=== PATIENT | male | born 1990 ===

== ENCOUNTER → 2021-03-29 09:31 | Outpatient (BNVA) | payer OTHER, SELFPAY | PROVIDERS: PCP Family Medicine; Visit Provider Internal Medicine Pulmonary Disease | DX: G47.30 Sleep apnea, unspecified (principal); E66.9 Obesity, unspecified | CPT/HCPCS: 99202 ==

== ENCOUNTER → 2021-05-03 15:52 | Outpatient (REF) | payer OTHER, SELFPAY | LOC: HO.SL 15:52 | PROVIDERS: PCP Family Medicine; Visit Provider Internal Medicine Pulmonary Disease | DX: G47.30 Sleep apnea, unspecified (principal) | CPT/HCPCS: 95806 ==

== ENCOUNTER → 2021-05-30 15:31 | Outpatient (BNVA) | payer OTHER, SELFPAY | PROVIDERS: PCP Family Medicine; Visit Provider Internal Medicine Pulmonary Disease | DX: G47.30 Sleep apnea, unspecified (principal); E66.9 Obesity, unspecified | CPT/HCPCS: 99212 ==

== ENCOUNTER 2022-02-06 07:31 | Outpatient (REF) | payer OTHER, SELFPAY ==
[2022-02-06 11:21] LABS: MANUAL DIFF FLAG NO
[2022-02-06 11:37] LABS: Basophils Percent Auto 0.7 % (0-2); Eosinophils Absolute Auto 0.1 X10*3/uL (0.0-0.4); Eosinophils Percent Auto 1.5 % (0-4); Hematocrit 43.7 % (42.0-52.0); Hemoglobin 14.3 g/dl (14.0-18.0); Imm Gran Abs Auto 0.13 X10*3/uL (0.00-0.03); Imm Gran Pct Auto 2.1 % (0.0-0.4); Lymphocytes Absolute Auto 1.7 X10*3/uL (1.2-4.9); Lymphocytes Percent Auto 27.3 % (20-40); Mean Corpuscular HGB Conc 32.7 g/dl (31.0-36.0); Mean Corpuscular Hemoglobin 31.2 pg (27.0-33.0); Mean Corpuscular Volume 95.2 fL (80.0-98.0); Mean Platelet Volume 10.2 fL (9.4-12.4); Monocytes Absolute Auto 0.7 X10*3/uL (0.1-1.2); Monocytes Percent Auto 10.8 % (2-11); Neutrophils Absolute Auto 3.5 x10*3/uL (2.0-8.3); Neutrophils Percent Auto 57.6 % (45-73); Platelet Count 285 X10*3/uL (160-400); Red Blood Count 4.59 X10*6/uL (4.60-5.80); Red Cell Distribution Width 12.2 % (11.0-16.0); White Blood Count 6.1 X10*3/uL (4.8-10.8)
[2022-02-06 12:14] LABS: Alanine Aminotransferase 30 U/L (0-40); Albumin Level 4.3 g/dL (3.5-5.0); Alkaline Phosphatase 60 U/L (39-117); Anion Gap 12 (12-20); Aspartate Amino Transferase 22 U/L (5-37); Bilirubin Total 0.8 mg/dL (0.0-1.0); Blood Urea Nitrogen 15 mg/dL (9-16); Calcium 9.7 mg/dL (8.4-10.2); Carbon Dioxide 27 mmol/L (22-29); Chloride 106 mmol/L (96-108); Cholesterol 193 mg/dL; Estimated Glomerular Filt Rate > 60; Glucose Fasting 99 mg/dL (60-99); HDL Cholesterol 34 mg/dL; LDL Cholesterol Calculated 127 mg/dl; Potassium 4.1 mmol/L (3.3-5.1); Sodium 141 mmol/L (135-145); Total Protein 7.4 g/dL (6.5-8.0); Triglycerides 163 mg/dL
[2022-02-06 12:21] LABS: TSH reflex Free T4 3.26 uIU/mL (0.32-4.0)
== END 2022-02-06 07:32 | disposition home or self-care (01) ==
LOC: HO.WFDLDS 07:31
PROVIDERS: Visit Provider Family Medicine
DX: Z00.00 Encounter for general adult medical examination without abnormal findings (principal)
CPT/HCPCS: 36415; 80053; 80061; 84443; 85025

== ENCOUNTER → 2022-03-26 14:46 | Outpatient (BNVA) | payer OTHER, SELFPAY | PROVIDERS: PCP Family Medicine; Visit Provider Internal Medicine Pulmonary Disease | DX: G47.30 Sleep apnea, unspecified (principal); E66.01 Morbid (severe) obesity due to excess calories; Z68.41 Body mass index [BMI] 40.0-44.9, adult; Z99.89 Dependence on other enabling machines and devices | CPT/HCPCS: 99212 ==

== ENCOUNTER 2022-09-18 08:12 | Outpatient (REF) | payer BC, MEDICAID, SELFPAY ==
[2022-09-18 12:08] LABS: Alanine Aminotransferase 30 U/L (0-40); Albumin Level 4.4 g/dL (3.5-5.0); Alkaline Phosphatase 59 U/L (39-117); Anion Gap 14 (12-20); Aspartate Amino Transferase 20 U/L (5-37); Bilirubin Total 0.6 mg/dL (0.0-1.0); Blood Urea Nitrogen 18 mg/dL (9-16); Calcium 9.3 mg/dL (8.4-10.2); Carbon Dioxide 26 mmol/L (22-29); Chloride 104 mmol/L (96-108); Cholesterol 227 mg/dL; Estimated Glomerular Filt Rate > 60; Glucose Random 103 mg/dL (60-115); HDL Cholesterol 31 mg/dL; LDL Cholesterol Calculated 158 mg/dl; Potassium 4.2 mmol/L (3.3-5.1); Sodium 140 mmol/L (135-145); Total Protein 7.3 g/dL (6.5-8.0); Triglycerides 192 mg/dL
== END 2022-09-18 08:13 | disposition home or self-care (01) ==
LOC: HO.WFDLDS 08:12
PROVIDERS: Visit Provider Family Medicine
DX: Z00.00 Encounter for general adult medical examination without abnormal findings (principal); F41.9 Anxiety disorder, unspecified; E78.1 Pure hyperglyceridemia
CPT/HCPCS: 36415; 80053; 80061

== ENCOUNTER 2022-11-22 07:46 | Outpatient (REF) | payer BC, MEDICAID, SELFPAY ==
[2022-11-22 11:55] LABS: Cholesterol 222 mg/dL; HDL Cholesterol 33 mg/dL; LDL Cholesterol Calculated 152 mg/dl; Triglycerides 185 mg/dL
== END 2022-11-22 07:47 | disposition home or self-care (01) ==
LOC: HO.WFDLDS 07:46
PROVIDERS: Visit Provider Family Medicine
DX: Z00.00 Encounter for general adult medical examination without abnormal findings (principal); E78.5 Hyperlipidemia, unspecified
CPT/HCPCS: 36415; 80061

== ENCOUNTER 2023-03-19 07:47 | Outpatient (REF) | payer BC, MEDICAID, SELFPAY ==
[2023-03-19 12:08] LABS: Alanine Aminotransferase 48 U/L (0-40); Albumin Level 4.3 g/dL (3.5-5.0); Alkaline Phosphatase 60 U/L (39-117); Anion Gap 15 (12-20); Aspartate Amino Transferase 25 U/L (5-37); Bilirubin Total 0.9 mg/dL (0.0-1.0); Blood Urea Nitrogen 15 mg/dL (9-16); Calcium 9.7 mg/dL (8.4-10.2); Carbon Dioxide 24 mmol/L (22-29); Chloride 105 mmol/L (96-108); Cholesterol 179 mg/dL; Estimated Glomerular Filt Rate > 60; Glucose Fasting 104 mg/dL (60-99); HDL Cholesterol 35 mg/dL; LDL Cholesterol Calculated 114 mg/dl; Potassium 4.1 mmol/L (3.3-5.1); Sodium 140 mmol/L (135-145); TSH reflex Free T4 2.93 uIU/mL (0.32-4.0); Total Protein 7.5 g/dL (6.5-8.0); Triglycerides 153 mg/dL
== END 2023-03-19 07:48 | disposition home or self-care (01) ==
LOC: HO.WFDLDS 07:47
PROVIDERS: Visit Provider Family Medicine
DX: Z00.00 Encounter for general adult medical examination without abnormal findings (principal)
CPT/HCPCS: 36415; 80053; 80061; 84443

== ENCOUNTER 2023-03-22 16:40 | Outpatient (AMB) | payer BC, MEDICAID, SELFPAY ==
--- NOTE | 2023-03-22 16:36 | A.OFFPC_ITS ---
Intake Visit Reasons: f/u labs Intake Note: Patient is calling to follow up on labs today. Allergies No Known Allergies [No Known Allergies*] Allergy (Verified 03/22/23 16:37) Tobacco use date assessed: 03/22/23 Dental Screening Dental Screen Date: 03/22/23 Did you have a dental visit in the last 12 months?: Yes Did you have a dental problem in the last 6 months where you did not have access to dental care?: No Was dental information given to patient?: No HPI f/u labs HPI Details 32 y/o male presents to f/u labs via telemedicine. Labs were drawn 03/19/23. Reviewed labs with pt. Elevated fasting glucose of 104. Elevated ALT of 48. Triglycerides 153. TC 179. LDL 114. HDL low at 35. He is on artovastatin 10mg daily and he denies any problems with this. He is on omeprazole 20mg daily for his GERD. He notes venlafaxine at a single dose has been helping. [facility] Social History Housing: House Alcohol intake: current Alcohol intake frequency: holidays/special occasions only Patient Tobacco Use Status: Never used Tobacco e-Cigarette/Vaping Use: Never Used Second Hand Smoke Exposure: No Substance Use Type: Marijuana service: No Current occupational status: employed Current occupational exposures/hazards: No Cognitive needs: No Hearing needs: No Vision needs: No Questionnaire Thrive Questionnaire Date Thrive assessed: 11/09/22 PENG-7 AMB Questionnaire PENG-7 Date PENG - 7 assessed: 11/09/22 Source: Developed by Drs. Ladarius Jerry, Марина Hillman, Beck Arellano and colleagues, with an educational carlos from [employer]. Physical exam (Primary Care) Tobacco/Smoking Status: Tobacco use Status Tobacco use date assessed 03/22/23 03/22/23 16:39 Patient Tobacco Use Status Never used Tobacco 03/22/23 16:39 e-Cigarette/Vaping Use Never Used 03/22/23 16:39 Thrive Assessment: Date of Thrive Assessment Date Thrive assessed 11/09/22 03/22/23 16:39 Telehealth Telehealth Location of provider rendering services: practice address Location of patient: address on file Patient Identification confirmed using: Name, : Yes Telehealth method: voice only Patient verbally consented to treatment: Yes Patient verbally consented to billing insurance company: Yes Patient informed of any privacy concerns related to visit: Yes Minutes spent on Phone/Video with Pt.: 8 Assessment and Plan Assessment & Plan (1) Elevated ALT measurement: Code(s): R74.01 - Elevation of levels of liver transaminase levels Plan: Mildly elevated ALT liver enzyme. Patient is significantly overweight and this is likely secondary to some fatty liver disorder However, did start atorvastatin recently. Will repeat liver enzymes. If significantly elevated or if not decreasing with weight loss, would consider switching his statin medication (2) Low HDL (under 40): Code(s): E78.6 - Lipoprotein deficiency Plan: Advised increased exercise (3) Hyperlipidemia: Code(s): E78.5 - Hyperlipidemia, unspecified Plan: Improved Continue atorvastatin (4) GERD (gastroesophageal reflux disease): Code(s): K21.9 - Gastro-esophageal reflux disease without esophagitis Plan: Somewhat improved with omeprazole Continue omeprazole Orders: Orders Comprehensive [place]. Panel Fast Today R74.01 - Elevation of levels of liver transaminase levels, Z00.00 - Encounter for general adult medical examination without abnormal findings Lipid Panel Today E78.5 - Hyperlipidemia, unspecified, Z00.00 - Encounter for general adult medical examination without abnormal findings Coding Level of Care Code Tele Est Pt Level 2 (17558) Diagnoses Elevated ALT measurement R74.01 Low HDL (under 40) E78.6 Hyperlipidemia E78.5 GERD (gastroesophageal reflux disease) K21.9
== END 2023-03-22 16:50 ==
LOC: HO.HMGFM 16:40
PROVIDERS: PCP Family Medicine; Visit Provider Family Medicine
DX: R74.01 Elevation of levels of liver transaminase levels (principal); E78.6 Lipoprotein deficiency; E78.5 Hyperlipidemia, unspecified; K21.9 Gastro-esophageal reflux disease without esophagitis
CPT/HCPCS: 99441

== ENCOUNTER 2023-08-22 08:26 | Outpatient (AMB) | payer BC, SELFPAY ==
--- NOTE | 2023-08-22 08:18 | MHC.PC.OV ---
Vital Signs 08/22/23 08:31 Height 6 ft Weight 308 lb 4 oz BMI 41.8 BP 116/62 Blood Pressure Location Rt brachial Position Sitting Respiration 13 Pulse 83 Pulse Source Pulse Oximeter Pulse Oximetry (%) 95 Oxygen Delivery Method Room Air Intake Visit Reasons: Discuss Medication Follow Up, PHQ-9 Follow Up Intake Note: Patient is here for a follow up regarding the medication he is taking. Patient reports he did not get his labs done prior to todays visit. Patient reports he has no concerns at this time. 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 No recent labs to review. A1c today 4.8%. Pt has questions about whether his venlafaxine could be causing erectile dysfunction. He notes difficulty maintaining an erection. [facility] Medical History (Updated 08/22/23 @ 09:19 by Tani Rios) No pertinent past medical history Surgical History (Updated 08/22/23 @ 08:[address] CMA) No pertinent past surgical history Family History (Updated 08/22/23 @ 08:[address] CMA) Other Alcohol abuse Social History (Updated 08/22/23 @ 08:[address] CMA) Household Members: Spouse and Children Housing: House Alcohol intake: current Alcohol intake frequency: holidays/special occasions only Patient Tobacco Use Status: Never used Tobacco e-Cigarette/Vaping Use: Never Used Second Hand Smoke Exposure: No Substance Use Type: Marijuana service: No Current occupational status: employed Current occupational exposures/hazards: No Sexual orientation: Unable to collect Gender identity: Unable to collect Cognitive needs: No Hearing needs: No Vision needs: No Questionnaire PHQ-9 Over the last 2 weeks, how often have you been bothered by any of the following problems? 1. Little interest or pleasure in doing things: several days 2. Feeling down, depressed, or hopeless: several days 3. Trouble falling or staying asleep, or sleeping too much: nearly every day 4. Feeling tired or having little energy: more than half the days 5. Poor appetite or overeating: several days 6. Feeling bad about yourself - or that you are a failure or have let yourself or your family down: several days 7. Trouble concentrating on things, such as reading the newspaper or watching television: not at all 8. Moving or speaking so slowly that other people could have noticed. Or the opposite - being so fidgety or restless that you have been moving around a lot more than usual: not at all 9. Thoughts that you would be better off or of hurting yourself in some way: not at all Total score: 9 Depression Screening Interpretation: Positive Depression Screening Done: Yes 74605 - PHQ-9 Billing: Yes Source: Developed by Drs. Ladarius Jerry, Марина Hillman, Beck Arellano and colleagues, with an educational carlos from [email or web address]. Thrive Questionnaire Date Thrive assessed: 11/09/22 PENG-7 AMB Questionnaire PENG-7 Date PENG - 7 assessed: 08/22/23 Feeling nervous, anxious, or on edge: 1 = Several days Not being able to stop or control worryin = Several days Worrying too much about different things: 1 = Several days Trouble relaxin = Several days Being so restless that it is hard to sit still: 0 = Not at all Becoming easily annoyed or irritable: 2 = More than half the days Feeling afraid as if something awful might happen: 1 = Several days Total PENG-7 score (0-4 normal; 5-9 mild; 10-14 moderate; 15-21 severe): 7 Source: Developed by Drs. Ladarius Jerry, Марина Hillman, Beck Arellano and colleagues, with an educational carlos from [email or web address]. PENG-7 Assessment Billing PENG-7 Assessment Tool: PENG-7 Assessment 10094 Review of Systems Const Denies chills, Denies fatigue, Denies fever(s), Denies headache(s) and Denies weakness ENT Denies dizziness and Denies headache(s) Card Denies dyspnea Resp Denies cough, Denies dyspnea, Denies wheezing and Denies other (shortness of breath) Musc Denies numbness and Denies tingling Neuro Denies dizziness, Denies headache(s), Denies numbness, Denies tingling and Denies weakness Psych Denies anxiety and Denies depression Endo Denies fatigue Aller/Immun Denies wheezing Physical exam (Primary Care) Vital Signs: Last Vital Signs Pulse 83 08/22/23 08:31 Resp 13 08/22/23 08:31 BP 116/62 08/22/23 08:31 Pulse Ox 95 08/22/23 08:31 Oxygen Delivery Method Room Air 08/22/23 08:31 BMI result Body Mass Index 41.8 Tobacco/Smoking Status: Tobacco use Status Tobacco use date assessed 08/22/23 08/22/23 08:42 Patient Tobacco Use Status Never used Tobacco 08/22/23 08:39 e-Cigarette/Vaping Use Never Used 08/22/23 08:39 PHQ-9: PHQ-9 Score PHQ-9: Total score 9 08/22/23 09:13 Depression Screening Interpretation: Positive Thrive Assessment: Date of Thrive Assessment Date Thrive assessed 11/09/22 08/22/23 08:19 Const General: well developed; No acute distress Nutritional Appearance: well nourished Orientation/consciousness: patient oriented x3 HENMT Head: Yes normocephalic and Yes atraumatic Eyes General: appearance normal, both eyes and all related structures Pupils: Equal, round and reactive pupils present EOM: EOMs intact bilaterally Resp Effort & Inspection: normal respiratory effort Neuro General: patient oriented x3 and gait normal Cranial nerves: Yes Equal, round and reactive pupils present Psych Affect: normal affect Results AMB Hemoglobin A1c AMB Hemoglobin A1c 4.8 % Last Edit by Na Street CMA on 08/22/23 09:12 Results Reviewed Results Reviewed: Laboratory Last Values Hgb A1c (Clinic) 4.8 % (4.0-6.0) 08/22/23 09:10 Assessment and Plan Assessment & Plan (1) Elevated fasting blood sugar: Code(s): R73.01 - Impaired fasting glucose Plan: A1c?4.8%.??Normal?range We?can?monitor?his?fasting?blood?sugars?periodically (2) Elevated ALT measurement: Code(s): R74.01 - Elevation of levels of liver transaminase levels Plan: Has?not?had?his?blood?rechecked?bow?have?this?drawn?today (3) Erectile dysfunction: Code(s): N52.9 - Male erectile dysfunction, unspecified Plan: Complaints?of?difficulty?maintaining?an?erection Check?testosterone He?notes?that?he?thinks?that?venlafaxine?may?be?contributing?to?this.??Wants?to?continue?venlafaxine?however?as?it?is?keeping?his?depression?and?anxiety?more?stable. (4) Depression with anxiety: Code(s): F41.8 - Other specified anxiety disorders Plan: Stable?on?venlafaxine Continue?current?medication?for?now. (5) Hyperlipidemia: Code(s): E78.5 - Hyperlipidemia, unspecified Plan: Taking?atorvastatin Has?not?had?his?lipids?drawn?yet?for?today's?follow-up.??He?will?get?them?drawn?today?and?we?can?follow-up?in?a?few?weeks (6) Hyperlipidemia: Code(s): E78.5 - Hyperlipidemia, unspecified Orders: Orders TSH reflex Free T4 Today Z00.00 - Encounter for general adult medical examination without abnormal findings AMB Hemoglobin A1c Today Z13.9 - Encounter for screening, unspecified Testosterone, Free/Total Today N52.9 - Male erectile dysfunction, unspecified Coding Level of Care Code Est Pt Level 4 (26876) Diagnoses Elevated fasting blood sugar R73.01 Elevated ALT measurement R74.01 Erectile dysfunction N52.9 Depression with anxiety F41.8 Hyperlipidemia E78.5 Additional Codes PENG-7 Assessment Billing - PENG-7 Assessment Tool: PENG-7 Assessment 79049 ([id number])
[2023-08-22 08:31] VITALS: BP 116/62; PULSE 83; RESP 13; O2SAT 95; BMI 41.8
== END 2023-08-22 09:22 | disposition home or self-care (01) ==
PROVIDERS: PCP Family Medicine; Visit Provider Family Medicine
DX: R73.01 Impaired fasting glucose (principal); R74.01 Elevation of levels of liver transaminase levels; N52.9 Male erectile dysfunction, unspecified; F41.8 Other specified anxiety disorders; E78.5 Hyperlipidemia, unspecified
CPT/HCPCS: 83036; 96127; 99214

== ENCOUNTER 2023-08-22 09:23 | Outpatient (REF) | payer BC, MEDICAID, SELFPAY ==
[2023-08-22 12:17] LABS: Alanine Aminotransferase 34 U/L (0-40); Albumin Level 4.5 g/dL (3.5-5.0); Alkaline Phosphatase 59 U/L (39-117); Anion Gap 10 (12-20); Aspartate Amino Transferase 24 U/L (5-37); Bilirubin Total 0.8 mg/dL (0.0-1.0); Blood Urea Nitrogen 18 mg/dL (9-16); Calcium 9.4 mg/dL (8.4-10.2); Carbon Dioxide 28 mmol/L (22-29); Chloride 104 mmol/L (96-108); Cholesterol 186 mg/dL (<200); Estimated Glomerular Filt Rate > 60; Glucose Fasting 92 mg/dL (60-99); HDL Cholesterol 35 mg/dL (>40); LDL Cholesterol Calculated 127 mg/dL (<100); Potassium 4.1 mmol/L (3.3-5.1); Sodium 138 mmol/L (135-145); Total Protein 7.9 g/dL (6.5-8.0); Triglycerides 120 mg/dL (<150)
[2023-08-22 12:34] LABS: TSH reflex Free T4 1.92 uIU/mL (0.32-4.0)
[2023-08-28 14:23] LABS: Testosterone, Free 64.2 pg/mL (35.0-155.0); Testosterone, Total 331 ng/dL (250-1100)
== END 2023-08-22 09:24 | disposition home or self-care (01) ==
LOC: HO.WFDLDS 09:23
PROVIDERS: Visit Provider Family Medicine
DX: Z00.00 Encounter for general adult medical examination without abnormal findings (principal); E78.5 Hyperlipidemia, unspecified; R74.01 Elevation of levels of liver transaminase levels; N52.9 Male erectile dysfunction, unspecified; E78.6 Lipoprotein deficiency
CPT/HCPCS: 36415; 80053; 80061; 84402; 84403; 84443

== ENCOUNTER 2024-02-11 09:43 | Outpatient (AMB) | payer BC, SELFPAY ==
[2024-02-11 09:52] VITALS: BP 118/70; PULSE 73; O2SAT 95; BMI 41.8
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
== END 2024-02-11 10:39 | disposition home or self-care (01) ==
PROVIDERS: PCP Family Medicine; Visit Provider Family Medicine
DX: E78.5 Hyperlipidemia, unspecified (principal); E78.6 Lipoprotein deficiency; R74.01 Elevation of levels of liver transaminase levels; N52.9 Male erectile dysfunction, unspecified; T23.002A Burn of unspecified degree of left hand, unspecified site, initial encounter
CPT/HCPCS: 99214

== ENCOUNTER 2024-04-23 09:31 | Outpatient (AMB) | payer BC, SELFPAY ==
--- NOTE | 2024-04-23 09:34 | A.OFFPC_ITS ---
Vital Signs 04/23/24 09:36 Height 6 ft Weight 306 lb 2 oz BMI 41.5 BP 116/62 Blood Pressure Location Lt brachial Position Sitting Respiration 16 Pulse 81 Pulse Source Pulse Oximeter Temp 98.5 F Temp Source Oral Pulse Oximetry (%) 94 Oxygen Delivery Method Room Air Intake Visit Reasons: CPE with f/u labs and health maint. Intake Note: Physical Allergies No Known Allergies [No Known Allergies*] Allergy (Verified 04/23/24 09:35) Medication List - Last Reconciled 04/23/24 by Natalie Lechuga PA-C albuterol sulfate 90 mcg/actuation (ProAir HFA) 2 puffs inhalation Q4-6H PRN 30 days atorvastatin 20 mg PO BEDTIME 90 days sildenafil 100 mg PO DAILY PRN 30 days silver sulfadiazine 1% (Silvadene) 1 appl topical BID 10 days venlafaxine ER 150 mg PO DAILY 90 days Tobacco use date assessed: 02/11/24 Dental Screening Dental Screen Date: 02/11/24 HPI CPE with f/u labs and health maint. HPI Details Patient is a 33-year-old male with a significant past medical history of hyperlipidemia, KIMBERLI on CPAP, anxiety, depression, erectile dysfunction presenting today for a physical. He normally follows with Dr. Patterson. He has no acute concerns but would like some referrals. CV: Blood pressure today in the office is 116/62. He had his Lipitor increased at the last visit to 20 mg. He was supposed to get his labs checked prior to today's visit. He states that he forgot to do this. Endo: Denies any polyuria or polydipsia. Last a1c was 4.8. Psych: He is doing well with the venlafaxine. Urology: He wants a referral to urology for a vasectomy. He has 1 [address] Baby boy is due 07/03/24. GI: He has a hx of a hemorrhoid that has bothered him since 2008. He has creams, wipes, suppositories. He gets regular flare ups and wants this removed. Has discussed with pcp in past. COUNT INCLUDES [facility] Medical History No pertinent past medical history Surgical History No pertinent past surgical history Family History Other Alcohol abuse Social History Household Members: Spouse and Children Housing: House Alcohol intake: current Alcohol intake frequency: holidays/special occasions only Patient Tobacco Use Status: Never used Tobacco e-Cigarette/Vaping Use: Never Used Second Hand Smoke Exposure: No Substance Use Type: Marijuana service: No Current occupational status: employed Current occupational exposures/hazards: No Sexual orientation: Unable to collect Gender identity: Unable to collect Cognitive needs: No Hearing needs: No Vision needs: No Questionnaire Thrive Questionnaire Date Thrive assessed: 02/11/24 PENG-7 AMB Questionnaire PENG-7 Date PENG - 7 assessed: 02/11/24 Source: Developed by Drs. Ladarius Jerry, Марина Hillman, Beck Arellano and colleagues, with an educational carlos from [employer]. Physical exam (Primary Care) Vital Signs: Last Vital Signs Temp 98.5 F 04/23/24 09:36 Pulse 81 04/23/24 09:36 Resp 16 04/23/24 09:36 BP 116/62 04/23/24 09:36 Pulse Ox 94 04/23/24 09:36 Oxygen Delivery Method Room Air 04/23/24 09:36 BMI result Body Mass Index 41.5 Tobacco/Smoking Status: Tobacco use Status Tobacco use date assessed 02/11/24 04/23/24 09:34 Patient Tobacco Use Status Never used Tobacco 04/23/24 09:34 e-Cigarette/Vaping Use Never Used 04/23/24 09:34 Thrive Assessment: Date of Thrive Assessment Date Thrive assessed 02/11/24 04/23/24 09:34 Const Orientation/consciousness: patient oriented x3 HENMT Ears: hearing grossly normal bilaterally and TM's normal bilaterally General nose exam: No nasal polyps present Face and sinus: Yes sinuses nontender Mouth: Normal oral and palatal mucosa present Eyes Pupils: Equal, round and reactive pupils present EOM: EOMs intact bilaterally Neck Neck: Yes full ROM and Yes no lymphadenopathy Thyroid: Thyroid normal Chest Chest palpation & inspection: normal inspection of the chest Resp Auscultation: clear to auscultation bilaterally Cardio Rate: regular rate Rhythm: regular rhythm Heart sounds: S1 normal heart sound present and S2 normal heart sound present Peripheral pulses: Peripheral pulses 2+ throughout GI Other: Soft, nontender Auscultation: normal bowel sounds Rectal Exam - Male: Yes deferred (declined exam) Other: No inguinal lymphadenopathy, no masses noted General: Yes no CVA tenderness Back/Spine/Pelvis Other: Nontender Back: no CVA tenderness Skin General skin exam: no rashes or lesions noted Neuro General: patient oriented x3, gait normal, CN's II-XI intact bilaterally and deep tendon reflexes 2+ bilaterally Cranial nerves: Yes Equal, round and reactive pupils present Motor exam (neuro): 5/5 motor strength present throughout Sensory Exam: double simultaneous stimulation for sensation normal Coordination: [id number]-uy-[id number] test normal and Romberg test negative Extrem General: Yes normal to inspection and Yes full ROM Psych Affect: normal affect Attitude: cooperative Thought process: Normal thought process present Thought content: Normal thought content present Insight: Good insight present (Psych) Judgement: Good judgement present (Psych) Results Reviewed Results Reviewed: Laboratory Tests 08/22/23 08/22/23 09:10 09:25 Creatinine 1.10 Estimated GFR > 60 Fasting Glucose 92 Hgb A1c (Clinic) 4.8 AST 24 ALT 34 Alkaline Phosphatase 59 Triglycerides 120 Cholesterol 186 LDL Cholesterol, Calc 127 H HDL Cholesterol 35 L TSH 1.92 Assessment and Plan Assessment & Plan (1) Routine general medical examination at a health care facility: Code(s): Z00.00 - Encounter for general adult medical examination without abnormal findings Plan: HM reviewed advised to get labs done referral to colorectal surgery referral to urology for vasectomy (2) Hemorrhoids: Code(s): K64.9 - Unspecified hemorrhoids Qualifiers: Hemorrhoid type: unspecified Qualified Code(s): K64.9 - Unspecified hemorrhoids Plan: referral placed (3) Depression with anxiety: Code(s): F41.8 - Other specified anxiety disorders Plan: continue venlafaxine (4) Morbid obesity with BMI of 40.0-44.9, adult: Code(s): E66.01 - Morbid (severe) obesity due to excess calories; Z68.41 - Body mass index [BMI] 40.0-44.9, adult Plan: discussed reducing carbs, sugar, processed foods and increase exercise (5) Hyperlipidemia: Code(s): E78.5 - Hyperlipidemia, unspecified Plan: tolerating increased dosage of lipitor. no myaglias advised to recheck lipids and lfts Orders: Referrals 2 Urology Referral Z30.09 - Encounter for other general counseling and advice on contraception Colon & Rectal Referral K64.9 - Unspecified hemorrhoids Coding Level of Care Code Est Pt Prev Care 18-39y(96656) Diagnoses Routine general medical examination at a health care facility Z00.00 Hemorrhoids, unspecified hemorrhoid type K64.9 Hemorrhoid type: unspecified Depression with anxiety F41.8 Morbid obesity with BMI of 40.0-44.9, adult E66.01; Z68.41 Hyperlipidemia E78.5
[2024-04-23 09:36] VITALS: BP 116/62; PULSE 81; RESP 16; TEMP 36.9; O2SAT 94; BMI 41.5
== END 2024-04-23 10:00 | disposition home or self-care (01) ==
PROVIDERS: PCP Family Medicine; Visit Provider Physician Assistant
DX: Z00.00 Encounter for general adult medical examination without abnormal findings (principal); E66.01 Morbid (severe) obesity due to excess calories; Z68.41 Body mass index [BMI] 40.0-44.9, adult; K64.9 Unspecified hemorrhoids; F41.8 Other specified anxiety disorders; E78.5 Hyperlipidemia, unspecified
CPT/HCPCS: 99395

== ENCOUNTER 2024-04-23 10:09 | Outpatient (REF) | payer BC, SELFPAY ==
[2024-04-23 11:11] LABS: MANUAL DIFF FLAG NO
[2024-04-23 11:30] LABS: Basophils Percent Auto 0.7 % (0-2); Eosinophils Absolute Auto 0.1 X10*3/uL (0.0-0.4); Eosinophils Percent Auto 1.4 % (0-4); Hematocrit 44.8 % (42.0-52.0); Hemoglobin 14.9 g/dl (14.0-18.0); Imm Gran Abs Auto 0.07 X10*3/uL (0.00-0.03); Imm Gran Pct Auto 1.3 % (0.0-0.4); Lymphocytes Absolute Auto 1.2 X10*3/uL (1.2-4.9); Mean Corpuscular HGB Conc 33.3 g/dl (31.0-36.0); Mean Corpuscular Hemoglobin 31.3 pg (27.0-33.0); Mean Corpuscular Volume 94.1 fL (80.0-98.0); Monocytes Absolute Auto 0.4 X10*3/uL (0.1-1.2); Monocytes Percent Auto 7.9 % (2-11); Neutrophils Absolute Auto 3.8 x10*3/uL (2.0-8.3); Neutrophils Percent Auto 67.7 % (45-73); Platelet Count 281 X10*3/uL (160-400); Red Blood Count 4.76 X10*6/uL (4.60-5.80); White Blood Count 5.6 X10*3/uL (4.8-10.8)
[2024-04-23 12:01] LABS: Alanine Aminotransferase 38 U/L (0-40); Albumin Level 4.3 g/dL (3.5-5.0); Alkaline Phosphatase 56 U/L (39-117); Anion Gap 10 (12-20); Aspartate Amino Transferase 29 U/L (5-37); Bilirubin Total 0.9 mg/dL (0.0-1.0); Blood Urea Nitrogen 14 mg/dL (9-16); Calcium 8.8 mg/dL (8.4-10.2); Carbon Dioxide 27 mmol/L (22-29); Chloride 107 mmol/L (96-108); Cholesterol 166 mg/dL (<200); Estimated Glomerular Filt Rate > 60; Glucose Fasting 93 mg/dL (60-99); HDL Cholesterol 34 mg/dL (>40); LDL Cholesterol Calculated 104 mg/dL (<100); Potassium 4.1 mmol/L (3.3-5.1); Sodium 140 mmol/L (135-145); Total Protein 7.5 g/dL (6.5-8.0); Triglycerides 140 mg/dL (<150)
[2024-04-23 12:21] LABS: TSH reflex Free T4 0.98 uIU/mL (0.32-4.0)
[2024-04-23 14:06] LABS: Appearance Urine Turbid; Color Urine Dark Yellow; Glucose Urine UA Negative (Negative); Leukocyte Esterase Urine Negative (Negative); Nitrite Urine Negative (Negative); Specific Gravity - Urine 1.025 (1.005-1.025); Urine Blood Negative (Negative); Urine Ketones Negative (Negative); Urine Protein Trace mg/dL (Neg-Trace)
[2024-04-23 15:05] LABS: Creatinine Urine 286.23 mg/dL; Microalbum/Creatinine Ratio Ur 4.8 ug/mg cr (<30)
== END 2024-04-23 10:10 | disposition home or self-care (01) ==
LOC: HO.WFDLDS 10:09
PROVIDERS: Visit Provider Family Medicine
DX: Z00.00 Encounter for general adult medical examination without abnormal findings (principal); E78.6 Lipoprotein deficiency; I10 Essential (primary) hypertension
CPT/HCPCS: 36415; 80053; 80061; 81003; 82043; 82570; 84443; 85025

== ENCOUNTER 2024-05-14 10:46 | Outpatient (AMB) | payer BC, SELFPAY ==
[2024-05-14 10:47] VITALS: BMI 41.5
--- NOTE | 2024-05-14 10:47 | MHC.OFFVIS ---
Vital Signs 05/14/24 10:47 Height 6 ft Weight 306 lb 2.001 oz BMI 41.5 Intake Visit Reasons: Hemorrhoids Intake Note: This patient presents for Hemorrhoids assessment. Pt c/o; reports no complaints. 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 He says that he has had hemorrhoids since he was in high school. He says that he has to lift weights that time as he played football. He describes seeing blood with BMs over the years. However for the past few years, he feels that this has been worsening. Often times he would see a lot of blood on the toilet bowl. He sometimes, he would see blood in his pants as well after bowel movements. He describes occasional discomfort and swelling with this hemorrhoids. [facility] Medical History Bleeding hemorrhoids No pertinent past medical history Surgical History No pertinent past surgical history Family History Other Alcohol abuse Social History Household Members: Spouse and Children Housing: House Alcohol intake: current Alcohol intake frequency: holidays/special occasions only Patient Tobacco Use Status: Never used Tobacco e-Cigarette/Vaping Use: Never Used Second Hand Smoke Exposure: No Substance Use Type: Marijuana service: No Current occupational status: employed Current occupational exposures/hazards: No Sexual orientation: Unable to collect Gender identity: Unable to collect Cognitive needs: No Hearing needs: No Vision needs: No Review of Systems Const Denies chills and Denies fever(s) Card Denies chest pain, Denies dyspnea and Denies dyspnea on exertion Resp Denies cough, Denies dyspnea and Denies dyspnea on exertion GI Reports hematochezia and Denies change in bowel habits Denies hematuria and Denies difficulty urinating Musc Denies back pain and Denies limited range of motion Neuro Denies focal weakness and Denies convulsions Psych Denies depression and Denies mood swings Physical Exam Const Other: Appears overweight General: comfortable and no acute distress Orientation/consciousness: patient oriented x3 Neck Neck: Yes no lymphadenopathy Resp Auscultation: clear to auscultation bilaterally Cardio Rhythm: regular rhythm GI Other: Large external hemorrhoid posteriorly and smaller hemorrhoids on the left and the right side Palpation (GI): Soft to palpation, nontender and no guarding Neuro General: patient oriented x3 Office Procedures Anoscopy He was in stas-knife position. The anoscope was gently inserted. A full examination of the anal canal was done. He was noted to have bulky hemorrhoidal column posteriorly, mix of internal external, smaller hemorrhoidal columns on the left and right side, no other lesions, no fissure, no ulceration, no induration on digital exam. No blood on the exam finger [id number] Assessment & Plan Assessment & Plan (1) Bleeding hemorrhoids: Code(s): K64.9 - Unspecified hemorrhoids Category: Medical Plan: He has a bulky hemorrhoidal column posteriorly, a mix of internal external. He describes worsening bleeding over the years. He says that often times, this goes through his pants. He wants to proceed with hemorrhoidectomy. I explained the technique of the procedure. I reviewed the risks including but not limited to bleeding, infections, postop pain, sphincter injury, poor healing, as well as the benefits and alternatives. I also explained to him what to expect postoperatively He understands and wants to proceed. Coding Level of Care Code New Pt Level 3 (75010) Diagnoses Bleeding hemorrhoids K64.9 CPT Codes Details - CPT: 19653-Hpnwctol ([id number])
== END 2024-05-14 11:08 | disposition home or self-care (01) ==
PROVIDERS: PCP Family Medicine; Visit Provider Surgery
DX: K64.9 Unspecified hemorrhoids (principal)
CPT/HCPCS: 46600; 99203

== ENCOUNTER → 2024-05-14 10:46 | Outpatient (BNVA) | payer BC, SELFPAY | PROVIDERS: PCP Family Medicine; Visit Provider Surgery | DX: K64.8 Other hemorrhoids (principal); K64.4 Residual hemorrhoidal skin tags | CPT/HCPCS: 46600 ==

== ENCOUNTER 2024-06-05 11:59 | Day surgery (SDC) | payer BC, SELFPAY ==
[2024-06-03 13:23] VITALS: BMI 41.5
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
[2024-06-05] VITALS (13 sets, daily range): BP systolic 103–145; BP diastolic 42–91; PULSE 81–104; RESP 12–20; TEMP 36.4–36.9; O2SAT 94–98; BMI 41.5
[2024-06-05] MEDS: Lactated Ringers 1,000 ML 100 ML IVCONT (12:40)
--- NOTE | 2024-06-05 13:12 | MHC.SHP ---
Pre-Procedural Eval Section A - 24 Hr Update-Section A only Date of Service: 06/05/24 Section B - Complete if H&P > 30 days Chief Complaint: Unspecified hemorrhoids Details of Present Illness: Has had bleeding hemorrhoids Relevant Social History: None Present Medications: see Short Stay Collaborative assessment Medical History: Significant History (Hyperlipidemia, depression anxiety, sleep apnea, obesity) History of Previous Operations: No relevant previous surgery Allergies: Allergies Allergy/AdvReac Type Severity Reaction Status Date / Time No Known Allergies Allergy Verified 05/14/24 10:48 [No Known Allergies*] Review of Systems Sugical H&P ROS: Negative: Constitution, Cardiovascular, Respiratory, Neurological, Psychiatric, Hem-Onc, Allergic/Immunologic, Genitourinary, Musculoskeletal, Integumentary, Endocrine and Eyes/Ears/Nose/Throat and Yes, Specify: Gastrointestinal (Bleeding hemorrhoids) Exam Surgical H&P Exam: Normal: Heart, Normal: Lungs and Normal: Abdomen Exam Comment: Large external hemorrhoids Plan Diagnosis/Plan: Unchanged I have reviewed the history and physical and performed a pertinent physical examination on my patient. No changes have occurred unless specified. Time Spent With Patient Time: Total time managing care of this patient today ____ minutes.
--- NOTE | 2024-06-05 15:25 | W.PM.OPN ---
Operative Note Operative Note Date of Service: 06/05/24 Narrative: Preop diagnosis: Bleeding hemorrhoids Postop diagnosis: same, internal and external hemorrhoids Procedure: Exam under anesthesia hemorrhoidectomy x2 Surgeon: Kenneth Sequeira MD The patient is a 33-year-old male who was referred to me for bleeding hemorrhoids. He therefore wanted to proceed with hemorrhoidectomy. He understood the technique of the planned procedure as was the risks, benefits, alternatives. He was brought to the operating room placed in prone stas-knife under general anesthesia via endotracheal tube. The buttocks were retracted with wide tape laterally. The perianal area was prepped and draped in the usual sterile fashion. A surgical time-out was done. The patient received Cefotan 2 g IV preoperatively Examination of the anal orifice revealed large external hemorrhoids on the left and right side. I inserted the Solange Coley retractor. I examined the anal canal circumferentially. These hemorrhoidal columns were seen and were noted to be a mix of internal external hemorrhoids. I therefore applied a xrkwmx-hw-ggwwx stitch at the pedicle of the hemorrhoidal column on the left using a chromic 3-0. I made an incision around this hemorrhoidal column to the perianal skin with a blade 15. I excised this hemorrhoidal column above the plane of the sphincters with scissors this incision. I closed the incision with a running chromic 3-0 stitch. Multiple hemostatic xuqxez-bx-vwznx sutures were placed The same procedure was duplicated on the right hemorrhoidal column. Again a hpjqhn-xw-airop stitch was placed. I made an incision around this column to the perianal skin and excise this above the plane of the sphincters with scissors. I closed this incision with a running chromic 3-0 stitch We had to apply additional hemostatic sutures for oozing areas Once hemostasis was confirmed, I applied a rolled Gelfoam for additional hemostasis There was note of a small external hemorrhoid on the right posterior which left in place because of the amount of tissue that we already had excised I infiltrated the perianal area with Marcaine 0.5% for postop analgesia. He tolerated the procedure well. There were no immediate complications. Initial final counts of sponges and instruments were correct. Estimated blood loss was about 30 cc. The patient was extubated without difficulty and transferred to the recovery room with stable vital signs .
[2024-06-05] MEDS: fentaNYL citrate/PF 100 MCG/2 ML VIAL 50 MCG IVPUSH ×6 (15:43→16:38)
[2024-06-05] MEDS: Acetaminophen 325 MG TABLET 650 MG PO (15:52)
[2024-06-05] MEDS: oxyCODONE HCl Immed Release 5 MG TABLET PO (15:53)
[2024-06-05] MEDS: Ketorolac Tromethamine 30 MG/ML VIAL IVPUSH (16:13)
== END 2024-06-05 17:30 | disposition home or self-care (01) ==
PROVIDERS: PCP Family Medicine; Visit Provider Surgery
PROC: (CPT 46260; principal; 2024-06-05 14:30)
DX: K64.8 Other hemorrhoids (principal); K64.4 Residual hemorrhoidal skin tags; E78.5 Hyperlipidemia, unspecified; K21.9 Gastro-esophageal reflux disease without esophagitis; F41.8 Other specified anxiety disorders; G47.30 Sleep apnea, unspecified; Z79.02 Long term (current) use of antithrombotics/antiplatelets; Z79.899 Other long term (current) drug therapy
CPT/HCPCS: 46260; 88304; J0330; J1100; J1885; J2250; J2405; J2704; J2795; J3010

== ENCOUNTER → 2024-06-05 11:59 | Outpatient (BNV) | payer BC, SELFPAY | PROVIDERS: PCP Family Medicine; Visit Provider Surgery | DX: K64.8 Other hemorrhoids (principal) | CPT/HCPCS: 46260 ==

== ENCOUNTER 2024-06-18 10:26 | Outpatient (AMB) | payer BC, SELFPAY ==
--- NOTE | 2024-06-18 10:39 | A.OFFVIS_ITS ---
Intake Visit Reasons: S/P EUA, hemorrhoidectomy Intake Note: This patient presents for post-op assessment status post EUA hemorrhoidectomy x2 columns. Pt c/o; no concerns. Healing well. No longer taking rx pain meds. FMLA forms provided. 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 He tolerated procedure well. He says he is doing well currently. He did describe some pain and a little bit of discharge. PENDING SALE TO [facility] Medical History Sleep apnea GERD (gastroesophageal reflux disease) Anxiety with depression Hyperlipidemia Bleeding hemorrhoids Surgical History History of hemorrhoidectomy (~06/05/24) Hx of tonsillectomy Family History Other Alcohol abuse Social History Household Members: Spouse and Children Housing: House Alcohol intake: current Alcohol intake frequency: does not drink Patient Tobacco Use Status: Never used Tobacco e-Cigarette/Vaping Use: Never Used Second Hand Smoke Exposure: No Substance Use Type: Marijuana service: No Current occupational status: employed Current occupational exposures/hazards: No Sexual orientation: Unable to collect Gender identity: Unable to collect Cognitive needs: No Hearing needs: No Vision needs: No Review of Systems Const Denies chills and Denies fever(s) Resp Denies cough GI Denies hematochezia Physical Exam Const Other: Sitting down comfortably General: comfortable and no acute distress Resp Effort & Inspection: normal respiratory effort GI Other: Rectal exam shows the hemorrhoidectomy sites to be healing well, no induration, no obvious discharge at this time, did not appear infected Assessment & Plan Assessment & Plan (1) Bleeding hemorrhoids: Code(s): K64.9 - Unspecified hemorrhoids Category: Medical Plan: Status post hemorrhoidectomy. He is doing well postoperatively. His hemorrhoidectomy sites are both healing well. There is no evidence of infection. I advised him to continue doing hot Sitz baths for now. I will see him for another wound check in about a month. His path report shows hemorrhoidal tissue. Coding Level of Care Code Global (22778) Diagnoses Bleeding hemorrhoids K64.9
== END 2024-06-18 10:54 | disposition home or self-care (01) ==
PROVIDERS: PCP Family Medicine; Visit Provider Surgery
DX: K64.9 Unspecified hemorrhoids (principal)
CPT/HCPCS: 99024

== ENCOUNTER → 2024-06-18 10:26 | Outpatient (BNVA) | payer BC, SELFPAY | PROVIDERS: PCP Family Medicine; Visit Provider Surgery ==

== ENCOUNTER 2024-07-20 14:06 | Outpatient (AMB) | payer BC, SELFPAY ==
[2024-07-20 14:06] VITALS: BMI 43.4
--- NOTE | 2024-07-20 14:06 | MHC.OFFVIS ---
Vital Signs 07/20/24 14:06 Height 5 ft 11 in Weight 311 lb BMI 43.4 Intake Visit Reasons: one month s/p hemorrhoidectomy Intake Note: This patient presents for one month follow-up assessment status post hemorrhoidectomy. Pt c/o; reports no complaints at this time. Environmental Coordinator Required: No Accompanied by: Self / Same As Patient Allergies No Known Allergies [No Known Allergies*] Allergy (Verified 07/20/24 14:11) HPI HPI one month s/p hemorrhoidectomy: Details: He is here for postop visit after hemorrhoidectomy x2 columns last May,. He says he feels well. Denies any complaints. He says that he has good bowel movements. He denies any problems with pain in the anus. [facility] Medical History Sleep apnea GERD (gastroesophageal reflux disease) Anxiety with depression Hyperlipidemia Bleeding hemorrhoids Surgical History History of hemorrhoidectomy (~06/05/24) Hx of tonsillectomy Family History Other Alcohol abuse Social History Household Members: Spouse and Children Housing: House Alcohol intake: current Alcohol intake frequency: does not drink Patient Tobacco Use Status: Never used Tobacco e-Cigarette/Vaping Use: Never Used Second Hand Smoke Exposure: No Substance Use Type: Marijuana service: No Current occupational status: employed Current occupational exposures/hazards: No Sexual orientation: Unable to collect Gender identity: Unable to collect Cognitive needs: No Hearing needs: No Vision needs: No Review of Systems Const Denies chills and Denies fever(s) GI Denies hematochezia Physical Exam Const General: comfortable and no acute distress GI Other: Hemorrhoidectomy sites dry, healing well, no induration, no evidence of infection Assessment & Plan Assessment & Plan (1) Bleeding hemorrhoids: Code(s): K64.9 - Unspecified hemorrhoids Category: Medical Plan: Status post hemorrhoidectomy x2 columns. His hemorrhoidectomy sites continue to heal. There is no discharge or any evidence of infection. He denies any complaints and says he feels well He can therefore follow up with me on a p.r.n. basis. I also instructed him to try to do hot Sitz baths or warm soaks every day. Coding Level of Care Code Global (89254) Diagnoses Bleeding hemorrhoids K64.9
== END 2024-07-20 14:15 | disposition home or self-care (01) ==
PROVIDERS: PCP Family Medicine; Visit Provider Surgery
DX: K64.9 Unspecified hemorrhoids (principal)
CPT/HCPCS: 99024

== ENCOUNTER 2024-10-30 09:20 | Outpatient (AMB) | payer BC, SELFPAY ==
--- NOTE | 2024-10-30 09:25 | MHC.PC.OV ---
Vital Signs 10/30/24 09:30 Height 5 ft 11 in Weight 322 lb BMI 44.9 BP 120/60 Blood Pressure Location Rt brachial Position Sitting Respiration 14 Pulse 73 Pulse Source Pulse Oximeter Temp 98 F Temp Source Oral Pulse Oximetry (%) 94 Oxygen Delivery Method Room Air Intake Visit Reasons: cholesterol, anxiety, referral Intake Note: lab review and anxiety follow up Road Machinery Inspector Required: No Allergies No Known Allergies [No Known Allergies*] Allergy (Verified 10/30/24 09:26) Medication List - Last Reconciled 10/30/24 by Maldonado Patterson MD albuterol sulfate 90 mcg/actuation (ProAir HFA) 2 puffs inhalation Q4-6H PRN 30 days atorvastatin 20 mg PO BEDTIME 90 days docusate sodium (Colace) 100 mg PO BID ibuprofen 600 mg PO Q6H PRN sildenafil 100 mg PO DAILY PRN 30 days silver sulfadiazine 1% (Silvadene) 1 appl topical BID 10 days venlafaxine ER 150 mg PO DAILY 90 days Tobacco use date assessed: 02/11/24 Dental Screening Dental Screen Date: 02/11/24 HPI cholesterol, anxiety, referral HPI Details 34 y/o male presents today to f/u hypercholesterolemia, anxiety. Last set of labs drawn 04/23/24. Reviewed labs with pt. Triglycerides 140. TC 166. LDL 104. HDL low at 34. TSH 0.98. PHQ-9 7, PENG-7 5 today. HPI Comments History of Present Illness Details Documentation assistance for Maldonado Patterson MD, was provided by Tani Rios,? Windshield Wiper Repairer on 10/30/2024 at 9:39 AM EST. Cox, Dr. Patterson, have read, observed, and verified documentation. ?? PFSH Medical History Sleep apnea GERD (gastroesophageal reflux disease) Anxiety with depression Hyperlipidemia Bleeding hemorrhoids Surgical History History of hemorrhoidectomy (~06/05/24) Hx of tonsillectomy Family History Other Alcohol abuse Social History Household Members: Spouse and Children Housing: House Alcohol intake: current Alcohol intake frequency: does not drink Patient Tobacco Use Status: Never used Tobacco e-Cigarette/Vaping Use: Never Used Second Hand Smoke Exposure: No Substance Use Type: Marijuana service: No Current occupational status: employed Current occupational exposures/hazards: No Sexual orientation: Unable to collect Gender identity: Unable to collect Cognitive needs: No Hearing needs: No Vision needs: No Questionnaire PHQ-9 Over the last 2 weeks, how often have you been bothered by any of the following problems? 1. Little interest or pleasure in doing things: several days 2. Feeling down, depressed, or hopeless: several days 3. Trouble falling or staying asleep, or sleeping too much: not at all 4. Feeling tired or having little energy: more than half the days 5. Poor appetite or overeating: more than half the days 6. Feeling bad about yourself - or that you are a failure or have let yourself or your family down: several days 7. Trouble concentrating on things, such as reading the newspaper or watching television: not at all 8. Moving or speaking so slowly that other people could have noticed. Or the opposite - being so fidgety or restless that you have been moving around a lot more than usual: not at all 9. Thoughts that you would be better off or of hurting yourself in some way: not at all Total score: 7 Depression Screening Interpretation: Positive Depression Screening Done: Yes 11300 - PHQ-9 Billing: Yes Source: Developed by Drs. Ladarius Jerry, Марина Hillman, Beck Arellano and colleagues, with an educational carlos from [employer]. Thrive Questionnaire Date Thrive assessed: 10/30/24 I am a: Patient What is your living situation today?: I have a steady place to live Within the past 12 months, did the food you bought not last and you didn't have the money to get more?: Never true Within the past 12 months, did you worry whether your food would run out before you got money to buy more?: Never true Do you have trouble paying for medicines?: No Do you have trouble getting transportation to medical appointments?: No Do you have trouble paying your heating and electricity bill?: No Do you have trouble taking care of your child, family member or friend?: No Do you have trouble with day-to-day activities such as bathing, preparing meals, shopping, managing finances, etc.?: No Are you currently unemployed and looking for a job?: No Are you interested in more education?: Yes Please select the resources that you would like help with: None Currently or been in a relationship where the following occur: No concerns reported THRIVE Score: 0 AUDIT C Alcohol Use Questionnaire (AUDIT-C) 1. How often do you have a drink containing alcohol?: Monthly or less 2. How many drinks containing alcohol do you have on a typical day when you are drinking?: 1 or 2 3. How often do you have six or more drinks on one occasion?: Never Total Score: 1 PENG-7 AMB Questionnaire PENG-7 Date PENG - 7 assessed: 10/30/24 Feeling nervous, anxious, or on edge: 2 = More than half the days Not being able to stop or control worryin = Not at all Worrying too much about different things: 1 = Several days Trouble relaxin = Not at all Being so restless that it is hard to sit still: 0 = Not at all Becoming easily annoyed or irritable: 2 = More than half the days Feeling afraid as if something awful might happen: 0 = Not at all Total PENG-7 score (0-4 normal; 5-9 mild; 10-14 moderate; 15-21 severe): 5 Source: Developed by Drs. Ladarius Jerry, Марина Hillman, Beck Arellano and colleagues, with an educational carlos from [employer]. PENG-7 Assessment Billing PENG-7 Assessment Tool: PENG-7 Assessment 99353 Review of Systems Const Denies chills, Denies fatigue, Denies fever(s), Denies headache(s) and Denies weakness ENT Denies dizziness and Denies headache(s) Card Denies dyspnea Resp Denies cough, Denies dyspnea, Denies wheezing and Denies other (shortness of breath) Musc Denies numbness and Denies tingling Neuro Denies dizziness, Denies headache(s), Denies numbness, Denies tingling and Denies weakness Psych Reports anxiety and Reports depression Endo Denies fatigue Aller/Immun Denies wheezing Physical exam (Primary Care) Vital Signs: Last Vital Signs Temp 98 F 10/30/24 09:30 Pulse 73 10/30/24 09:30 Resp 14 10/30/24 09:30 BP 120/60 10/30/24 09:30 Pulse Ox 94 10/30/24 09:30 Oxygen Delivery Method Room Air 10/30/24 09:30 BMI result Body Mass Index 44.9 Tobacco/Smoking Status: Tobacco use Status Tobacco use date assessed 02/11/24 10/30/24 09:33 Patient Tobacco Use Status Never used Tobacco 10/30/24 09:33 e-Cigarette/Vaping Use Never Used 10/30/24 09:33 PHQ-9: PHQ-9 Score PHQ-9: Total score 7 10/30/24 09:48 Depression Screening Interpretation: Positive Thrive Assessment: Date of Thrive Assessment Date Thrive assessed 10/30/24 10/30/24 09:33 Currently or been in a relationship where the following occur: No concerns reported Const General: well developed; No acute distress Nutritional Appearance: well nourished Orientation/consciousness: patient oriented x3 HENMT Head: Yes normocephalic and Yes atraumatic Eyes General: appearance normal, both eyes and all related structures Pupils: Equal, round and reactive pupils present EOM: EOMs intact bilaterally Resp Effort & Inspection: normal respiratory effort Auscultation: clear to auscultation bilaterally Cardio Rate: regular rate Rhythm: regular rhythm Heart sounds: S1 normal heart sound present, S2 normal heart sound present, no gallops, no murmurs and no rubs Neuro General: patient oriented x3 and gait normal Cranial nerves: Yes Equal, round and reactive pupils present Psych Affect: normal affect Coding Level of Care Code Est Pt Level 3 (65727) Diagnoses Hyperlipidemia E78.5 Depression with anxiety F41.8 Additional Codes PENG-7 Assessment Billing - PENG-7 Assessment Tool: PENG-7 Assessment 10579 ([id number]) PHQ-9 - 95518 - PHQ-9 Billing: Yes ([id number]) Assessment & Plan Assessment & Plan (1) Hyperlipidemia: Code(s): E78.5 - Hyperlipidemia, unspecified Category: Medical Plan: LDL?cholesterol?slightly?above?goal?at?last?check.??Goal?is?less?than?100 HDL?is?a?little?too?low.??Encouraged?exercise Continue?atorvastatin Encouraged?diet?and?exercise (2) Depression with anxiety: Code(s): F41.8 - Other specified anxiety disorders Category: Medical Plan: Patient?feels?that?venlafaxine?is?helping.??Still?has?some?low?days. He?says?he?does?not?want?to?change?medication?today. Continue?current?medication?regimen Call?or?return?to?office?with?any?problems Orders: Orders UA and rflx microscopic Today Z00.00 - Encounter for general adult medical examination without abnormal findings Comprehensive [place]. Panel Fast Today Z00.00 - Encounter for general adult medical examination without abnormal findings Lipid Panel Today Z00.00 - Encounter for general adult medical examination without abnormal findings Microalbumin, Random (w Creat) Today I10 - Essential (primary) hypertension TSH reflex Free T4 Today Z00.00 - Encounter for general adult medical examination without abnormal findings
[2024-10-30 09:30] VITALS: BP 120/60; PULSE 73; RESP 14; TEMP 36.6; O2SAT 94; BMI 44.9
--- OUTSIDE RECORDS SUMMARY | 2024-10-30 09:49 | XMS_ITS | Encounter Summary ---
Author Organization [facility] Address [address] [place] [id number] Phone Care Team Providers Care Special Education Professional Name Role Phone Carly Dang MD Primary Care Provider [phone] Encounter Details Date Type Department Care Team (Late st Contact Info) Description 06/28/2011 Documentation EM Family Medicine [address] [place] [address] Family Medicine, Physician [address] [place] [address] Social History Tobacco Use Types Packs/Day Years Used Date Smoking Tobacco: Never Assessed Sex and Gender Information Value Date Recorded Sex Assigned at Not on file Legal Sex Male 3:55 PM EDT Gender Identity Not on file Sexual Orientation Not on file documented as of this encounter Plan of Treatment Not on file documented as of this encounter Visit Diagnoses Not on filedocumented in this encounter Care Teams Special Education Professional Relationship Specialty Start Date End Date Carly Dang MD [address] [place] [address] [place] [address] PCP - General 04/19/17 02/13/23 documented as of this encounter
--- OUTSIDE RECORDS SUMMARY | 2024-10-30 09:49 | XMS_ITS | Clinical Summary ---
Author Organization [facility] Address [address] [place] [id number] Phone Care Team Providers Care Medical Service Technician Name Role Phone Unavailable Primary Care Provider Unavailabl e Social History Tobacco Use Types Packs/Day Years Used Date Smoking Tobacco: Never Assessed Sex and Gender Information Value Date Recorded Sex Assigned at Not on file Legal Sex Male 3:55 PM EDT Gender Identity Not on file Sexual Orientation Not on file Plan of Treatment Health Maintenance Due Date Last Done Comments MMR Vaccines (1 of 1 - Stand elio series) 1991 Varicella Vaccines (1 of 2 - 13+ 2-dose series) 2003 DTaP,Tdap,and Td Vaccines (1 - Tdap) 2008 Hepatitis B Vaccines (1 of 3 - 19+ 3-dose series) 2009 Influenza Vaccines (#1) 2024 COVID-19 Vaccine ( - 2023-2 5 season) 2024 HIB Vaccines Aged Out No longer eligi ble based on patient's age to complete this topic HPV Vaccines Aged Out No longer eligi ble based on patient's age to complete this topic Hepatitis A Vaccines Aged Out No long er eligible based on patient's age to complete this topic IPV Vaccines Aged Out No longer eligi ble based on patient's age to complete this topic Men B Vaccine Aged Out No longer elig ible based on patient's age to complete this topic Meningococcal Vaccine Aged Out No chester morelia eligible based on patient's age to complete this topic Pneumococcal Vaccine Aged Out No long er eligible based on patient's age to complete this topic
== END 2024-10-30 09:57 | disposition home or self-care (01) ==
PROVIDERS: PCP Family Medicine; Visit Provider Family Medicine
DX: E78.5 Hyperlipidemia, unspecified (principal); F41.8 Other specified anxiety disorders

== ENCOUNTER → 2024-10-30 09:20 | Outpatient (BNVA) | payer BC, SELFPAY | PROVIDERS: PCP Family Medicine; Visit Provider Family Medicine | DX: E78.5 Hyperlipidemia, unspecified (principal); F41.8 Other specified anxiety disorders; Z79.899 Other long term (current) drug therapy | CPT/HCPCS: 96127 ==

== ENCOUNTER 2025-01-02 22:59 | Inpatient (IN) | payer BC, SELFPAY ==
--- NOTE | 2025-01-02 | ECG_ITS ---
Test Reason : SOB/CP Blood Pressure : */* mmHG Vent. Rate : 98 BPM Atrial Rate : 98 BPM P-R Int : 162 ms QRS Dur : 106 ms QT Int : 338 ms P-R-T Axes : 25 9 28 degrees QTcB Int : 431 ms Normal sinus rhythm Incomplete right bundle branch block Borderline ECG No previous ECGs available Referred By: Generic ED Physician Electronically Signed By: MARIA INES ORELLANA
--- NOTE | ~2025-01-02 | XR_ITS ---
CLINICAL HISTORY: cp sob 2 view chest x-ray Comparison: None Findings: No consolidation or effusion. Normal size heart. No acute fracture. IMPRESSION: 1. No acute findings. This document has been electronically signed by: Terry Spencer MD on 01/03/2025 00:21:19
--- NOTE | ~2025-01-02 | CT_ITS ---
CLINICAL HISTORY: pleuritic pain, hypoxia CT angiography chest with contrast. 3D Postprocessing. Comparison: Chest radiograph 01/02/2025 Findings: This exam is nondiagnostic to exclude pulmonary embolidue to poor contrast opacification of the pulmonary arteries. The exam is also significantly limited due to respiratory motion artifact and and limited due to patient body habitus. The heart is normal size. Unremarkable thoracic aorta and great vessels. No aneurysm. No acute pulmonary embolus. The visualized thyroid and mediastinum are unremarkable. There are multifocal pulmonary infiltrates and linear subsegmental atelectasis most significant within the lower lobes there is also involvement of the right middle lobe and upper lobes There is hepatomegaly and splenomegaly incompletely included on the field of view. IMPRESSION: The exam is nondiagnostic to exclude pulmonary embolidue to poor contrast opacification of the pulmonary arteries. The exam is also significantly limited due to respiratory motion artifact and and limited due to patient body habitus. Multifocal pulmonary infiltrates and linear subsegmental atelectasis secondary to pneumonia Hepatomegaly and splenomegaly incompletely included on the field of view This document has been electronically signed by: Ladarius Desai MD on 01/03/2025 05:42:59
--- NOTE | ~2025-01-02 | NM_ITS ---
CLINICAL HISTORY: elevated d dimer, CTA could not r o PE NM Lung Perfusion Comparison: None Findings: 4.0 mCi technetium 99m MAA used. No perfusion defects. IMPRESSION: No perfusion defects identified. Low probability. This document has been electronically signed by: Antonio Newman MD on 01/03/2025 11:45:09
[2025-01-02 23:05] VITALS: BP 133/75; PULSE 95; RESP 20; TEMP 37.3; O2SAT 96; BMI 44.1
[2025-01-02 23:31] LABS: MANUAL DIFF FLAG NO
[2025-01-02 23:32] LABS: Basophils Percent Auto 0.5 % (0-2); Eosinophils Absolute Auto 0.1 X10*3/uL (0.0-0.4); Eosinophils Percent Auto 1.3 % (0-4); Hematocrit 37.2 % (42.0-52.0); Hemoglobin 12.9 g/dl (14.0-18.0); Imm Gran Abs Auto 0.11 X10*3/uL (0.00-0.03); Imm Gran Pct Auto 1.8 % (0.0-0.4); Lymphocytes Absolute Auto 1.7 X10*3/uL (1.2-4.9); Lymphocytes Percent Auto 27.6 % (20-40); Mean Corpuscular HGB Conc 34.7 g/dl (31.0-36.0); Mean Corpuscular Hemoglobin 32.3 pg (27.0-33.0); Mean Corpuscular Volume 93.2 fL (80.0-98.0); Mean Platelet Volume 9.6 fL (9.4-12.4); Monocytes Absolute Auto 0.7 X10*3/uL (0.1-1.2); Neutrophils Absolute Auto 3.4 x10*3/uL (2.0-8.3); Neutrophils Percent Auto 56.8 % (45-73); Platelet Count 153 X10*3/uL (160-400); Red Blood Count 3.99 X10*6/uL (4.60-5.80); Red Cell Distribution Width 12.7 % (11.0-16.0); White Blood Count 6.1 X10*3/uL (4.8-10.8)
[2025-01-02 23:48] LABS: Alanine Aminotransferase 119 U/L (0-40); Albumin Level 3.8 g/dL (3.5-5.0); Alkaline Phosphatase 61 U/L (39-117); Anion Gap 13 (12-20); Aspartate Amino Transferase 90 U/L (5-37); Bilirubin Total 0.7 mg/dL (0.0-1.0); Blood Urea Nitrogen 14 mg/dL (9-16); Calcium 8.7 mg/dL (8.4-10.2); Carbon Dioxide 24 mmol/L (22-29); Chloride 106 mmol/L (96-108); Creatinine Clr Calc Pharmacy 160.1; Estimated Glomerular Filt Rate > 60; Glucose Random 114 mg/dL (60-115); Potassium 3.5 mmol/L (3.3-5.1); Sodium 139 mmol/L (135-145); Total Protein 6.7 g/dL (6.5-8.0)
[2025-01-02 23:55] LABS: Troponin-I High Sensitivity 5.4 ng/L (<3.5-35.0)
[2025-01-03] VITALS (14 sets, daily range): BP systolic 92–123; BP diastolic 49–67; PULSE 70–114; RESP 14–30; TEMP 35.9–37.2; O2SAT 89–97
[2025-01-03 00:08] LABS: Influenza A PCR NEGATIVE (Negative); Influenza B PCR NEGATIVE (Negative); Resp Syncy Virus RNA Qual PCR NEGATIVE (Negative); SARS COV2 PCR INHOUSE NEGATIVE (Negative)
[2025-01-03] MEDS: Albuterol Sulfate 7.5 MG, Albuterol/Iprat 2.5/0.5MG 3 ML 3 ML INHALE (03:12)
[2025-01-03] MEDS: Magnesium Sulfate/H2O 2 GM/50 ML PIGGYBACK IV (03:17)
[2025-01-03] MEDS: Morphine Sulfate 4 MG/ML CARTRIDGE IVPUSH (03:18)
[2025-01-03] MEDS: methylPREDNISolone Sod Succ 125 MG/2 ML VIAL IVPUSH (03:18)
[2025-01-03] MEDS: ondansetron HCL 4 MG/2 ML VIAL IVPUSH (03:18)
[2025-01-03 03:25] LABS: D Dimer High Sensitivity 282 NG/ML
--- NOTE | 2025-01-03 03:32 | ED.GENADULT ---
HPI - General Adult General Chief complaint: Dyspnea Stated complaint: neck pain / SOB Time Seen by Provider: 01/03/25 02:45 Source: patient Limitations: no limitations History of Present Illness ED Provider: Millie Nicole PA-C HPI narrative: 34-year-old male with a history of morbid obesity, asthma, hyperlipidemia, GERD, anxiety who presents with viral symptoms x 5 days. Associated fever, body aches, shortness of breath and chest tightness. Patient states he has been using his home inhaler without relief of his symptoms. Related Data Home Medications ?Medication ?Instructions ?Recorded ?Confirmed magnesium 250 mg tablet 250 mg PO DAILY 01/03/25 01/03/25 Previous Rx's ?Medication ?Instructions ?Recorded albuterol sulfate 90 mcg/actuation 2 puff inhalation Q4-6H PRN 02/11/24 aerosol inhaler (ProAir HFA) shortness of breath or wheezing 30 days #8.5 grams atorvastatin 20 mg tablet 20 mg PO BEDTIME 90 days #90 tabs 02/11/24 venlafaxine 150 mg 150 mg PO DAILY 90 days #90 caps 03/18/24 capsule,extended release 24 hr Allergies Allergy/AdvReac Type Severity Reaction Status Date / Time No Known Allergies Allergy Verified 01/02/25 23:09 [No Known Allergies*] Review of Systems Review of Systems: Yes all other systems are reviewed and are negative Constitutional: Constitutional: Denies fatigue, Reports fever(s) and Reports malaise Cardiovascular: Cardiovascular: Reports chest pain and Reports dyspnea Respiratory: Respiratory: Denies cough, Reports dyspnea and Reports wheezing Gastrointestinal: Gastrointestinal: Denies abdominal pain, Denies nausea and Denies vomiting Endocrine: Endocrine: Denies fatigue Allergic/Immunologic: Allergic/Immunologic: Reports wheezing PMFSH Past Medical History Attestation statement: The following information was validated with the patient. Medical History Sleep apnea GERD (gastroesophageal reflux disease) Anxiety with depression Hyperlipidemia Bleeding hemorrhoids Surgical History History of hemorrhoidectomy (~06/05/24) Hx of tonsillectomy Family History Family History Other Alcohol abuse Social History Social History Household Members: Spouse Housing: House Do you presently have visiting nurse or other home services: No Alcohol intake: current Alcohol intake frequency: does not drink Patient Tobacco Use Status: Never used Tobacco Smoked in Last 30 Days: No e-Cigarette/Vaping Use: Never Used Second Hand Smoke Exposure: No Use of substances other than those prescribed or required for medical reasons: No Substance Use Type: Marijuana Currently Displaying Signs/Symptoms of Drug Intoxication Withdrawal: No Have you been hit, kicked, punched, or otherwise hurt by someone within the past year? If so, by whom?: No Do you feel safe in your current relationship?: Yes Is there a partner from a previous relationship who is making you feel unsafe now?: No Are you made to feel afraid or neglected: No Advance Directives: No Do you have a plan to hurt others: No Plan Recently lost weight without trying: No How much weight loss: Not applicable Eating poorly because of decreased appetite: No Nutrition screen score: 0 Nutrition Risks: No Nutritional Risk Poor oral hygiene: No service: No Current occupational status: employed Current occupational exposures/hazards: No Sexual orientation: Unable to collect Gender identity: Unable to collect Cognitive needs: No Hearing needs: No Vision needs: No Physical Exam ED Vital Signs: Vital Signs - 24 hr 01/02/25 23:05 01/03/25 02:26 01/03/25 03:18 Temperature 99.1 F 98.3 F Pulse Rate 95 70 Respiratory Rate 20 18 20 Blood Pressure 133/75 104/55 L Pulse Oximetry 96 96 Oxygen Delivery Method Room Air Room Air Oxygen Flow Rate 01/03/25 03:20 01/03/25 04:29 01/03/25 04:29 Temperature Pulse Rate 75 89 85 Respiratory Rate 18 Blood Pressure 96/49 L Pulse Oximetry 93 89 L 97 Oxygen Delivery Method Room Air Room Air Nasal Cannula Oxygen Flow Rate 2 01/03/25 05:57 01/03/25 06:28 Temperature 98.5 F Pulse Rate 90 85 Respiratory Rate 19 20 Blood Pressure 117/54 L 92/50 L Pulse Oximetry 93 92 Oxygen Delivery Method Nasal Cannula Nasal Cannula Oxygen Flow Rate 3 2 BMI result Body Mass Index 44.1 Const Other: Alert Orientation/consciousness: patient oriented x3 Resp Other: Nonlabored respirations, no wheezing, patient is somewhat splinting with inspiration secondary to chest tightness Cardio Other: Normal peripheral perfusion Skin Other: Warm dry no rash Neuro General: patient oriented x3, gait normal, no focal motor deficits and CN's II-XI intact bilaterally Psych Other: Cooperative Course Reevaluation(s) Reevaluation #1: Dimer elevated adding a CT angio, 2nd troponin flat, we will have to signed out the patient pending imaging and final disposition. Reevaluation #2: Dr. Alexander: The patient was signed out to me by the physician ophthalmic assistant pending the results of a CT pulmonary angiogram. The patient had had a mildly elevated D-dimer of 282. The CT pulmonary angiogram was suboptimally times with regard to the contrast. No large pulmonary emboli were seen. However there are findings consistent with multifocal pneumonia. Since this alternative explanation for the patient is symptoms is present I think we can discount any further consideration of pulmonary embolism. There are no clinical signs of DVT and I do not think the patient is at high risk for DVT. My assumption is that this must be some kind of atypical pneumonia. The patient has a normal white count and differential. Once the finding of multifocal pneumonia was available on CAT scan we obtained blood cultures and initiated antibiotics with ceftriaxone and doxycycline. His lactate was normal. Since he has an ongoing oxygen requirement he will be admitted to the hospitalist service. Time: 07:19 Medications Administered Generic Name Dose Route Start Last Admin Trade Name Freq PRN Reason Stop Dose Admin Acetaminophen 975 mg 01/03/25 06:53 01/03/25 07:16 Acetaminophen 325 Mg Tablet PO 975 mg Q6H PRN Administration Pain, Mild 1-3,fever,headache Enoxaparin Sodium 40 mg 01/03/25 07:00 01/03/25 09:24 Enoxaparin Sodium 40 Mg/0.4 Ml Syringe SUBCUT 40 mg Q24H PATTI Administration Methylprednisolone Sodium Succinate 60 mg 01/03/25 15:00 01/03/25 15:04 Methylprednisolone Sod Succ 125 Mg/2 Ml Vial IVPUSH 60 mg Q12H PATTI Administration Sodium Chloride 3 ml 01/03/25 08:00 01/03/25 15:04 0.9 % Sodium Chloride Flush 3 Ml Syringe IVFLUSH 3 ml QSHIFT PATTI Administration Venlafaxine HCl 150 mg 01/03/25 10:45 01/03/25 11:53 Venlafaxine Hcl Er 150 Mg Cap.Er.24h PO 150 mg DAILY PATTI Administration Discontinued Medications Generic Name Dose Route Start Last Admin Trade Name Sujey PRN Reason Stop Dose Admin Ceftriaxone Sodium 1 gm 01/03/25 05:59 01/03/25 06:23 Ceftriaxone Sodium 1 Gm Vial IVPUSH 01/03/25 06:00 1 gm ONCE ONE Administration Albuterol Sulfate 7.5 mg/ 0 mg 01/03/25 03:03 01/03/25 03:12 Albuterol/Ipratropium 3 ml INHALE 01/03/25 03:04 1 each ONCE ONE Administration Magnesium Sulfate 2 gm in 50 mls @ 25 mls/hr 01/03/25 02:49 01/03/25 03:37 Magnesium Sulfate/H2o IV 01/03/25 04:48 Infused ONCE ONE Infusion Doxycycline Hyclate 100 mg/ 250 mls @ 166.67 mls/hr 01/03/25 05:59 01/03/25 07:53 Sodium Chloride IV 01/03/25 07:28 Infused ONCE ONE Infusion Lactated Ringer's 4,422 mls @ 4,422 mls/hr 01/03/25 06:55 01/03/25 08:16 Lr 30 ml/kg infuse over 1 hr (4422 ml) 01/03/25 07:54 Infused IV Infusion .Q1H ONE Iohexol 65 ml 01/03/25 04:04 01/03/25 04:05 Iohexol 350 Mg/Ml 100 Ml Infus..Btl IV 01/03/25 04:05 65 ml ONCE ONE Administration Methylprednisolone Sodium Succinate 125 mg 01/03/25 02:49 01/03/25 03:18 Methylprednisolone Sod Succ 125 Mg/2 Ml Vial IVPUSH 01/03/25 02:50 125 mg ONCE ONE Administration Morphine Sulfate 4 mg 01/03/25 02:49 01/03/25 03:18 Morphine Sulfate 4 Mg/Ml Cartridge IVPUSH 01/03/25 02:50 4 mg ONCE ONE Administration Protocol Ondansetron HCl 4 mg 01/03/25 03:14 01/03/25 03:18 Ondansetron Hcl 4 Mg/2 Ml Vial IVPUSH 01/03/25 03:15 4 mg ONCE ONE Administration Medical Decision Making Medical Decision Making MDM Narrative: 34-year-old male with a history of morbid obesity, asthma, hyperlipidemia, GERD, anxiety who presents with viral symptoms x 5 days. Associated fever, body aches, shortness of breath and chest tightness. Patient states he has been using his home inhaler without relief of his symptoms. Problem: Asthma, obesity History: Per patient I have considered the following differential diagnoses: Asthma exacerbation, bronchitis, pneumonia, PE, ACS Plan: Patient here with likely exacerbation of his asthma. Screening labs including a chest x-ray and viral panel were obtained. Thus far everything is negative. He is having pleuritic chest discomfort, at rest his oxygen saturation was 90 on room air. After being forced to take deep breaths, his oxygen was 93%. Unclear if his shallow breathing is causing reduced oxygen saturation versus if he truly is hypoxic. Adding on a dimer. ACS was also considered, the patient does have some risk factors for coronary artery disease, EKG and cardiac enzymes were obtained. We will obtain a delta troponin, to note the 1st troponin is within the normal range. We will order an updraft, steroid, magnesium and morphine. I have independently reviewed the following tests: Labs: No leukocytosis, not anemic, no electrolyte abnormality, 1st troponin 5.4, the 2nd 7.6, dimer 282 EKG: Normal sinus rhythm, incomplete right bundle, no ischemic changes, rate 98, QTC 431 Chest x-ray:Findings: No consolidation or effusion. Normal size heart. No acute fracture. IMPRESSION: 1. No acute findings. Lab Data 01/02/25 23:27 01/02/25 23:27 Labs: Lab Results 01/02/25 01/03/25 01/03/25 Range/Units 23:27 03:13 06:13 WBC 6.1 (4.8-10.8) X10*3/uL RBC 3.99 L (4.60-5.80) X10*6/uL Hgb 12.9 L (14.0-18.0) g/dl Hct 37.2 L (42.0-52.0) % MCV 93.2 (80.0-98.0) fL MCH 32.3 (27.0-33.0) pg MCHC 34.7 (31.0-36.0) g/dl RDW 12.7 (11.0-16.0) % Plt Count 153 L D (160-400) X10*3/uL MPV 9.6 (9.4-12.4) fL Immature Gran % (Auto) 1.8 H (0.0-0.4) % Neut % (Auto) 56.8 (45-73) % Lymph % (Auto) 27.6 (20-40) % [place] % (Auto) 12.0 H (2-11) % Eos % (Auto) 1.3 (0-4) % Baso % (Auto) 0.5 (0-2) % Lymph # (Auto) 1.7 (1.2-4.9) X10*3/uL [place] # (Auto) 0.7 (0.1-1.2) X10*3/uL Eos # (Auto) 0.1 (0.0-0.4) X10*3/uL Baso # (Auto) 0.0 (0.0-0.2) X10*3/uL Abs Immat Gran (auto) 0.11 H (0.00-0.03) X10*3/uL Absolute Neuts (auto) 3.4 (2.0-8.3) x10*3/uL Absolute Nucleated RBC 0.000 (0.0-0.012) X10*3/uL Nucleated RBC % (auto) 0.0 (0.0-0.2) /100WBC D-Dimer High Sensitivty 282 NG/ML Sodium 139 (135-145) mmol/L Potassium 3.5 (3.3-5.1) mmol/L Chloride 106 (96-108) mmol/L Carbon Dioxide 24 (22-29) mmol/L Anion Gap 13 (12-20) BUN 14 (9-16) mg/dL Creatinine 0.97 (0.5-1.4) mg/dL Estim Creat Clear Calc 160.1 Estimated GFR > 60 Random Glucose 114 (60-115) mg/dL Lactic Acid 1.9 (0.5-2.0) mmol/L Calcium 8.7 (8.4-10.2) mg/dL Total Bilirubin 0.7 (0.0-1.0) mg/dL AST 90 H (5-37) U/L ALT 119 H (0-40) U/L Alkaline Phosphatase 61 (39-117) U/L Troponin I High Sens 5.4 7.6 (<3.5-35.0) ng/L C-Reactive Protein 4.01 H (< or = 0.50) mg/dL Total Protein 6.7 (6.5-8.0) g/dL Albumin 3.8 (3.5-5.0) g/dL Procalcitonin 0.23 ng/mL Respiratory Panel Mae Adenovirus (Rapid PCR) (Not Detect.) B.pert (TEM-PCR) (Not Detect.) B.parapertussis DNA PCR (Not Detect.) C. pneumoniae DNA (PCR) (Not Detect.) Coronavirus OC43 (PCR) (Not Detect.) Coronavirus HKU1 (PCR) (Not Detect.) Coronavirus 229E (PCR) (Not Detect.) Coronavirus NL63 (PCR) (Not Detect.) Human Metapneumovir PCR (Not Detect.) Influenza A (RT-PCR) (Not Detect.) Influenza A (H1) PCR (Not Detect.) Influ A (H1/09) PCR (Not Detect.) Influenza A (H3) PCR (Not Detect.) Influenza Type A (PCR) NEGATIVE (Negative) Influenza B (RT-PCR) (Not Detect.) Influenza Type B (PCR) NEGATIVE (Negative) M. pneumoniae (PCR) (Not Detect.) Parainfluenza 1 (PCR) (Not Detect.) Parainfluenza 2 (PCR) (Not Detect.) Parainfluenza 3 (PCR) (Not Detect.) Parainfluenza 4 (PCR) (Not Detect.) RSV (PCR) (Not Detect.) RSV RNA Qual (PCR) NEGATIVE (Negative) Entero/Rhino (PCR) (Not Detect.) SARS-CoV-2 RNA (RT-PCR) NEGATIVE (Negative) 01/03/25 Range/Units 06:29 WBC (4.8-10.8) X10*3/uL RBC (4.60-5.80) X10*6/uL Hgb (14.0-18.0) g/dl Hct (42.0-52.0) % MCV (80.0-98.0) fL MCH (27.0-33.0) pg MCHC (31.0-36.0) g/dl RDW (11.0-16.0) % Plt Count (160-400) X10*3/uL MPV (9.4-12.4) fL Immature Gran % (Auto) (0.0-0.4) % Neut % (Auto) (45-73) % Lymph % (Auto) (20-40) % [place] % (Auto) (2-11) % Eos % (Auto) (0-4) % Baso % (Auto) (0-2) % Lymph # (Auto) (1.2-4.9) X10*3/uL [place] # (Auto) (0.1-1.2) X10*3/uL Eos # (Auto) (0.0-0.4) X10*3/uL Baso # (Auto) (0.0-0.2) X10*3/uL Abs Immat Gran (auto) (0.00-0.03) X10*3/uL Absolute Neuts (auto) (2.0-8.3) x10*3/uL Absolute Nucleated RBC (0.0-0.012) X10*3/uL Nucleated RBC % (auto) (0.0-0.2) /100WBC D-Dimer High Sensitivty NG/ML Sodium (135-145) mmol/L Potassium (3.3-5.1) mmol/L Chloride (96-108) mmol/L Carbon Dioxide (22-29) mmol/L Anion Gap (12-20) BUN (9-16) mg/dL Creatinine (0.5-1.4) mg/dL Estim Creat Clear Calc Estimated GFR Random Glucose (60-115) mg/dL Lactic Acid (0.5-2.0) mmol/L Calcium (8.4-10.2) mg/dL Total Bilirubin (0.0-1.0) mg/dL AST (5-37) U/L ALT (0-40) U/L Alkaline Phosphatase (39-117) U/L Troponin I High Sens (<3.5-35.0) ng/L C-Reactive Protein (< or = 0.50) mg/dL Total Protein (6.5-8.0) g/dL Albumin (3.5-5.0) g/dL Procalcitonin ng/mL Respiratory Panel Mae See Note Adenovirus (Rapid PCR) Not Detected (Not Detect.) B.pert (TEM-PCR) Not Detected (Not Detect.) B.parapertussis DNA PCR Not Detected (Not Detect.) C. pneumoniae DNA (PCR) Not Detected (Not Detect.) Coronavirus OC43 (PCR) Not Detected (Not Detect.) Coronavirus HKU1 (PCR) Not Detected (Not Detect.) Coronavirus 229E (PCR) Not Detected (Not Detect.) Coronavirus NL63 (PCR) Not Detected (Not Detect.) Human Metapneumovir PCR Not Detected (Not Detect.) Influenza A (RT-PCR) Not Detected (Not Detect.) Influenza A (H1) PCR Not Detected (Not Detect.) Influ A (H1/09) PCR Not Detected (Not Detect.) Influenza A (H3) PCR Not Detected (Not Detect.) Influenza Type A (PCR) (Negative) Influenza B (RT-PCR) Not Detected (Not Detect.) Influenza Type B (PCR) (Negative) M. pneumoniae (PCR) Not Detected (Not Detect.) Parainfluenza 1 (PCR) Not Detected (Not Detect.) Parainfluenza 2 (PCR) Not Detected (Not Detect.) Parainfluenza 3 (PCR) Not Detected (Not Detect.) Parainfluenza 4 (PCR) Not Detected (Not Detect.) RSV (PCR) Not Detected (Not Detect.) RSV RNA Qual (PCR) (Negative) Entero/Rhino (PCR) Not Detected (Not Detect.) SARS-CoV-2 RNA (RT-PCR) Not Detected (Negative) Discharge Plan Discharge Clinical Impression: Multifocal pneumonia, Atypical pneumonia Patient Disposition: Still a Patient Interventions: Admission Worksheet (ED) Last Done: 01/03/25 10:44 Discharge Date/Time: 01/03/25 12:59
[2025-01-03 03:39] LABS: Troponin-I High Sensitivity 7.6 ng/L (<3.5-35.0)
--- NOTE | 2025-01-03 03:49 | PC.NURSE ---
this rn placed 20G in left ac, upon sticking pt, pt became diaphoretic, and throwing up. Liana dean aware, pt medicated per nov, RT at bedside administering breathing treatment.
[2025-01-03] MEDS: iohexoL 350 MG/ML 100 ML INFUS..BTL 65 ML IV (04:05)
[2025-01-03 06:21] LABS: C Reactive Protein 4.01 mg/dL (< or = 0.50)
[2025-01-03] MEDS: cefTRIAXone sodium 1 GM VIAL IVPUSH (06:23)
[2025-01-03] MEDS: Doxycycline Hyclate 100 MG in 0.9 % Sodium Chloride 250 ML 166.67 MG IV ×2 (06:23→18:04)
--- NOTE | 2025-01-03 06:34 | PC.NURSE ---
pt swabbed at this time, medicated per mar, iv antibiotics running at this time. pt given recliner.
[2025-01-03 06:36] LABS: Lactic Acid 1.9 mmol/L (0.5-2.0)
[2025-01-03 06:37] LABS: Procalcitonin 0.23 ng/mL
--- NOTE | 2025-01-03 06:56 | PM.IMHP ---
History of Present Illness Date of Service: 01/03/25 Attending physician on admission: Justin Land Chief Complaint: SOB, fever, body aches Patient is a 34-year-old male with a past medical history significant for obesity, GERD, HLD, mild intermittent asthma and KIMBERLI on CPAP, who presented to the ED due to fever and body aches for the past week with new onset shortness of breath and chest tightness starting last night. He denies any wheezing or cough. He does complain of some pleuritic chest pain. He has been using his home albuterol without any improvement. Review of Systems Constitutional: Constitutional: Reports body ache(s), Reports fatigue and Reports fever(s) Eyes: Eyes: Denies change in vision and Denies photophobia ENT: Reports nasal congestion, Denies nasal discharge and Denies sore throat Cardiovascular: Cardiovascular: Denies rapid heart rate, Denies leg edema, Denies lightheadedness and Reports dyspnea Respiratory: Respiratory: Reports cough, Reports dyspnea and Denies wheezing Gastrointestinal: Gastrointestinal: Denies diarrhea, Denies nausea and Denies vomiting Genitourinary: Genitourinary: Denies dysuria and Denies urinary urgency Musculoskeletal: Musculoskeletal: Reports myalgias Integumentary/Breasts: Skin/Breast: Denies rash Neurologic: Denies confusion Psychiatric: Psychiatric: Denies confusion Endocrine: Endocrine: Reports fatigue Hematologic/Lymphatic: Hematologic/Lymphatic: Denies easy bleeding and Denies easy bruising Allergic/Immunologic: Allergic/Immunologic: Denies wheezing [facility] Medical History Sleep apnea GERD (gastroesophageal reflux disease) Anxiety with depression Hyperlipidemia Bleeding hemorrhoids Functional capacity: independent ambulation Family History Other Alcohol abuse Surgical History History of hemorrhoidectomy (~06/05/24) Hx of tonsillectomy Social History Household Members: Spouse and Children Housing: House Alcohol intake: current Alcohol intake frequency: does not drink Patient Tobacco Use Status: Never used Tobacco Smoked in Last 30 Days: No e-Cigarette/Vaping Use: Never Used Second Hand Smoke Exposure: No Use of substances other than those prescribed or required for medical reasons: No Substance Use Type: Marijuana Advance Directives: No Do you have a plan to hurt others: No Plan service: No Current occupational status: employed Current occupational exposures/hazards: No Sexual orientation: Unable to collect Gender identity: Unable to collect Cognitive needs: No Hearing needs: No Vision needs: No Narrative: No smoking, alcohol or drug use Meds Allergies Allergy/AdvReac Type Severity Reaction Status Date / Time No Known Allergies Allergy Verified 01/02/25 23:09 [No Known Allergies*] Active Medications: Current Medications Acetaminophen (Acetaminophen 325 Mg Tablet) 975 mg PO Q6H PRN PRN Reason: Pain, Mild 1-3,fever,headache Albuterol/Ipratropium (Albuterol/Iprat 2.5/0.5mg 3 Ml Ampul.Neb) 3 ml INHALE Q4H PRN PRN Reason: Shortness of Breath/Wheezing Benzonatate (Benzonatate 100 Mg Capsule) 100 mg PO TID PRN PRN Reason: Cough Calcium Carbonate (Calcium Carbonate 750 Mg Tab.Chew) 750 mg PO Q4H PRN PRN Reason: Heartburn Enoxaparin Sodium (Enoxaparin Sodium 40 Mg/0.4 Ml Syringe) 40 mg SUBCUT Q24H PATTI Doxycycline Hyclate 100 mg/ (Sodium Chloride) 250 mls @ 166.67 mls/hr IV ONCE ONE Stop: 01/03/25 07:28 Last Admin: 01/03/25 06:23 Dose: 166.67 mls/hr Magnesium Hydroxide (Milk Of Magnesia 30 Ml Oral.Susp) 30 ml PO DAILY PRN PRN Reason: Constipation Melatonin (Melatonin 3 Mg Tablet) 6 mg PO BEDTIME PRN PRN Reason: Insomnia Morphine Sulfate (Morphine Sulfate 4 Mg/Ml Cartridge) 2 mg IVPUSH Q4H PRN; Protocol PRN Reason: Pain, Severe (Pain Scale 7-10) Ondansetron HCl (Ondansetron Hcl 4 Mg/2 Ml Vial) 4 mg IVPUSH Q8H PRN PRN Reason: Nausea and Vomiting Oxycodone HCl (Oxycodone Hcl Immed Release 5 Mg Tablet) 5 mg PO Q6H PRN PRN Reason: Pain, Moderate(Pain Scale 4-6) Sodium Chloride (0.9 % Sodium Chloride Flush 3 Ml Syringe) 3 ml IVFLUSH QSHIFT PATTI Physical Exam Vital Signs and Narrative: Vital Signs: Last Vital Signs Temp 98.5 F 01/03/25 06:28 Pulse 85 01/03/25 06:28 Resp 20 01/03/25 06:28 BP 92/50 L 01/03/25 06:28 Pulse Ox 92 01/03/25 06:28 O2 Del Method Nasal Cannula 01/03/25 06:28 O2 Flow Rate 2 01/03/25 06:28 BMI result Body Mass Index 44.1 General: AOx3, no acute distress, seen with significant other bedside Resp: Crackles lower lung bases, no wheezing, diminished throughout CVS: S1, S2, RRR GI: +BS, NT, no distention Skin: Warm, dry Neuro: Cranial nerves II-XII grossly intact bilaterally. Motor grossly intact bilaterally Extremities: No LE edema Psych: Appropriate affect Const: General: No confusion Orientation/consciousness: No confusion Eyes: Direct Ophthalmoscopy: No photophobia Neuro: General: No confusion Results Labs 01/02/25 23:27 01/02/25 23:27 Labs: Laboratory Results - last 24 hr 01/02/25 01/03/25 01/03/25 23:27 03:13 06:13 MCV 93.2 MCH 32.3 MCHC 34.7 RDW 12.7 Plt Count 153 L D MPV 9.6 Immature Gran % (Auto) 1.8 H Neut % (Auto) 56.8 Lymph % (Auto) 27.6 [place] % (Auto) 12.0 H Eos % (Auto) 1.3 Baso % (Auto) 0.5 Lymph # (Auto) 1.7 [place] # (Auto) 0.7 Eos # (Auto) 0.1 Baso # (Auto) 0.0 Abs Immat Gran (auto) 0.11 H Absolute Neuts (auto) 3.4 Absolute Nucleated RBC 0.000 Nucleated RBC % (auto) 0.0 D-Dimer High Sensitivty 282 Anion Gap 13 Estim Creat Clear Calc 160.1 Estimated GFR > 60 Random Glucose 114 Lactic Acid 1.9 Calcium 8.7 Total Bilirubin 0.7 AST 90 H ALT 119 H Alkaline Phosphatase 61 C-Reactive Protein 4.01 H Total Protein 6.7 Albumin 3.8 Procalcitonin 0.23 Influenza Type A (PCR) NEGATIVE Influenza Type B (PCR) NEGATIVE RSV RNA Qual (PCR) NEGATIVE SARS-CoV-2 RNA (RT-PCR) NEGATIVE Assessment and Plan (1) Acute hypoxic respiratory failure: Status: Acute (2) Multifocal pneumonia: Status: Acute (3) Morbid obesity with BMI of 40.0-44.9, adult: Status: Acute Plan Patient is a 34-year-old male with a past medical history significant for obesity, GERD, HLD, mild intermittent asthma and KIMBERLI on CPAP, who presented to the ED due to fever and body aches for the past week with new onset shortness of breath and chest tightness starting last night. Acute hypoxic respiratory failure secondary to multifocal pneumonia - WBC 6.1, vital stable, no sepsis - CXR negative - chest CTA with multifocal pneumonia. Exam is nondiagnostic to exclude pulmonary emboli due to poor contrast opacification of the pulmonary arteries - d-dimer 282 - COVID/flu/RSV negative - V/Q scan ordered - started on ceftriaxone and doxycycline - 30 cc/kg fluid bolus due to low BP, not sepsis - given Solu-Medrol 125 mg and magnesium in ED, continue solumedrol 60mg BID - DuoNebs as needed - titrate off oxygen as appropriately - follow CBC and BMP Mild intermittent asthma, with acute exacerbation - no wheezing on exam but complaining of chest tightness - solumedrol 60mg BID - DuoNebs as needed GERD - continue home meds HLD - continue home meds KIMBERLI - CPAP at night Obesity - BMI 44.1 - weight loss encouraged Full code VTE prophylaxis: Lovenox Patient with acute hypoxic respiratory failure secondary to multifocal pneumonia and acute asthma exacerbation, requiring admission for at least 2 midnights stay for IV antibiotics, steroids, breathing treatments and monitoring. Quality Stroke Does the patient have a stroke diagnosis?: No VTE Prior VTE?: No VTE Risk Level:: Medical - moderate - high VTE Device Contraindication: Treatment Not Indicated VTE Drug Contraindication: N/A - Med Ordered
[2025-01-03] MEDS: Acetaminophen 325 MG TABLET 975 MG PO ×2 (07:16→18:11)
[2025-01-03] MEDS: LACTATED RINGERS 4422 ML IV (07:16)
--- NOTE | 2025-01-03 08:48 | PC.NURSE ---
Pt desated while sleeping but pt stated he wears CPAP at home. Pt put on oxy mask while sleeping and is now sating well
[2025-01-03] MEDS: Enoxaparin Sodium 40 MG/0.4 ML SYRINGE SUBCUT (09:24)
[2025-01-03 09:48] LABS: Adenovirus PCR Not Detected (Not Detect.); Bordetella parapertussis PCR Not Detected (Not Detect.); Bordetella pertussis PCR Not Detected (Not Detect.); Chlamydia pneumoniae PCR Not Detected (Not Detect.); Coronavirus 229E PCR Not Detected (Not Detect.); Coronavirus HKU1 PCR Not Detected (Not Detect.); Coronavirus NL63 PCR Not Detected (Not Detect.); Coronavirus OC43 PCR Not Detected (Not Detect.); Human metapneumovirus PCR Not Detected (Not Detect.); Influenza A PCR Not Detected (Not Detect.); Influenza B PCR Not Detected (Not Detect.); Mycoplasma pneumoniae PCR Not Detected (Not Detect.); Parainfluenza 1 PCR Not Detected (Not Detect.); Parainfluenza 2 PCR Not Detected (Not Detect.); Parainfluenza 3 PCR Not Detected (Not Detect.); Parainfluenza 4 PCR Not Detected (Not Detect.); RSV PCR Not Detected (Not Detect.); Rhino/Enterovirus PCR Not Detected (Not Detect.)
[2025-01-03 10:07] LABS: SARS-CoV-2 PCR Not Detected (Not Detect.)
[2025-01-03 10:08] LABS: Influenza A H1 PCR Not Detected (Not Detect.); Influenza A H1-2009 PCR Not Detected (Not Detect.); Influenza A H3 PCR Not Detected (Not Detect.)
--- NOTE | 2025-01-03 10:32 | PHA.MEDREC ---
Pharmacy Consult ? Medication Reconciliation Pharmacy has completed the medication reconciliation. spoke to patient
[2025-01-03] MEDS: Venlafaxine HCl ER 150 MG CAP.ER.24H PO (11:53)
--- NOTE | 2025-01-03 13:39 | MHC.CM.PN ---
pt lives with is independent and working has a ride home dc plan home n/s
[2025-01-03] MEDS: methylPREDNISolone Sod Succ 125 MG/2 ML VIAL 60 MG IVPUSH (15:04)
[2025-01-03] MEDS: 0.9 % Sodium Chloride Flush 3 ML SYRINGE IVFLUSH ×2 (15:04→20:57)
[2025-01-03] MEDS: Albuterol/Iprat 2.5/0.5MG 3 ML AMPUL.NEB INHALE (19:51)
[2025-01-03] MEDS: Atorvastatin Calcium 20 MG TABLET PO (20:55)
[2025-01-04 01:06] VITALS: PULSE 102; RESP 18; O2SAT 91
[2025-01-04] MEDS: methylPREDNISolone Sod Succ 125 MG/2 ML VIAL 60 MG IVPUSH ×2 (03:00→14:57)
[2025-01-04] MEDS: Acetaminophen 325 MG TABLET 975 MG PO (03:14)
[2025-01-04 04:00] VITALS: BP 124/64; PULSE 86; RESP 14; TEMP 36.2; O2SAT 93
[2025-01-04] MEDS: cefTRIAXone sodium 1 GM VIAL IVPUSH (05:54)
[2025-01-04] MEDS: Doxycycline Hyclate 100 MG in 0.9 % Sodium Chloride 250 ML 166.67 MG IV ×2 (05:54→17:33)
[2025-01-04 06:04] LABS: MANUAL DIFF FLAG NO
[2025-01-04 06:14] LABS: Basophils Percent Auto 0.2 % (0-2); Eosinophils Percent Auto 0.1 % (0-4); Hematocrit 34.9 % (42.0-52.0); Hemoglobin 11.7 g/dl (14.0-18.0); Imm Gran Abs Auto 0.21 X10*3/uL (0.00-0.03); Imm Gran Pct Auto 2.2 % (0.0-0.4); Lymphocytes Absolute Auto 1.1 X10*3/uL (1.2-4.9); Lymphocytes Percent Auto 11.9 % (20-40); Mean Corpuscular HGB Conc 33.5 g/dl (31.0-36.0); Mean Corpuscular Hemoglobin 32.3 pg (27.0-33.0); Mean Corpuscular Volume 96.4 fL (80.0-98.0); Mean Platelet Volume 9.9 fL (9.4-12.4); Monocytes Absolute Auto 0.5 X10*3/uL (0.1-1.2); Monocytes Percent Auto 5.4 % (2-11); Neutrophils Absolute Auto 7.6 x10*3/uL (2.0-8.3); Neutrophils Percent Auto 80.2 % (45-73); Platelet Count 193 X10*3/uL (160-400); Red Blood Count 3.62 X10*6/uL (4.60-5.80); Red Cell Distribution Width 12.5 % (11.0-16.0); White Blood Count 9.5 X10*3/uL (4.8-10.8)
[2025-01-04 06:18] LABS: Anion Gap 16 (12-20); Blood Urea Nitrogen 13 mg/dL (9-16); Calcium 8.9 mg/dL (8.4-10.2); Carbon Dioxide 23 mmol/L (22-29); Chloride 104 mmol/L (96-108); Creatinine Clr Calc Pharmacy 199.1; Estimated Glomerular Filt Rate > 60; Glucose Random 150 mg/dL (60-115); Potassium 4.1 mmol/L (3.3-5.1); Sodium 139 mmol/L (135-145)
[2025-01-04 07:45] VITALS: BP 116/66; PULSE 90; RESP 16; TEMP 36.2; O2SAT 93
[2025-01-04] MEDS: Magnesium Oxide 400 MG TABLET PO (08:46)
[2025-01-04] MEDS: 0.9 % Sodium Chloride Flush 3 ML SYRINGE IVFLUSH ×3 (08:46→19:23)
[2025-01-04] MEDS: Enoxaparin Sodium 40 MG/0.4 ML SYRINGE SUBCUT (08:46)
[2025-01-04] MEDS: Venlafaxine HCl ER 150 MG CAP.ER.24H PO (08:46)
[2025-01-04] MEDS: Milk of Magnesia 30 ML ORAL.SUSP PO (08:52)
--- NOTE | 2025-01-04 09:22 | P.PNIM_ITS ---
Subjective Subjective Date of Service: 01/04/25 Interval History: f/u on acute hypoxic resp failure d/t asthma exacerbation and pneumonia Physical Exam 2 Vital Signs: Vital Signs: Last Vital Signs Temp 97.2 F 01/04/25 07:45 Pulse 90 01/04/25 07:45 Resp 16 01/04/25 07:45 BP 116/66 01/04/25 07:45 Pulse Ox 93 01/04/25 07:45 O2 Del Method Nasal Cannula 01/04/25 07:45 O2 Flow Rate 3.0 01/04/25 07:45 BMI result Body Mass Index 44.1 Const: Other: General: AO X 3, no acute distress Resp: CTA bilateral CVS: S1,S2,RRR GI: +BS, NT, no distention Skin: No rash Neuro: motor grossly intact Psych: appropriate affect Objective Data Active Medications Acetaminophen (Acetaminophen 325 Mg Tablet) 975 mg PO Q6H PRN PRN Reason: Pain, Mild 1-3,fever,headache Last Admin: 01/04/25 03:14 Dose: 975 mg Documented By: SHARAD Albuterol/Ipratropium (Albuterol/Iprat 2.5/0.5mg 3 Ml Ampul.Neb) 3 ml INHALE Q4H PRN PRN Reason: Shortness of Breath/Wheezing Last Admin: 01/03/25 19:51 Dose: 3 ml Documented By: ALFREDA Atorvastatin Calcium (Atorvastatin Calcium 20 Mg Tablet) 20 mg PO BEDTIME [facility] Last Admin: 01/03/25 20:55 Dose: 20 mg Documented By: SHARAD Benzonatate (Benzonatate 100 Mg Capsule) 100 mg PO TID PRN PRN Reason: Cough Calcium Carbonate (Calcium Carbonate 750 Mg Tab.Chew) 750 mg PO Q4H PRN PRN Reason: Heartburn Ceftriaxone Sodium (Ceftriaxone Sodium 1 Gm Vial) 1 gm IVPUSH Q24H [facility] Last Admin: 01/04/25 05:54 Dose: 1 gm Documented By: SHARAD Enoxaparin Sodium (Enoxaparin Sodium 40 Mg/0.4 Ml Syringe) 40 mg SUBCUT Q24H [facility] Last Admin: 01/04/25 08:46 Dose: 40 mg Documented By: JESSENIA Doxycycline Hyclate 100 mg/ (Sodium Chloride) 250 mls @ 166.67 mls/hr IV Q12H [facility] Last Infusion: 01/04/25 07:30 Dose: Infused Documented By: JESSENIA Magnesium Hydroxide (Milk Of Magnesia 30 Ml Oral.Susp) 30 ml PO DAILY PRN PRN Reason: Constipation Last Admin: 01/04/25 08:52 Dose: 30 ml Documented By: JESSENIA Magnesium Oxide (Magnesium Oxide 400 Mg Tablet) 400 mg PO DAILY [facility] Last Admin: 01/04/25 08:46 Dose: 400 mg Documented By: JESSENIA Melatonin (Melatonin 3 Mg Tablet) 6 mg PO BEDTIME PRN PRN Reason: Insomnia Methylprednisolone Sodium Succinate (Methylprednisolone Sod Succ 125 Mg/2 Ml Vial) 60 mg IVPUSH Q12H [facility] Last Admin: 01/04/25 03:00 Dose: 60 mg Documented By: SHARAD Morphine Sulfate (Morphine Sulfate 4 Mg/Ml Cartridge) 2 mg IVPUSH Q4H PRN; Protocol PRN Reason: Pain, Severe (Pain Scale 7-10) Ondansetron HCl (Ondansetron Hcl 4 Mg/2 Ml Vial) 4 mg IVPUSH Q8H PRN PRN Reason: Nausea and Vomiting Oxycodone HCl (Oxycodone Hcl Immed Release 5 Mg Tablet) 5 mg PO Q6H PRN PRN Reason: Pain, Moderate(Pain Scale 4-6) Sodium Chloride (0.9 % Sodium Chloride Flush 3 Ml Syringe) 3 ml IVFLUSH QSHIFT [facility] Last Admin: 01/04/25 08:46 Dose: 3 ml Documented By: JESSENIA Venlafaxine HCl (Venlafaxine Hcl Er 150 Mg Cap.Er.24h) 150 mg PO DAILY [facility] Last Admin: 01/04/25 08:46 Dose: 150 mg Documented By: JESSENIA Labs 01/04/25 05:48 01/04/25 05:48 Labs: Laboratory Results - last 24 hr 01/03/25 01/04/25 06:29 05:48 MCV 96.4 MCH 32.3 MCHC 33.5 RDW 12.5 Plt Count 193 D MPV 9.9 Immature Gran % (Auto) 2.2 H Neut % (Auto) 80.2 H Lymph % (Auto) 11.9 L [place] % (Auto) 5.4 Eos % (Auto) 0.1 Baso % (Auto) 0.2 Lymph # (Auto) 1.1 L [place] # (Auto) 0.5 Eos # (Auto) 0.0 Baso # (Auto) 0.0 Abs Immat Gran (auto) 0.21 H Absolute Neuts (auto) 7.6 Absolute Nucleated RBC 0.000 Nucleated RBC % (auto) 0.0 Anion Gap 16 Estim Creat Clear Calc 199.1 Estimated GFR > 60 Random Glucose 150 H Calcium 8.9 Respiratory Panel Mae See Note Adenovirus (Rapid PCR) Not Detected B.pert (TEM-PCR) Not Detected B.parapertussis DNA PCR Not Detected C. pneumoniae DNA (PCR) Not Detected Coronavirus OC43 (PCR) Not Detected Coronavirus HKU1 (PCR) Not Detected Coronavirus 229E (PCR) Not Detected Coronavirus NL63 (PCR) Not Detected Human Metapneumovir PCR Not Detected Influenza A (RT-PCR) Not Detected Influenza A (H1) PCR Not Detected Influ A (H1/09) PCR Not Detected Influenza A (H3) PCR Not Detected Influenza B (RT-PCR) Not Detected M. pneumoniae (PCR) Not Detected Parainfluenza 1 (PCR) Not Detected Parainfluenza 2 (PCR) Not Detected Parainfluenza 3 (PCR) Not Detected Parainfluenza 4 (PCR) Not Detected RSV (PCR) Not Detected Entero/Rhino (PCR) Not Detected SARS-CoV-2 RNA (RT-PCR) Not Detected Microbiology Microbiology Results: Microbiology 01/03/25 06:13 Blood Culture - Preliminary Blood - Venous No growth after 24 hours. 01/03/25 06:13 Blood Culture - Preliminary Blood - Venous No growth after 24 hours. Assessment and Plan (1) Multifocal pneumonia: Status: Acute (2) Shortness of breath: Status: Acute (3) Acute hypoxic respiratory failure: Status: Acute (4) Multifocal pneumonia: Status: Acute Plan Patient is a 34-year-old male with a past medical history significant for obesity, GERD, HLD, mild intermittent asthma and KIMBERLI on CPAP, who presented to the ED due to fever and body aches for the past week with new onset shortness of breath and chest tightness starting last night. Acute hypoxic respiratory failure secondary to multifocal pneumonia, persistent hypoxia but better, and overall feelin better continue Ceftriaxone and Doxy started 01/03 monitor clinically pulmonolgy consult if not improving wean off O2 as [place] Mild intermittent asthma, with acute exacerbation, no wheezing anymore continue steroid at 40 bid x 1 more day then change to PO prednsine duoneb as needed GERD PPI HLD Lipitor KIMBERLI CPAP at night Obesity -BMI 44.1 weight loss encouraged Full code VTE prophylaxis: Lovenox inpt for multifocal pna with hypoxia, not yet improved Quality Stroke Does the patient have a stroke diagnosis?: No VTE Prior VTE?: No VTE Risk Level:: Medical - moderate - high VTE Device Contraindication: Treatment Not Indicated VTE Drug Contraindication: N/A - Med Ordered
[2025-01-04 12:00] VITALS: BP 121/68; PULSE 98; RESP 20; TEMP 37.1; O2SAT 92
--- NOTE | 2025-01-04 13:00 | PC.NURSE ---
This RN attempted to titrate pts O2 from 3L to 2L. Patient sustained a sat of 92% for about an hour and then desatted to below 90% and reported feeling short of breath. Was moved back up to 3L
--- NOTE | 2025-01-04 13:52 | MHC.CM.PN ---
Per MD rounds patient not medically cleared for dc. CM will continue to follow.
[2025-01-04 15:34] VITALS: BP 125/58; PULSE 98; RESP 18; TEMP 37; O2SAT 93
[2025-01-04 19:18] VITALS: BP 152/67; PULSE 95; RESP 15; TEMP 36.3; O2SAT 94
[2025-01-04] MEDS: Atorvastatin Calcium 20 MG TABLET PO (19:23)
[2025-01-05] VITALS: BP 133/61; PULSE 92; RESP 18; TEMP 36.2; O2SAT 92
[2025-01-05] MEDS: methylPREDNISolone Sod Succ 125 MG/2 ML VIAL 60 MG IVPUSH (02:48)
[2025-01-05 03:12] VITALS: BP 117/64; PULSE 77; RESP 18; TEMP 36.2; O2SAT 92
[2025-01-05] MEDS: cefTRIAXone sodium 1 GM VIAL IVPUSH (05:00)
[2025-01-05] MEDS: Doxycycline Hyclate 100 MG in 0.9 % Sodium Chloride 250 ML 166.67 MG IV ×2 (05:12→18:04)
--- NOTE | 2025-01-05 05:30 | PC.NURSE ---
This morning pt was able to be titrated down to 2L NC, pt denies SOB/CP, no respiratory distress noted, respirations even and non-labored at this time. SpO2: 92%
[2025-01-05 06:27] LABS: Hematocrit 38.6 % (42.0-52.0); Hemoglobin 13.1 g/dl (14.0-18.0); Mean Corpuscular HGB Conc 33.9 g/dl (31.0-36.0); Mean Corpuscular Hemoglobin 32.2 pg (27.0-33.0); Mean Corpuscular Volume 94.8 fL (80.0-98.0); Mean Platelet Volume 9.6 fL (9.4-12.4); NRBC Pct Auto 0.5 /100WBC (0.0-0.2); Platelet Count 285 X10*3/uL (160-400); Red Blood Count 4.07 X10*6/uL (4.60-5.80); Red Cell Distribution Width 12.6 % (11.0-16.0); White Blood Count 17.1 X10*3/uL (4.8-10.8)
[2025-01-05 06:41] LABS: Anion Gap 13 (12-20); Blood Urea Nitrogen 16 mg/dL (9-16); Calcium 8.9 mg/dL (8.4-10.2); Carbon Dioxide 27 mmol/L (22-29); Chloride 105 mmol/L (96-108); Creatinine Clr Calc Pharmacy 199.1; Estimated Glomerular Filt Rate > 60; Glucose Random 139 mg/dL (60-115); Potassium 4.2 mmol/L (3.3-5.1); Sodium 141 mmol/L (135-145)
[2025-01-05 07:15] LABS: Band Neutrophils Percent 6 % (3-5); Basophils Abs Manual 0.2 X10*3/uL (0.0-0.2); Basophils Percent Manual 1 % (0-2); Lymphocytes Absolute Manual 1.9 X10*3/uL (1.2-4.9); Lymphocytes Percent Manual 11 % (20-40); Metamyelocytes Absolute 0.5 X10*3/uL; Metamyelocytes Percent 3 %; Monocytes Absolute Manual 2.4 X10*3/uL (0.1-1.2); Monocytes Percent Manual 14 % (2-11); Neutrophils Absolute Manual 12.1 X10*3/uL (2.0-8.3); Neutrophils Percent Manual 65 % (45-73)
[2025-01-05 07:16] LABS: Platelet Estimate NORMAL (NORMAL); Platelet Morphology Comment NORMAL; Polychromasia 1+ (0-2) /OIF; RBC Morphology NOTED
[2025-01-05 07:33] VITALS: BP 158/72; PULSE 72; RESP 18; TEMP 36.2; O2SAT 95
[2025-01-05] MEDS: Enoxaparin Sodium 40 MG/0.4 ML SYRINGE SUBCUT (07:33)
[2025-01-05] MEDS: Venlafaxine HCl ER 150 MG CAP.ER.24H PO (07:33)
[2025-01-05] MEDS: Magnesium Oxide 400 MG TABLET PO (07:33)
[2025-01-05] MEDS: 0.9 % Sodium Chloride Flush 3 ML SYRINGE IVFLUSH ×3 (07:34→19:38)
[2025-01-05] MEDS: methylPREDNISolone Sod Succ 125 MG/2 ML VIAL 40 MG IVPUSH ×2 (09:53→20:49)
[2025-01-05] MEDS: Omeprazole 20 MG CAPSULE.DR PO (09:54)
[2025-01-05 11:53] VITALS: BP 157/81; PULSE 86; RESP 18; TEMP 36.6; O2SAT 94
--- NOTE | 2025-01-05 15:30 | P.PNIM_ITS ---
Subjective Subjective Date of Service: 01/05/25 Interval History: pneumonia Review of Systems sob with excersion taper oxygen no fever Review of Systems: Yes all other systems are reviewed and are negative Physical Exam 2 Vital Signs: Vital Signs: Last Vital Signs Temp 97.9 F 01/05/25 11:53 Pulse 86 01/05/25 11:53 Resp 18 01/05/25 11:53 BP 157/81 H 01/05/25 11:53 Pulse Ox 94 01/05/25 11:53 O2 Del Method Room Air 01/05/25 11:53 O2 Flow Rate 2 01/05/25 07:33 BMI result Body Mass Index 44.1 General: AO X 3. Resp:air entry somewhat improving,some diminshed at bases. CVS: S1,S2,RRR GI: +BS, NT, no distention Skin: No rash Neuro: motor grossly intact Psych: appropriate affect Objective Data Active Medications Acetaminophen (Acetaminophen 325 Mg Tablet) 975 mg PO Q6H PRN PRN Reason: Pain, Mild 1-3,fever,headache Last Admin: 01/04/25 03:14 Dose: 975 mg Documented By: SHARAD Albuterol/Ipratropium (Albuterol/Iprat 2.5/0.5mg 3 Ml Ampul.Neb) 3 ml INHALE Q4H PRN PRN Reason: Shortness of Breath/Wheezing Last Admin: 01/03/25 19:51 Dose: 3 ml Documented By: ALFREDA Atorvastatin Calcium (Atorvastatin Calcium 20 Mg Tablet) 20 mg PO BEDTIME [facility] Last Admin: 01/04/25 19:23 Dose: 20 mg Documented By: ANEUDY Benzonatate (Benzonatate 100 Mg Capsule) 100 mg PO TID PRN PRN Reason: Cough Calcium Carbonate (Calcium Carbonate 750 Mg Tab.Chew) 750 mg PO Q4H PRN PRN Reason: Heartburn Ceftriaxone Sodium (Ceftriaxone Sodium 1 Gm Vial) 1 gm IVPUSH Q24H [facility] Last Admin: 01/05/25 05:00 Dose: 1 gm Documented By: ANEUDY Enoxaparin Sodium (Enoxaparin Sodium 40 Mg/0.4 Ml Syringe) 40 mg SUBCUT Q24H [facility] Last Admin: 01/05/25 07:33 Dose: 40 mg Documented By: BLACK Doxycycline Hyclate 100 mg/ (Sodium Chloride) 250 mls @ 166.67 mls/hr IV Q12H [facility] Last Infusion: 01/05/25 07:37 Dose: Infused Documented By: BLACK Magnesium Hydroxide (Milk Of Magnesia 30 Ml Oral.Susp) 30 ml PO DAILY PRN PRN Reason: Constipation Last Admin: 01/04/25 08:52 Dose: 30 ml Documented By: LUCIAME Magnesium Oxide (Magnesium Oxide 400 Mg Tablet) 400 mg PO DAILY [facility] Last Admin: 01/05/25 07:33 Dose: 400 mg Documented By: BLACK Melatonin (Melatonin 3 Mg Tablet) 6 mg PO BEDTIME PRN PRN Reason: Insomnia Methylprednisolone Sodium Succinate (Methylprednisolone Sod Succ 125 Mg/2 Ml Vial) 40 mg IVPUSH Q12H [facility] Last Admin: 01/05/25 09:53 Dose: 40 mg Documented By: BLACK Morphine Sulfate (Morphine Sulfate 4 Mg/Ml Cartridge) 2 mg IVPUSH Q4H PRN; Protocol PRN Reason: Pain, Severe (Pain Scale 7-10) Omeprazole (Omeprazole 20 Mg Capsule.Dr) 20 mg PO DAILY@0630 [facility] Last Admin: 01/05/25 09:54 Dose: 20 mg Documented By: BLACK Ondansetron HCl (Ondansetron Hcl 4 Mg/2 Ml Vial) 4 mg IVPUSH Q8H PRN PRN Reason: Nausea and Vomiting Oxycodone HCl (Oxycodone Hcl Immed Release 5 Mg Tablet) 5 mg PO Q6H PRN PRN Reason: Pain, Moderate(Pain Scale 4-6) Sodium Chloride (0.9 % Sodium Chloride Flush 3 Ml Syringe) 3 ml IVFLUSH QSHIFT [facility] Last Admin: 01/05/25 07:34 Dose: 3 ml Documented By: BLACK Venlafaxine HCl (Venlafaxine Hcl Er 150 Mg Cap.Er.24h) 150 mg PO DAILY [facility] Last Admin: 01/05/25 07:33 Dose: 150 mg Documented By: BLACK Labs 01/05/25 05:48 01/05/25 05:48 Labs: Laboratory Results - last 24 hr 01/05/25 05:48 MCV 94.8 MCH 32.2 MCHC 33.9 RDW 12.6 Plt Count 285 D MPV 9.6 Immature Gran % (Auto) Cancelled Neut % (Auto) Cancelled Lymph % (Auto) Cancelled [place] % (Auto) Cancelled Eos % (Auto) Cancelled Baso % (Auto) Cancelled Lymph # (Auto) Cancelled [place] # (Auto) Cancelled Eos # (Auto) Cancelled Baso # (Auto) Cancelled Abs Immat Gran (auto) Cancelled Absolute Neuts (auto) Cancelled Absolute Nucleated RBC 0.080 H Nucleated RBC % (auto) 0.5 H Neutrophils % (Manual) 65 Band Neutrophils % 6 H Lymphocytes % (Manual) 11 L Monocytes % (Manual) 14 H Basophils % (Manual) 1 Metamyelocytes % 3 Abs Neuts (Manual) 12.1 H Lymphocytes # (Manual) 1.9 Monocytes # (Manual) 2.4 H Basophils # (Manual) 0.2 Metamyelocytes # 0.5 Platelet Estimate NORMAL Plt Morphology Comment NORMAL RBC Morphology NOTED Polychromasia 1+ (0-2) Anion Gap 13 Estim Creat Clear Calc 199.1 Estimated GFR > 60 Random Glucose 139 H Calcium 8.9 Microbiology Microbiology Results: Microbiology 01/03/25 06:13 Blood Culture - Preliminary Blood - Venous No growth after 48 hours. 01/03/25 06:13 Blood Culture - Preliminary Blood - Venous No growth after 48 hours. Assessment and Plan (1) Multifocal pneumonia: Status: Acute (2) Shortness of breath: Status: Acute (3) Acute hypoxic respiratory failure: Status: Acute (4) Multifocal pneumonia: Status: Acute Plan Patient is a 34-year-old male with a past medical history significant for obesity, GERD, HLD, mild intermittent asthma and KIMBERLI on CPAP, who presented to the ED due to fever and body aches for the past week with new onset shortness of breath and chest tightness starting last night. Acute hypoxic respiratory failure secondary to multifocal pneumonia, persistent hypoxia but better, and overall feelin better continue Ceftriaxone and Doxy started 01/03 monitor clinically pulmonolgy consult if not improving wean off O2 as [place] Mild intermittent asthma, with acute exacerbation, no wheezing anymore continue steroid at 40 bid x 1 more day then change to PO prednsine duoneb as needed GERD PPI HLD Lipitor KIMBERLI CPAP at night Obesity -BMI 44.1 weight loss encouraged Full code VTE prophylaxis: Lovenox inpt for multifocal pna with sob-respiratory status is not improving yet ,taper oxygen and moniter . Quality Stroke Does the patient have a stroke diagnosis?: No VTE Prior VTE?: No VTE Risk Level:: Medical - moderate - high VTE Device Contraindication: Treatment Not Indicated VTE Drug Contraindication: N/A - Med Ordered
[2025-01-05 15:57] VITALS: BP 127/71; PULSE 89; RESP 20; TEMP 37.1; O2SAT 93
[2025-01-05 20:00] VITALS: BP 131/69; PULSE 99; RESP 18; TEMP 37.2; O2SAT 94
[2025-01-05] MEDS: Atorvastatin Calcium 20 MG TABLET PO (20:49)
[2025-01-06] VITALS: BP 126/76; PULSE 90; RESP 18; TEMP 36.8; O2SAT 91
[2025-01-06 00:08] VITALS: O2SAT 94
[2025-01-06 04:00] VITALS: BP 124/57; PULSE 77; RESP 18; TEMP 36.4; O2SAT 94
[2025-01-06] MEDS: Omeprazole 20 MG CAPSULE.DR PO (05:52)
[2025-01-06] MEDS: cefTRIAXone sodium 1 GM VIAL IVPUSH (05:52)
[2025-01-06] MEDS: Doxycycline Hyclate 100 MG in 0.9 % Sodium Chloride 250 ML 166.67 MG IV (05:53)
[2025-01-06] MEDS: Venlafaxine HCl ER 150 MG CAP.ER.24H PO (07:20)
[2025-01-06] MEDS: Magnesium Oxide 400 MG TABLET PO (07:20)
[2025-01-06] MEDS: Enoxaparin Sodium 40 MG/0.4 ML SYRINGE SUBCUT (07:21)
[2025-01-06] MEDS: methylPREDNISolone Sod Succ 125 MG/2 ML VIAL 40 MG IVPUSH (07:21)
[2025-01-06] MEDS: 0.9 % Sodium Chloride Flush 3 ML SYRINGE IVFLUSH (07:22)
[2025-01-06 07:50] LABS: Hematocrit 42.2 % (42.0-52.0); Mean Corpuscular HGB Conc 33.2 g/dl (31.0-36.0); Mean Corpuscular Volume 96.3 fL (80.0-98.0); Mean Platelet Volume 9.3 fL (9.4-12.4); NRBC Pct Auto 0.9 /100WBC (0.0-0.2); Platelet Count 330 X10*3/uL (160-400); Red Blood Count 4.38 X10*6/uL (4.60-5.80); Red Cell Distribution Width 12.6 % (11.0-16.0); White Blood Count 21.6 X10*3/uL (4.8-10.8)
[2025-01-06 08:07] VITALS: BP 129/76; PULSE 73; RESP 18; TEMP 36.6; O2SAT 96
[2025-01-06 08:12] LABS: Anion Gap 11 (12-20); Blood Urea Nitrogen 19 mg/dL (9-16); Carbon Dioxide 30 mmol/L (22-29); Chloride 102 mmol/L (96-108); Creatinine Clr Calc Pharmacy 199.1; Estimated Glomerular Filt Rate > 60; Glucose Random 124 mg/dL (60-115); Sodium 139 mmol/L (135-145)
[2025-01-06 08:59] LABS: Band Neutrophils Percent 9 % (3-5); Lymphocytes Absolute Manual 1.9 X10*3/uL (1.2-4.9); Lymphocytes Percent Manual 9 % (20-40); Metamyelocytes Absolute 0.4 X10*3/uL; Metamyelocytes Percent 2 %; Monocytes Absolute Manual 2.2 X10*3/uL (0.1-1.2); Monocytes Percent Manual 10 % (2-11); Myelocytes Absolute 0.6 X10*/uL; Myelocytes Percent 3 %; Neutrophils Absolute Manual 16.4 X10*3/uL (2.0-8.3); Neutrophils Percent Manual 67 % (45-73); Nucleated Red Blood Cells 2 /100WBC (0-0)
[2025-01-06 09:01] LABS: Macrocytosis 1+ (5-14) /OIF; Polychromasia 2+ (3-5) /OIF; RBC Morphology NOTED
[2025-01-06] MEDS: predniSONE 20 MG TABLET 40 MG PO (09:41)
[2025-01-06] MEDS: cefuroxime axetiL 500 MG TABLET PO (09:41)
[2025-01-06] MEDS: Doxycycline Monohydrate 100 MG CAPSULE PO (09:41)
--- NOTE | 2025-01-06 11:02 | MHC.CM.PN ---
Patient medically cleared for dc home self care. Private transport.
--- NOTE | 2025-01-06 11:04 | P.DS_ITS ---
DS: Providers Provider Date of Service: 01/06/25 Date of admission: 01/03/25 07:12 Date of discharge: 01/06/25 Primary care physician: Maldonado Patterson MD Attending physician on discharge: Kira Alejandre Discharging clinician: Kira Alejandre DS: Diagnosis Discharge Diagnosis (1) Multifocal pneumonia: Status: Acute (2) Shortness of breath: Status: Acute (3) Acute hypoxic respiratory failure: Status: Acute DS: Summary Hospital Course Hospital Course: HPI:34-year-old male with a past medical history significant for obesity, GERD, HLD, mild intermittent asthma and KIMBERLI on CPAP, who presented to the ED due to fever and body aches for the past week with new onset shortness of breath and chest tightness starting last night. He denies any wheezing or cough. He does complain of some pleuritic chest pain. He has been using his home albuterol without any improvement. Hospital course: 34-year-old male with a history of obesity, GERD, HLD, mild intermittent asthma, KIMBERLI on CPAP-came to the hospital because of fever body aches and shortness of breath-further workup: Chest CTA showed multifocal pulmonary infiltrate, perfusion scan negative, blood cultures sent: Patient was admitted for pneumonia multifocal, mild intermittent asthma exacerbation and Patient was started on IV antibiotics, cough medication, steroids ,nebs: Patient seems to be improved significantly with the above management, now cough is also improved, no fever, no hypoxia even with walking . Patient has mild leukocytosis probably related to steroids, since now clinically improved significantly patient is eager to go home. Patient will be going home with p.o. prednisone 40 mg q.day for 4 days, Ceftin p.o. 500 b.i.d. and doxycycline 100 mg p.o. b.i.d. for 7 more days. Consider outpatient chest imaging in 3-4 weeks to see resolution of pneumonia. Patient also strongly advised if any new symptoms please go to nearest emergency room. plan: p.o. prednisone 40 mg q.day for 4 days, Ceftin p.o. 500 b.i.d. and doxycycline 100 mg p.o. b.i.d. for 7 more days. Monitor CBC in 1 week Consider outpatient chest imaging in 3-4 weeks to see resolution of pneumonia. Incidental finding on CTA: Hepatomegaly and splenomegaly-currently asymptomatic, consider further workup outpatient with PCP- above is d/w GI and hematology .consider outapatient follow up. Follow-up with PCP outpatient. Above management discussed with the patient in detail length, staff was present during the conversation. Patient understand the management in detail and in agreement with the above plan. Total time spent 40 minute. Time Attestation Total time managing care of this patient today: 40 mintues. Discharge Coordination Time (in mins): 40 min Quality: Safe Use of Opioids Does Pt have an Active Cancer Diagnosis on the Problem List?: No Quality: Stroke Does the patient have a stroke diagnosis?: No Physical Exam Vital Signs: Vital Signs: Last Vital Signs Temp 97.8 F 01/06/25 08:07 Pulse 73 01/06/25 08:07 Resp 18 01/06/25 08:07 BP 129/76 01/06/25 08:07 Pulse Ox 96 01/06/25 08:07 O2 Del Method Nasal Cannula 01/06/25 08:07 O2 Flow Rate 2 01/06/25 08:07 BMI result Body Mass Index 44.1 General: AO X 3. Resp:air entry fair , no rales or wheezing CVS: S1,S2,RRR GI: +BS, NT, no distention Skin: No rash Neuro: motor grossly intact Psych: appropriate affect DS: Data Data Completed and Pending Labs on day of discharge: Laboratory Results - last 24 hr 01/06/25 07:32 WBC 21.6 H RBC 4.38 L Hgb 14.0 Hct 42.2 MCV 96.3 MCH 32.0 MCHC 33.2 RDW 12.6 Plt Count 330 MPV 9.3 L Immature Gran % (Auto) Cancelled Neut % (Auto) Cancelled Lymph % (Auto) Cancelled [place] % (Auto) Cancelled Eos % (Auto) Cancelled Baso % (Auto) Cancelled Lymph # (Auto) Cancelled [place] # (Auto) Cancelled Eos # (Auto) Cancelled Baso # (Auto) Cancelled Abs Immat Gran (auto) Cancelled Absolute Neuts (auto) Cancelled Absolute Nucleated RBC 0.200 H Nucleated RBC % (auto) 0.9 H Neutrophils % (Manual) 67 Band Neutrophils % 9 H Lymphocytes % (Manual) 9 L Monocytes % (Manual) 10 Metamyelocytes % 2 Myelocytes % 3 Abs Neuts (Manual) 16.4 H Lymphocytes # (Manual) 1.9 Monocytes # (Manual) 2.2 H Metamyelocytes # 0.4 Myelocytes # 0.6 Nucleated RBCs 2 H RBC Morphology NOTED Polychromasia 2+ (3-5) Macrocytosis 1+ (5-14) Sodium 139 Potassium 4.0 Chloride 102 Carbon Dioxide 30 H Anion Gap 11 L BUN 19 H Creatinine 0.78 Estim Creat Clear Calc 199.1 Estimated GFR > 60 Random Glucose 124 H Calcium 9.0 Preliminary micro results at discharge 01/03/25 06:13 Blood Culture - Preliminary Blood - Venous No growth after 48 hours. 01/03/25 06:13 Blood Culture - Preliminary Blood - Venous No growth after 48 hours. Imaging Chest x-ray: My impression: cta: IMPRESSION: The exam is nondiagnostic to exclude pulmonary embolidue to poor contrast opacification of the pulmonary arteries. The exam is also significantly limited due to respiratory motion artifact and and limited due to patient body habitus. Multifocal pulmonary infiltrates and linear subsegmental atelectasis secondary to pneumonia Hepatomegaly and splenomegaly incompletely included on the field of view Discharge Plan Discharge Anticipated Discharge Date/Time: 01/06/25 10:53 Patient Disposition: Home, Self-Care Discharge Diagnosis: multifocal pneumonia Referrals: Key Burns MD [Physician] - 2 Weeks Maldonado Patterson MD [Primary Care Provider] - 1 Week Buddy Martin MD [Physician] - 2 Weeks Discharge Medications: New prednisone 20 mg Tablet 40 mg PO DAILY Qty: 8 0RF doxycycline monohydrate 100 mg Capsule 100 mg PO Q12H Qty: 14 0RF cefuroxime axetil 500 mg Tablet 500 mg PO Q12H Qty: 14 0RF benzonatate 100 mg Capsule 100 mg PO TID PRN (Reason: Cough) Qty: 20 0RF Continued venlafaxine 150 mg capsule,extended release 24hr 150 mg PO DAILY 90 Days Qty: 90 3RF magnesium 250 mg Tablet 250 mg PO DAILY atorvastatin 20 mg tablet 20 mg PO BEDTIME 90 Days Qty: 90 2RF albuterol sulfate [ProAir HFA] 90 mcg/actuation HFA aerosol inhaler 2 puff inhalation Q4-6H PRN (Reason: shortness of breath or wheezing) 30 Days Qty: 8.5 4RF Discharge Orders: Discharge Order (Routine); Ordered 01/06/25 Ordered By: Kira Alejandre Diet: Advance to usual diet Activity on Discharge: As tolerated Stand Alone Forms: Patient Portal Discharge page Print Language: German Other Ambulatory Orders: Complete Blood Count no Diff (Routine) Timeframe: 1 Week Facility: [facility] - Location: Laboratory Ordered By: Kira Alejandre Liver Panel (Routine) Timeframe: 1 Week Facility: [facility] - Location: Laboratory Ordered By: Kira Alejandre Care Plan Goals: 34-year-old male with a history of obesity, GERD, HLD, mild intermittent asthma, KIMBERLI on CPAP-came to the hospital because of fever body aches and shortness of breath-further workup: Chest CTA showed multifocal pulmonary infiltrate, perfusion scan negative, blood cultures sent: Patient was admitted for pneumonia multifocal, mild intermittent asthma exacerbation and Patient was started on IV antibiotics, cough medication, steroids ,nebs: Patient seems to be improved significantly with the above management, now cough is also improved, no fever, no hypoxia even with walking . Patient has mild leukocytosis probably related to steroids, since now clinically improved significantly patient is eager to go home. Patient will be going home with p.o. prednisone 40 mg q.day for 4 days, Ceftin p.o. 500 b.i.d. and doxycycline 100 mg p.o. b.i.d. for 7 more days. Consider outpatient chest imaging in 3-4 weeks to see resolution of pneumonia. Patient also strongly advised if any new symptoms please go to nearest emergency room. Health Concerns: moniter cbc in 1 week. p.o. prednisone 40 mg q.day for 4 days, Ceftin p.o. 500 b.i.d. and doxycycline 100 mg p.o. b.i.d. for 7 more days. Mild elevated liver enzymes-no abdominal pain or any abdominal symptoms-patient need to monitor LFT outpatient with PCP and further workup outpatient. Incidental finding on CTA: Hepatomegaly and splenomegaly-currently asymptomatic, consider further workup outpatient with PCP- above is d/w GI and hematology .cosnider outapatient follow up. Consider outpatient chest imaging in 3-4 weeks to see resolution of pneumonia. Follow-up with PCP outpatient. Plan of Treatment: As above. Assessment: As above. Patient Instructions: Pneumonia (DC) Discharge Date/Time: 01/06/25 13:53
[2025-01-06 11:40] LABS: Platelet Estimate NORMAL (NORMAL); Platelet Morphology Comment NORMAL
[2025-01-06 13:58] VITALS: BP 131/73; PULSE 78; RESP 18; TEMP 36.8; O2SAT 99
== END 2025-01-06 13:53 | disposition home or self-care (01) | DRG 139 ==
LOC: HO.ED 01-03 03:45 → HO.EDOVER 01-03 07:31 → HO.S3 01-03 12:20
PROVIDERS: Physician Assistant Medical; Admitting Provider Physician Assistant; Emergency Provider Emergency Medicine; PCP Family Medicine; Visit Provider Internal Medicine
DX: J18.9 Pneumonia, unspecified organism (principal); J96.01 Acute respiratory failure with hypoxia; J45.21 Mild intermittent asthma with (acute) exacerbation; E78.5 Hyperlipidemia, unspecified; G47.33 Obstructive sleep apnea (adult) (pediatric); K21.9 Gastro-esophageal reflux disease without esophagitis; E66.01 Morbid (severe) obesity due to excess calories; Z68.41 Body mass index [BMI] 40.0-44.9, adult; Z71.3 Dietary counseling and surveillance; Z20.822 Contact with and (suspected) exposure to COVID-19; Z79.899 Other long term (current) drug therapy
CPT/HCPCS: 0241U; 36415; 71046; 71275; 78580; 80048; 80053; 83605; 84145; 84484; 85007; 85025; 85027; 85379; 86140; 87040; 87633; 93005; 94640; 94660; 99285; A9540; J0696; J1271; J1650; J2270; J2405; J2919; J3475; J7120; Q9967

== ENCOUNTER → 2025-01-02 23:17 | Outpatient (BNV) | payer BC, SELFPAY | PROVIDERS: Admitting Provider Physician Assistant; Emergency Provider Emergency Medicine; PCP Family Medicine; Visit Provider Internal Medicine | DX: I45.10 Unspecified right bundle-branch block (principal) | CPT/HCPCS: 93010 ==

== ENCOUNTER → 2025-01-02 23:30 | Outpatient (BNV) | payer BC, SELFPAY | PROVIDERS: PCP Family Medicine; Visit Provider Radiology Diagnostic Radiology | DX: R07.9 Chest pain, unspecified (principal); R06.02 Shortness of breath | CPT/HCPCS: 71046 ==

== ENCOUNTER → 2025-01-03 03:43 | Outpatient (BNV) | payer BC, SELFPAY | PROVIDERS: Emergency Provider Emergency Medicine; PCP Family Medicine; Visit Provider Radiology Diagnostic Radiology | DX: R91.8 Other nonspecific abnormal finding of lung field (principal); R16.2 Hepatomegaly with splenomegaly, not elsewhere classified; R79.89 Other specified abnormal findings of blood chemistry | CPT/HCPCS: 71275; 78580 ==

== ENCOUNTER → 2025-01-03 07:12 | Outpatient (BNV) | payer BC, SELFPAY | PROVIDERS: Admitting Provider Physician Assistant; Emergency Provider Emergency Medicine; PCP Family Medicine; Visit Provider Physician Assistant | DX: J96.01 Acute respiratory failure with hypoxia (principal); J18.9 Pneumonia, unspecified organism; E66.01 Morbid (severe) obesity due to excess calories; Z68.41 Body mass index [BMI] 40.0-44.9, adult | CPT/HCPCS: 99223 ==

== ENCOUNTER 2025-01-08 14:15 | Outpatient (AMB) | payer BC, SELFPAY ==
--- NOTE | 2025-01-08 14:17 | A.OFFPC_ITS ---
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 Required: No Allergies No Known Allergies [No Known Allergies*] Allergy (Verified 01/08/25 14:21) Medication List - Last Reconciled 01/08/25 by Maldonado Patterson MD albuterol sulfate 90 mcg/actuation (ProAir HFA) 2 puffs inhalation Q4-6H PRN 30 days atorvastatin 20 mg PO BEDTIME 90 days benzonatate 100 mg PO TID PRN cefuroxime axetil 500 mg PO Q12H doxycycline monohydrate 100 mg PO Q12H magnesium 250 mg PO DAILY prednisone 40 mg (2 x 20 mg) PO DAILY venlafaxine ER 150 mg PO DAILY 90 days Tobacco use date assessed: 02/11/24 Dental Screening Dental Screen Date: 02/11/24 HPI D/C [facility] HPI Details 34 y/o male presents to f/u hospital dis charge visit. Had presented to ED due to fever, body aches with shortness of breath and chest tightness. Chest CTA showed multifocal pulmonary infiltrate, perfusion scan negative. Was admitted for pneumonia multifocal, mild intermittent asthma exacerbation and pt was started on IV antibiotics, cough meds, steroids, nebs. Pt had improved significantly. Was given prednisone x4 days, ceftin, doxycycline. Recommended outpt chest imaging to see resolution of pneumonia. [facility] Medical History Sleep apnea GERD (gastroesophageal reflux disease) Anxiety with depression Hyperlipidemia Bleeding hemorrhoids Surgical History History of hemorrhoidectomy (~06/05/24) Hx of tonsillectomy Family History Other Alcohol abuse Social History (Reviewed 07/20/24 @ 14:12 by SAJAN Wei Household Members: Spouse Housing: House Do you presently have visiting nurse or other home services: No Alcohol intake: current Alcohol intake frequency: does not drink Patient Tobacco Use Status: Never used Tobacco e-Cigarette/Vaping Use: Never Used Second Hand Smoke Exposure: No Substance Use Type: Marijuana service: No Current occupational status: employed Current occupational exposures/hazards: No Sexual orientation: Unable to collect Gender identity: Unable to collect Cognitive needs: No Hearing needs: No Vision needs: No Questionnaire Thrive Questionnaire Date Thrive assessed: 10/30/24 I am a: Patient What is your living situation today?: I have a steady place to live Within the past 12 months, did the food you bought not last and you didn't have the money to get more?: Never true Within the past 12 months, did you worry whether your food would run out before you got money to buy more?: Never true Do you have trouble paying for medicines?: No Do you have trouble getting transportation to medical appointments?: No Do you have trouble paying your heating and electricity bill?: No Do you have trouble taking care of your child, family member or friend?: No Do you have trouble with day-to-day activities such as bathing, preparing meals, shopping, managing finances, etc.?: No Are you currently unemployed and looking for a job?: No Are you interested in more education?: Yes Please select the resources that you would like help with: None Currently or been in a relationship where the following occur: No concerns reported THRIVE Score: 0 PENG-7 AMB Questionnaire PENG-7 Date PENG - 7 assessed: 10/30/24 Source: Developed by Drs. Ladarius Jerry, Марина Hillman, Beck Arellano and colleagues, with an educational carlos from [employer]. Review of Systems Const Denies chills, Denies fatigue, Denies fever(s), Denies headache(s) and Denies weakness ENT Denies dizziness and Denies headache(s) Card Denies dyspnea Resp Denies cough, Denies dyspnea, Denies wheezing and Denies other (shortness of breath) Musc Denies numbness and Denies tingling Neuro Denies dizziness, Denies headache(s), Denies numbness, Denies tingling and Denies weakness Psych Denies anxiety and Denies depression Endo Denies fatigue Aller/Immun Denies wheezing Physical exam (Primary Care) Tobacco/Smoking Status: Tobacco use Status Tobacco use date assessed 02/11/24 01/08/25 14:19 Patient Tobacco Use Status Never used Tobacco 01/08/25 14:19 e-Cigarette/Vaping Use Never Used 01/08/25 14:19 Thrive Assessment: Date of Thrive Assessment Date Thrive assessed 10/30/24 01/08/25 14:19 Currently or been in a relationship where the following occur: No concerns reported Const General: well developed; No acute distress Nutritional Appearance: well nourished and obese Orientation/consciousness: patient oriented x3 HENMT Head: Yes normocephalic and Yes atraumatic Eyes General: appearance normal, both eyes and all related structures Pupils: Equal, round and reactive pupils present EOM: EOMs intact bilaterally Resp Effort & Inspection: normal respiratory effort Auscultation: clear to auscultation bilaterally Cardio Rate: regular rate Rhythm: regular rhythm Heart sounds: S1 normal heart sound present, S2 normal heart sound present, no gallops, no murmurs and no rubs Neuro General: patient oriented x3 and gait normal Cranial nerves: Yes Equal, round and reactive pupils present Psych Affect: normal affect Coding Level of Care Code TCM High MDM <= 7 Days Diagnoses Multifocal pneumonia J18.9 Assessment & Plan Assessment & Plan (1) Multifocal pneumonia: Code(s): J18.9 - Pneumonia, unspecified organism Category: Medical Plan: 3-day hospiital stay for multifocal?pneumonia?with?hypoxia and asthma exacerbation.?? Pneumonia?improved?with?IV?antibiotics?and?steroids. Hypoxia?improved.??Has?had?oxygen?saturation?in?range?of?94,?95?in?the?past ?as?well.??Today?oxygen?saturation 95%. Lungs?are?clear?bilaterally?to?auscultation. Nontoxic?appearance. Advised?him?to?continue?all?doxycycline?and?prednisone. Will?recheck?chest?x-ray?CBC?in?about?3?weeks?and?can?follow- up?in?1st?week?of?February. Plan Patient?also?noted?to?have?hepatomegaly?and?splenomegaly. He?has?referrals?to?Gastroenterology?and?Hematology-Oncology. Follow-up?as?recommended Orders: Orders XR chest 2V 01/26/25 J18.9 - Pneumonia, unspecified organism Complete Blood Count Auto Diff Today J18.9 - Pneumonia, unspecified organism, Z00.00 - Encounter for general adult medical examination without abnormal findings Comprehensive Met. Panel Today J18.9 - Pneumonia, unspecified organism
[2025-01-08 14:22] VITALS: BP 150/70; PULSE 115; RESP 16; TEMP 37.3; O2SAT 95; BMI 43.8
[2025-01-08 14:24] VITALS: BP 138/70
--- OUTSIDE RECORDS SUMMARY | 2025-01-08 14:32 | XMS_ITS | Clinical Summary ---
Author Organization [facility] Address [address] [place] [id number] Phone Care Team Providers Care Wheel Alignment Technician Name Role Phone Unavailable Primary Care [...] 2009 Influenza Vaccines (#1) 2024 COVID-19 Vaccine (2023-2 5 season) 2024 HIB Vaccines Aged Out [...]
--- OUTSIDE RECORDS SUMMARY | 2025-01-08 14:32 | XMS_ITS | Encounter Summary ---
Author Organization [facility] Address [address] [place] [id number] Phone Care Team Providers Care Concrete Boom Pump Operator Name Role Phone Carly Dang MD Primary Care Provider [phone] Encounter Details Date Type Department Care Team (Late st Contact Info) Description 06/28/2011 Documentation EM Family Medicine [address] [place] [address] Family Medicine, Physician [address] [place] [address] Social History Tobacco Use Types Packs/Day Years [...] on filedocumented in this encounter Care Teams Concrete Boom Pump Operator Relationship Specialty Start Date End Date Carly Dang MD [address] [place] [address] [place] [id number] PCP - General 04/19/17 02/13/23 documented as of this encounter
== END 2025-01-08 14:37 | disposition home or self-care (01) ==
LOC: HO.HMCFM 14:15
PROVIDERS: PCP Family Medicine; Visit Provider Family Medicine
DX: J18.9 Pneumonia, unspecified organism (principal)

== ENCOUNTER → 2025-01-08 14:15 | Outpatient (BNVA) | payer BC, SELFPAY | PROVIDERS: PCP Family Medicine; Visit Provider Family Medicine | DX: Z13.89 Encounter for screening for other disorder (principal) ==

== ENCOUNTER 2025-01-16 09:42 | Inpatient (IN) | payer BC, SELFPAY ==
[2025-01-16] VITALS (9 sets, daily range): BP systolic 125–159; BP diastolic 58–80; PULSE 89–116; RESP 14–23; TEMP 36.3–37.8; O2SAT 93–95; BMI 43.1
--- NOTE | ~2025-01-16 | US_ITS ---
CLINICAL HISTORY: PE Bilateral lower extremity venous duplex ultrasound Comparison: None Findings: The visualized deep veins are fully compressible with normal flow. No popliteal cyst. Impression: No deep vein thrombosis. This document has been electronically signed by: Sheeba Nayak MD on 01/17/2025 16:58:24
--- NOTE | ~2025-01-16 | CT_ITS ---
CLINICAL HISTORY: elevated dimer, ALEJANDRE CTA chest with 3-D postprocessing Comparison: CR - XR CHEST 2V - 01/16/25 10:30 EDT NM - NM PUL PERFUSION - 01/03/25 10:[address]/MA - CT ANGIO CHEST PE PROTOCOL - 01/03/25 03:[address]/MA/SR - CT ANGIO CHEST PE PROTOCOL - 01/03/25 03:56 EDT Findings: Study quality is adequate for the diagnosis of pulmonary embolism. There are acute pulmonary emboli in the segmental and subsegmental arteries in the right lower lobe. To a lesser extent there are also acute pulmonary emboli in the segmental and subsegmental pulmonary arteries in right upper middle lobes and left upper and lower lobes. Heart size within normal limits. RV/LV ratio is normal. No calcified coronary artery disease. No aortic dissection or aneurysm. No calcified atherosclerotic disease. No lymphadenopathy. Subsegmental and dependent atelectasis. Dependent change is favored over ground-glass opacity due to pulmonary ischemia at the lung bases. No pneumothorax or pleural effusion. No acute osseous or soft tissue abnormality. No acute pathology in the imaged portion of the upper abdomen. Impression: Acute bilateral pulmonary emboli without right heart strain. This document has been electronically signed by: Sheeba Nayak MD on 01/16/2025 17:51:43
--- NOTE | ~2025-01-16 | XR_ITS ---
CLINICAL HISTORY: cough, fever, recent PNA 2 view chest x-ray Comparison: CR - XR CHEST 2V - 01/02/25 23:32 EDT Findings: The lungs are clear. Normal size heart. No acute fracture. IMPRESSION: 1. No acute findings. This document has been electronically signed by: Jose Dent MD on 01/16/2025 12:39:22
--- NOTE | 2025-01-16 09:54 | ED_ITS ---
HPI - Fever General Chief Complaint: Fever Stated Complaint: fever cough Time Seen by Provider: 01/16/25 09:53 Source: patient Mode of arrival: ambulatory Limitations: no limitations History of Present Illness ED Provider: CARY PETTIT PA-C HPI Narrative: 34-year-old male with pmhx significant for morbid obesity, asthma, hyperlipidemia, GERD, anxiety, KIMBERLI on CPAP presents to the ED today for evaluation of fever, myalgias, dry cough, and dyspnea on exertion x1 week. Admits he feels winded when exerting himself. Reports TMAX 101F last night. Taking tylenol/motrin intermittently, last dose last night. Admits to intermittent chest tightness with exertion, no chest pain. No known sick contacts. No recent travel. No lower extremity pain. Denies sore throat, palpitations, N/V, abd pain, hemoptysis. Patient recently admitted to our facility from 01/03/25 - 01/06/25 for treatment of acute hypoxic respiratory failure secondary to multifocal pneumonia. He was discharged home on prednisone x4 days, Ceftin and doxycycline x7 days. He reports taking all these medications to completion. Reports calling the on-call physician today who advised him to return to the ED for further testing. States he feels significantly improved since his admission. Related Data Home Medications ?Medication ?Instructions ?Recorded ?Confirmed magnesium 250 mg tablet 250 mg PO BEDTIME 01/03/25 01/17/25 albuterol sulfate 90 mcg/actuation 2 puff inhalation Q4-6H PRN 01/17/25 01/17/25 aerosol inhaler Shortness Of Breath Or Wheezing Previous Rx's ?Medication ?Instructions ?Recorded atorvastatin 20 mg tablet 20 mg PO BEDTIME 90 days #90 tabs 02/11/24 venlafaxine 150 mg 150 mg PO DAILY 90 days #90 caps 03/18/24 capsule,extended release 24 hr guaifenesin 200 mg tablet 200 mg PO TID PRN cough #10 tabs 01/16/25 Allergies Allergy/AdvReac Type Severity Reaction Status Date / Time No Known Allergies Allergy Verified 01/18/25 08:58 [No Known Allergies*] Review of Systems 2 Review of Systems: Yes all other systems are reviewed and are negative PMFSH Past Medical History Attestation statement: The following information was validated with the patient. Source: old records reviewed and nursing notes reviewed Medical History (Updated 01/18/25 @ 07:01 by Key Burns MD) Sleep apnea GERD (gastroesophageal reflux disease) Anxiety with depression Hyperlipidemia Bleeding hemorrhoids Surgical History (Updated 01/18/25 @ 09:03 by Rivka Monroy RN) H/O vasectomy History of hemorrhoidectomy (~06/05/24) Hx of tonsillectomy Family History Family History Other Alcohol abuse Social History Social History Household Members: Family Housing: House Do you presently have visiting nurse or other home services: No Alcohol intake: current Alcohol intake frequency: holidays/special occasions only Patient Tobacco Use Status: Never used Tobacco e-Cigarette/Vaping Use: Never Used Second Hand Smoke Exposure: No Substance Use Type: Marijuana service: No Current occupational status: employed Current occupational exposures/hazards: No Sexual orientation: Unable to collect Gender identity: Unable to collect Cognitive needs: No Hearing needs: No Vision needs: No Physical Exam 2 Vital Signs: Vital Signs: Last Vital Signs Temp 100.1 F 01/18/25 09:08 Pulse 98 01/18/25 10:45 Resp 23 H 01/18/25 10:45 BP 177/81 H 01/18/25 10:45 Pulse Ox 98 01/18/25 10:45 O2 Del Method Non-Rebreather Ma sk 01/18/25 10:45 O2 Flow Rate 15 01/18/25 10:45 BMI result Body Mass Index 43.1 tachycardic, afebrile, satting 93% on RA General: Well appearing, in no acute distress. Skin: Warm, dry, intact. No rashes or lesions. Head: Normocephalic, atraumatic. EENT: Hearing is intact b/l. Conjunctiva clear. PERRLA. EOM intact. Moist mucous membranes.? Neck: Supple without LAD Cardiac: Chest wall symmetric. RRR. Lungs: Normal respiratory effort without accessory muscle use. No tripoding. Lungs CTA b/l. Abdomen: Soft, non-tender, non-distended. No rebound tenderness or guarding Back: No midline spinous or paraspinal tenderness. No step off deformity. Ext: Upper and lower extremities atraumatic, without tenderness, deformity, swelling or erythema. no calf tenderness b/l or pitting edema. Neuro: AOx3. Normal speech. Ambulating with steady gait. Course Course Course Narrative: CBC without leukocytosis or left shift. Normocytic anemia, H and H stable when compared to priors. Chemistry without acute electrolyte abnormality requiring intervention. No MICAELA. Lactic WNL at 1.3. Liver function around baseline. Troponin undetectable. Given onset of symptoms 1 week ago to ED presentation, no need to repeat for delta as ACS is unlikely. EKG showing normal sinus rhythm without acute ischemic changes or ST elevations. He has tested negative for COVID, flu, RSV and chest x-ray does not show any findings concerning for continued pneumonia. I did review workup from approximately a week and a half ago. Dimer mildly elevated at that time so V/Q scan was performed which did not show any filling defects concerning for PE. Repeat D-dimer today is 507. I obtained CTA chest which shows acute bilateral pulmonary emboli without evidence of right heart strain. > on re-evaluation, patient is still tachycardic, tachypneic and hypoxic to 89%. Placed on 2 L nasal cannula with improvement. bedside cardiac US performed by myself w/ patient's consent. Dr. Brewer at bedside. no clear evidence of RV dysfunction. > given hemodynamic instability, I discussed admission with hospitalist Dr. Rodgers who has accepted patient admission for IV heparin and complete echo. patient agreeable. Medications Administered Generic Name Dose Route Start Last Admin Trade Name Freq PRN Reason Stop Dose Admin Acetaminophen 650 mg 01/16/25 18:25 01/17/25 19:29 Acetaminophen 325 Mg Tablet PO 650 mg Q6H PRN Administration Pain, Mild 1-3,fever,headache Atorvastatin Calcium 20 mg 01/17/25 21:00 01/17/25 19:30 Atorvastatin Calcium 20 Mg Tablet PO 20 mg BEDTIME PATTI Administration Heparin Sodium (Porcine) 5,800 unit 01/16/25 18:25 01/17/25 21:05 Heparin Sodium,Porcine 5,000 Unit/Ml Vial 40 unit/kg (5800 unit) 5,800 unit IVPUSH Administration PROTOCOL BOLUS PRN 40 unit/kg - Heparin Protocol Protocol Heparin Sodium/Sodium Chloride 25,000 unit in 250 mls @ 0 mls/hr 01/16/25 18:30 01/18/25 09:20 Heparin Sodium,Porcine/1/2ns IVCONT 0 units/kg/hr .Q0M PATTI 0 mls/hr Titration Protocol Per Protocol Sodium Chloride 1,000 mls @ 100 mls/hr 01/18/25 06:00 01/18/25 05:31 Ns IVCONT 100 mls/hr .Q10H PATTI Administration Morphine Sulfate 2 mg 01/17/25 17:50 01/18/25 07:15 Morphine Sulfate 2 Mg/Ml Cartridge IVPUSH 2 mg Q4H PRN Administration Pain, Severe (Pain Scale 7-10) Protocol Sodium Chloride 3 ml 01/17/25 00:00 01/18/25 07:16 0.9 % Sodium Chloride Flush 3 Ml Syringe IVFLUSH 3 ml QSHIFT PATTI Administration Venlafaxine HCl 150 mg 01/17/25 12:15 01/18/25 07:15 Venlafaxine Hcl Er 150 Mg Cap.Er.24h PO 150 mg DAILY PATTI Administration Discontinued Medications Generic Name Dose Route Start Last Admin Trade Name Freq PRN Reason Stop Dose Admin Fentanyl 25 mcg 01/18/25 10:09 01/18/25 09:58 Fentanyl Citrate/Pf 100 Mcg/2 Ml Vial IVPUSH 01/18/25 10:10 25 mcg ONCE ONE Administration Protocol Fentanyl 25 mcg 01/18/25 10:12 01/18/25 10:08 Fentanyl Citrate/Pf 100 Mcg/2 Ml Vial IVPUSH 01/18/25 10:13 25 mcg ONCE ONE Administration Protocol Guaifenesin 10 ml 01/16/25 13:16 01/16/25 13:39 Guaifenesin 200 Mg/10 Ml 10 Ml Liquid PO 01/16/25 13:17 10 ml ONCE ONE Administration Heparin Sodium (Porcine) 10,000 unit 01/16/25 18:25 01/16/25 19:06 Heparin Sodium,Porcine 5,000 Unit/Ml Vial IVPUSH 01/16/25 18:26 10,000 unit ONCE ONE Administration Heparin Sodium (Porcine) 10,000 unit 01/18/25 10:25 01/18/25 10:25 Heparin Sodium,Porcine 10,000 Unit/10 Ml Vial IVPUSH 01/18/25 10:26 10,000 unit ONCE ONE Administration Heparin Sodium (Porcine) 2,000 unit 01/18/25 10:39 01/18/25 10:39 Heparin Sodium,Porcine 10,000 Unit/10 Ml Vial IVPUSH 01/18/25 10:40 2,000 unit ONCE ONE Administration Iohexol 100 ml 01/16/25 16:26 01/16/25 16:29 Iohexol 350 Mg/Ml 100 Ml Infus..Btl IV 01/16/25 16:27 100 ml ONCE ONE Administration Midazolam HCl 0.5 mg 01/18/25 10:07 01/18/25 09:58 Midazolam Hcl 2 Mg/2 Ml Vial IVPUSH 01/18/25 10:08 0.5 mg ONCE ONE Administration Midazolam HCl 0.5 mg 01/18/25 10:11 01/18/25 10:08 Midazolam Hcl 2 Mg/2 Ml Vial IVPUSH 01/18/25 10:12 0.5 mg ONCE ONE Administration Oxycodone HCl 5 mg 01/17/25 16:30 01/17/25 16:46 Oxycodone Hcl Immed Release 5 Mg Tablet PO 5 mg Q4H PRN Administration Pain, Severe (Pain Scale 7-10) Medical Decision Making Medical Decision Making [facility] Narrative: 34-year-old male with past medical history significant for morbid obesity, asthma, hyperlipidemia, GERD, anxiety presents to the ED today for evaluation of fever, myalgias, dry cough, and dyspnea on exertion x1 week. Patient tachycardic to 101, satting 93% on RA. Afebrile. He is nontoxic appearing and in NAD. No respiratory distress, no tripoding. lungs CTA b/l. no calf tenderness. exam is pretty uremarkable. Differential diagnosis includes?anemia, electrolyte abnormality, pneumonia, bronchitis, asthma exacerbation, pleurisy, costochondritis, ACS, arrhythmia, viral syndrome, acute PE (PERC 2- tachycardia, recent hospitalization) Presentation not consistent with pneumothorax, thoracic aortic dissection, cardiac effusion or tamponade, myocarditis, pericarditis. Plan: labs, troponin, EKG, CXR, ED bronch protocol, reassessment Differential Diagnosis Differential Diagnoses: The differential diagnosis associated with the presentation includes as above. Admission/Observation not indicated Consult Healthcare Provider Management of the patient was discussed with: Hospitalist (dr. rodgers) Lab Data [facility] Lab Attestation statement: I reviewed the patient's lab results. as above. 01/17/25 06:50 05/11/25 06:50 Labs: Lab Results 01/16/25 01/16/25 Range/Units 11:02 14:42 WBC 5.6 (4.8-10.8) X10*3/uL RBC 4.07 L (4.60-5.80) X10*6/uL Hgb 13.1 L (14.0-18.0) g/dl Hct 39.7 L (42.0-52.0) % MCV 97.5 (80.0-98.0) fL MCH 32.2 (27.0-33.0) pg MCHC 33.0 (31.0-36.0) g/dl RDW 13.5 (11.0-16.0) % Plt Count 214 D (160-400) X10*3/uL MPV 9.4 (9.4-12.4) fL Immature Gran % (Auto) Cancelled Neut % (Auto) Cancelled Lymph % (Auto) Cancelled Converse % (Auto) Cancelled Eos % (Auto) Cancelled Baso % (Auto) Cancelled Lymph # (Auto) Cancelled Converse # (Auto) Cancelled Eos # (Auto) Cancelled Baso # (Auto) Cancelled Abs Immat Gran (auto) Cancelled Absolute Neuts (auto) Cancelled Absolute Nucleated RBC 0.000 (0.0-0.012) X10*3/uL Nucleated RBC % (auto) 0.0 (0.0-0.2) /100WBC Neutrophils % (Manual) 42 L (45-73) % Band Neutrophils % 3 (3-5) % Lymphocytes % (Manual) 36 (20-40) % Atypical Lymphs % (Man) 14 H (0-6) % Monocytes % (Manual) 5 (2-11) % Abs Neuts (Manual) 2.5 (2.0-8.3) X10*3/uL Lymphocytes # (Manual) 2.0 (1.2-4.9) X10*3/uL Atyp Lymphs # (Manual) 0.8 x10*3/uL Monocytes # (Manual) 0.3 (0.1-1.2) X10*3/uL Platelet Estimate NORMAL (NORMAL) Plt Morphology Comment NORMAL RBC Morphology NOTED Polychromasia 1+ (0-2) /OIF D-Dimer High Sensitivty 507 NG/ML Sodium 142 (135-145) mmol/L Potassium 4.2 (3.3-5.1) mmol/L Chloride 106 (96-108) mmol/L Carbon Dioxide 28 (22-29) mmol/L Anion Gap 12 (12-20) BUN 13 (9-16) mg/dL Creatinine 0.89 (0.5-1.4) mg/dL Estim Creat Clear Calc 172.2 Estimated GFR > 60 Random Glucose 101 (60-115) mg/dL Lactic Acid 1.3 (0.5-2.0) mmol/L Calcium 8.8 (8.4-10.2) mg/dL Magnesium 2.2 (1.6-2.6) mg/dL Total Bilirubin 0.9 (0.0-1.0) mg/dL AST 60 H (5-37) U/L ALT 110 H (0-40) U/L Alkaline Phosphatase 78 (39-117) U/L Troponin I High Sens < 2.7 D (<3.5-35.0) ng/L Total Protein 7.0 (6.5-8.0) g/dL Albumin 3.9 (3.5-5.0) g/dL Influenza Type A (PCR) NEGATIVE (Negative) Influenza Type B (PCR) NEGATIVE (Negative) RSV RNA Qual (PCR) NEGATIVE (Negative) SARS-CoV-2 RNA (RT-PCR) NEGATIVE (Negative) Independent Interpretation I performed an independent interpretation of an: EKG and Plain X-Ray Interpretation: cxr without infiltrate or consolidation to suggest pneumonia ekg showing normal sinus rhythm, rate of 94 beats per minute, no acute ischemic changes or ST elevations V/Q scan done on 01/03/25 w/o any defects CTA chest showing b/l pulmonary emboli Radiology Impression Discussion of test interpretation with radiology: I have reviewed the radiologist's reading. Radiologist Impression: Procedure(s): XR chest 2V Accession Number(s): [id number] cc: Maldonado Patterson MD; Cary Pettit~ CLINICAL HISTORY: cough, fever, recent PNA 2 view chest x-ray Comparison: CR - XR CHEST 2V - 01/02/25 23:32 EDT Findings: The lungs are clear. Normal size heart. No acute fracture. IMPRESSION: 1. No acute findings. This document has been electronically signed by: Jose Dent MD on 01/16/2025 12:39:22 Procedure(s): NM pul perfusion Accession Number(s): [id number] cc: Maldonado Patterson MD; Sil Lugo PA-C~ CLINICAL HISTORY: elevated d dimer, CTA could not r o PE NM Lung Perfusion Comparison: None Findings: 4.0 mCi technetium 99m MAA used. No perfusion defects. IMPRESSION: No perfusion defects identified. Low probability. This document has been electronically signed by: Antonio Newman MD on 01/03/2025 11:45:09 Procedure(s): CT angio chest PE protocol Accession Number(s): [id number] cc: Maldonado Patterson MD; Cary Pettit~ Report Number: [id number]: Total DLP = 550.00 mGy-cm ADDENDUMThis document has been electronically signed by: Sheeba Nayak MD on 01/16/2025 17:51:43 ADDENDUM: This report was discussed with Hodan Townsend MD on January 16, 2025 17:58:00 EDT. This document has been electronically signed by: Ambar Thompson on 01/16/2025 17:59:04 Addendum Dictated By: Sheeba Chavarria MD Addendum Signed By: <Electronically signed by Sheeba Chavarria MD in [place]> 01/16/25 1800 Addendum Cosigned By: DD/ /03/1751 TD/TT: 01/16/2507/03/1759 CLINICAL HISTORY: elevated dimer, ALEJANDRE CTA chest with 3-D postprocessing Comparison: CR - XR CHEST 2V - 01/16/25 10:30 EDT NM - NM PUL PERFUSION - 01/03/25 10:[address]/DE - CT ANGIO CHEST PE PROTOCOL - 01/03/25 03:[address]/DE/SR - CT ANGIO CHEST PE PROTOCOL - 01/03/25 03:56 EDT Findings: Study quality is adequate for the diagnosis of pulmonary embolism. There are acute pulmonary emboli in the segmental and subsegmental arteries in the right lower lobe. To a lesser extent there are also acute pulmonary emboli in the segmental and subsegmental pulmonary arteries in right upper middle lobes and left upper and lower lobes. Heart size within normal limits. RV/LV ratio is normal. No calcified coronary artery disease. No aortic dissection or aneurysm. No calcified atherosclerotic disease. No lymphadenopathy. Subsegmental and dependent atelectasis. Dependent change is favored over ground-glass opacity due to pulmonary ischemia at the lung bases. No pneumothorax or pleural effusion. No acute osseous or soft tissue abnormality. No acute pathology in the imaged portion of the upper abdomen. Impression: Acute bilateral pulmonary emboli without right heart strain. External Record Review External record reviewed: Inpatient record Chronic Conditions Patient?s care impacted by: Other (asthma) Social Determinants Patient?s care significantly limited by Social Determinants of Health including: Other Social Determinant of Health Critical Care Time Critical Care Time Critical Care Time: Yes Total Critical Care Time: 35 Attestation: Critical care time in the amount of 35 minutes has been provided to the patient in terms of direct patient care, frequent reevaluation, consultation with hospitalist, review and interpretation of medical data and results, and management of potentially life-threatening conditions. This is all outside of any medical procedures. Discharge Plan Discharge Clinical Impression: Bilateral pulmonary embolism Patient Disposition: Admitted As Inpatient Interventions: Admission Worksheet (ED) Last Done: 01/16/25 19:44 Discharge Date/Time: 01/16/25 20:48
--- NOTE | 2025-01-16 10:09 | ECG_ITS ---
Test Reason : CP/COUGH Blood Pressure : */* mmHG Vent. Rate : 94 BPM Atrial Rate : 94 BPM P-R Int : 146 ms QRS Dur : 98 ms QT Int : 338 ms P-R-T Axes : 44 5 7 degrees QTcB Int : 422 ms Normal sinus rhythm Normal ECG When compared with ECG of 02-Jan-2025 23:17, No significant change was found Referred By: Cary Pettit Electronically Signed By: MARIA INES ORELLANA
--- OUTSIDE RECORDS SUMMARY | 2025-01-16 10:16 | XMS_ITS | Encounter Summary ---
Author Organization [facility] Address [address] [place] [id number] Phone Care Team Providers Care Stone Banker Name Role Phone Carly Dang MD Primary Care Provider [phone] Encounter Details Date Type Department Care Team (Late st Contact Info) Description 06/28/2011 Documentation EM Family Medicine [address] [place] [address] Family Medicine, Physician [address] [place] [address] Social History Tobacco Use Types Packs/Day Years [...] on filedocumented in this encounter Care Teams Stone Banker Relationship Specialty Start Date End Date Carly Dang MD [address] [place] [address] [place] [id number] PCP - General 04/19/17 02/13/23 documented as of this encounter
--- OUTSIDE RECORDS SUMMARY | 2025-01-16 10:16 | XMS_ITS | Clinical Summary ---
Author Organization [facility] Address [address] [place] [phone] Phone Care Team Providers Care Inventory Control Coordinator Name Role Phone Unavailable Primary Care Provider [...]
--- NOTE | 2025-01-16 10:26 | PC.RT ---
Pt assessed by RT per bronchodilator protocol. Pt in no resp distress, lungs sounds clear bilateral. Pt states he is a non-smoker and took his albuterol inhaler approx 9am this morning. Vital signs 98% on RA, RR 16, HR 73. No breathing tx indicated at this time.
--- NOTE | 2025-01-16 11:00 | PC.NURSE ---
Patient is a 34-year-old male with a past medical history significant for obesity, GERD, HLD, mild intermittent asthma and KIMBERLI on CPAP, who presented to the ED due to recurrent fever and body aches and dyspnea on exertion. Was recently admitted for pneumonia and discharged. Completed abx therapy this week. Alert and oriented. Lungs coarse in the bases. Respirations even and non-labored. Patient c/o dypnea on exertion. Abdomen soft, distended, non-tender with positive bowel sounds. Positive pedal pulses with trace LE edema.
[2025-01-16 11:11] LABS: Hematocrit 39.7 % (42.0-52.0); Hemoglobin 13.1 g/dl (14.0-18.0); Mean Corpuscular Hemoglobin 32.2 pg (27.0-33.0); Mean Corpuscular Volume 97.5 fL (80.0-98.0); Mean Platelet Volume 9.4 fL (9.4-12.4); Platelet Count 214 X10*3/uL (160-400); Red Blood Count 4.07 X10*6/uL (4.60-5.80); Red Cell Distribution Width 13.5 % (11.0-16.0); White Blood Count 5.6 X10*3/uL (4.8-10.8)
[2025-01-16 11:27] LABS: Lactic Acid 1.3 mmol/L (0.5-2.0)
[2025-01-16 11:28] LABS: Alanine Aminotransferase 110 U/L (0-40); Albumin Level 3.9 g/dL (3.5-5.0); Alkaline Phosphatase 78 U/L (39-117); Anion Gap 12 (12-20); Aspartate Amino Transferase 60 U/L (5-37); Bilirubin Total 0.9 mg/dL (0.0-1.0); Blood Urea Nitrogen 13 mg/dL (9-16); Calcium 8.8 mg/dL (8.4-10.2); Carbon Dioxide 28 mmol/L (22-29); Chloride 106 mmol/L (96-108); Creatinine Clr Calc Pharmacy 172.2; Estimated Glomerular Filt Rate > 60; Glucose Random 101 mg/dL (60-115); Magnesium 2.2 mg/dL (1.6-2.6); Potassium 4.2 mmol/L (3.3-5.1); Sodium 142 mmol/L (135-145)
[2025-01-16 11:33] LABS: Atypical Lymph Absolute Manual 0.8 x10*3/uL; Atypical Lymphs Percent Manual 14 % (0-6); Band Neutrophils Percent 3 % (3-5); Lymphocytes Percent Manual 36 % (20-40); Monocytes Absolute Manual 0.3 X10*3/uL (0.1-1.2); Monocytes Percent Manual 5 % (2-11); Neutrophils Absolute Manual 2.5 X10*3/uL (2.0-8.3); Neutrophils Percent Manual 42 % (45-73)
[2025-01-16 11:36] LABS: Platelet Estimate NORMAL (NORMAL); Platelet Morphology Comment NORMAL; Polychromasia 1+ (0-2) /OIF; RBC Morphology NOTED
[2025-01-16 11:39] LABS: Troponin-I High Sensitivity < 2.7 ng/L (<3.5-35.0)
[2025-01-16 11:50] LABS: Influenza A PCR NEGATIVE (Negative); Influenza B PCR NEGATIVE (Negative); Resp Syncy Virus RNA Qual PCR NEGATIVE (Negative); SARS COV2 PCR INHOUSE NEGATIVE (Negative)
[2025-01-16] MEDS: guaiFENesin 200 MG/10 ML 10 ML LIQUID PO (13:39)
[2025-01-16 15:11] LABS: D Dimer High Sensitivity 507 NG/ML
[2025-01-16] MEDS: iohexoL 350 MG/ML 100 ML INFUS..BTL IV (16:29)
--- NOTE | 2025-01-16 18:19 | PC.NURSE ---
Placed on o2 therapy at 2L via NC
--- NOTE | 2025-01-16 18:35 | PM.IMHP ---
History of Present Illness Date of Service: 01/16/25 Chief Complaint: Shortness of breath 34-year-old male with past medical history significant for morbid obesity, asthma, hyperlipidemia, GERD, anxiety presents to the ED today for evaluation of fever, myalgias, dry cough, and dyspnea on exertion x1 week. Reports TMAX 101F last night. Taking tylenol/motrin intermittently, last dose last night. Admits to intermittent chest tightness with exertion, no chest pain. No known sick contacts. No recent travel. No lower extremity pain. Denies sore throat, palpitations, N/V, abd pain. Patient recently admitted to our facility from 01/03/25 - 01/06/25 for treatment of acute hypoxic respiratory failure secondary to multifocal pneumonia. He was discharged home on prednisone x4 days, Ceftin and doxycycline x7 days. Completed both therapies. In ER, CTA consistent with bilateral pulmonary emboli Review of Systems Review of Systems: Admits shortness of breath with exertion Denies chest pain Admits fevers without chills Denies nausea vomiting diarrhea PMFSH Medical History Sleep apnea GERD (gastroesophageal reflux disease) Anxiety with depression Hyperlipidemia Bleeding hemorrhoids Family History Other Alcohol abuse Surgical History History of hemorrhoidectomy (~06/05/24) Hx of tonsillectomy Social History Household Members: Spouse Housing: House Do you presently have visiting nurse or other home services: No Alcohol intake: current Alcohol intake frequency: holidays/special occasions only Patient Tobacco Use Status: Never used Tobacco Smoked in Last 30 Days: No e-Cigarette/Vaping Use: Never Used Second Hand Smoke Exposure: No Use of substances other than those prescribed or required for medical reasons: No Substance Use Type: Marijuana Advance Directives: No Advance Directives Information Provided: No Do you have a plan to hurt others: No Plan service: No Current occupational status: employed Current occupational exposures/hazards: No Sexual orientation: Unable to collect Gender identity: Unable to collect Cognitive needs: No Hearing needs: No Vision needs: No Meds Allergies Allergy/AdvReac Type Severity Reaction Status Date / Time No Known Allergies Allergy Verified 01/16/25 09:49 [No Known Allergies*] Active Medications: Current Medications Acetaminophen (Acetaminophen 325 Mg Tablet) 650 mg PO Q6H PRN PRN Reason: Pain, Mild 1-3,fever,headache Albuterol/Ipratropium (Albuterol/Iprat 2.5/0.5mg 3 Ml Ampul.Neb) 3 ml INHALE Q4H PRN PRN Reason: Shortness of Breath/Wheezing Calcium Carbonate (Calcium Carbonate 750 Mg Tab.Chew) 750 mg PO Q4H PRN PRN Reason: Heartburn Heparin Sodium (Porcine) (Heparin Sodium,Porcine 5,000 Unit/Ml Vial) 5,800 unit 40 unit/kg (5800 unit) IVPUSH PROTOCOL BOLUS PRN; Protocol PRN Reason: 40 unit/kg - Heparin Protocol Heparin Sodium (Porcine) (Heparin Sodium,Porcine 5,000 Unit/Ml Vial) 10,000 unit IVPUSH ONCE ONE Stop: 01/16/25 18:26 Heparin Sodium/Sodium Chloride (Heparin Sodium,Porcine/1/2ns) 25,000 unit in 250 mls @ 0 mls/hr IVCONT .Q0M [facility]; Protocol Magnesium Hydroxide (Milk Of Magnesia 30 Ml Oral.Susp) 30 ml PO DAILY PRN PRN Reason: Constipation Melatonin (Melatonin 3 Mg Tablet) 6 mg PO BEDTIME PRN PRN Reason: Insomnia Ondansetron HCl (Ondansetron Hcl 4 Mg/2 Ml Vial) 4 mg IVPUSH Q8H PRN PRN Reason: Nausea and Vomiting Sodium Chloride (0.9 % Sodium Chloride Flush 3 Ml Syringe) [facility] Medications ?Medication ?Instructions ?Recorded ?Confirmed ?Last Taken ?Type magnesium 250 mg tablet 250 mg PO DAILY 01/03/25 01/08/25 Unknown History Physical Exam Vital Signs and Narrative: Vital Signs: Last Vital Signs Temp 98.7 F 01/16/25 16:00 Pulse 110 H 01/16/25 16:00 Resp 23 H 01/16/25 16:00 BP 141/73 H 01/16/25 16:00 Pulse Ox 93 01/16/25 16:00 O2 Del Method Room Air 01/16/25 16:00 BMI result Body Mass Index 43.1 Const: Other: Awake alert no acute distress Resp: Other: Clear to auscultation bilaterally no rales rhonchi or wheezes Cardio: Other: No S4; positive S1-S2; no S3 murmurs rubs or gallops GI: Other: Soft nontender nondistended normoactive bowel sounds Neuro: Other: Cranial nerves 2-12 grossly intact as tested. Motor is 5/5 all extremities. Sensation is intact. Cognition appropriate Extrem: Other: No edema bilaterally Results Labs 01/16/25 11:02 01/16/25 11:02 Labs: Laboratory Results - last 24 hr 01/16/25 01/16/25 11:02 14:42 MCV 97.5 MCH 32.2 MCHC 33.0 RDW 13.5 Plt Count 214 D MPV 9.4 Immature Gran % (Auto) Cancelled Neut % (Auto) Cancelled Lymph % (Auto) Cancelled [place] % (Auto) Cancelled Eos % (Auto) Cancelled Baso % (Auto) Cancelled Lymph # (Auto) Cancelled [place] # (Auto) Cancelled Eos # (Auto) Cancelled Baso # (Auto) Cancelled Abs Immat Gran (auto) Cancelled Absolute Neuts (auto) Cancelled Absolute Nucleated RBC 0.000 Nucleated RBC % (auto) 0.0 Neutrophils % (Manual) 42 L Band Neutrophils % 3 Lymphocytes % (Manual) 36 Atypical Lymphs % (Man) 14 H Monocytes % (Manual) 5 Abs Neuts (Manual) 2.5 Lymphocytes # (Manual) 2.0 Atyp Lymphs # (Manual) 0.8 Monocytes # (Manual) 0.3 Platelet Estimate NORMAL Plt Morphology Comment NORMAL RBC Morphology NOTED Polychromasia 1+ (0-2) D-Dimer High Sensitivty 507 Anion Gap 12 Estim Creat Clear Calc 172.2 Estimated GFR > 60 Random Glucose 101 Lactic Acid 1.3 Calcium 8.8 Magnesium 2.2 Total Bilirubin 0.9 AST 60 H ALT 110 H Alkaline Phosphatase 78 Total Protein 7.0 Albumin 3.9 Influenza Type A (PCR) NEGATIVE Influenza Type B (PCR) NEGATIVE RSV RNA Qual (PCR) NEGATIVE SARS-CoV-2 RNA (RT-PCR) NEGATIVE Assessment and Plan (1) Bilateral pulmonary embolism: Status: Acute Plan 34-year-old male with past medical history significant for morbid obesity asthma hyperlipidemia GERD and anxiety presents for evaluation of fever body aches and dry cough along with shortness of breath on exertion for 1 week. He reports temps as high as 101 over the last several nights. Recently admitted 12/15/1903/28/2025 through 01/06/2025 4 multifocal pneumonia. CTA today demonstrates bilateral pulmonary emboli 1. Bilateral pulmonary emboli -heparin drip as per protocol -titrate O2 to maintain sats greater than equal to 92% -DuoNebs q.4 hours while awake -2D echo in a.m. -hematology consult 2. Asthma -DuoNebs as ordered -adjust therapies as clinically indicated Full code Heparin Patient will require at least 2 midnights going forward to treat bilateral pulmonary emboli with heparin drip with eventual switch to Eliquis. He will also require specialty consultation. This can not be achieved a lesser acute setting Quality Stroke Does the patient have a stroke diagnosis?: No VTE Prior VTE?: No VTE Risk Level:: Medical - moderate - high VTE Device Contraindication: Treatment Not Indicated VTE Drug Contraindication: N/A - Med Ordered
[2025-01-16] MEDS: Heparin Sodium,Porcine 5,000 UNIT/ML VIAL 10000 UNIT IVPUSH (19:06)
[2025-01-16] MEDS: Heparin Sodium,Porcine/1/2NS 25,000 UNIT/250 ML IV.SOLN 20.16 UNIT IVCONT (19:09)
[2025-01-16 19:58] LABS: Hematocrit 38.6 % (42.0-52.0); Hemoglobin 12.8 g/dl (14.0-18.0); Mean Corpuscular HGB Conc 33.2 g/dl (31.0-36.0); Mean Corpuscular Hemoglobin 32.1 pg (27.0-33.0); Mean Corpuscular Volume 96.7 fL (80.0-98.0); Mean Platelet Volume 9.5 fL (9.4-12.4); Platelet Count 217 X10*3/uL (160-400); Red Blood Count 3.99 X10*6/uL (4.60-5.80); Red Cell Distribution Width 13.6 % (11.0-16.0); White Blood Count 7.4 X10*3/uL (4.8-10.8)
[2025-01-16 20:48] LABS: INTERNATIONAL NORM RATIO 1.1 (0.9-1.1); Prothrombin Time 12.7 SEC (10.9-12.4)
[2025-01-16 22:26] LABS: PTT Heparin Drip 123.5 SEC (53-77.9)
[2025-01-16 23:53] LABS: PTT Heparin Drip 62.8 SEC (53-77.9)
[2025-01-17] MEDS: Acetaminophen 325 MG TABLET 650 MG PO ×3 (02:23→19:29)
--- NOTE | 2025-01-17 02:33 | PC.NURSE ---
01/16/250. Spoke with Dr. Land regarding Heparin drip and PTT. Dr. Land aware of the start time of the Heparin infusion, the bolus received in ER per Dr. Rodgers order and confirmed wanting a PTT level drawn at 0 and follow the Heparin protocol based on those results. PTT level resulted at 123.5 and Heparin protocol followed as documented in [facility].
[2025-01-17 03:08] VITALS: BP 141/62; PULSE 86; RESP 18; TEMP 36.6; O2SAT 95
[2025-01-17 07:05] LABS: Hematocrit 37.3 % (42.0-52.0); Hemoglobin 12.4 g/dl (14.0-18.0); Mean Corpuscular HGB Conc 33.2 g/dl (31.0-36.0); Mean Corpuscular Hemoglobin 32.2 pg (27.0-33.0); Mean Corpuscular Volume 96.9 fL (80.0-98.0); Mean Platelet Volume 9.2 fL (9.4-12.4); Platelet Count 202 X10*3/uL (160-400); Red Blood Count 3.85 X10*6/uL (4.60-5.80); Red Cell Distribution Width 13.7 % (11.0-16.0); White Blood Count 6.4 X10*3/uL (4.8-10.8)
[2025-01-17 07:09] LABS: Prothrombin Time 11.1 SEC (10.9-12.4)
[2025-01-17 07:11] LABS: PTT Heparin Drip 44.9 SEC (53-77.9)
[2025-01-17 07:15] LABS: Alanine Aminotransferase 93 U/L (0-40); Albumin Level 3.5 g/dL (3.5-5.0); Alkaline Phosphatase 68 U/L (39-117); Anion Gap 14 (12-20); Aspartate Amino Transferase 55 U/L (5-37); Bilirubin Total 0.8 mg/dL (0.0-1.0); Blood Urea Nitrogen 12 mg/dL (9-16); Calcium 8.5 mg/dL (8.4-10.2); Carbon Dioxide 23 mmol/L (22-29); Chloride 106 mmol/L (96-108); Creatinine Clr Calc Pharmacy 178.3; Estimated Glomerular Filt Rate > 60; Glucose Random 105 mg/dL (60-115); Potassium 4.1 mmol/L (3.3-5.1); Sodium 139 mmol/L (135-145); Total Protein 6.4 g/dL (6.5-8.0)
[2025-01-17 07:16] VITALS: BP 123/67; PULSE 84; RESP 20; TEMP 36.3; O2SAT 96
[2025-01-17] MEDS: 0.9 % Sodium Chloride Flush 3 ML SYRINGE IVFLUSH ×3 (07:26→19:30)
[2025-01-17] MEDS: Heparin Sodium,Porcine 5,000 UNIT/ML VIAL 5800 UNIT IVPUSH ×2 (07:30→21:05)
--- NOTE | 2025-01-17 09:25 | MHC.CM.PN ---
Pt self-care, lives at home with his . Pt will transport self-care at discharge (car is on lot). New HCP completed with pt, now on file. PCP: Dr. Maldonado Patterson
[2025-01-17 11:08] VITALS: BP 141/73; PULSE 94; RESP 18; TEMP 36.7; O2SAT 93
--- NOTE | 2025-01-17 11:10 | PHA.MEDREC ---
Addendum entered by Kendra Alexander RPh 01/17/25 11:17: reviewed by [facility], located [facility]. Original Note: Pharmacy Consult ? Medication Reconciliation Pharmacy has completed the medication reconciliation. Spoke with patient to confirm. He finished all new medications he was recently discharged with. He only took venlafaxine yesterday.
[2025-01-17] MEDS: Heparin Sodium,Porcine/1/2NS 25,000 UNIT/250 ML IV.SOLN 17.28 UNIT IVCONT (11:29)
--- NOTE | 2025-01-17 12:10 | P.PNIM_ITS ---
Subjective Subjective Date of Service: 01/17/25 Interval History: No acute respiratory issues overnight. Remains hemodynamically stable Review of Systems Admits shortness of breath with exertion Denies chest pain Admits fevers without chills Denies nausea vomiting diarrhea Physical Exam 2 Vital Signs: Vital Signs: Last Vital Signs Temp 98.0 F 01/17/25 11:08 Pulse 94 01/17/25 11:08 Resp 18 01/17/25 11:08 BP 141/73 H 01/17/25 11:08 Pulse Ox 93 01/17/25 11:08 O2 Del Method Nasal Cannula 01/17/25 11:08 O2 Flow Rate 2 01/17/25 11:08 BMI result Body Mass Index 43.1 Const: Other: Awake alert no acute distress Resp: Other: Clear to auscultation bilaterally no rales rhonchi or wheezes Cardio: Other: No S4; positive S1-S2; no S3 murmurs rubs or gallops GI: Other: Soft nontender nondistended normoactive bowel sounds Neuro: Other: Cranial nerves 2-12 grossly intact as tested. Motor is 5/5 all extremities. Sensation is intact. Cognition appropriate Extrem: Other: No edema bilaterally Objective Data Active Medications Acetaminophen (Acetaminophen 325 Mg Tablet) 650 mg PO Q6H PRN PRN Reason: Pain, Mild 1-3,fever,headache Last Admin: 01/17/25 11:28 Dose: 650 mg Documented By: JYOTHI Albuterol/Ipratropium (Albuterol/Iprat 2.5/0.5mg 3 Ml Ampul.Neb) 3 ml INHALE Q4H PRN PRN Reason: Shortness of Breath/Wheezing Calcium Carbonate (Calcium Carbonate 750 Mg Tab.Chew) 750 mg PO Q4H PRN PRN Reason: Heartburn Heparin Sodium (Porcine) (Heparin Sodium,Porcine 5,000 Unit/Ml Vial) 5,800 unit 40 unit/kg (5800 unit) IVPUSH PROTOCOL BOLUS PRN; Protocol PRN Reason: 40 unit/kg - Heparin Protocol Last Admin: 01/17/25 07:30 Dose: 5,800 unit Documented By: JYOTHI Heparin Sodium (Porcine) (Heparin Sodium,Porcine 5,000 Unit/Ml Vial) 10,000 unit IVPUSH PROTOCOL BOLUS PRN; Protocol PRN Reason: 80 unit/kg - Heparin Protocol Heparin Sodium/Sodium Chloride (Heparin Sodium,Porcine/1/2ns) 25,000 unit in 250 mls @ 0 mls/hr IVCONT .Q0M [facility]; Protocol Last Admin: 01/17/25 11:29 Dose: 12 units/kg/hr, 17.28 mls/hr Documented By: JYOTHI Co-signed By: FELICIA Magnesium Hydroxide (Milk Of Magnesia 30 Ml Oral.Susp) 30 ml PO DAILY PRN PRN Reason: Constipation Melatonin (Melatonin 3 Mg Tablet) 6 mg PO BEDTIME PRN PRN Reason: Insomnia Ondansetron HCl (Ondansetron Hcl 4 Mg/2 Ml Vial) 4 mg IVPUSH Q8H PRN PRN Reason: Nausea and Vomiting Sodium Chloride (0.9 % Sodium Chloride Flush 3 Ml Syringe) 3 ml IVFLUSH QSHIFT [facility] Last Admin: 01/17/25 07:26 Dose: 3 ml Documented By: JYOTHI Labs 01/17/25 06:50 01/17/25 06:50 Labs: Laboratory Results - last 24 hr 01/16/25 01/16/25 01/16/25 14:42 19:48 21:39 MCV 96.7 MCH 32.1 MCHC 33.2 RDW 13.6 Plt Count 217 MPV 9.5 Absolute Nucleated RBC 0.000 Nucleated RBC % (auto) 0.0 PT 12.7 H INR 1.1 aPTT Heparin Protocol 172.0 H* 123.5 H* D D-Dimer High Sensitivty 507 Anion Gap Estim Creat Clear Calc Estimated GFR Random Glucose Calcium Total Bilirubin AST ALT Alkaline Phosphatase Total Protein Albumin 01/16/25 01/17/25 23:39 06:50 MCV 96.9 MCH 32.2 MCHC 33.2 RDW 13.7 Plt Count 202 MPV 9.2 L Absolute Nucleated RBC 0.000 Nucleated RBC % (auto) 0.0 PT 11.1 INR 1.0 aPTT Heparin Protocol 62.8 D 44.9 L D D-Dimer High Sensitivty Anion Gap 14 Estim Creat Clear Calc 178.3 Estimated GFR > 60 Random Glucose 105 Calcium 8.5 Total Bilirubin 0.8 AST 55 H ALT 93 H Alkaline Phosphatase 68 Total Protein 6.4 L Albumin 3.5 Assessment and Plan (1) Bilateral pulmonary embolism: Status: Acute Plan 34-year-old male with past medical history significant for morbid obesity asthma hyperlipidemia GERD and anxiety presents for evaluation of fever body aches and dry cough along with shortness of breath on exertion for 1 week. He reports temps as high as 101 over the last several nights. Recently admitted 12/15/1903/28/2025 through 01/06/2025 4 multifocal pneumonia. CTA today demonstrates bilateral pulmonary emboli 1. Bilateral pulmonary emboli -heparin drip as per protocol -titrate O2 to maintain sats greater than equal to 92% -DuoNebs q.4 hours while awake -2D echo in a.m. -hematology/vascular surgery consult 2. Asthma -DuoNebs as ordered -adjust therapies as clinically indicated Full code Heparin Patient requires ongoing hospitalization for IV heparin drip and specialty consultation Quality Stroke Does the patient have a stroke diagnosis?: No VTE Prior VTE?: No VTE Risk Level:: Medical - moderate - high VTE Device Contraindication: Treatment Not Indicated VTE Drug Contraindication: N/A - Med Ordered
[2025-01-17] MEDS: Venlafaxine HCl ER 150 MG CAP.ER.24H PO (14:13)
[2025-01-17 15:13] VITALS: BP 134/62; PULSE 94; RESP 18; TEMP 36.1; O2SAT 95
[2025-01-17 16:32] LABS: Appearance Urine Clear; Color Urine Yellow; Glucose Urine UA Negative (Negative); Leukocyte Esterase Urine Negative (Negative); Nitrite Urine Negative (Negative); PH 7.5 (5.0-9.0); Urine Blood Negative (Negative); Urine Ketones Negative (Negative); Urine Protein Negative (Neg-Trace)
[2025-01-17] MEDS: oxyCODONE HCl Immed Release 5 MG TABLET PO (16:46)
[2025-01-17] MEDS: Morphine Sulfate 2 MG/ML CARTRIDGE IVPUSH (19:30)
[2025-01-17] MEDS: Atorvastatin Calcium 20 MG TABLET PO (19:30)
[2025-01-17 19:36] VITALS: BP 137/66; PULSE 106; RESP 16; TEMP 37.2; O2SAT 95
[2025-01-17 20:31] LABS: PTT Heparin Drip 46.2 SEC (53-77.9)
[2025-01-18] VITALS (37 sets, daily range): BP systolic 115–197; BP diastolic 56–107; PULSE 93–114; RESP 18–32; TEMP 36.1–39.1; O2SAT 90–98
[2025-01-18] MEDS: Heparin Sodium,Porcine/1/2NS 25,000 UNIT/250 ML IV.SOLN 20.16 UNIT IVCONT (00:57)
[2025-01-18 02:59] LABS: PTT Heparin Drip 72.4 SEC (53-77.9)
[2025-01-18] MEDS: 0.9 % Sodium Chloride 1,000 ML 100 ML IVCONT ×2 (05:31→15:09)
--- NOTE | 2025-01-18 07:00 | CA_ITS ---
Transthoracic Echocardiogram Patient (Last, First, Middle): [address], Gender: Male Date of : 1990 Age: 34 Procedure Date: 01/18/2025 Procedure Type: Transthoracic Echocardiogram Location[place] [facility] [place] Height: 182.88 cm Weight: 143.79 kg BSA: 2.59 m2 Heart Rate: 98 bpm BP: 123 / 58 mmHg Auxiliary Engineer: Referring MD: Dewey Rodgers DO Visual Merchandising Specialist: Antonino Licona MD Symptoms: PE Study Quality: Adequate w contrast ECG Rhythm: Sinus Conclusions: - 1. Normal LV ejection fraction of 60 65% with mild LVH 2. Normal cardiac valvular Dopplers 3. Normal RV systolic pressure 4. No gross pericardial effusion Findings Procedure Information Contrast agent, definity, is being given per protocol without apparent complications. Left Ventricle Normal left ventricular size and systolic function. There is mildly increased left ventricular wall thickness. The visually estimated ejection fraction is between 60-65%. Spectral Doppler is indicative of a normal filling pattern. Right Ventricle Normal right ventricular cavity size and systolic function. Atria The left atrium is likely dilated. There is no evidence of interatrial shunt. The right atrium is normal in size. Aortic Valve Normal aortic valve structure and function. There is no aortic valve stenosis. There is no aortic valve regurgitation. Mitral Valve Normal mitral valve structure and function. There is trace mitral valve regurgitation. There is no mitral valve stenosis. Pulmonic Valve The pulmonic valve is likely normal. Tricuspid Valve Normal tricuspid valve structure. There is trace tricuspid valve regurgitation. The right ventricular systolic pressure is normal. The right ventricular systolic pressure is 15 mmHg. Normal right atrial pressure. There is no evidence of pulmonary hypertension. Great Vessels All visible segments of the aorta are normal in size. The pulmonary artery was not well visualized. There is no dilatation of the ascending aorta measuring 3.10 cm. Venous The inferior vena cava is normal in size and collapses greater than 50% with inspiration. Pericardium/Pleural There is no evidence of pericardial effusion. Prior Study Comparison No prior study available for comparison. Measurements 2D Linear Measurements IVSd: 1.42 0.6-0.9/0.6-1.0 cm LVIDd: 4.72 3.9-5.3/4.2-5.9 cm LVIDd Index: 1.82 2.4-3.2/2.2-3.1 cm/m2 LVIDs: 2.60 2.0-3.6 cm LVPWd: 1.34 0.7-1.1 cm LA Diam: 4.10 2.7-3.8/3.0-4.0 cm LAIDs Index: 1.58 1.5-2.3 cm/m2 LV Mass: 325.89 67-162/88-224 g LV Mass Index: 125.83 43-95/49-115 g/m2 LVOT Diam: 1.90 3.0+(-)1.3 cm Mitral Valve MV Pk E: 0.79 MV PK A: 0.57 MV Decel Time: 147.00 E/A: 1.40 E'Lateral: 9.90 E'Medial: 7.83 E/E' Med: 10.10 E/E' Lat: 8.00 PHT: 43.00 MVA PHT: 5.12 Decel [place]: 5.37 Aortic Valve AoV Pk Robert: 1.53 AoV Mn Robert: 0.95 AoV VTI: 0.23 AoV Pk Grad: 9.00 Aov Mn Grad: 5.00 SHANAE Cont.VTI: 2.37 LVOT LVOT Pk Robert: 1.20 LVOT Mn Robert: 0.87 LVOT VTI: 0.19 LVOT Pk Grad: 6.00 LVOT Mn Grad: 3.00 LVOT Diam: 1.90 LVOT Area: 2.84 Diastolic Function MV Pk E: 0.79 MV Pk A: 0.57 E/A: 1.40 E'Medial: 7.83 E/E' Med: 10.10 E' Laterial: 9.90 E/E' Lat: 8.00 Right Ventricle TAPSE (mm): 30.40 TVS' Robert: 14.80 Tricuspid Valve TR Pk Robert: 1.29 TR Pk Grad: 7.00 RA Press: 8.00 RVSP: 15.00 Great Vessels Aorta Sinus of Valsalva: 2.90 2.0-3.5 cm Ao Asc: 3.10 2.1-3.4 cm Pulmonary Valve PV Pk Robert: 1.42 Peak PV Grad: 8.00 Updated in Other Vendor System with Status of Final Antonino Licona MD electronically signed on 01/18/2025 4:29:35 PM with status of Final
--- NOTE | 2025-01-18 07:01 | P.CNHO_ITS ---
Subjective - Subjective Chief complaint: Back pain Patient: new to practice Consult date: 01/18/25 Primary Care Provider: Maldonado Patterson MD Perfusionist Utilized?: No - Turkish Speaking HPI - Consult Narrative Reason for consult: Bilateral pulmonary emboli Narrative: Nando Street is a 34 year old male who presented to [facility] – [place] with complaints of shortness of breath on 01/16/2025. Patient has past medical history significant for asthma, HLD, GERD and obesity. He was recently admitted to the hospital in end of December for pneumonia and was treated with IV antibiotics. He was discharged on oral antibiotics however he developed a fever of 101 F which also prompted him to seek care. Patient was discharged on prednisone, Ceftin and doxycycline for 7 days. In the emergency room he underwent CT angiogram which demonstrated bilateral pulmonary emboli. He was started on heparin, he is awaiting vascular consultation. Patient was on prophylactic Lovenox during his prior hospitalization. After getting home although he was not as active physically as before he was not bed- bound. There is no family history or personal history of thromboembolism. He is not a smoker. Review of Systems - Constitutional Reports as per HPI, Denies poor appetite, Denies weight loss - Cardiovascular Denies excessive sweating, Denies fainting - Respiratory Reports no additional respiratory complaints, Denies cough, Reports dyspnea, Denies wheezing - Gastrointestinal Reports no additional gastrointestinal complaints PMFSH Medical History: Medical History (Last Reviewed 01/16/25 @ 21:50 by Natalie Au RN) Anxiety with depression Bleeding hemorrhoids GERD (gastroesophageal reflux disease) Hyperlipidemia Sleep apnea Family History: Family History (Last Reviewed 01/16/25 @ 18:51 by TAMMIE Obrien) Other Alcohol abuse Surgical History: Surgical History (Last Updated 01/18/25 @ 09:03 by Rivka Monroy RN) H/O vasectomy History of hemorrhoidectomy Onset Date: ~06/05/24 Hx of tonsillectomy Social History: Social History (Last Reviewed 01/16/25 @ 18:51 by TAMMIE Obrien) Living Situation History: Household Members: Family Housing: House Do you presently have visiting nurse or other home services: No Tobacco History: Patient Tobacco Use Status: Never used Tobacco e-Cigarette/Vaping Use: Never Used Second Hand Smoke Exposure: No Substance Use History: Substance Use Type: Marijuana Occupation Assessmet: service: No Current occupational status: employed Current occupational exposures/hazards: No Sex/Gender Assessment: Sexual orientation: Unable to collect Gender identity: Unable to collect Home Medications and Allergies Current Medications: Current Medications Acetaminophen (Acetaminophen 325 Mg Tablet) 650 mg PO Q6H PRN PRN Reason: Pain, Mild 1-3,fever,headache Last Admin: 01/17/25 19:29 Dose: 650 mg Albuterol/Ipratropium (Albuterol/Iprat 2.5/0.5mg 3 Ml Ampul.Neb) 3 ml INHALE Q4H PRN PRN Reason: Shortness of Breath/Wheezing Atorvastatin Calcium (Atorvastatin Calcium 20 Mg Tablet) 20 mg PO BEDTIME [facility] Last Admin: 01/17/25 19:30 Dose: 20 mg Calcium Carbonate (Calcium Carbonate 750 Mg Tab.Chew) 750 mg PO Q4H PRN PRN Reason: Heartburn Heparin Sodium (Porcine) (Heparin Sodium,Porcine 5,000 Unit/Ml Vial) 5,800 unit 40 unit/kg (5800 unit) IVPUSH PROTOCOL BOLUS PRN; Protocol PRN Reason: 40 unit/kg - Heparin Protocol Last Admin: 01/17/25 21:05 Dose: 5,800 unit Heparin Sodium (Porcine) (Heparin Sodium,Porcine 5,000 Unit/Ml Vial) 10,000 unit IVPUSH PROTOCOL BOLUS PRN; Protocol PRN Reason: 80 unit/kg - Heparin Protocol Heparin Sodium/Sodium Chloride (Heparin Sodium,Porcine/1/2ns) 25,000 unit in 250 mls @ 0 mls/hr IVCONT .Q0M PATTI; Protocol Last Admin: 01/18/25 00:57 Dose: 14 units/kg/hr, 20.16 mls/hr Sodium Chloride (Ns) 1,000 mls @ 100 mls/hr IVCONT .Q10H [facility] Last Admin: 01/18/25 05:31 Dose: 100 mls/hr Magnesium Hydroxide (Milk Of Magnesia 30 Ml Oral.Susp) 30 ml PO DAILY PRN PRN Reason: Constipation Melatonin (Melatonin 3 Mg Tablet) 6 mg PO BEDTIME PRN PRN Reason: Insomnia Morphine Sulfate (Morphine Sulfate 2 Mg/Ml Cartridge) 2 mg IVPUSH Q4H PRN; Protocol PRN Reason: Pain, Severe (Pain Scale 7-10) Last Admin: 01/17/25 19:30 Dose: 2 mg Ondansetron HCl (Ondansetron Hcl 4 Mg/2 Ml Vial) 4 mg IVPUSH Q8H PRN PRN Reason: Nausea and Vomiting Oxycodone HCl (Oxycodone Hcl Immed Release 5 Mg Tablet) 5 mg PO Q4H PRN PRN Reason: Pain, Moderate(Pain Scale 4-6) Sodium Chloride (0.9 % Sodium Chloride Flush 3 Ml Syringe) 3 ml IVFLUSH QSHIFT [facility] Last Admin: 01/17/25 19:30 Dose: 3 ml Venlafaxine HCl (Venlafaxine Hcl Er 150 Mg Cap.Er.24h) 150 mg PO DAILY [facility] Last Admin: 01/17/25 14:13 Dose: 150 mg Home Medications ?Medication ?Instructions ?Recorded ?Confirmed ?Type magnesium 250 mg tablet 250 mg PO BEDTIME 01/03/25 01/17/25 History albuterol sulfate 90 mcg/actuation 2 puff inhalation Q4-6H PRN 01/17/25 01/17/25 History aerosol inhaler Shortness Of Breath Or Wheezing Allergies Allergy/AdvReac Type Severity Reaction Status Date / Time No Known Allergies Allergy Verified 01/18/25 08:58 [No Known Allergies*] Physical Exam Vital signs: Vital Signs Temp 96.9 F 01/18/25 03:39 Pulse 96 01/18/25 03:39 Resp 20 01/18/25 03:39 BP 123/58 L 01/18/25 03:39 Pulse Ox 91 L 01/18/25 03:39 O2 Del Method CPAP 01/18/25 03:39 O2 Flow Rate 2 01/17/25 19:36 Intake & Output 01/17/25 01/18/25 01/18/25 18:59 06:59 18:59 Intake Total 701.376 / 896.736 195.36 / 896.736 Output Total 1800 / 2200 400 / 2200 Balance -1098.624 / -1303.264 -204.64 / -1303.264 Urine Output (Average ml/kg/hr) 1.04 0.23 Intake: Intake, Oral Amount 480 / 480 Intake, IV Amount 221.376 / 416.736 195.36 / 416.736 Heparin Sodium,Porcine/1/2NS 25 221.376 / 416.736 195.36 / 416.736 ,000 unit In 250 ml @ Per Protocol IVCONT .Q0M [facility] Rx#: [id number] Output: Output, Urine Amount 1800 / 2200 400 / 2200 Other: Meal Refused No NPO No Breakfast % Eaten 100% Lunch % Eaten 100% Urine Urinal Urinal Urine Color Yellow Weight 144 kg - Constitutional Present: mild distress, obese - Routine HEENT Exam Head: Present: normal inspection Eye: Present: EOMI, PERRL - Routine Neck Exam Present: supple - Routine Respiratory Exam Absent: accessory muscle use, rhonchi, wheezes - Routine Cardiovascular Exam Cardiovascular: Present: RRR, S1, S2 - Routine Abdominal Exam Present: soft - Routine Extremities Exam Present: pulses intact. Absent: pedal edema Hem/Onc Consult Result - Labs CBC & Chem 7: 01/17/25 06:50 01/17/25 06:50 Labs: Short CBC 01/17/25 Range/Units 06:50 WBC 6.4 (4.8-10.8) X10*3/uL Hgb 12.4 L (14.0-18.0) g/dl Hct 37.3 L (42.0-52.0) % Plt Count 202 (160-400) X10*3/uL BMP 01/17/25 06:50 Sodium 139 Potassium 4.1 Chloride 106 Carbon Dioxide 23 BUN 12 Creatinine 0.86 Calcium 8.5 Liver Function 01/17/25 Range/Units 06:50 Total Bilirubin 0.8 (0.0-1.0) mg/dL AST 55 H (5-37) U/L ALT 93 H (0-40) U/L Alkaline Phosphatase 68 (39-117) U/L Albumin 3.5 (3.5-5.0) g/dL Urine 01/17/25 Range/Units 16:20 Urine Color Yellow Urine Appearance Clear Urine pH 7.5 (5.0-9.0) Ur Specific [place] 1.010 (1.005-1.025) Urine Protein Negative (Neg-Trace) mg/dL Urine Glucose (UA) Negative (Negative) mg/dL Assessment and Plan Patient Active problem list reviewed?: Yes (1) Bilateral pulmonary embolism Status: Acute Assessment and plan: 1. This is a 34-year-old male with recent multifocal pneumonia who is currently admitted for bilateral pulmonary embolism. He presented with fever and shortness of breath, CT angiogram performed 01/16/2025 revealed acute bilateral pulmonary emboli in the segmental and subsegmental arteries in the right lower lobe as well as in the right middle and left upper and lower lobes, no right heart strain. Bilateral lower extremity Doppler ultrasound was negative for DVT. There is no personal or family history of thromboembolism. During his prior admission for pneumonia patient did receive prophylactic Lovenox. He also underwent a previous CT angiogram which was inconclusive for PE but a V/Q scan ruled out pulmonary embolism. CT angiogram from 01/03/2025 also mentions hepatosplenomegaly although incompletely included in the [id number]. There was no lymphadenopathy in the chest. He is currently on Lovenox, his oxygen saturation has been about 90 to 92% on 3 L. Patient will need to be on anticoagulation for 3-6 months. He can be switched to Eliquis. Thrombophilia workup can be submitted as outpatient. Further evaluation of hepatosplenomegaly will also be performed upon discharge. I thank you for the consultation. - Time Spent With Patient Time Spent with Patient (in minutes): 25 Additional Coding: - Additional E/M codes Complex E/M visit Add On: CPT G2211
[2025-01-18] MEDS: Morphine Sulfate 2 MG/ML CARTRIDGE IVPUSH (07:15)
[2025-01-18] MEDS: Venlafaxine HCl ER 150 MG CAP.ER.24H PO (07:15)
[2025-01-18] MEDS: 0.9 % Sodium Chloride Flush 3 ML SYRINGE IVFLUSH ×2 (07:16→15:09)
--- NOTE | 2025-01-18 08:52 | PM.CNGS ---
History of Present Illness Consult details Consult date: 01/18/25 Reason for consult: other (Pulmonary embolism) Narrative: Pleasant morbidly obese 34-year-old gentleman who originally presented to the hospital with atypical pneumonia. He was there from 01/03 - 01/06. He was treated with atypical pneumonia. Had no improvement. He subsequently was readmitted on 01/16/2025. Upon workup and CT angiogram he was noted to have bilateral pulmonary embolisms. Upon discussion with him he has no prior history of this. He reports no family history. He reported acute shortness of breath that was what brought him in this time. At the current time he is satting about 92% on 2 L nasal cannula. High sensitivity troponin was less than 2.7. Of note he is undergoing echo this morning Review of Systems Review of Systems: Yes all other systems are reviewed and are negative Constitutional: Constitutional: Reports no additional constitutional complaints ENT: Reports Normal hearing present Cardiovascular: Cardiovascular: Denies chest pain, Denies chest pain at rest, Denies chest pain with activity and Denies pedal edema Respiratory: Respiratory: Denies cough Gastrointestinal: Gastrointestinal: Denies abdominal pain Musculoskeletal: Musculoskeletal: Denies abnormal gait, Denies muscle cramps and Denies radiating pain into limb Integumentary/Breasts: Skin/Breast: Denies skin ulcer and Denies wounds Neurologic: Reports Normal hearing present and Denies abnormal gait Psychiatric: Psychiatric: Reports no additional psychiatric complaints PMFSH Past Medical History Medical History Sleep apnea GERD (gastroesophageal reflux disease) Anxiety with depression Hyperlipidemia Bleeding hemorrhoids Family History Family History Other Alcohol abuse Surgical History Surgical History History of hemorrhoidectomy (~06/05/24) Hx of tonsillectomy Social History Social History Household Members: Family Housing: House Do you presently have visiting nurse or other home services: No Alcohol intake: current Alcohol intake frequency: holidays/special occasions only Patient Tobacco Use Status: Never used Tobacco e-Cigarette/Vaping Use: Never Used Second Hand Smoke Exposure: No Substance Use Type: Marijuana service: No Current occupational status: employed Current occupational exposures/hazards: No Sexual orientation: Unable to collect Gender identity: Unable to collect Cognitive needs: No Hearing needs: No Vision needs: No Meds Allergies Allergy/AdvReac Type Severity Reaction Status Date / Time No Known Allergies Allergy Verified 01/18/25 08:58 [No Known Allergies*] Active Medications: Current Medications Acetaminophen (Acetaminophen 325 Mg Tablet) 650 mg PO Q6H PRN PRN Reason: Pain, Mild 1-3,fever,headache Last Admin: 01/17/25 19:29 Dose: 650 mg Albuterol/Ipratropium (Albuterol/Iprat 2.5/0.5mg 3 Ml Ampul.Neb) 3 ml INHALE Q4H PRN PRN Reason: Shortness of Breath/Wheezing Atorvastatin Calcium (Atorvastatin Calcium 20 Mg Tablet) 20 mg PO BEDTIME [facility] Last Admin: 01/17/25 19:30 Dose: 20 mg Calcium Carbonate (Calcium Carbonate 750 Mg Tab.Chew) 750 mg PO Q4H PRN PRN Reason: Heartburn Heparin Sodium (Porcine) (Heparin Sodium,Porcine 5,000 Unit/Ml Vial) 5,800 unit 40 unit/kg (5800 unit) IVPUSH PROTOCOL BOLUS PRN; Protocol PRN Reason: 40 unit/kg - Heparin Protocol Last Admin: 01/17/25 21:05 Dose: 5,800 unit Heparin Sodium (Porcine) (Heparin Sodium,Porcine 5,000 Unit/Ml Vial) 10,000 unit IVPUSH PROTOCOL BOLUS PRN; Protocol PRN Reason: 80 unit/kg - Heparin Protocol Heparin Sodium/Sodium Chloride (Heparin Sodium,Porcine/1/2ns) 25,000 unit in 250 mls @ 0 mls/hr IVCONT .Q0M [facility]; Protocol Last Admin: 01/18/25 00:57 Dose: 14 units/kg/hr, 20.16 mls/hr Sodium Chloride (Ns) 1,000 mls @ 100 mls/hr IVCONT .Q10H [facility] Last Admin: 01/18/25 05:31 Dose: 100 mls/hr Magnesium Hydroxide (Milk Of Magnesia 30 Ml Oral.Susp) 30 ml PO DAILY PRN PRN Reason: Constipation Melatonin (Melatonin 3 Mg Tablet) 6 mg PO BEDTIME PRN PRN Reason: Insomnia Morphine Sulfate (Morphine Sulfate 2 Mg/Ml Cartridge) 2 mg IVPUSH Q4H PRN; Protocol PRN Reason: Pain, Severe (Pain Scale 7-10) Last Admin: 01/18/25 07:15 Dose: 2 mg Ondansetron HCl (Ondansetron Hcl 4 Mg/2 Ml Vial) 4 mg IVPUSH Q8H PRN PRN Reason: Nausea and Vomiting Oxycodone HCl (Oxycodone Hcl Immed Release 5 Mg Tablet) 5 mg PO Q4H PRN PRN Reason: Pain, Moderate(Pain Scale 4-6) Sodium Chloride (0.9 % Sodium Chloride Flush 3 Ml Syringe) 3 ml IVFLUSH QSHIFT [facility] Last Admin: 01/18/25 07:16 Dose: 3 ml Venlafaxine HCl (Venlafaxine Hcl Er 150 Mg Cap.Er.24h) 150 mg PO DAILY [facility] Last Admin: 01/18/25 07:15 Dose: 150 mg Home Medications ?Medication ?Instructions ?Recorded ?Confirmed ?Last Taken ?Type magnesium 250 mg tablet 250 mg PO BEDTIME 01/03/25 01/17/25 Unknown History albuterol sulfate 90 mcg/actuation 2 puff inhalation Q4-6H PRN 01/17/25 01/17/25 Unknown History aerosol inhaler Shortness Of Breath Or Wheezing Physical Exam Vital Signs: Vital Signs: Last Vital Signs Temp 97.5 F 01/18/25 08:08 Pulse 100 01/18/25 08:08 Resp 20 01/18/25 08:08 BP 116/56 L 01/18/25 08:08 Pulse Ox 94 01/18/25 08:08 O2 Del Method Nasal Cannula 01/18/25 08:08 O2 Flow Rate 2 01/18/25 08:08 BMI result Body Mass Index 43.1 Const: General: cooperative, healthy appearing and comfortable Orientation/consciousness: oriented to person, oriented to place and oriented to time HEENT: Head: Yes normal to inspection Neck: Neck: Yes normal visual inspection Carotids: no bruits Chest: Chest palpation & inspection: normal inspection of the chest Resp: Other: Decreased bilateral basilar breath sounds. Effort & Inspection: normal respiratory effort and able to speak in complete sentences Auscultation: crackles, rales, no rhonchi, no wheezes and diminished lung sounds Cardio: Rate: regular rate Rhythm: regular rhythm Heart sounds: S1 normal heart sound present and S2 normal heart sound present Bruits: no carotid bruits Peripheral pulses: Peripheral pulses 2+ throughout GI: Inspection: Yes normal to inspection Skin: Wounds: no wounds Hair: normal Neuro: General: oriented to person, oriented to place and oriented to time Cranial nerves: Yes CN's II-XII intact bilaterally and Yes Normal hearing present Cognition (Neuro): normal cognition Motor exam (neuro): 5/5 motor strength present throughout Extrem: Other: venous exam: No significant superficial varicosities or spider telangiectasias, minimal edema General: No clubbing, No cyanosis and No edema Psych: Appearance: grossly normal Mental Status: mental status grossly normal Speech and movement: Normal speech and movement present Results Labs 01/17/25 06:50 01/17/25 06:50 Labs: Abnormal lab results 01/17/25 Range/Units 20:16 aPTT Heparin Protocol 46.2 L (53-77.9) SEC Urine 01/17/25 Range/Units 16:20 Urine Color Yellow Urine Appearance Clear Urine pH 7.5 (5.0-9.0) Ur Specific [place] 1.010 (1.005-1.025) Urine Protein Negative (Neg-Trace) mg/dL Urine Glucose (UA) Negative (Negative) mg/dL All other labs normal. Assessment and Plan (1) Bilateral pulmonary embolism: Status: Acute Plan In short patient has bilateral pulmonary embolisms. Plan is for pulmonary embolectomy. Risks benefits complications were discussed in detail with the patient he understood and consented and would like to move forward. We will schedule him for as soon as possible. Procedures Date of Service Date of Service: 01/18/25
[2025-01-18] MEDS: fentaNYL citrate/PF 100 MCG/2 ML VIAL 25 MCG IVPUSH ×2 (09:58→10:08)
[2025-01-18] MEDS: Midazolam HCl 2 MG/2 ML VIAL 0.5 MG IVPUSH ×2 (09:58→10:08)
[2025-01-18] MEDS: Heparin Sodium,Porcine 10,000 UNIT/10 ML VIAL 10000 UNIT IVPUSH (10:25)
[2025-01-18] MEDS: Heparin Sodium,Porcine 10,000 UNIT/10 ML VIAL 2000 UNIT IVPUSH (10:39)
[2025-01-18] MEDS: fentaNYL citrate/PF 100 MCG/2 ML VIAL 50 MCG IVPUSH (10:51)
[2025-01-18] MEDS: Midazolam HCl 2 MG/2 ML VIAL 1 MG IVPUSH (10:51)
--- NOTE | 2025-01-18 11:34 | MHC.CM.PN ---
Patient sent to OR today. Dr Beavers is scheduled to perform a pulmonary Ebolectomy. DP Home self care. He will arrange for private transport. His car is in [place] lot.
[2025-01-18] MEDS: hydrALAZINE HCl 20 MG/ML VIAL 10 MG IVPUSH (11:36)
--- NOTE | 2025-01-18 12:37 | W.PM.OPN ---
Operative Note Operative Note Date of Service: 01/18/25 Narrative: Operative note by [facility] Preoperative diagnosis: Pulmonary embolism Postoperative diagnosis: Same Procedure:1. Ultrasound-guided right common femoral vein access 2. Inferior vena cavogram 3. Selective right pulmonary artery angiogram 4. Selective left pulmonary artery angiogram 5. Mechanical thrombectomy of pulmonary embolism of right pulmonary artery 6. Return of blood using flow Saver system 7. Radiologic supervision and interpretation. Surgeon:Nick Beavers M.D. Newspaper Correspondent: None Anesthesia: Local with moderate conscious sedation. Total intraservice moderate sedation time was 100 minutes. I monitored the patient's level of consciousness and physiologic status continuously throughout the procedure. Specimens: none Drains :none Estimated blood loss: Less than 50 ml Radiation dose: 1060.2 mGy Implant: None Comorbid conditions: Acute respiratory failure with hypoxia, morbid obesity, elevated liver enzymes, atypical pneumonia, acute hypoxic respiratory failure, sleep apnea, depression, anxiety. , Indications: Patient was noted to have submassive pulmonary embolism.. CT of the chest was reviewed and demonstrated right segmental and subsegmental clot. Heparin drip was initiated immediately. Due to the clot burden the patient now presents for pulmonary embolectomy. The patient has signed the informed consent after reviewing risks, complications, benefits, and alternatives previously discussed with the patient. The patient was given the opportunity to ask any additional questions or voice any concerns. All questions were answered to the patient's satisfaction. Procedure in detail: Patient was brought to the angiography suite prior to which a time-out was called for patient identification and site verification. Bilateral groins were prepped and draped in the standard surgical fashion. Under ultrasound guidance right common femoral vein was punctured with micro puncture needle and wire. Subsequently a precision 5 Sudanese sheath was then placed. Bentson wire was advanced to the level of the vena cava. 4 Sudanese Flush catheter was brought up and parked at the level of the renal arteries. Vena cavogram was then undertaken. The patient was systemically anticoagulated with heparin and therapeutic ACT was [place] 210[place] [address] units of heparin had to be given We then advanced a Bentson wire all the way up into the inferior vena cava to the atrial junction. We then advanced a pigtail catheter through that from the right atrium to the right ventricle into the pulmonary artery. We then used a Moreno wire through this. At this time we did a selective image the right main pulmonary artery and subsequently the left main pulmonary artery. We then advanced the INTRI 24 Sudanese sheath. Over this we then placed TRIEVER 24 large-bore catheter. This was directed towards the right pulmonary artery. We then successfully aspirated small amount of clot. Once the syringe was filled we placed this through the flow Saver blood filtering system and returned the blood back to the patient. We then advanced a 20 angled catheter Flowtriever. Several aspirations were performed until we had no thrombus return. Once this was all done completion imaging was then undertaken. No residual thrombus was noted. We imaged the left pulmonary artery and no significant clot was identified. Catheter, wire and sheath were removed. Pursestring nylon suture was placed 10 minutes of direct pressure was held. Patient tolerated the procedure well and was returned to recovery with stable vitals. Interpretation of films: 1. Ultrasound was used to evaluate access site of the femoral vein. The femoral vein was noted to be patent with no thrombus. Ultrasound was used for visualization of needle entry. Image was saved to PACS 2. Vena cavogram demonstrated normal caliber vena cava with no evidence of thrombus. 3. Pulmonary artery imaging demonstrated - mild amount of clot burden in the inferior branches. 4. Completion imaging demonstrated no visualized clot in the right and left segmental and subsegmental pulmonary branches. Conclusion: 1. Successful right pulmonary artery mechanical venous thrombectomy. 2. Anticoagulation status: Continue heparin drip at same rate. Can restart formal oral anticoagulation tomorrow This note is constructed using voice recognition software. While every effort has been made to ensure accuracy, psychologist educational errors may have been included. Thank you for allowing me to participate in the care of your patient. Yours sincerely, Nick Beavers MD, FACS, R.P.V.I.
[2025-01-18] MEDS: Morphine Sulfate 4 MG/ML CARTRIDGE IVPUSH ×4 (15:06→22:01)
[2025-01-18] MEDS: ondansetron HCL 4 MG/2 ML VIAL IVPUSH (15:08)
[2025-01-18 15:39] LABS: PTT Heparin Drip 45.4 SEC (53-77.9)
--- NOTE | 2025-01-18 17:06 | P.PNIM_ITS ---
Subjective Subjective Date of Service: 01/18/25 Interval History: Pt underwent thrombectomy by vascular surgery earlier today with some clot retrieval Pt current somnolent but arousable Complains of mid back pain Otherwise feeling ?okay? Denies SOB or difficulty breathing No nausea, vomiting, abdominal pain Review of Systems Review of Systems: Yes all other systems are reviewed and are negative Physical Exam 2 Vital Signs: Vital Signs: Last Vital Signs Temp 99.1 F 01/18/25 13:18 Pulse 110 H 01/18/25 13:18 Resp 22 H 01/18/25 15:06 BP 127/67 01/18/25 13:18 Pulse Ox 93 01/18/25 13:18 O2 Del Method Nasal Cannula 01/18/25 13:18 O2 Flow Rate 2 01/18/25 13:18 BMI result Body Mass Index 43.1 General: AOx3, somnolent but arousable. In no acute distress Resp: Mild wheezing bilaterally CVS: S1, S2, RRR GI: +BS, NT, no distention Skin: Warm, dry Neuro: Cranial nerves II-XII grossly intact bilaterally. Motor grossly intact bilaterally Extremities: No edema Psych: Appropriate affect Objective Data Active Medications Acetaminophen (Acetaminophen 325 Mg Tablet) 650 mg PO Q6H PRN PRN Reason: Pain, Mild 1-3,fever,headache Last Admin: 01/17/25 19:29 Dose: 650 mg Documented By: MAE Acetaminophen (Acetaminophen 325 Mg Tablet) 650 mg PO Q6H PRN PRN Reason: Pain, Mild (Pain Scale 1-3) Albuterol/Ipratropium (Albuterol/Iprat 2.5/0.5mg 3 Ml Ampul.Neb) 3 ml INHALE Q4H PRN PRN Reason: Shortness of Breath/Wheezing Atorvastatin Calcium (Atorvastatin Calcium 20 Mg Tablet) 20 mg PO BEDTIME PATTI Last Admin: 01/17/25 19:30 Dose: 20 mg Documented By: MAE Calcium Carbonate (Calcium Carbonate 750 Mg Tab.Chew) 750 mg PO Q4H PRN PRN Reason: Heartburn Heparin Sodium (Porcine) (Heparin Sodium,Porcine 5,000 Unit/Ml Vial) 5,800 unit 40 unit/kg (5800 unit) IVPUSH PROTOCOL BOLUS PRN; Protocol PRN Reason: 40 unit/kg - Heparin Protocol Last Admin: 01/17/25 21:05 Dose: 5,800 unit Documented By: MAE Heparin Sodium (Porcine) (Heparin Sodium,Porcine 5,000 Unit/Ml Vial) 10,000 unit IVPUSH PROTOCOL BOLUS PRN; Protocol PRN Reason: 80 unit/kg - Heparin Protocol Heparin Sodium/Sodium Chloride (Heparin Sodium,Porcine/1/2ns) 25,000 unit in 250 mls @ 0 mls/hr IVCONT .Q0M PATTI; Protocol Last Titration: 01/18/25 16:21 Dose: 10 units/kg/hr, 14.4 mls/hr Documented By: JYOTHI Co-signed By: AMAIRANI Sodium Chloride (Ns) 1,000 mls @ 100 mls/hr IVCONT .Q10H [facility] Last Admin: 01/18/25 15:09 Dose: 100 mls/hr Documented By: JYOTHI Magnesium Hydroxide (Milk Of Magnesia 30 Ml Oral.Susp) 30 ml PO DAILY PRN PRN Reason: Constipation Melatonin (Melatonin 3 Mg Tablet) 6 mg PO BEDTIME PRN PRN Reason: Insomnia Morphine Sulfate (Morphine Sulfate 2 Mg/Ml Cartridge) 2 mg IVPUSH Q4H PRN; Protocol PRN Reason: Pain, Severe (Pain Scale 7-10) Last Admin: 01/18/25 07:15 Dose: 2 mg Documented By: JYOTHI Morphine Sulfate (Morphine Sulfate 4 Mg/Ml Cartridge) 4 mg IVPUSH Q2H PRN; Protocol PRN Reason: Pain, Severe (Pain Scale 7-10) Last Admin: 01/18/25 15:06 Dose: 4 mg Documented By: JYOTHI Ondansetron HCl (Ondansetron Hcl 4 Mg/2 Ml Vial) 4 mg IVPUSH Q8H PRN PRN Reason: Nausea and Vomiting Last Admin: 01/18/25 15:08 Dose: 4 mg Documented By: JYOTHI Oxycodone HCl (Oxycodone Hcl Immed Release 5 Mg Tablet) 5 mg PO Q4H PRN PRN Reason: Pain, Moderate(Pain Scale 4-6) Oxycodone HCl (Oxycodone Hcl Immed Release 5 Mg Tablet) 5 mg PO Q4H PRN PRN Reason: Pain, Moderate(Pain Scale 4-6) Sodium Chloride (0.9 % Sodium Chloride Flush 3 Ml Syringe) 3 ml IVFLUSH QSHIFT [facility] Last Admin: 01/18/25 15:09 Dose: 3 ml Documented By: JYOTHI Venlafaxine HCl (Venlafaxine Hcl Er 150 Mg Cap.Er.24h) 150 mg PO DAILY [facility] Last Admin: 01/18/25 07:15 Dose: 150 mg Documented By: JYOTHI Labs 01/17/25 06:50 01/17/25 06:50 Labs: Laboratory Results - last 24 hr 01/17/25 01/18/25 01/18/25 20:16 02:47 13:36 aPTT Heparin Protocol 46.2 L 72.4 D 117.0 H* D 01/18/25 15:19 aPTT Heparin Protocol 45.4 L D Microbiology Microbiology Results: Microbiology 01/16/25 11:02 Blood Culture - Preliminary Blood - Venous No growth after 48 hours. 01/16/25 11:03 Blood Culture - Preliminary Blood - Venous No growth after 48 hours. Assessment and Plan (1) Bilateral pulmonary embolism: Status: Acute Plan 34-year-old male with past medical history significant for morbid obesity asthma hyperlipidemia GERD and anxiety presents for evaluation of fever body aches and dry cough along with shortness of breath on exertion for 1 week. He reports temps as high as 101 over the last several nights. Recently admitted 12/15/1903/28/2025 through 01/06/2025 4 multifocal pneumonia. CTA today demonstrates bilateral pulmonary emboli. Bilateral pulmonary emboli Underwent thrombectomy by Dr. Beavers on 01/18/2025 Continue heparin drip as per protocol until tomorrow at 09:00 Transition tomorrow morning to Eliquis 10 mg b.i.d. x7 days, Eliquis 5 mg b.i.d. subsequently x6 months Titrate O2 to maintain sats greater than equal to 92% DuoNebs q.4 hours while awake Unclear etiology: Pt denies trauma, family hx of anti coagulable state Hematology/vascular surgery consult Asthma DuoNebs as ordered Adjust therapies as clinically indicated Full code DVT prophylaxis: Heparin/Eliquis Patient requires ongoing hospitalization for IV heparin drip and stabilization s/p thrombectomy. Quality Stroke Does the patient have a stroke diagnosis?: No VTE Prior VTE?: No VTE Risk Level:: Medical - moderate - high VTE Device Contraindication: Treatment Not Indicated VTE Drug Contraindication: N/A - Med Ordered
[2025-01-18] MEDS: Heparin Sodium,Porcine/1/2NS 25,000 UNIT/250 ML IV.SOLN 14.4 UNIT IVCONT (19:45)
[2025-01-18] MEDS: Atorvastatin Calcium 20 MG TABLET PO (19:52)
[2025-01-18] MEDS: Acetaminophen 325 MG TABLET 650 MG PO (20:37)
[2025-01-18 21:22] LABS: Lactic Acid 0.9 mmol/L (0.5-2.0)
[2025-01-18] MEDS: Heparin Sodium,Porcine 5,000 UNIT/ML VIAL 5800 UNIT IVPUSH (23:11)
[2025-01-19] VITALS (8 sets, daily range): BP systolic 111–148; BP diastolic 55–74; PULSE 96–110; RESP 16–20; TEMP 36.4–38.1; O2SAT 90–93
[2025-01-19] MEDS: 0.9 % Sodium Chloride 1,000 ML 100 ML IVCONT (01:18)
[2025-01-19] MEDS: Morphine Sulfate 4 MG/ML CARTRIDGE IVPUSH ×3 (02:18→07:45)
[2025-01-19 06:23] LABS: PTT Heparin Drip 66.7 SEC (53-77.9)
[2025-01-19] MEDS: Apixaban 5 MG TABLET 10 MG PO ×2 (07:44→20:41)
[2025-01-19] MEDS: 0.9 % Sodium Chloride Flush 3 ML SYRINGE IVFLUSH ×3 (07:45→20:42)
[2025-01-19] MEDS: Venlafaxine HCl ER 150 MG CAP.ER.24H PO (07:45)
[2025-01-19 08:27] LABS: ACT 101 Celite s (79-173)
[2025-01-19 08:27] LABS: ACT 203 Celite s (79-173)
[2025-01-19 08:27] LABS: ACT 156 Celite s (79-173)
[2025-01-19 08:27] LABS: ACT 192 Celite s (79-173)
--- NOTE | 2025-01-19 09:09 | P.PNVS_ITS ---
Subjective Subjective Date of Service: 01/19/25 Interval history: Nando is doing ok this morning. He continues with mid-back pain, worse with trying to take deep breaths. He denies shortness of breath, diff breathing, and CP. He states he is feeling better than when he first came in. He only slept a little last night and has been eating small amounts, mostly fruit. He states he only gets pain in his groin when he is bending/moving around. He has no new concerns this morning. Physical Exam Vital Signs: Vital Signs: Last Vital Signs Temp 97.6 F 01/19/25 07:24 Pulse 102 H 01/19/25 07:24 Resp 20 01/19/25 07:24 BP 112/55 L 01/19/25 07:24 Pulse Ox 93 01/19/25 07:24 O2 Del Method Nasal Cannula 01/19/25 07:24 O2 Flow Rate 2 01/19/25 07:24 BMI result Body Mass Index 43.1 Const: General: comfortable and no acute distress Orientation/consciousness: patient oriented x3 HEENT: Ears: hearing grossly normal bilaterally Resp: Effort & Inspection: normal respiratory effort and able to speak in complete sentences Auscultation: clear to auscultation bilaterally Cardio: Rate: regular rate Rhythm: regular rhythm Heart sounds: S1 normal heart sound present and S2 normal heart sound present Bruits: no ab dominal aortic bruits, no carotid bruits, no femoral bruits and no renal bruits GI: Palpation (GI): No Abdominal aortic bruit present : Other: Right groin: C/D/I. No bleeding or discharge noted. Suture in place. Neuro: General: patient oriented x3 Cranial nerves: Yes CN's II-XII intact bilaterally Progress Note: A&P Assessment and plan (1) Bilateral pulmonary embolism: Status: Acute Assessment and Plan: Nando is s/p thrombectomy on 01/18 due to findings of bilateral pulmonary embolism. He tolerated the procedure well and has been feeling better since. He denies any shortness of breath, diff breathing, or CP; he states he does get some mid-back pain, which causes him to have difficulty in taking deep breaths intermittently. He states overall he is feeling much better. We recommend starting oral AC today. We will continue to monitor. If there are any questions or concerns, please do not hesitate to reach out to us. Time Spent With Patient Time: Total time managing care of this patient today ____ minutes. Procedures Date of Service Date of Service: 01/19/25 Quality Stroke Does the patient have a stroke diagnosis?: No VTE Prior VTE?: No VTE Risk Level:: Medical - moderate - high VTE Device Contraindication: Treatment Not Indicated VTE Drug Contraindication: N/A - Med Ordered
[2025-01-19] MEDS: Acetaminophen 325 MG TABLET 650 MG PO ×3 (09:56→22:24)
[2025-01-19 09:58] LABS: Hemoglobin 11.4 g/dl (14.0-18.0); Imm Gran Abs Auto 0.26 X10*3/uL (0.00-0.03); PLT CLUMP 1; SCAN SMEAR FLAG 1
[2025-01-19 10:00] LABS: Basophils Absolute Auto 0.1 X10*3/uL (0.0-0.2); Basophils Percent Auto 0.6 % (0-2); Eosinophils Absolute Auto 0.1 X10*3/uL (0.0-0.4); Eosinophils Percent Auto 0.5 % (0-4); Hematocrit 34.1 % (42.0-52.0); Imm Gran Pct Auto 2.7 % (0.0-0.4); Lymphocytes Absolute Auto 3.6 X10*3/uL (1.2-4.9); Lymphocytes Percent Auto 37.5 % (20-40); MANUAL DIFF FLAG SCAN; Mean Corpuscular HGB Conc 33.4 g/dl (31.0-36.0); Mean Corpuscular Hemoglobin 32.5 pg (27.0-33.0); Mean Corpuscular Volume 97.2 fL (80.0-98.0); Monocytes Absolute Auto 0.8 X10*3/uL (0.1-1.2); Monocytes Percent Auto 8.7 % (2-11); Neutrophils Absolute Auto 4.8 x10*3/uL (2.0-8.3); Red Blood Count 3.51 X10*6/uL (4.60-5.80); Red Cell Distribution Width 14.2 % (11.0-16.0)
[2025-01-19 10:35] LABS: Procalcitonin 0.22 ng/mL
[2025-01-19 10:38] LABS: Platelet Count 175 X10*3/uL (160-400); White Blood Count 9.5 X10*3/uL (4.8-10.8)
[2025-01-19 10:39] LABS: Mean Platelet Volume 9.9 fL (9.4-12.4); SLIDE REVIEW VERIFIED
[2025-01-19] MEDS: oxyCODONE HCl Immed Release 5 MG TABLET PO ×2 (12:05→20:41)
[2025-01-19] MEDS: Lidocaine 4 % Patch ADH..PATCH 1 PATCH TRANSDERMA (12:05)
--- NOTE | 2025-01-19 15:30 | P.PNIM_ITS ---
Subjective Subjective Date of Service: 01/19/25 Interval History: c/o dyspnea and mid-back pain Review of Systems Review of Systems: Yes all other systems are reviewed and are negative Physical Exam 2 Vital Signs: Vital Signs: Last Vital Signs Temp 98.6 F 01/19/25 11:16 Pulse 96 01/19/25 11:16 Resp 20 01/19/25 11:16 BP 128/61 01/19/25 11:16 Pulse Ox 93 01/19/25 11:16 O2 Del Method Nasal Cannula 01/19/25 11:16 O2 Flow Rate 2 01/19/25 11:16 BMI result Body Mass Index 43.1 Gen: in no acute distress HEENT: sclera anicteric, moist mucus membranes Neck: supple Lungs: clear to auscultation bilaterally Heart: regular rate and rhythm, no murmurs Abd: soft, non-tender, non-distended, obese Ext: no edema Skin: warm/well-perfused Neuro: alert and oriented x3, no focal findings Psych: appropriate affect Objective Data Active Medications Acetaminophen (Acetaminophen 325 Mg Tablet) 650 mg PO Q6H PRN PRN Reason: Pain, Mild 1-3,fever,headache Last Admin: 01/19/25 09:56 Dose: 650 mg Documented By: KAY Acetaminophen (Acetaminophen 325 Mg Tablet) 650 mg PO Q6H PRN PRN Reason: Pain, Mild (Pain Scale 1-3) Albuterol/Ipratropium (Albuterol/Iprat 2.5/0.5mg 3 Ml Ampul.Neb) 3 ml INHALE Q4H PRN PRN Reason: Shortness of Breath/Wheezing Apixaban (Apixaban 5 Mg Tablet) 10 mg PO BID [facility] Stop: 01/25/25 21:01 Last Admin: 01/19/25 07:44 Dose: 10 mg Documented By: KAY Atorvastatin Calcium (Atorvastatin Calcium 20 Mg Tablet) 20 mg PO BEDTIME [facility] Last Admin: 01/18/25 19:52 Dose: 20 mg Documented By: HIEU-DIMASZECeci Calcium Carbonate (Calcium Carbonate 750 Mg Tab.Chew) 750 mg PO Q4H PRN PRN Reason: Heartburn Lidocaine (Lidocaine 4 % Patch Adh..Patch) 1 patch TRANSDERMA DAILY [facility]; Protocol Last Admin: 01/19/25 12:05 Dose: 1 patch Documented By: KAY Magnesium Hydroxide (Milk Of Magnesia 30 Ml Oral.Susp) 30 ml PO DAILY PRN PRN Reason: Constipation Melatonin (Melatonin 3 Mg Tablet) 6 mg PO BEDTIME PRN PRN Reason: Insomnia Ondansetron HCl (Ondansetron Hcl 4 Mg/2 Ml Vial) 4 mg IVPUSH Q8H PRN PRN Reason: Nausea and Vomiting Last Admin: 01/18/25 15:08 Dose: 4 mg Documented By: JYOTHI Oxycodone HCl (Oxycodone Hcl Immed Release 5 Mg Tablet) 5 mg PO Q4H PRN PRN Reason: Pain, Moderate(Pain Scale 4-6) Last Admin: 01/19/25 12:05 Dose: 5 mg Documented By: KAY Oxycodone HCl (Oxycodone Hcl Immed Release 5 Mg Tablet) 5 mg PO Q4H PRN PRN Reason: Pain, Moderate(Pain Scale 4-6) Sodium Chloride (0.9 % Sodium Chloride Flush 3 Ml Syringe) [facility] Last Admin: 01/19/25 07:45 Dose: 3 ml Documented By: KAY Venlafaxine HCl (Venlafaxine Hcl Er 150 Mg Cap.Er.24h) 150 mg PO DAILY [facility] Last Admin: 01/19/25 07:45 Dose: 150 mg Documented By: KAY Labs 01/19/25 09:30 01/17/25 06:50 Labs: Laboratory Results - last 24 hr 01/18/25 01/18/25 01/18/25 10:04 10:35 10:44 MCV MCH MCHC RDW Plt Count MPV Immature Gran % (Auto) Neut % (Auto) Lymph % (Auto) Lares % (Auto) Eos % (Auto) Baso % (Auto) Lymph # (Auto) Lares # (Auto) Eos # (Auto) Baso # (Auto) Abs Immat Gran (auto) Absolute Neuts (auto) Absolute Nucleated RBC Nucleated RBC % (auto) Smear Tech's Comments Hold Purple Top aPTT Heparin Protocol Activated Clotting Time 101 203 H 156 Lactic Acid Procalcitonin 01/18/25 01/18/25 01/18/25 10:48 15:19 20:54 MCV MCH MCHC RDW Plt Count MPV Immature Gran % (Auto) Neut % (Auto) Lymph % (Auto) Lares % (Auto) Eos % (Auto) Baso % (Auto) Lymph # (Auto) Lares # (Auto) Eos # (Auto) Baso # (Auto) Abs Immat Gran (auto) Absolute Neuts (auto) Absolute Nucleated RBC Nucleated RBC % (auto) Smear Tech's Comments Hold Purple Top aPTT Heparin Protocol 45.4 L D Activated Clotting Time 192 H Lactic Acid 0.9 Procalcitonin 01/18/25 01/19/25 01/19/25 22:21 05:23 09:30 MCV 97.2 MCH 32.5 MCHC 33.4 RDW 14.2 Plt Count 175 MPV 9.9 Immature Gran % (Auto) 2.7 H Neut % (Auto) 50.0 Lymph % (Auto) 37.5 Lares % (Auto) 8.7 Eos % (Auto) 0.5 Baso % (Auto) 0.6 Lymph # (Auto) 3.6 Lares # (Auto) 0.8 Eos # (Auto) 0.1 Baso # (Auto) 0.1 Abs Immat Gran (auto) 0.26 H Absolute Neuts (auto) 4.8 Absolute Nucleated RBC 0.000 Nucleated RBC % (auto) 0.0 Smear Tech's Comments VERIFIED Hold Purple Top SEE NOTE aPTT Heparin Protocol 40.0 L 66.7 D Activated Clotting Time Lactic Acid Procalcitonin 0.22 Microbiology Microbiology Results: Microbiology 01/16/25 11:02 Blood Culture - Preliminary Blood - Venous No growth after 48 hours. 01/16/25 11:03 Blood Culture - Preliminary Blood - Venous No growth after 48 hours. Assessment and Plan (1) Bilateral pulmonary embolism: Status: Acute Plan d4 for 34yo M with morbid obesity and KIMBERLI on CPAP, recent admission 01/03-01/06/25 for multifocal PNA; presenting with fever, aches, cough, and ALEJANDRE; found to have bilateral PE bilateral PE - no right heart strain - s/p mechanical thrombectomy 01/18/25; transition from heparin drip to apixaban today - no personal or FHx of VTE; no recent surgery or immobilization; only risk factors appear to be obesity and recent illness - Heme/Onc consulted, plan 6 mo of apixaban and outpt thrombophilia workup acute hypoxic respiratory failure - supplemental O2, wean as tolerated asthma - prn nebs mood disorder - venlafaxine HLD - statin KIMBERLI - CPAP at night VTE ppx - apixaban dispo - home with outpt pulm rehab In my clinical judgment, the patient requires continued inpatient hospitalization for the following reasons: hypoxia Total time managing care of this patient today: 35 minutes. Quality Stroke Does the patient have a stroke diagnosis?: No VTE Prior VTE?: No VTE Risk Level:: Medical - moderate - high VTE Device Contraindication: Treatment Not Indicated VTE Drug Contraindication: N/A - Med Ordered
[2025-01-19] MEDS: Butalb/Acetamin/Caff 50/325/40 TABLET 1 TAB PO (17:37)
[2025-01-19] MEDS: Atorvastatin Calcium 20 MG TABLET PO (20:41)
[2025-01-20] VITALS (7 sets, daily range): BP systolic 116–138; BP diastolic 55–73; PULSE 93–109; RESP 16–20; TEMP 36.2–37.8; O2SAT 91–94
[2025-01-20] MEDS: oxyCODONE HCl Immed Release 5 MG TABLET PO ×3 (03:22→21:00)
[2025-01-20] MEDS: Venlafaxine HCl ER 150 MG CAP.ER.24H PO (09:13)
[2025-01-20] MEDS: Lidocaine 4 % Patch ADH..PATCH 1 PATCH TRANSDERMA (09:13)
[2025-01-20] MEDS: Apixaban 5 MG TABLET 10 MG PO ×2 (09:13→19:41)
[2025-01-20] MEDS: 0.9 % Sodium Chloride Flush 3 ML SYRINGE IVFLUSH ×3 (09:15→19:43)
--- NOTE | 2025-01-20 11:36 | MHC.CM.PN ---
Per MD rounds no discharge today. Patient may be ready tomorrow. A home oxygen eval will be done on day of discharge. DP Home self care. Patient will self transport home.
--- NOTE | 2025-01-20 12:15 | HO.PM.IMPN ---
Subjective Subjective Date of Service: 01/20/25 Interval History: febrile to 100.5 at 17:00 pain and dyspnea slightly better no cough or sputum no hemoptysis Review of Systems Review of Systems: Yes all other systems are reviewed and are negative Physical Exam Vital Signs: Vital Signs: Last Vital Signs Temp 97.2 F 01/20/25 11:16 Pulse 105 H 01/20/25 11:16 Resp 18 01/20/25 11:16 BP 124/66 01/20/25 11:16 Pulse Ox 91 L 01/20/25 11:16 O2 Del Method Nasal Cannula 01/20/25 11:16 O2 Flow Rate 1.5 01/20/25 11:16 BMI result Body Mass Index 43.1 Gen: in no acute distress HEENT: sclera anicteric, moist mucus membranes Neck: supple Lungs: clear to auscultation bilaterally Heart: regular, tachycardic, no murmurs Abd: soft, non-tender, non-distended, obese Ext: no edema Skin: warm/well-perfused Neuro: alert and oriented x3, no focal findings Psych: appropriate affect Objective Data Active Medications Acetaminophen (Acetaminophen 325 Mg Tablet) 650 mg PO Q6H PRN PRN Reason: Pain, Mild 1-3,fever,headache Last Admin: 01/19/25 22:24 Dose: 650 mg Documented By: SHIMA Acetaminophen (Acetaminophen 325 Mg Tablet) 650 mg PO Q6H PRN PRN Reason: Pain, Mild (Pain Scale 1-3) Albuterol/Ipratropium (Albuterol/Iprat 2.5/0.5mg 3 Ml Ampul.Neb) 3 ml INHALE Q4H PRN PRN Reason: Shortness of Breath/Wheezing Apixaban (Apixaban 5 Mg Tablet) 10 mg PO BID [facility] Stop: 01/25/25 21:01 Last Admin: 01/20/25 09:13 Dose: 10 mg Documented By: KAY Atorvastatin Calcium (Atorvastatin Calcium 20 Mg Tablet) 20 mg PO BEDTIME [facility] Last Admin: 01/19/25 20:41 Dose: 20 mg Documented By: SHIMA Calcium Carbonate (Calcium Carbonate 750 Mg Tab.Chew) 750 mg PO Q4H PRN PRN Reason: Heartburn Lidocaine (Lidocaine 4 % Patch Adh..Patch) 1 patch TRANSDERMA DAILY [facility]; Protocol Last Admin: 01/20/25 09:13 Dose: 1 patch Documented By: KAY Magnesium Hydroxide (Milk Of Magnesia 30 Ml Oral.Susp) 30 ml PO DAILY PRN PRN Reason: Constipation Melatonin (Melatonin 3 Mg Tablet) 6 mg PO BEDTIME PRN PRN Reason: Insomnia Ondansetron HCl (Ondansetron Hcl 4 Mg/2 Ml Vial) 4 mg IVPUSH Q8H PRN PRN Reason: Nausea and Vomiting Last Admin: 01/18/25 15:08 Dose: 4 mg Documented By: JYOTHI Oxycodone HCl (Oxycodone Hcl Immed Release 5 Mg Tablet) 5 mg PO Q4H PRN PRN Reason: Pain, Moderate(Pain Scale 4-6) Last Admin: 01/20/25 09:13 Dose: 5 mg Documented By: KAY Oxycodone HCl (Oxycodone Hcl Immed Release 5 Mg Tablet) 5 mg PO Q4H PRN PRN Reason: Pain, Moderate(Pain Scale 4-6) Polyethylene Glycol (Polyethylene Glycol 3350 17 Gm Powd.Pack) 17 gm PO DAILY [facility] Senna/Docusate Sodium (Sennosides/Docusate Sodium Tablet) 2 tab PO BID [facility] Sodium Chloride (0.9 % Sodium Chloride Flush 3 Ml Syringe) 3 ml IVFLUSH QSHIFT [facility] Last Admin: 01/20/25 09:15 Dose: 3 ml Documented By: KAY Venlafaxine HCl (Venlafaxine Hcl Er 150 Mg Cap.Er.24h) 150 mg PO DAILY [facility] Last Admin: 01/20/25 09:13 Dose: 150 mg Documented By: KAY Labs 01/19/25 09:30 01/17/25 06:50 Assessment and Plan (1) Bilateral pulmonary embolism: Status: Acute Plan d5 for 34yo M with morbid obesity and KIMBERLI on CPAP, recent admission 01/03-01/06/25 for multifocal PNA; presenting with fever, aches, cough, and ALEJANDRE; found to have bilateral PE bilateral PE - no right heart strain - s/p mechanical thrombectomy 01/18/25; transitioned from heparin drip to apixaban 01/19 - no personal or FHx of VTE; no recent surgery or immobilization; only risk factors appear to be obesity and recent illness - Heme/Onc consulted, plan 6 mo of apixaban and outpt thrombophilia workup - fever likely due to pulmonary infarction but recheck CBCd/PCT in AM acute hypoxic respiratory failure - supplemental O2, wean as tolerated asthma - prn nebs mood disorder - venlafaxine HLD - statin KIMBERLI - CPAP at night morbid obesity - diet/exercise counseling VTE ppx - apixaban dispo - home with outpt pulm rehab In my clinical judgment, the patient requires continued inpatient hospitalization for the following reasons: hypoxia, fever Total time managing care of this patient today: 35 minutes. Quality Stroke Does the patient have a stroke diagnosis?: No VTE Prior VTE?: No VTE Risk Level:: Medical - moderate - high VTE Device Contraindication: Treatment Not Indicated VTE Drug Contraindication: N/A - Med Ordered
--- NOTE | 2025-01-20 12:27 | HO.VASCPN ---
Subjective Subjective Date of Service: 01/20/25 Interval history: Nando is doing better today. He states the pain in his groin has gone down, and it only hurts when standing/walking and sometimes when he is sitting completely upright. He denies any bleeding or drainage from the area. He continues on O2 at 1L only and used O2 with his CPAP last night. He denies shortness of breath, diff breathing, and CP. He states his mid-back pain has gotten better. He has no new concerns today. Physical Exam Vital Signs: Vital Signs: Last Vital Signs Temp 97.2 F 01/20/25 11:16 Pulse 105 H 01/20/25 11:16 Resp 18 01/20/25 11:16 BP 124/66 01/20/25 11:16 Pulse Ox 91 L 01/20/25 11:16 O2 Del Method Nasal Cannula 01/20/25 11:16 O2 Flow Rate 1.5 01/20/25 11:16 BMI result Body Mass Index 43.1 Const: General: comfortable and no acute distress Orientation/consciousness: patient oriented x3 HEENT: Ears: hearing grossly normal bilaterally Resp: Effort & Inspection: normal respiratory effort and able to speak in complete sentences Auscultation: clear to auscultation bilaterally Cardio: Rate: regular rate Rhythm: regular rhythm Heart sounds: S1 normal heart sound present and S2 normal heart sound present Bruits: no abdominal aortic bruits, no carotid bruits, no femoral bruits and no renal bruits GI: Palpation (GI): No Abdominal aortic bruit present : Other: Right groin: C/D/I. No bleeding or drainage noted. Slightly painful to palpation. Neuro: General: patient oriented x3 Cranial nerves: Yes CN's II-XII intact bilaterally Progress Note: A&P Assessment and plan (1) Bilateral pulmonary embolism: Status: Acute Assessment and Plan: Nando remains stable from a vascular standpoint. His groin incision is C/D/I. He denies any shortness of breath or diff breathing. He was started on Eliquis yesterday. We recommend following up with Hem/Onc outpatient for further evaluation/investigation about why the clots occurred. We will sign off for now. We will not need to follow up with him outpatient. If there are any questions or concerns, please do not hesitate to reach out to us. Time Spent With Patient Time: Total time managing care of this patient today ____ minutes. Procedures Date of Service Date of Service: 01/20/25 Quality Stroke Does the patient have a stroke diagnosis?: No VTE Prior VTE?: No VTE Risk Level:: Medical - moderate - high VTE Device Contraindication: Treatment Not Indicated VTE Drug Contraindication: N/A - Med Ordered
[2025-01-20] MEDS: Acetaminophen 325 MG TABLET 650 MG PO ×2 (13:38→19:41)
[2025-01-20] MEDS: Sennosides/Docusate Sodium TABLET 2 TAB PO ×2 (13:38→19:41)
[2025-01-20] MEDS: Butalb/Acetamin/Caff 50/325/40 TABLET 1 TAB PO (16:55)
[2025-01-20] MEDS: Atorvastatin Calcium 20 MG TABLET PO (19:41)
[2025-01-21 01:38] LABS: Heparin Anti-Xa <0.20 IU/mL
[2025-01-21 03:43] VITALS: BP 125/72; PULSE 92; RESP 20; TEMP 36.9; O2SAT 95
[2025-01-21 06:17] LABS: Hematocrit 35.3 % (42.0-52.0); Hemoglobin 11.5 g/dl (14.0-18.0); Mean Corpuscular HGB Conc 32.6 g/dl (31.0-36.0); Mean Corpuscular Volume 95.1 fL (80.0-98.0); Mean Platelet Volume 9.2 fL (9.4-12.4); NRBC Pct Auto 0.3 /100WBC (0.0-0.2); Platelet Count 177 X10*3/uL (160-400); Red Blood Count 3.71 X10*6/uL (4.60-5.80); Red Cell Distribution Width 13.6 % (11.0-16.0); White Blood Count 5.8 X10*3/uL (4.8-10.8)
[2025-01-21 06:50] LABS: Procalcitonin 0.24 ng/mL
[2025-01-21 07:23] VITALS: BP 114/80; PULSE 91; RESP 15; TEMP 36.8; O2SAT 93
[2025-01-21] MEDS: Venlafaxine HCl ER 150 MG CAP.ER.24H PO (08:25)
[2025-01-21] MEDS: Sennosides/Docusate Sodium TABLET 2 TAB PO (08:25)
[2025-01-21] MEDS: polyethylene glycoL 3350 17 GM POWD.PACK PO (08:25)
[2025-01-21] MEDS: Apixaban 5 MG TABLET 10 MG PO (08:25)
[2025-01-21] MEDS: 0.9 % Sodium Chloride Flush 3 ML SYRINGE IVFLUSH (08:33)
[2025-01-21 09:38] VITALS: PULSE 114; PULSE 115; O2SAT 92; O2SAT 95
[2025-01-21 11:32] VITALS: BP 128/78; PULSE 100; RESP 16; TEMP 36.6; O2SAT 92
--- NOTE | 2025-01-21 11:36 | PM.DS ---
DS: Providers Provider Date of Service: 01/21/25 Date of admission: 01/16/25 18:09 Date of discharge: 01/21/25 Primary care physician: Maldonado Patterson MD Consults: 01/17/25 12:11 Consult to Vascular Surgery Routine Consulting Provider[place] [facility] Reason for consultation: Bilateral pulmonary emboli Has provider been notified: No 01/17/25 12:12 Consult to Hematology / Oncology Routine Consulting Provider: [facility] [place] Reason for consultation: Bilateral pulmonary emboli Has provider been notified: No DS: Diagnosis Discharge Diagnosis (1) Bilateral pulmonary embolism: Status: Acute (2) Acute hypoxic respiratory failure: Status: Acute (3) Morbid obesity with BMI of 40.0-44.9, adult: Status: Acute DS: Summary Hospital Course Hospital Course: From the history and physical by the admitting hospitalist, Dewey Rodgers DO, 01/16/25: 34-year-old male with past medical history significant for morbid obesity, asthma, hyperlipidemia, GERD, anxiety presents to the ED today for evaluation of fever, myalgias, dry cough, and dyspnea on exertion x1 week. Reports TMAX 101F last night. Taking tylenol/motrin intermittently, last dose last night. Admits to intermittent chest tightness with exertion, no chest pain. No known sick contacts. No recent travel. No lower extremity pain. Denies sore throat, palpitations, N/V, abd pain. Patient recently admitted to our facility from 01/03/25 - 01/06/25 for treatment of acute hypoxic respiratory failure secondary to multifocal pneumonia. He was discharged home on prednisone x4 days, Ceftin and doxycycline x7 days. Completed both therapies. In ER, CTA consistent with bilateral pulmonary emboli 34yo M with morbid obesity and KIMBERLI on CPAP, recent admission 01/03-01/06/25 for multifocal PNA; presenting with fever, aches, cough, and ALEJANDRE; found to have bilateral PE and admitted to the telemetry unit on IV heparin infusion. No evidence of right heart strain on echocardiography. Vascular Surgery was consulted and he underwent mechanical thrombectomy 01/18/25. He was transitioned from the heparin drip to apixaban 01/19. No personal or FHx of VTE; no recent surgery or immobilization; only risk factors appear to be obesity and recent illness with pneumonia. Hematology was consulted. Six months of apixaban was recommended and he should have outpatient thrombophilia workup. He was weaned off supplemental oxygen and did not qualify for home oxygen. He was discharged home with recommendation for outpatient pulmonary rehabilitation. Time Attestation Discharge Coordination Time (in mins): 40 Quality: Safe Use of Opioids Does Pt have an Active Cancer Diagnosis on the Problem List?: No Quality: Stroke Does the patient have a stroke diagnosis?: No Physical Exam Vital Signs: Vital Signs: Last Vital Signs Temp 97.9 F 01/21/25 11:32 Pulse 100 01/21/25 11:32 Resp 16 01/21/25 11:32 BP 128/78 01/21/25 11:32 Pulse Ox 92 01/21/25 11:32 O2 Del Method Room Air 01/21/25 11:32 O2 Flow Rate 1.5 01/21/25 07:23 BMI result Body Mass Index 43.1 Gen: in no acute distress HEENT: sclera anicteric, moist mucus membranes Neck: supple Lungs: clear to auscultation bilaterally Heart: regular rate and rhythm, no murmurs Abd: soft, non-tender, non-distended, obese Ext: no edema Skin: warm/well-perfused Neuro: alert and oriented x3, no focal findings Psych: appropriate affect DS: Data Data Completed and Pending Completed studies during hospitalization [Text1]: Laboratory Results WBC 5.8 X10*3/uL (4.8-10.8) 01/21/25 05:47 RBC 3.71 X10*6/uL (4.60-5.80) L 01/21/25 05:47 Hgb 11.5 g/dl (14.0-18.0) L 01/21/25 05:47 Hct 35.3 % (42.0-52.0) L 01/21/25 05:47 MCV 95.1 fL (80.0-98.0) 01/21/25 05:47 MCH 31.0 pg (27.0-33.0) 01/21/25 05:47 MCHC 32.6 g/dl (31.0-36.0) 01/21/25 05:47 RDW 13.6 % (11.0-16.0) 01/21/25 05:47 Plt Count 177 X10*3/uL (160-400) 01/21/25 05:47 MPV 9.2 fL (9.4-12.4) L 01/21/25 05:47 Immature Gran % (Auto) 2.7 % (0.0-0.4) H 01/19/25 09:30 Neut % (Auto) 50.0 % (45-73) 01/19/25 09:30 Lymph % (Auto) 37.5 % (20-40) 01/19/25 09:30 Granville % (Auto) 8.7 % (2-11) 01/19/25 09:30 Eos % (Auto) 0.5 % (0-4) 01/19/25 09:30 Baso % (Auto) 0.6 % (0-2) 01/19/25 09:30 Lymph # (Auto) 3.6 X10*3/uL (1.2-4.9) 01/19/25 09:30 Granville # (Auto) 0.8 X10*3/uL (0.1-1.2) 01/19/25 09:30 Eos # (Auto) 0.1 X10*3/uL (0.0-0.4) 01/19/25 09:30 Baso # (Auto) 0.1 X10*3/uL (0.0-0.2) 01/19/25 09:30 Abs Immat Gran (auto) 0.26 X10*3/uL (0.00-0.03) H 01/19/25 09:30 Absolute Neuts (auto) 4.8 x10*3/uL (2.0-8.3) 01/19/25 09:30 Absolute Nucleated RBC 0.020 X10*3/uL (0.0-0.012) H 01/21/25 05:47 Nucleated RBC % (auto) 0.3 /100WBC (0.0-0.2) H 01/21/25 05:47 Neutrophils % (Manual) 42 % (45-73) L 01/16/25 11:02 Band Neutrophils % 3 % (3-5) 01/16/25 11:02 Lymphocytes % (Manual) 36 % (20-40) 01/16/25 11:02 Atypical Lymphs % (Man) 14 % (0-6) H 01/16/25 11:02 Monocytes % (Manual) 5 % (2-11) 01/16/25 11:02 Abs Neuts (Manual) 2.5 X10*3/uL (2.0-8.3) 01/16/25 11:02 Lymphocytes # (Manual) 2.0 X10*3/uL (1.2-4.9) 01/16/25 11:02 Atyp Lymphs # (Manual) 0.8 x10*3/uL 01/16/25 11:02 Monocytes # (Manual) 0.3 X10*3/uL (0.1-1.2) 01/16/25 11:02 Platelet Estimate NORMAL (NORMAL) 01/16/25 11:02 Plt Morphology Comment NORMAL 01/16/25 11:02 RBC Morphology NOTED 01/16/25 11:02 Polychromasia 1+ (0-2) /OIF 01/16/25 11:02 Smear Tech's Comments VERIFIED 01/19/25 09:30 Hold Purple Top SEE NOTE 01/19/25 05:23 PT 11.1 SEC (10.9-12.4) 01/17/25 06:50 INR 1.0 (0.9-1.1) 01/17/25 06:50 aPTT Heparin Protocol 66.7 SEC (53-77.9) D 01/19/25 05:23 Activated Clotting Time 192 Celite s (79-173) H 01/18/25 10:48 D-Dimer High Sensitivty 507 NG/ML 01/16/25 14:42 Heparin Anti-Xa Level <0.20 IU/mL L 01/17/25 06:50 Sodium 139 mmol/L (135-145) 01/17/25 06:50 Potassium 4.1 mmol/L (3.3-5.1) 01/17/25 06:50 Chloride 106 mmol/L (96-108) 01/17/25 06:50 Carbon Dioxide 23 mmol/L (22-29) 01/17/25 06:50 Anion Gap 14 (12-20) 01/17/25 06:50 BUN 12 mg/dL (9-16) 01/17/25 06:50 Creatinine 0.86 mg/dL (0.5-1.4) 01/17/25 06:50 Estim Creat Clear Calc 178.3 01/17/25 06:50 Estimated GFR > 60 01/17/25 06:50 Random Glucose 105 mg/dL (60-115) 01/17/25 06:50 Lactic Acid 0.9 mmol/L (0.5-2.0) 01/18/25 20:54 Calcium 8.5 mg/dL (8.4-10.2) 01/17/25 06:50 Magnesium 2.2 mg/dL (1.6-2.6) 01/16/25 11:02 Total Bilirubin 0.8 mg/dL (0.0-1.0) 01/17/25 06:50 AST 55 U/L (5-37) H 01/17/25 06:50 ALT 93 U/L (0-40) H 01/17/25 06:50 Alkaline Phosphatase 68 U/L (39-117) 01/17/25 06:50 Troponin I High Sens < 2.7 ng/L (<3.5-35.0) D 01/16/25 11:02 Total Protein 6.4 g/dL (6.5-8.0) L 01/17/25 06:50 Albumin 3.5 g/dL (3.5-5.0) 01/17/25 06:50 Procalcitonin 0.24 ng/mL 01/21/25 05:47 Urine Color Yellow 01/17/25 16:20 Urine Appearance Clear 01/17/25 16:20 Urine pH 7.5 (5.0-9.0) 01/17/25 16:20 Ur Specific Gamaliel 1.010 (1.005-1.025) 01/17/25 16:20 Urine Protein Negative mg/dL (Neg-Trace) 01/17/25 16:20 Urine Glucose (UA) Negative mg/dL (Negative) 01/17/25 16:20 Urine Ketones Negative mg/dL (Negative) 01/17/25 16:20 Urine Blood Negative (Negative) 01/17/25 16:20 Urine Nitrite Negative (Negative) 01/17/25 16:20 Ur Leukocyte Esterase Negative (Negative) 01/17/25 16:20 Influenza Type A (PCR) NEGATIVE (Negative) 01/16/25 11:02 Influenza Type B (PCR) NEGATIVE (Negative) 01/16/25 11:02 RSV RNA Qual (PCR) NEGATIVE (Negative) 01/16/25 11:02 SARS-CoV-2 RNA (RT-PCR) NEGATIVE (Negative) 01/16/25 11:02 Discharge Plan Discharge Anticipated Discharge Date/Time: 01/21/25 11:31 Patient Disposition: Home, Self-Care Discharge Diagnosis: pulmonary embolism Referrals: Physical [place] - [facility] [place] - 1 Week (Pulmonary rehabilitation) Key Burns MD [Physician] - 1 Month Maldonado Patterson MD [Primary Care Provider] - Discharge Medications: New guaifenesin 200 mg tablet 200 mg PO TID PRN (Reason: cough) Qty: 10 0RF Eliquis 5 mg Tablet See Rx Instructions .ROUTE .COMPLEX Qty: 70 0RF Rx Instructions: 01/21-01/25: take 2 tabs twice daily. On 01/26 and afterwards, take 1 tab twice daily lidocaine [Lidocaine Pain Relief] 4 % Adhesive Patch,Medicated 1 patch transdermal DAILY Qty: 30 0RF Protocol: Apply to: Apply to: mid back Continued venlafaxine 150 mg capsule,extended release 24hr 150 mg PO DAILY 90 Days Qty: 90 3RF magnesium 250 mg Tablet 250 mg PO BEDTIME albuterol sulfate 90 mcg/actuation HFA aerosol inhaler 2 puff INHALATION Q4-6H PRN (Reason: Shortness Of Breath Or Wheezing) atorvastatin 20 mg tablet 20 mg PO BEDTIME 90 Days Qty: 90 2RF Discharge Orders: Discharge Order (Routine); Ordered 01/21/25 Ordered By: Bhanu Ordaz Diet: Advance to usual diet Activity on Discharge: As tolerated Stand Alone Forms: Patient Portal Discharge page Print Language: Fijian Care Plan Goals: recovery from pulmonary embolism Health Concerns: bilateral pulmonary embolism Plan of Treatment: Take apixaban [Eliquis] as follows: 01/21-01/25: take 2 tabs twice daily. On 01/26 and afterwards, take 1 tab twice daily. Continue for at least 6 months. Follow up with Dr Burns [[facility]] in 1 month; eventual thrombophilia/hypercoagulability workup Outpatient pulmonary rehabilitation through [facility]. Please follow up with your primary care doctor within 1 week. Return to the hospital if you experience recurrent or worsening symptoms. Assessment: See Discharge Summary.
--- NOTE | 2025-01-21 11:43 | MHC.CM.PN ---
Patient has been medically cleared for dc to home today, self care. PT is recommending Outpatient Pulmonary Rehab.
== END 2025-01-21 12:56 | disposition home or self-care (01) | DRG 134 ==
LOC: HO.ED 18:08 → HO.EDOVER 18:30 → HO.IMC 19:37
PROVIDERS: Hospitalist; Physician Assistant Medical; Student in an Organized Health Care Education/Training Program; Surgery Vascular Surgery; Admitting Provider Hospitalist; Emergency Provider Emergency Medicine; PCP Family Medicine; Visit Provider Family Medicine
PROC: 02CQ3ZZ Extirpation of Matter from Right Pulmonary Artery, Percutaneous Approach (ICD-10-PCS; principal; 2025-01-18 09:00)
DX: I26.99 Other pulmonary embolism without acute cor pulmonale (principal); J96.01 Acute respiratory failure with hypoxia; G47.33 Obstructive sleep apnea (adult) (pediatric); J45.909 Unspecified asthma, uncomplicated; E66.01 Morbid (severe) obesity due to excess calories; Z68.41 Body mass index [BMI] 40.0-44.9, adult; Z20.822 Contact with and (suspected) exposure to COVID-19; Z79.899 Other long term (current) drug therapy
CPT/HCPCS: 0241U; 36415; 37184; 71046; 71275; 76937; 80053; 81003; 83605; 83735; 84145; 84484; 85007; 85025; 85027; 85347; 85379; 85520; 85610; 85730; 87040; 93005; 93306; 93970; 97162; 99152; 99153; 99204; 99285; C1757; C1769; C1887; C1894; J0360; J1644; J2250; J2270; J2405; J3010; Q9957; Q9967

== ENCOUNTER → 2025-01-16 10:09 | Outpatient (BNV) | payer BC, SELFPAY | PROVIDERS: Admitting Provider Hospitalist; Emergency Provider Emergency Medicine; PCP Family Medicine; Visit Provider Internal Medicine | DX: R07.9 Chest pain, unspecified (principal) | CPT/HCPCS: 93010 ==

== ENCOUNTER → 2025-01-16 10:09 | Outpatient (BNV) | payer BC, SELFPAY | PROVIDERS: Emergency Provider Emergency Medicine; PCP Family Medicine; Visit Provider Radiology Diagnostic Radiology | DX: R05.9 Cough, unspecified (principal); R50.9 Fever, unspecified; I26.99 Other pulmonary embolism without acute cor pulmonale | CPT/HCPCS: 71046; 71275 ==

== ENCOUNTER 2025-01-16 18:09 | Outpatient (BNV) | payer BC, SELFPAY | END 2025-01-17 15:30 | PROVIDERS: Admitting Provider Hospitalist; Emergency Provider Emergency Medicine; PCP Family Medicine; Visit Provider Radiology Diagnostic Radiology | DX: I26.99 Other pulmonary embolism without acute cor pulmonale (principal) | CPT/HCPCS: 93970 ==

== ENCOUNTER 2025-01-16 18:09 | Outpatient (BNV) | payer BC, SELFPAY | END 2025-01-18 07:00 | PROVIDERS: Admitting Provider Hospitalist; Emergency Provider Emergency Medicine; PCP Family Medicine; Visit Provider Internal Medicine Cardiovascular Disease | DX: I26.99 Other pulmonary embolism without acute cor pulmonale (principal) | CPT/HCPCS: 93306 ==

== ENCOUNTER → 2025-01-16 18:09 | Outpatient (BNV) | payer BC, SELFPAY | PROVIDERS: Admitting Provider Hospitalist; Emergency Provider Emergency Medicine; PCP Family Medicine; Visit Provider Hospitalist | DX: I26.99 Other pulmonary embolism without acute cor pulmonale (principal) | CPT/HCPCS: 99223; 99232 ==

== ENCOUNTER → 2025-01-16 18:09 | Outpatient (BNV) | payer BC, SELFPAY | PROVIDERS: Admitting Provider Hospitalist; Emergency Provider Emergency Medicine; PCP Family Medicine; Visit Provider Surgery Vascular Surgery | DX: I26.99 Other pulmonary embolism without acute cor pulmonale (principal) | CPT/HCPCS: 36014; 37184; 75825; 76937; 99152; 99222; 99232 ==

== ENCOUNTER 2025-02-04 09:25 | Outpatient (REF) | payer BC, SELFPAY ==
--- NOTE | ~2025-02-04 | XR_ITS ---
CLINICAL HISTORY: J18.9 - Pneumonia, unspecified organism --- Additional Notes or Special Instruction s: Patient went to appt. Will return. @1024 2 view chest x-ray Comparison: 01/16/2025 Findings: The lungs are clear. Heart size is normal. No acute fracture. IMPRESSION: 1. No acute findings. This document has been electronically signed by: Des Devine MD on 02/05/2025 09:39:23
[2025-02-04 09:40] LABS: MANUAL DIFF FLAG NO
--- OUTSIDE RECORDS SUMMARY | 2025-02-04 09:47 | XMS_ITS | Encounter Summary ---
Author Organization [facility] Address [address] [place] [phone] Phone Care Team Providers Care Assistant Customer Service Manager Name Role Phone Carly Dang MD Primary Care Provider [phone] Encounter Details Date Type Department Care Team (Late st Contact Info) Description 06/28/2011 Documentation EM Family Medicine [address] [place] [address] Family Medicine, Physician [address] [place] [address] Social History Tobacco Use Types Packs/Day Years [...] on filedocumented in this encounter Care Teams Assistant Customer Service Manager Relationship Specialty Start Date End Date Carly Dang MD [address] [place] [address] [place] [address] PCP - General 04/19/17 02/13/23 documented as of this encounter
[2025-02-04 10:17] LABS: Basophils Absolute Auto 0.1 X10*3/uL (0.0-0.2); Eosinophils Absolute Auto 0.1 X10*3/uL (0.0-0.4); Eosinophils Percent Auto 1.2 % (0-4); Hematocrit 38.1 % (42.0-52.0); Hemoglobin 12.5 g/dl (14.0-18.0); Imm Gran Abs Auto 0.17 X10*3/uL (0.00-0.03); Imm Gran Pct Auto 3.5 % (0.0-0.4); Lymphocytes Absolute Auto 2.3 X10*3/uL (1.2-4.9); Lymphocytes Percent Auto 47.6 % (20-40); Mean Corpuscular HGB Conc 32.8 g/dl (31.0-36.0); Mean Corpuscular Hemoglobin 31.5 pg (27.0-33.0); Mean Platelet Volume 8.9 fL (9.4-12.4); Monocytes Absolute Auto 0.5 X10*3/uL (0.1-1.2); Monocytes Percent Auto 10.6 % (2-11); Neutrophils Absolute Auto 1.8 x10*3/uL (2.0-8.3); Neutrophils Percent Auto 36.1 % (45-73); Platelet Count 368 X10*3/uL (160-400); Red Blood Count 3.97 X10*6/uL (4.60-5.80); Red Cell Distribution Width 14.6 % (11.0-16.0); White Blood Count 4.9 X10*3/uL (4.8-10.8)
[2025-02-04 10:58] LABS: Alanine Aminotransferase 54 U/L (0-40); Albumin Level 4.2 g/dL (3.5-5.0); Alkaline Phosphatase 72 U/L (39-117); Anion Gap 11 (12-20); Aspartate Amino Transferase 38 U/L (5-37); Bilirubin Direct 0.3 mg/dL (0.0-0.5); Bilirubin Total 0.9 mg/dL (0.0-1.0); Blood Urea Nitrogen 16 mg/dL (9-16); Calcium 9.1 mg/dL (8.4-10.2); Carbon Dioxide 25 mmol/L (22-29); Chloride 110 mmol/L (96-108); Cholesterol 152 mg/dL (<200); Estimated Glomerular Filt Rate > 60; Glucose Fasting 103 mg/dL (60-99); Glucose Random 102 mg/dL (60-115); HDL Cholesterol 25 mg/dL (>40); LDL Cholesterol Calculated 80 mg/dL (<100); Sodium 142 mmol/L (135-145); Total Protein 7.3 g/dL (6.5-8.0); Triglycerides 235 mg/dL (<150)
[2025-02-04 10:59] LABS: Appearance Urine Clear; Color Urine Yellow; Glucose Urine UA Negative (Negative); Leukocyte Esterase Urine Negative (Negative); Nitrite Urine Negative (Negative); Specific Gravity - Urine >= 1.030 (1.005-1.025); UMIC TRIGGER UA YES; Urine Blood Negative (Negative); Urine Ketones Trace mg/dL (Negative); Urine Protein 30 (1+) mg/dL (Neg-Trace)
[2025-02-04 11:04] LABS: TSH reflex Free T4 1.38 uIU/mL (0.32-4.0)
[2025-02-04 11:10] LABS: Bacteria Urine None Seen (None Seen); Hyaline Casts Urine 0-2 /LPF (0-2); RBC Urine 0-2 /HPF (0-2); Squamous Epithelial Cell Urine 0-2 /HPF (0-2); WBC Urine 0-5 /HPF (0-5)
[2025-02-04 11:27] LABS: Creatinine Urine 253.21 mg/dL; Microalbum/Creatinine Ratio Ur 14.6 ug/mg cr (<30)
== END 2025-02-04 09:26 | disposition home or self-care (01) ==
LOC: HO.LAB 09:25
PROVIDERS: Internal Medicine; Visit Provider Family Medicine
DX: Z00.00 Encounter for general adult medical examination without abnormal findings (principal); I10 Essential (primary) hypertension; J18.9 Pneumonia, unspecified organism; R74.8 Abnormal levels of other serum enzymes
CPT/HCPCS: 36415; 71046; 80053; 80061; 81001; 82043; 82248; 82570; 84443; 85025; 85027

== ENCOUNTER → 2025-02-04 09:45 | Outpatient (BNV) | payer BC, SELFPAY | PROVIDERS: Visit Provider Specialist | DX: J18.9 Pneumonia, unspecified organism (principal) | CPT/HCPCS: 71046 ==

== ENCOUNTER → 2025-02-04 13:57 | Outpatient (BNV) | payer BC, SELFPAY | PROVIDERS: Visit Provider Internal Medicine | DX: I26.99 Other pulmonary embolism without acute cor pulmonale (principal) | CPT/HCPCS: 99215 ==

== ENCOUNTER 2025-02-08 10:46 | Outpatient (AMB) | payer BC, SELFPAY ==
--- NOTE | 2025-02-08 10:51 | A.OFFPC_ITS ---
Vital Signs 02/08/25 11:01 Height 6 ft Weight 310 lb BMI 42.0 BP 130/70 Blood Pressure Location Rt brachial Position Sitting Respiration 16 Pulse 86 Pulse Source Pulse Oximeter Temp 98.3 F Temp Source Oral Pulse Oximetry (%) 95 Oxygen Delivery Method Room Air Intake Visit Reasons[place] [facility] [place]lab [place] Allergies No Known Allergies [No Known Allergies*] Allergy (Verified 02/04/25 14:11) Tobacco use date assessed: 02/11/24 Dental Screening Dental Screen Date: 02/11/24 HPI [place] [facility] [place]lab [place] HPI Details 34 y/o male presents to [facility] for bilateral PE. He presented with fever and shortness of breath, CT angiogram performed 01/16/2025 revealed acute bilateral pulmonary emboli in the segmental and subsegmental arteries in the right lower lobe as well as in the right middle and left upper and lower lobes, no right heart strain. Was admitted to telemetry unit on IV heaprin infusion, underwent mechanical thrombectomy 01/18/25. Transitioned from heparin drip to apixaban 01/19. Only risk factors appeared to be obesity and recent illness with pneumonia. 6 months of apixaban was recommended. Had seen [facility] 02/04/25 and they plan to / with him in 6 months. Plan for thrombophilia workup and they ordered ultrasound abdomen to evaluate hepatosplenomegaly further. TCM TCM Information Date of Discharge 01/21/25 Discharged From [facility] Interactive Contact Date (Reference documentation from this date) 02/08/25 HPI Comments History of Present Illness Details Documentation assistance for Maldonado Patterson MD, was provided by Tani Rios, Director Of Online Merchandising on 02/08/2025 at 11:26 AM FRACISCO. I, Dr. Patterson, have read, observed, and verified documentation. [facility] Medical History (Updated 02/08/25 @ 11:50 by Maldonado Patterson MD) Sleep apnea GERD (gastroesophageal reflux disease) Anxiety with depression Hyperlipidemia Bleeding hemorrhoids Surgical History H/O vasectomy History of hemorrhoidectomy (~06/05/24) Hx of tonsillectomy Family History (Updated 02/04/25 @ 14:14 by Amie Santiago) Paternal Grandfather Cancer Other Alcohol abuse Social History (Updated 02/04/25 @ 14:11 by Amie Santiago) Household Members: Spouse and Family Housing: House Do you presently have visiting nurse or other home services: No Alcohol intake: current Alcohol intake frequency: holidays/special occasions only Patient Tobacco Use Status: Never used Tobacco e-Cigarette/Vaping Use: Never Used Second Hand Smoke Exposure: No Substance Use Type: Marijuana Current occupational status: employed Current occupational exposures/hazards: No Sexual orientation: Unable to collect Gender identity: Unable to collect Cognitive needs: No Hearing needs: No Vision needs: No Questionnaire Thrive Questionnaire Date Thrive assessed: 10/30/24 I am a: Patient What is your living situation today?: I have a steady place to live Within the past 12 months, did the food you bought not last and you didn't have the money to get more?: Never true Within the past 12 months, did you worry whether your food would run out before you got money to buy more?: Never true Do you have trouble paying for medicines?: No Do you have trouble getting transportation to medical appointments?: No Do you have trouble paying your heating and electricity bill?: No Do you have trouble taking care of your child, family member or friend?: No Do you have trouble with day-to-day activities such as bathing, preparing meals, shopping, managing finances, etc.?: No Are you currently unemployed and looking for a job?: No Are you interested in more education?: Yes Please select the resources that you would like help with: None Currently or been in a relationship where the following occur: No concerns reported THRIVE Score: 0 PENG-7 AMB Questionnaire PENG-7 Date PENG - 7 assessed: 10/30/24 Source: Developed by Drs. Ladarius Jerry, Марина Hillman, Beck Arellano and colleagues, with an educational carlos from [employer]. Review of Systems Const Denies chills, Denies fatigue, Denies fever(s), Denies headache(s) and Denies weakness ENT Denies dizziness and Denies headache(s) Card Denies dyspnea Resp Denies cough, Denies dyspnea, Denies wheezing and Denies other (shortness of breath) Musc Denies numbness and Denies tingling Neuro Denies dizziness, Denies headache(s), Denies numbness, Denies tingling and Denies weakness Psych Denies anxiety and Denies depression Endo Denies fatigue Aller/Immun Denies wheezing Physical exam (Primary Care) Vital Signs: Last Vital Signs Temp 98.3 F 02/08/25 11:01 Pulse 86 02/08/25 11:01 Resp 16 02/08/25 11:01 BP 130/70 02/08/25 11:01 Pulse Ox 95 02/08/25 11:01 Oxygen Delivery Method Room Air 02/08/25 11:01 BMI result Body Mass Index 42.0 Tobacco/Smoking Status: Tobacco use Status Tobacco use date assessed 02/11/24 02/08/25 10:51 Patient Tobacco Use Status Never used Tobacco 02/08/25 10:51 e-Cigarette/Vaping Use Never Used 02/08/25 10:51 Thrive Assessment: Date of Thrive Assessment Date Thrive assessed 10/30/24 02/08/25 10:51 Currently or been in a relationship where the following occur: No concerns reported Const General: well developed; No acute distress Nutritional Appearance: well nourished Orientation/consciousness: patient oriented x3 HENMT Head: Yes normocephalic and Yes atraumatic Eyes General: appearance normal, both eyes and all related structures Pupils: Equal, round and reactive pupils present EOM: EOMs intact bilaterally Resp Effort & Inspection: normal respiratory effort Neuro General: patient oriented x3 and gait normal Cranial nerves: Yes Equal, round and reactive pupils present Psych Affect: normal affect Coding Level of Care Code TCM High MDM <= 14 days Diagnoses Bilateral pulmonary embolism I26.99 Assessment & Plan Assessment & Plan (1) Bilateral pulmonary embolism: Code(s): I26.99 - Other pulmonary embolism without acute cor pulmonale Category: Medical Plan: 34yo M with morbid obesity and KIMBERLI on CPAP, recent admission 01/03-01/06/25 for multifocal PNA; presenting with fever, aches, cough, and ALEJANDRE; found to have bilateral PE and admitted to the telemetry unit on IV heparin infusion. No evidence of right heart strain on echocardiography. Vascular Surgery was consulted and he underwent mechanical thrombectomy 01/18/25. He was transitioned from the heparin drip to apixaban 01/19. No personal or FHx of VTE; no recent surgery or immobilization; only risk factors appear to be obesity and recent illness with pneumonia. Hematology was consulted. Six months of apixaban was recommended and he should have outpatient thrombophilia workup. He was weaned off supplemental oxygen and did not qualify for home oxygen. He was discharged home with recommendation for outpatient pulmonary rehabilitation. Patient?has?seen?Hematology-Oncology,?. She?has?recommended?a?12?month?regimen?of?apixaban. She?has?a?follow-up?appointment?with?patient I?have?put?in?an?order?for?pulmonary?rehab. He?has?had?a?recent?multifocal?pneumonia,?hypoxia?and?now?subsequent?pulmonary?e mboli. Referring?him?back?to?his?process improvement specialist?for?a?sooner?appointment. We?discussed?that?weight?is?risk?factor?for?the?above?problems. Discussed?GLP?1?medications.??He?will?talk?to?his?insurance?to?see?if?they?cover ?any?of?these.??He?does?have?a?history?of?sleep?apnea?as?well?which?is?a common?indication. Orders: Orders Pulmonary Rehab Today I26.99 - Other pulmonary embolism without acute cor pulmonale, J18.9 - Pneumonia, unspecified organism, J96.01 - Acute respiratory failure with hypoxia Referrals Pulmonology Referral I26.99 - Other pulmonary embolism without acute cor pulmonale, J18.9 - Pneumonia, unspecified organism, J96.01 - Acute respiratory failure with hypoxia
[2025-02-08 11:01] VITALS: BP 130/70; PULSE 86; RESP 16; TEMP 36.8; O2SAT 95; BMI 42.0
--- OUTSIDE RECORDS SUMMARY | 2025-02-08 11:54 | XMS_ITS | Encounter Summary ---
Author Organization [facility] Address [address] [place] [phone] Phone Care Team Providers Care Converter Supervisor Name Role Phone Carly Dang MD Primary Care Provider [phone] Encounter Details Date Type Department Care Team (Late st Contact Info) Description 06/28/2011 Documentation EM Family Medicine [address] [place] [address] Family Medicine, Physician [address] [place] [address] Social History Tobacco Use Types Packs/Day Years [...] on filedocumented in this encounter Care Teams Converter Supervisor Relationship Specialty Start Date End Date Carly Dang MD [address] [place] [address] [place] [id number] PCP - General 04/19/17 02/13/23 documented as of this encounter
== END 2025-02-08 11:49 | disposition home or self-care (01) ==
LOC: HO.HMCFM 10:48
PROVIDERS: PCP Family Medicine; Visit Provider Family Medicine
DX: I26.99 Other pulmonary embolism without acute cor pulmonale (principal)

== ENCOUNTER → 2025-02-08 10:46 | Outpatient (BNVA) | payer BC, SELFPAY | PROVIDERS: PCP Family Medicine; Visit Provider Family Medicine | DX: Z13.89 Encounter for screening for other disorder (principal) ==

== ENCOUNTER 2025-02-09 08:52 | Outpatient (AMB) | payer BC, SELFPAY ==
--- NOTE | 2025-02-09 08:59 | MHC.OFFVIS ---
Intake Visit Reasons: staple removal s/p thrombectomy 01/18/25 Intake Note: follow up suture removal s/p thrombectomy 01/18/25. Has a suture in his Right groin. Pt states he is doing well, no complaints Honey Liquefier Required: No Accompanied by: Self / Same As Patient Allergies No Known Allergies [No Known Allergies*] Allergy (Verified 02/09/25 09:03) HPI HPI staple removal s/p thrombectomy 01/18/25: Details: Nando is presenting today as a follow up to thrombectomy, performed on 01/18, and for suture removal. He states that since he has been discharged from the hospital, he has been feeling better everyday. He states he has been able to get back to his regular routine without any difficulties. He denies shortness of breath, diff breathing, or CP. He denies any difficulty with walking or any dyspnea on exertion. He denies any pain in the right groin. He denies any bleeding or drainage from the groin. He has no new concerns this morning. He does continue on the daily bid Eliquis. [facility] Medical History Sleep apnea GERD (gastroesophageal reflux disease) Anxiety with depression Hyperlipidemia Bleeding hemorrhoids Surgical History H/O vasectomy History of hemorrhoidectomy (~06/05/24) Hx of tonsillectomy Family History Paternal Grandfather Cancer Other Alcohol abuse Social History Household Members: Spouse and Family Housing: House Do you presently have visiting nurse or other home services: No Alcohol intake: current Alcohol intake frequency: holidays/special occasions only Patient Tobacco Use Status: Never used Tobacco e-Cigarette/Vaping Use: Never Used Second Hand Smoke Exposure: No Substance Use Type: Marijuana Current occupational status: employed Current occupational exposures/hazards: No Sexual orientation: Unable to collect Gender identity: Unable to collect Cognitive needs: No Hearing needs: No Vision needs: No Review of Systems Const Reports as per HPI and Denies weakness ENT Reports Normal hearing present and Denies dizziness Card Reports as per HPI, Denies chest pain, Denies chest pain at rest, Denies chest pain with activity, Denies dyspnea and Denies dyspnea on exertion Resp Reports as per HPI, Denies cough, Denies dyspnea and Denies dyspnea on exertion GI Reports as per HPI, Denies abdominal pain, Denies nausea and Denies vomiting Musc Denies numbness Skin/Breast Reports as per HPI, Denies erythema and Denies wounds Neuro Reports Normal hearing present, Denies dizziness, Denies numbness, Denies Sensory deficit (Neuro) and Denies weakness Psych Reports no additional complaints Endo Reports no additional complaints Physical Exam Const General: healthy appearing and no acute distress Orientation/consciousness: patient oriented x3 HEENT Head: Yes normal to inspection Ears: hearing grossly normal bilaterally Mouth: Normal oral and palatal mucosa present Resp Effort & Inspection: normal respiratory effort and able to speak in complete sentences Auscultation: clear to auscultation bilaterally Cardio Jugular venous distension: no JVD Rate: regular rate Rhythm: regular rhythm Heart sounds: S1 normal heart sound present and S2 normal heart sound present Bruits: no abdominal aortic bruits, no carotid bruits, no femoral bruits and no renal bruits Peripheral pulses: Peripheral pulses 2+ throughout GI Inspection: Yes normal to inspection Palpation (GI): No Abdominal aortic bruit present Other: Right groin: C/D/I. Suture intact. No bleeding or drainage noted. Skin General skin exam: no rashes or lesions noted Wounds: no wounds Hair: normal Neuro General: patient oriented x3 Cranial nerves: Yes Normal hearing present Cognition (Neuro): normal cognition Gait exam (Neuro): Normal gait present Motor exam (neuro): 5/5 motor strength present throughout Sensory Exam: No Sensory deficit (Neuro) Extrem General: Yes normal to inspection, Yes full ROM, Yes capillary refill normal and Yes normal gait Assessment & Plan Assessment & Plan (1) History of thrombectomy: Code(s): Z98.890 - Other specified postprocedural states; Z86.718 - Personal history of other venous thrombosis and embolism Category: Medical Plan: Nando is presenting today, s/p thrombectomy on 01/18/25. He states he has been doing much better ever since getting discharged from the hospital. He denies any previous symptoms, including shortness of breath, diff breathing, and dyspnea on exertion. He denies any concerns in the right groin. The suture was easily removed with forceps and scissors. There was minimal bleeding after suture removal; a bandage was placed and we told him to remove it later today. We discussed continuing on the Eliquis. There will not need to be any other follow up at this point. I did discuss with him that if any other vascular concerns occurred, to reach back out to us. Thank you for allowing us to participate in the patient's care. If there are any questions or concerns, please do not hesitate to reach out to us. Coding Level of Care Code Est Pt Level 3 (81065) Diagnoses History of thrombectomy Z98.890; Z86.718
--- OUTSIDE RECORDS SUMMARY | 2025-02-09 09:29 | XMS_ITS | Encounter Summary ---
Author Organization [facility] Address [address] [place] [address] Phone Care Team Providers Care Storeroom Supervisor Name Role Phone Carly Dang MD Primary Care Provider [phone] Encounter Details Date Type Department Care Team (Late st Contact Info) Description 06/28/2011 Documentation EM Family Medicine [address] [place] [address] Family Medicine, Physician [address] [place] [address] Social History Tobacco Use Types Packs/Day Years [...] on filedocumented in this encounter Care Teams Storeroom Supervisor Relationship Specialty Start Date End Date Carly Dang MD [address] [place] [address] [place] [address] PCP - General 04/19/17 02/13/23 documented as of this encounter
== END 2025-02-09 09:12 | disposition home or self-care (01) ==
LOC: HO.HVS 08:52
PROVIDERS: PCP Family Medicine; Visit Provider Physician Assistant Surgical
DX: Z98.890 Other specified postprocedural states (principal); Z86.718 Personal history of other venous thrombosis and embolism
CPT/HCPCS: 99213

== ENCOUNTER 2025-03-08 12:55 | Outpatient (AMB) | payer BC, SELFPAY ==
--- NOTE | 2025-03-08 12:46 | MHC.OFFVIS ---
Vital Signs 03/08/25 13:11 Height 6 ft Weight 311 lb 15.265 oz BMI 42.3 BP 132/70 Blood Pressure Location Rt brachial Position Sitting Pulse 77 Pulse Source Pulse Oximeter Pulse Oximetry (%) 96 Oxygen Delivery Method Room Air Intake Visit Reasons: Bilat Pulmonary Emboli Allergies No Known Allergies (No Known Allergies*) Allergy (Verified 03/08/25 13:13) HPI HPI Bilat Pulmonary Emboli: Details: Nando is a pleasant 34-year-old male, never smoker, with underlying morbid obesity, asthma, hyperlipidemia, GERD, anxiety, KIMBERLI on CPAP, recent h/o bilateral PE s/p thrombectomy on Eliquis. He was previously under the care of Dr. Zavala and presents today to establish care. He was [place] to [facility] [place] presenting with fever, myalgias, dry cough, and dyspnea on exertion x1 week and recently admitted to [facility] [place] 01/03/25 - 01/06/25 for treatment of acute hypoxic respiratory failure secondary to multifocal pneumonia. He was discharged home on prednisone x4 days, Ceftin and doxycycline x7 days. In ED on 01/16 CTA consistent with bilateral PE and admitted to the telemetry unit on IV heparin infusion. No evidence of right heart strain on echocardiography. US BLE negative for DVT. Vascular Surgery was consulted and he underwent mechanical thrombectomy 01/18/25. He was transitioned from the heparin drip to apixaban 01/19. No personal or FHx of VTE; no recent surgery or immobilization; only risk factors appear to be obesity and recent illness with pneumonia. Hematology was consulted. Six months of apixaban was recommended and he should have outpatient thrombophilia workup. He was weaned off supplemental oxygen and did not qualify for home oxygen. He was discharged home with recommendation for outpatient pulmonary rehabilitation. He has since been evaluated by hematology and will be undergoing further workup. He has been tolerating Eliquis at this time and was advised to continue for a total of 6 months possibly longer if he can tolerate. He has been engaging in pulmonary rehab and doing quite well, no occurrences of hypoxia He has a h/o asthma and is currently maintained on albuterol MDI which he uses infrequently. He has a h/o moderate KIMBERLI, using CPAP therapy, APAP mode [id number] with good effect. DME is [employer]. He did require 1L supplemental oxygen with CPAP during hospitalization. PFSH Medical History Sleep apnea GERD (gastroesophageal reflux disease) Anxiety with depression Hyperlipidemia Bleeding hemorrhoids Surgical History H/O vasectomy History of hemorrhoidectomy (~06/05/24) Hx of tonsillectomy Family History Paternal Grandfather Cancer Other Alcohol abuse Social History Household Members: Spouse and Family Housing: House Do you presently have visiting nurse or other home services: No Alcohol intake: current Alcohol intake frequency: holidays/special occasions only Patient Tobacco Use Status: Never used Tobacco e-Cigarette/Vaping Use: Never Used Second Hand Smoke Exposure: No Substance Use Type: Marijuana Current occupational status: employed Current occupational exposures/hazards: No Sexual orientation: Unable to collect Gender identity: Unable to collect Cognitive needs: No Hearing needs: No Vision needs: No Review of Systems Const Denies chills, Denies excessive sweating, Denies fever(s), Denies headache(s) and Denies night sweats Eyes Denies dry eyes, Denies irritation and Denies itchy eyes ENT Reports Normal hearing present, Denies headache(s), Denies nasal congestion, Denies nasal discharge, Denies post nasal drip and Denies sore throat Card Denies chest pain, Denies chest pain at rest, Denies chest pain with activity, Denies claudication, Denies leg edema, Denies dyspnea, Denies dyspnea on exertion, Denies orthopnea and Denies paroxysmal nocturnal dyspnea Resp Denies chest congestion, Denies cough, Denies excessive phlegm production, Denies pain on inspiration, Denies pain with cough, Denies dyspnea, Denies dyspnea on exertion, Denies stridor and Denies wheezing Musc Denies myalgias Neuro Reports Normal hearing present and Denies headache(s) Endo Denies excessive sweating Elias/Lymph Denies lymphadenopathy Aller/Immun Denies itchy eyes, Denies seasonal rhinorrhea and Denies wheezing Physical Exam Vital Signs: Last Vital Signs Pulse 77 03/08/25 13:11 BP 132/70 03/08/25 13:11 Pulse Ox 96 03/08/25 13:11 Oxygen Delivery Method Room Air 03/08/25 13:11 BMI result Body Mass Index 42.3 Const General: cooperative, healthy appearing, comfortable, no acute distress, well developed and alert Nutritional Appearance: obese Orientation/consciousness: patient oriented x3 Limitations: no limitations HEENT Head: Yes normal to inspection, Yes normocephalic and Yes atraumatic Ears: hearing grossly normal bilaterally and external ears normal Eyes General: appearance normal, both eyes and all related structures Eyelids: Yes eyelids normal Sclerae: sclerae normal EOM: EOMs intact bilaterally Neck Neck: Yes normal visual inspection and Yes no lymphadenopathy Lymphatic: no lymphadenopathy noted Chest Chest palpation & inspection: normal inspection of the chest Resp Effort & Inspection: normal respiratory effort, able to speak in complete sentences, no audible wheezes, no cough, no stridor, not tachypneic, no tripod positioning and no use of accessory muscles Auscultation: clear to auscultation bilaterally Cardio Jugular venous distension: no JVD Rate: regular rate Rhythm: regular rhythm Skin Other: warm, dry General skin exam: no rashes or lesions noted Neuro General: patient oriented x3 Cranial nerves: Yes Normal hearing present Cognition (Neuro): normal cognition Gait exam (Neuro): Normal gait present Extrem General: Yes normal to inspection, Yes capillary refill normal, Yes no clubbing, cyanosis or edema and Yes no pedal edema Psych Appearance: grossly normal and well kempt Speech and movement: Normal speech and movement present and Clear speech present Affect: normal affect Attitude: cooperative Thought process: Normal thought process present Thought content: Normal thought content present Insight: Good insight present (Psych) Judgement: Good judgement present (Psych) Results Reviewed Results Reviewed: [address] [address] [address] Scan Report Signed with Beverley Patient: Nando Street MR#: [id number] : 1990 Acct:[id number] Age/Sex: 34 / M ADM Date: 01/16/25 Loc: HO.ED Attending Dr: Ordering Physician: Cary Pettit Date of Service: 01/16/25 Procedure(s): CT angio chest PE protocol Accession Number(s): [id number] cc: Maldonado Patterson MD; Cary Pettit PA~ Report Number: [id number]: Total DLP = 550.00 mGy-cm ADDENDUM This document has been electronically signed by: Sheeba Nayak MD on 01/16/2025 17:51:43 ADDENDUM: This report was discussed with Hodan Townsend MD on January 16, 2025 17:58:00 EDT. This document has been electronically signed by: Ambar Thompson on 01/16/2025 17:59:04 Addendum Dictated By: Sheeba Chavarria MD Addendum Signed By: <Electronically signed by Sheeba Chavarria MD in OV> 01/16/25 1800 Addendum Cosigned By: DD/ /03/1751 TD/TT: 01/16/2507/03/1759 CLINICAL HISTORY: elevated dimer, ALEJANDRE CTA chest with 3-D postprocessing Comparison: CR - XR CHEST 2V - 01/16/25 10:30 EDT NM - NM PUL PERFUSION - 01/03/25 10:[address]/WV - CT ANGIO CHEST PE PROTOCOL - 01/03/25 03:[address]/WV/SR - CT ANGIO CHEST PE PROTOCOL - 01/03/25 03:56 EDT Findings: Study quality is adequate for the diagnosis of pulmonary embolism. There are acute pulmonary emboli in the segmental and subsegmental arteries in the right lower lobe. To a lesser extent there are also acute pulmonary emboli in the segmental and subsegmental pulmonary arteries in right upper middle lobes and left upper and lower lobes. Heart size within normal limits. RV/LV ratio is normal. No calcified coronary artery disease. No aortic dissection or aneurysm. No calcified atherosclerotic disease. No lymphadenopathy. Subsegmental and dependent atelectasis. Dependent change is favored over ground-glass opacity due to pulmonary ischemia at the lung bases. No pneumothorax or pleural effusion. No acute osseous or soft tissue abnormality. No acute pathology in the imaged portion of the upper abdomen. Impression: Acute bilateral pulmonary emboli without right heart strain. This document has been electronically signed by: Sheeba Nayak MD on 01/16/2025 17:51:43 Dictated By: Sheeba Chavarria MD Signed By: <Electronically signed by Sheeba Chavarria MD in OV> 01/16/251751 DD/ 50 TD/TT: 01/16/251750 Public Health Staff Nurse: [address] [address] Cardiology Report Signed Patient: Nando Street MR#: [id number] : 1990 Acct:[id number] Age/Sex: 34 / M ADM Date: 01/16/25 Loc: [facility] 462-[address]: Eric CHO Ordering Physician: Dewey Rodgers DO Date of Service: 01/18/25 Procedure(s): CA echo transthorac w con Accession Number(s): cc: Dewey Rodgers DO~ Transthoracic Echocardiogram Patient (Last, First, Middle): Nando Street, Gender: Male Date of : 1990 Age: 34 Procedure Date: 01/18/2025 Procedure Type: Transthoracic Echocardiogram [place] [facility] [place]: 182.88 cm Weight: 143.79 kg BSA: 2.59 m2 Heart Rate: 98 bpm BP: 123 / 58 mmHg Water Superintendent: Referring MD: Dewey Rodgers DO Pan Greaser: Antonino Licona MD Symptoms: PE Study Quality: Adequate w contrast ECG Rhythm: Sinus Conclusions: - 1. Normal LV ejection fraction of 60 65% with mild LVH 2. Normal cardiac valvular Dopplers 3. Normal RV systolic pressure 4. No gross pericardial effusion Findings Procedure Information Contrast agent, definity, is being given per protocol without apparent complications. Left Ventricle Normal left ventricular size and systolic function. There is mildly increased left ventricular wall thickness. The visually estimated ejection fraction is between 60-65%. Spectral Doppler is indicative of a normal filling pattern. Right Ventricle Normal right ventricular cavity size and systolic function. Atria The left atrium is likely dilated. There is no evidence of interatrial shunt. The right atrium is normal in size. Aortic Valve Normal aortic valve structure and function. There is no aortic valve stenosis. There is no aortic valve regurgitation. Mitral Valve Normal mitral valve structure and function. There is trace mitral valve regurgitation. There is no mitral valve stenosis. Pulmonic Valve The pulmonic valve is likely normal. Tricuspid Valve Normal tricuspid valve structure. There is trace tricuspid valve regurgitation. The right ventricular systolic pressure is normal. The right ventricular systolic pressure is 15 mmHg. Normal right atrial pressure. There is no evidence of pulmonary hypertension. Great Vessels All visible segments of the aorta are normal in size. The pulmonary artery was not well visualized. There is no dilatation of the ascending aorta measuring 3.10 cm. Venous The inferior vena cava is normal in size and collapses greater than 50% with inspiration. Pericardium/Pleural There is no evidence of pericardial effusion. Prior Study Comparison No prior study available for comparison. Measurements 2D Linear Measurements IVSd: 1.42 0.6-0.9/0.6-1.0 cm LVIDd: 4.72 3.9-5.3/4.2-5.9 cm LVIDd Index: 1.82 2.4-3.2/2.2-3.1 cm/m2 LVIDs: 2.60 2.0-3.6 cm LVPWd: 1.34 0.7-1.1 cm LA Diam: 4.10 2.7-3.8/3.0-4.0 cm LAIDs Index: 1.58 1.5-2.3 cm/m2 LV Mass: 325.89 67-162/88-224 g LV Mass Index: 125.83 43-95/49-115 g/m2 LVOT Diam: 1.90 3.0+(-)1.3 cm Mitral Valve MV Pk E: 0.79 MV PK A: 0.57 MV Decel Time: 147.00 E/A: 1.40 E'Lateral: 9.90 E'Medial: 7.83 E/E' Med: 10.10 E/E' Lat: 8.00 PHT: 43.00 MVA PHT: 5.12 Decel Mora: 5.37 Aortic Valve AoV Pk Robert: 1.53 AoV Mn Robert: 0.95 AoV VTI: 0.23 AoV Pk Grad: 9.00 Aov Mn Grad: 5.00 SHANAE Cont.VTI: 2.37 LVOT LVOT Pk Robert: 1.20 LVOT Mn Robert: 0.87 LVOT VTI: 0.19 LVOT Pk Grad: 6.00 LVOT Mn Grad: 3.00 LVOT Diam: 1.90 LVOT Area: 2.84 Diastolic Function MV Pk E: 0.79 MV Pk A: 0.57 E/A: 1.40 E'Medial: 7.83 E/E' Med: 10.10 E' Laterial: 9.90 E/E' Lat: 8.00 Right Ventricle TAPSE (mm): 30.40 TVS' Robert: 14.80 Tricuspid Valve TR Pk Robert: 1.29 TR Pk Grad: 7.00 RA Press: 8.00 RVSP: 15.00 Great Vessels Aorta Sinus of Valsalva: 2.90 2.0-3.5 cm Ao Asc: 3.10 2.1-3.4 cm Pulmonary Valve PV Pk Robert: 1.42 Peak PV Grad: 8.00 Updated in Other Vendor System with Status of Final Antonino Licona MD electronically signed on 01/18/2025 4:29:35 PM with status of Final Dictated By: Antonino Licona MD Signed By: <Electronically signed by Antonino Licona MD in OV> 01/18/25 1629 DD/ 0814 TD/TT: Public Health Staff Nurse: Assessment & Plan Assessment & Plan (1) Bilateral pulmonary embolism: Code(s): I26.99 - Other pulmonary embolism without acute cor pulmonale Category: Medical (2) History of thrombectomy: Code(s): Z98.890 - Other specified postprocedural states; Z86.718 - Personal history of other venous thrombosis and embolism Category: Surgical (3) Nocturnal hypoxemia: Code(s): G47.34 - Idiopathic sleep related nonobstructive alveolar hypoventilation Category: Medical Plan Nando presents to reestablish care with pulmonary after recent bilateral PE possibly related to prior pneumonia and/or obesity, otherwise no other risk factors and no family history of DVT/PE. He has been evaluated by hematology and will have further workup for hypercoaguable states, continuing Eliquis for 6 months, with the possibility of further treatment depending on evaluation with heme. Will send for repeat CTA to assess for resolution of PE. No need for repeat echo as no evidence of right heart strain. At this time, he denies any respiratory symptoms, using albuterol MDI infrequently. He is aware to call if symptoms change. He has been compliant with CPAP therapy, using >4 hours for 93% of the time for the last month, AHI 3.3 recently required 1L supplemental oxygen with use. Will send for overnight oximetry with CPAP to ensure resolution of hypoxia. All questions were answered and patient is in agreement of plan. Will follow up to review results or sooner if needed. Orders: Orders Overnight Pulse Oximetry Today G47.34 - Idiopathic sleep related nonobstructive alveolar hypoventilation CT angio chest PE protocol 8 Weeks I26.99 - Other pulmonary embolism without acute cor pulmonale Coding Level of Care Code New Pt Level 4 (31024) Diagnoses Bilateral pulmonary embolism I26.99 History of thrombectomy Z98.890; Z86.718 Nocturnal hypoxemia G47.34
[2025-03-08 13:11] VITALS: BP 132/70; PULSE 77; O2SAT 96; BMI 42.3
--- OUTSIDE RECORDS SUMMARY | 2025-03-08 13:18 | XMS_ITS | Encounter Summary ---
Author Organization [facility] Address [address] [place] [address] Phone Care Team Providers Care Cigar Head Perforator Name Role Phone Carly Dang MD Primary Care Provider [phone] Encounter Details Date Type Department Care Team (Late st Contact Info) Description 06/28/2011 Documentation EM Family Medicine [address] [place] [address] Family Medicine, Physician [address] [place] [address] Social History Tobacco Use Types Packs/Day Years [...] on filedocumented in this encounter Care Teams Cigar Head Perforator Relationship Specialty Start Date End Date Carly Dang MD [address] [place] [address] [place] [address] PCP - General 04/19/17 02/13/23 documented as of this encounter
== END 2025-03-08 13:35 | disposition home or self-care (01) ==
PROVIDERS: PCP Family Medicine; Visit Provider Nurse Practitioner Family
DX: I26.99 Other pulmonary embolism without acute cor pulmonale (principal); Z98.890 Other specified postprocedural states; Z86.718 Personal history of other venous thrombosis and embolism; G47.34 Idiopathic sleep related nonobstructive alveolar hypoventilation
CPT/HCPCS: 99204

== ENCOUNTER 2025-03-18 09:38 | Outpatient (REF) | payer BC, SELFPAY ==
--- OUTSIDE RECORDS SUMMARY | 2025-03-18 10:10 | XMS_ITS | Encounter Summary ---
Author Organization [facility] Address [address] [place] [address] Phone Care Team Providers Care Family Readiness Support Assistant Name Role Phone Carly Dang MD Primary Care Provider [phone] Encounter Details Date Type Department Care Team (Late st Contact Info) Description 06/28/2011 Documentation EM Family Medicine [address] [place] [address] Family Medicine, Physician [address] [place] [address] Social History Tobacco Use Types Packs/Day Years [...] on filedocumented in this encounter Care Teams Family Readiness Support Assistant Relationship Specialty Start Date End Date Carly Dang MD [address] [place] [address] [place] [address] PCP - General 04/19/17 02/13/23 documented as of this encounter
[2025-03-18 10:46] LABS: Hematocrit 43.9 % (42.0-52.0); Hemoglobin 14.7 g/dl (14.0-18.0); Mean Corpuscular HGB Conc 33.5 g/dl (31.0-36.0); Mean Corpuscular Hemoglobin 31.4 pg (27.0-33.0); Mean Corpuscular Volume 93.8 fL (80.0-98.0); NRBC Abs Auto 0.000 X10*3/uL (0.0-0.012); NRBC Pct Auto 0.0 /100WBC (0.0-0.2); Platelet Count 264 X10*3/uL (160-400); Red Blood Count 4.68 X10*6/uL (4.60-5.80); White Blood Count 4.7 X10*3/uL (4.8-10.8)
[2025-03-18 10:57] LABS: Appearance Urine Clear; Glucose Urine UA Negative (Negative); PH 6.5 (5.0-9.0); Specific Gravity - Urine 1.025 (1.005-1.025)
[2025-03-18 11:10] LABS: Cholesterol 171 mg/dL (<200); HDL Cholesterol 31 mg/dL (>40); Triglycerides 152 mg/dL (<150)
== END 2025-03-18 09:39 | disposition home or self-care (01) ==
LOC: HO.LAB 09:38
PROVIDERS: Internal Medicine; PCP Family Medicine; Visit Provider Family Medicine
DX: Z00.00 Encounter for general adult medical examination without abnormal findings (principal); J18.9 Pneumonia, unspecified organism; D72.829 Elevated white blood cell count, unspecified; I26.99 Other pulmonary embolism without acute cor pulmonale; R09.02 Hypoxemia; E78.5 Hyperlipidemia, unspecified; E66.01 Morbid (severe) obesity due to excess calories; Z68.41 Body mass index [BMI] 40.0-44.9, adult
CPT/HCPCS: 36415; 80061; 81003; 84443; 85027

== ENCOUNTER 2025-03-18 15:44 | Outpatient (AMB) | payer BC, SELFPAY ==
--- NOTE | 2025-03-18 16:02 | A.OFFPC_ITS ---
Vital Signs 03/18/25 16:04 Height 6 ft Weight 312 lb BMI 42.3 BP 110/60 Blood Pressure Location Lt brachial Position Sitting Respiration 14 Pulse 85 Pulse Source Pulse Oximeter Temp 98.2 F Temp Source Oral Pulse Oximetry (%) 95 Oxygen Delivery Method Room Air Intake Visit Reasons: f/u pulmonary embolism Intake Note: patient is scheduled for follow up PE Double Needle Stitcher Required: No Allergies No Known Allergies (No Known Allergies*) Allergy (Verified 03/18/25 16:03) Medication List - Last Reconciled 03/18/25 by Maldonado Patterson MD albuterol sulfate 90 mcg/actuation 2 puffs inhalation Q4-6H PRN 90 days apixaban (Eliquis) 5 mg PO BID 90 days atorvastatin 40 mg PO BEDTIME 90 days lidocaine 4% (Lidocaine Pain Relief) 1 patch See Protocol transdermal DAILY magnesium 250 mg PO BEDTIME venlafaxine ER 150 mg PO DAILY 90 days Tobacco use date assessed: 02/11/24 Dental Screening Dental Screen Date: 02/11/24 HPI f/u pulmonary embolism HPI Details 34 y/o male presents to f/u bilateral PE s. Had put in an order for pulmonary rehab. Had referred him back to pulmonology. Had seen pulmonology 03/08/25. Was sent for overnight oximetry with CPAP to ensure resolution of hypoxia. Pt notes he is still waiting for this. He feels he is breathing well. Denies any chest pain. Labs drawn 03/18/25. Reviewed labs with pt. Triglycerides 152. TC 171. LDL 110. HDL low at 31. He is on artovastatin 20mg. HPI Comments History of Present Illness Details Documentation assistance for Maldonado Patterson MD, was provided by Tani Rios, Forensic Accountant on 03/18/2025 at 4:32 PM EST. I, Dr. Patterson, have read, observed, and verified documentation. [facility] Medical History Sleep apnea GERD (gastroesophageal reflux disease) Anxiety with depression Hyperlipidemia Bleeding hemorrhoids Surgical History H/O vasectomy History of hemorrhoidectomy (~06/05/24) Hx of tonsillectomy Family History Paternal Grandfather Cancer Other Alcohol abuse Social History Household Members: Spouse and Family Housing: House Do you presently have visiting nurse or other home services: No Alcohol intake: current Alcohol intake frequency: holidays/special occasions only Patient Tobacco Use Status: Never used Tobacco e-Cigarette/Vaping Use: Never Used Second Hand Smoke Exposure: No Substance Use Type: Marijuana Current occupational status: employed Current occupational exposures/hazards: No Sexual orientation: Unable to collect Gender identity: Unable to collect Cognitive needs: No Hearing needs: No Vision needs: No Questionnaire Thrive Questionnaire Date Thrive assessed: 10/30/24 I am a: Patient What is your living situation today?: I have a steady place to live Within the past 12 months, did the food you bought not last and you didn't have the money to get more?: Never true Within the past 12 months, did you worry whether your food would run out before you got money to buy more?: Never true Do you have trouble paying for medicines?: No Do you have trouble getting transportation to medical appointments?: No Do you have trouble paying your heating and electricity bill?: No Do you have trouble taking care of your child, family member or friend?: No Do you have trouble with day-to-day activities such as bathing, preparing meals, shopping, managing finances, etc.?: No Are you currently unemployed and looking for a job?: No Are you interested in more education?: Yes Please select the resources that you would like help with: None Currently or been in a relationship where the following occur: No concerns reported THRIVE Score: 0 PENG-7 AMB Questionnaire PENG-7 Date PENG - 7 assessed: 10/30/24 Source: Developed by Drs. Ladarius Jerry, Марина Hillman, Beck Arellano and colleagues, with an educational carlos from [employer]. Review of Systems Const Denies chills, Denies fatigue, Denies fever(s), Denies headache(s) and Denies weakness ENT Denies dizziness and Denies headache(s) Card Denies dyspnea Resp Denies cough, Denies dyspnea, Denies wheezing and Denies other (shortness of breath) Musc Denies numbness and Denies tingling Neuro Denies dizziness, Denies headache(s), Denies numbness, Denies tingling and Denies weakness Psych Denies anxiety and Denies depression Endo Denies fatigue Aller/Immun Denies wheezing Physical exam (Primary Care) Vital Signs: Last Vital Signs Temp 98.2 F 03/18/25 16:04 Pulse 85 03/18/25 16:04 Resp 14 03/18/25 16:04 BP 110/60 03/18/25 16:04 Pulse Ox 95 03/18/25 16:04 Oxygen Delivery Method Room Air 03/18/25 16:04 BMI result Body Mass Index 42.3 Tobacco/Smoking Status: Tobacco use Status Tobacco use date assessed 02/11/24 03/18/25 16:07 Patient Tobacco Use Status Never used Tobacco 03/18/25 16:07 e-Cigarette/Vaping Use Never Used 03/18/25 16:07 Thrive Assessment: Date of Thrive Assessment Date Thrive assessed 10/30/24 03/18/25 16:07 Currently or been in a relationship where the following occur: No concerns reported Const General: well developed; No acute distress Nutritional Appearance: well nourished and obese morbidly obese Orientation/consciousness: patient oriented x3 HENMT Head: Yes normocephalic and Yes atraumatic Eyes General: appearance normal, both eyes and all related structures Pupils: Equal, round and reactive pupils present EOM: EOMs intact bilaterally Resp Effort & Inspection: normal respiratory effort Auscultation: clear to auscultation bilaterally Cardio Rate: regular rate Rhythm: regular rhythm Heart sounds: S1 normal heart sound present, S2 normal heart sound present, no gallops, no murmurs and no rubs Neuro General: patient oriented x3 and gait normal Cranial nerves: Yes Equal, round and reactive pupils present Psych Affect: normal affect Coding Level of Care Code Est Pt Level 4 (10413) Diagnoses Bilateral pulmonary embolism I26.99 Hypoxia R09.02 Hyperlipidemia E78.5 Morbid obesity with BMI of 40.0-44.9, adult E66.01; Z68.41 Assessment & Plan Assessment & Plan (1) Bilateral pulmonary embolism: Code(s): I26.99 - Other pulmonary embolism without acute cor pulmonale Category: Medical Plan: Taking Eliquis as prescribed No chest pain. Patient is breathing easily today. Followed by Hematology-Oncology Continue Nick (2) Hypoxia: Code(s): R09.02 - Hypoxemia Category: Medical Plan: Episode of hypoxia at night and patient has overnight oximetry ordered Awaiting test Follow-up with Pulmonary Medicine as recommended Patient is attending pulmonary rehab (3) Hyperlipidemia: Code(s): E78.5 - Hyperlipidemia, unspecified Category: Medical Plan: Reviewed labs patient and LDL cholesterol is too high He has been taking atorvastatin 20 mg daily and tolerating this. Will increase to 40 mg daily (4) Morbid obesity with BMI of 40.0-44.9, adult: Code(s): E66.01 - Morbid (severe) obesity due to excess calories; Z68.41 - Body mass index [BMI] 40.0-44.9, adult Category: Medical Plan: As obesity is 1 of the risk factors for blood clots, we had discussed GLP 1 medications. Patient says that his insurance may cover Wegovy Ordered Medications: New semaglutide (weight loss) (Wegovy) administer weeks 1 through 4 of therapy 0.25 mg (0.5 mL) subcut QWEEK 2 mL 3RF 28 days E66.01 - Morbid (severe) obesity due to excess calories, G47.30 - Sleep apnea, unspecified, G47.34 - Idiopathic sleep related nonobstructive alveolar hypoventilation, Z68.41 - Body mass index [BMI] 40.0-44.9, adult Changed From atorvastatin 20 mg PO BEDTIME 90 days 90 tabs 2RF To atorvastatin 40 mg PO BEDTIME 90 tabs 2RF 90 days
[2025-03-18 16:04] VITALS: BP 110/60; PULSE 85; RESP 14; TEMP 36.8; O2SAT 95; BMI 42.3
== END 2025-03-18 16:40 | disposition home or self-care (01) ==
LOC: HO.HMCFM 15:44
PROVIDERS: PCP Family Medicine; Visit Provider Family Medicine
DX: I26.99 Other pulmonary embolism without acute cor pulmonale (principal); E66.01 Morbid (severe) obesity due to excess calories; Z68.41 Body mass index [BMI] 40.0-44.9, adult; R09.02 Hypoxemia; E78.5 Hyperlipidemia, unspecified

== ENCOUNTER 2025-04-02 08:54 | Outpatient (REF) | payer BC, SELFPAY ==
--- NOTE | ~2025-04-02 | US_ITS ---
CLINICAL HISTORY: Hepatosplenomegaly mentioned on CT chest US abdomen complete Comparison: None provided Findings: The visualized pancreas is normal. The aorta and inferior vena cava are normal caliber. The liver is normal in size with steatosis. There is no intrahepatic bile duct dilatation. The common duct is 1 mm in diameter. The gallbladder is normal. There is no sonographic Snell sign. The main portal vein is antegrade. The right kidney is 11.8 cm in length. The left kidney is 12.6 cm in length. The spleen mildly enlarged measuring 18 cm. No ascites. IMPRESSION: No evidence for cholecystitis. Hepatosplenomegaly with hepatic steatosis. This document has been electronically signed by: Tae Craig MD on 04/02/2025 22:09:57
--- OUTSIDE RECORDS SUMMARY | 2025-04-02 09:09 | XMS_ITS | Encounter Summary ---
Author Organization [facility] Address [address] [place] [address] Phone Care Team Providers Care Head Of Maintenance Name Role Phone Carly Dang MD Primary Care Provider [phone] Encounter Details Date Type Department Care Team (Late st Contact Info) Description 06/28/2011 Documentation EM Family Medicine [address] [place] [address] Family Medicine, Physician [address] [place] [address] Social History Tobacco Use Types Packs/Day Years [...] on filedocumented in this encounter Care Teams Head Of Maintenance Relationship Specialty Start Date End Date Carly Dang MD [address] [place] [address] [place] [address] PCP - General 04/19/17 02/13/23 documented as of this encounter
== END 2025-04-02 08:55 | disposition home or self-care (01) ==
LOC: HO.US 08:54
PROVIDERS: PCP Family Medicine; Visit Provider Internal Medicine
DX: I26.99 Other pulmonary embolism without acute cor pulmonale (principal)
CPT/HCPCS: 76700

== ENCOUNTER → 2025-04-02 08:56 | Outpatient (BNV) | payer BC, SELFPAY | PROVIDERS: PCP Family Medicine; Visit Provider Radiology Diagnostic Radiology | DX: R16.2 Hepatomegaly with splenomegaly, not elsewhere classified (principal) | CPT/HCPCS: 76700 ==

== ENCOUNTER 2025-05-03 14:45 | Outpatient (REF) | payer BC, SELFPAY ==
--- OUTSIDE RECORDS SUMMARY | 2025-04-29 09:30 | XMS_ITS | Encounter Summary ---
Author Organization [facility] Address [address] [address] Phone Care Team Providers Care Food Safety Specialist Name Role Phone Maldonado Patterson MD Primary Care Provider Pcp, Not Required Unavailable Unavailable Reason for Visit * Consultation (Routine) - Authorized Specialty Diagnoses / Procedures Referred By Danilo stockton Referred To Contact Hematology Procedures VIRTUAL ESTABLISHED Maldonado Patterson MD [address] [place] [address] Phone: tel: fax: Caitie Serrano MD [address] [place] [address] Phone: tel: fax: [email or web address] Referral ID Status Reason Start Date Expiration Date V isits Requested Visits Authorized [id number] Authorized 04/13/2025 04/13/2026 99 99 Encounter Details Date Type Department Care Team (Late st Contact Info) Description 04/29/2025 9:30 AM EDT Telemedicine [facility] at [facility] [address] [address] Caitie Serrano MD [address] [place] [id number] [email or web address] Social History Tobacco Use Types Packs/Day Years Used Date Smoking Tobacco: Never Smokeless Tobacco: Never Alcohol Use Standard Drinks/Week Comments Yes 0 (1 standard drink = 0.6 oz pur e alcohol) rare Education Answer Date Recorded Are you interested in more education? Not on salvador e 02/10/2023 Are you concerned about learning? Not on file 02/10/2023 No 02/10/2023 No 02/10/2023 Food Answer Date Recorded Within the past 6 months we worried whether our food would run out before we got money to buy more. Never True 01/01/2025 Within the past 6 months the food we bought just didn't last and we didn't have enough money to get more. Never True Residential Stability Answer Date Recor ded What is your housing situation today? I have suzan sing 01/01/2025 How many times have you move d in the past 12 months? Zero (I did not move) 01/01/2025 Paying for Meds Answer Date Recorded Do you have trouble paying for medicines? No 01/01/2025 Paying Utility Bills Answer Date Record ed Do you have trouble paying your heating or elect ricity bill? No 01/01/2025 Transportation Answer Date Recorded Has the lack of transportati on kept you from medical appointments or from getting medications? No 01/01/2025 Digital Access Answer Date Recorded No 01/01/2025 Yes 01/01/2025 Do you have reliable internet access at home? Ye s 01/01/2025 Do you have a device (e.g., phone, tablet, computer) with a working camera? Yes 01/01/2025 Intimate Partner Violence Answer Date R ecorded Are you denied basic needs s uch as food, clothing, or medical care? No 01/01/2025 In the past 12 months have y ou been in a relationship with a person who hurts, threatens, or tries to control you? No 01/01/2025 Are you denied basic needs s uch as food, clothing, or medical care? No 01/01/2025 In the past 12 months have y ou been in a relationship with a person who hurts, threatens, or tries to control you? No 01/01/2025 Sex and Gender Information Value Date Recorded Sex Assigned at Male 01/19/2025 1:44 PM EDT Legal Sex Male 7:52 PM EDT Gender Identity Male 01/19/2025 1:44 PM EDT Sexual Orientation Straight 01/19/2025 1: 44 PM EDT documented as of this encounter Plan of Treatment Not on file documented as of this encounter Visit Diagnoses Not on filedocumented in this encounter Care Teams Food Safety Specialist Relationship Specialty Start Date End Date Maldonado Patterson MD [address] [place] [address] PCP - General Family Medicine 02/10/23 Pcp, Not Required [address] [place] [id number] 01/19/25 documented as of this encounter Additional Source Comments The information contained in this document represents components of the legal health record. It is not the complete legal health record.[facility]
--- NOTE | ~2025-05-03 | CT_ITS ---
EXAMINATION: CT CHEST ANGIOGRAPHY WITH IV CONTRAST INDICATION: I26.99 - Other pulmonary embolism without acute cor pulmonale COMPARISON: Comparison is made with the prior examination dated 01/16/2025. TECHNIQUE: Helical CT scan of the chest was performed following administration of intravenous contrast (65 mL Omnipaque 350). The contrast bolus was timed to optimally opacify the pulmonary arteries. Thin sections were obtained through the pulmonary arteries. Coronal and sagittal reformatted images were generated. 3D/MIP reconstructed images are also obtained and reviewed. This CT exam was performed with one or more of the following dose reduction techniques: automated exposure control, adjustment of the mA and/or kV according to patient size, use of iterative reconstruction technique. DLP: 212 mGy-cm CHEST: THYROID: The thyroid gland is unremarkable. PULMONARY ARTERIES: No intraluminal filling defects are identified within the pulmonary arteries to suggest pulmonary emboli. The previously seen pulmonary emboli have resolved. LUNGS: There is a 3 mm nodule in the right upper lobe (series 8, image 56) which was not evident previously. The lungs are otherwise clear. MEDIASTINUM: There is no mediastinal lymphadenopathy. SIRISHA: There is no hilar lymphadenopathy. CARDIOVASCULATURE: The heart is normal in size. There is no pericardial effusion. The thoracic aorta is normal in caliber. DEGREE OF CORONARY CALCIFICATION: none PLEURA: There is no pleural effusion. No pneumothorax. MAIN AIRWAYS: The mainstem bronchi and proximal branches are patent. AXILLA: There is no axillary lymphadenopathy. UPPER ABDOMEN: The visualized portions of the liver and adrenals are unremarkable. The spleen is enlarged. BONES AND SOFT TISSUES: Unremarkable. CT/CT angio chest PE protocol IMPRESSION: 1. No evidence of acute pulmonary emboli. The previously seen pulmonary emboli have resolved. 2. Splenomegaly. 3. 3 mm right upper lobe nodule. Please see Fleischner Society guidelines below. Fleischner Criteria for pulmonary nodule follow-up SOLID NODULES: Low risk patient: <6mm: no follow-up 6-8mm: 6 month follow-up CT >8mm: PET/Biopsy/ 3 month follow-up CT High risk patient: <6mm: 12 month follow-up CT 6-8mm: 6 month follow-up CT >8mm: PET/Biopsy/ 3 month follow-up CT SUB-SOLID/GROUNDGLASS NODULES: All patients: > or = 6mm: 6 month follow-up CT *Please note that in patients in the following categories, the Fleischner criteria do not apply: Immunocompromised, lung cancer screening population, age below 35, and patients with known malignancy Electronically signed by: Ladarius Huerta MD 05/03/2025 03:35 PM EDT
[2025-05-03] MEDS: iohexoL 350 MG/ML 100 ML INFUS..BTL 65 ML IV (15:24)
--- OUTSIDE RECORDS SUMMARY | 2025-05-03 16:26 | XMS_ITS | Encounter Summary ---
Author Organization [facility] Address [address] [place] [address] Phone Care Team Providers Care Craft Center Director Name Role Phone Carly Dang MD Primary Care Provider [phone] Encounter Details Date Type Department Care Team (Late st Contact Info) Description 06/28/2011 Documentation EM Family Medicine [address] [place] [address] Family Medicine, Physician [address] [place] [address] Social History Tobacco Use Types Packs/Day Years [...] on filedocumented in this encounter Care Teams Craft Center Director Relationship Specialty Start Date End Date Carly Dang MD [address] [place] [address] [place] [address] PCP - General 04/19/17 02/13/23 documented as of this encounter
--- OUTSIDE RECORDS SUMMARY | 2025-05-03 16:26 | XMS_ITS | Clinical Summary ---
Author Organization [facility] Address [address] [place] [address] Phone Care Team Providers Care [employer] Name Role Phone Maldonado Patterson MD Primary Care Provider Pcp, Not Required Unavailable Unavailable Allergies No known active allergies Medications venlafaxine (EFFEXOR-XR) 150 MG 24 hr capsule Take 150 mg by mouth daily. Active albuterol 90 mcg/actuation inhaler Inhale 2 puffs into the lungs every 6 (six) hours as needed for wheezing. Active atorvastatin (LIPITOR) 40 MG tablet Take 40 mg by mouth daily. Active WEGOVY 0.25 mg/0.5 mL subcutaneous pen injection Inject 0.25 mg under the skin every 7 days. 03/25/2025 Active ELIQUIS 5 mg tablet Take 1 tablet by mouth 2 (two) times a day. 02/23/2025 Active magnesium oxide 500 mg magnesium Tab Take 1 tablet by mouth daily. Active Encounters Date Type Department Care Team Description 04/29/2025 9:30 AM EDT Telemedicine [facility] Hematology at [facility] [address] [place] [address] Caitie Serrano MD 04/06/2025 11:00 AM EDT Office Visit [facility] [address] [facility], 8th [place] [address] Caitie Serrano MD History of pulmonary embolism (Primary Dx) 02/09/2025 Ancillary Orders DF IMG OUTSIDE IMG [address] [place] [address] Emerald Medina MD 02/09/2025 Ancillary Orders DF IMG OUTSIDE IMG [address] [place] [address] Emerald Medina MD 02/09/2025 Ancillary Orders DF IMG OUTSIDE IMG [address] [place] [address] Emerald Medina MD 02/09/2025 Ancillary Orders DF IMG OUTSIDE IMG [address] [place] [address] Emerald Medina MD 02/09/2025 Ancillary Orders DF IMG OUTSIDE IMG [address] [place] [address] Emerald Medina MD from Last 3 Months Social History Tobacco Use Types Packs/Day Years Used Date Smoking Tobacco: Never Smokeless Tobacco: Never Tobacco Cessation:Counseling Given: Not Answered Alcohol Use Standard Drinks/Week Comments Yes 0 [...] Orientation Straight 01/19/2025 1: 44 PM EDT Last Filed Vital Signs Vital Sign Reading Time Taken Comments Blood Pressure 116/65 04/06/2025 9:47 AM EDT Pulse 85 04/06/2025 9:47 AM EDT Temperature 36.8 C (98.3 F) 04/06/2025 9:47 AM EDT Respiratory Rate 18 04/06/2025 9:47 AM EDT Oxygen Saturation 95% 04/06/2025 9:47 AM EDT Inhaled Oxygen Concentration - - Weight 137.3 kg (302 lb 11.1 oz) 04/06/2025 9:47 AM EDT Height 181.3 cm (5' 11.38 ) 04/06/2025 9:47 AM E DT Body Mass Index 41.77 04/06/2025 9:47 AM EDT Plan of Treatment Health Maintenance Due Date Last Done Comments Adult Td,Tdap Booster 1990 DEPRESSION SCREENING 2002 HEPATITIS C SCREENING 2008 HIV ONE-TIME SCREENING (18-6 5 YEARS) 2008 COVID-19 VACCINE (2023-2 5 season) 2024 CREATININE LEVEL 01/01/2026 01/01/2025, 02/10/2023 SMOKING STATUS SCREENING (On ce After 26 Yrs) Completed 01/01/2025 HEPATITIS A VACCINES Aged Out No long er eligible based on patient's age to complete this topic HIB VACCINES Aged Out No longer eligi ble based on patient's age to complete this topic MENINGOCOCCAL VACCINES (ACWY) Aged Out No longer eligible based on patient's age to complete this topic MENINGOCOCCAL VACCINES (B) Aged Out N o longer eligible based on patient's age to complete this topic PNEUMOCOCCAL VACCINES (0-49 years) Aged Out No longer eligible b ased on patient's age to complete this topic Medical Devices Not on file Procedures Procedure Name Priority Date/Time Associated Diagnosis Comments HC HEPARIN ASSAY Routine 04/06/2025 11:5 0 AM EDT HC HEPARIN ASSAY Routine 04/06/2025 11:5 0 AM EDT PTT Routine 04/06/2025 11:50 AM EDT INR Routine 04/06/2025 11:50 AM EDT SPECIAL COAGULATION INTERPRETATION Routine 04/06/2025 11:50 AM EDT PROTEIN C Routine 04/06/2025 11:50 AM EDT PTT Routine 04/06/2025 11:50 AM EDT INR Routine 04/06/2025 11:50 AM EDT SPECIAL COAGULATION INTERPRETATION Routine 04/06/2025 11:50 AM EDT RETICULOCYTES Routine 04/06/2025 11:50 AM EDT History of pulmonary embolism HC DFCI MANUAL DIFFERENTIAL Routine 04/06/2025 11:50 AM EDT History of pulmonary embolism PROTEIN S ACTIVITY Routine 04/06/2025 11 :50 AM EDT History of pulmonary embolism PTT MIXING STUDIES Routine 04/06/2025 11 :50 AM EDT History of pulmonary embolism PTT Routine 04/06/2025 11:50 AM EDT History of pulmonary embolism PT-INR Routine 04/06/2025 11:50 AM EDT History of pulmonary embolism LUPUS ANTICOAGULANT PANEL Routine 04/06/2025 11:50 AM EDT History of pulmonary embolism ANTITHROMBIN III Routine 04/06/2025 11:5 0 AM EDT History of pulmonary embolism PROTHROMBIN GENE MUTATION ([id number]) Routine 04/06/2025 11:50 AM EDT History of pulmonary embolism APC RESISTANCE (FACTOR V LEIDEN) Routine 04/06/2025 11:50 AM EDT History of pulmonary embolism LOMY-4-[id number] I ANTIBODIES Routine 04/06/2025 11:50 AM EDT History of pulmonary embolism ANTI-CARDIOLIPIN ANTIBODIES Routine 04/06/2025 11:50 AM EDT History of pulmonary embolism OUTSIDE LAB 02/04/2025 OUTSIDE IMAGING 02/04/2025 BASIC METABOLIC PANEL STAT 01/01/2025 8:15 PM EDT from Last 3 Months or Most Recently Relevant to Health Maintenance Results * Anti XA Screen (04/06/2025 11:50 AM EDT) Only the most recent of2 resultswithin the time period is included. Anti-Xa Screen Detected [facility] Comment:Anti-Xa assay was pe rformed to determine presence/absence of heparin or other Xa inhibitors for interpretation. Result should not be used to monitor therapy. 04/06/2025 11:5 0 AM EDT 04/06/2025 11:54 AM EDT us Caitie Serrano MD LAB BLOOD ORDERABLES Final Re sult [address] [address] * PTT (04/06/2025 11:50 AM EDT) Only the most recent of2 resultswithin the time period is included. APTT 32.0 24.0 - 37.5 sec [facility] 04/06/2025 11:5 0 AM EDT 04/06/2025 11:54 AM EDT Caitie Serrano MD LAB BLOOD ORDERABLES Final Re sult Performing Organization Address [facility] de Phone Number [address] [address] * INR (04/06/2025 11:50 AM EDT) Only the most recent of2 resultswithin the time period is included. PROTHROMBIN TIME 11.7 10.0 - 13.0 sec [facility] INR 1.0 0.9 - 1.1 [facility] 04/06/2025 11:5 0 AM EDT 04/06/2025 11:54 AM EDT Caitie Serrano MD LAB BLOOD ORDERABLES Final Re sult Performing Organization Address [facility] de Phone Number [address] [address] * Special coagulation interpretation (04/06/2025 11:50 AM EDT) Only the most recent of2 resultswithin the time period is included. SPECIAL COAG INTERP. (NOTE) [facility] Comment: 1. The PT and PTT are normal. An anti-Xa assay detects an anticoagulant, presumably apixaban per chart review. DOAC exposure can prolong the PT and, to a lesser extent, the PTT. PT and PTT can also be normal despite DOACs. 2. Protein C activity is normal. Performing Pathologist: Ibrahima Vaughan MD, MPH Signout Location: [facility] [address] [place] [address] Medical Unit Secretary: Sonia Morel MD, PhD 04/06/2025 11:5 0 AM EDT 04/06/2025 11:54 AM EDT us Caitie Serrano MD LAB BLOOD ORDERABLES Final Re sult [facility] [address] [place] [address] * CBC with manual differential (04/06/2025 11:50 AM EDT) WBC 4.83 4.00 - 10.00 K/uL [facility] LIC# [id number] RBC 5.01 4.50 - 6.40 M/uL [facility] LIC# [id number] HGB 15.7 13.5 - 18.0 g/dL [facility] LIC# [id number] HCT 46.7 40.0 - 54.0 % [facility] LIC# [id number] PLT 290 150 - 450 K/uL [facility] LIC# [id number] MCV 93.2 80.0 - 100.0 fL [facility] LIC# [id number] MCH 31.3 27.0 - 32.0 pg [facility] LIC# [id number] MCHC 33.6 32.0 - 36.0 g/dL [facility] LIC# [id number] RDW 12.5 11.5 - 14.5 % [facility] LIC# [id number] MPV 9.2 8.4 - 12.0 fL [facility] LIC# [id number] NRBC 0.00 0 /100 WBCs [facility] LIC# [id number] ABSOLUTE NRBC 0.00 0 K/uL [facility] LIC# [id number] BLASTS 0.0 0 % [facility] LIC# [id number] NEUTS (MANUAL) 55.4 48.0 - 76.0 % [facility] LIC# [id number] LYMPHS 33.1 18.0 - 41.0 % [facility] LIC# [id number] MONOS 9.2 4.0 - 11.0 % [facility] LIC# [id number] EOSINOPHIL 1.5 0.0 - 5.0 % [facility] LIC# [id number] BASOPHIL 0.8 0.0 - 1.5 % [facility] LIC# [id number] ABSOLUTE NEUTS 2.68 1.92 - 7.60 K/uL [facility] LIC# [id number] ABSOLUTE LYMPHS 1.60 0.72 - 4.10 K/uL [facility] LIC# [id number] ABSOLUTE MONOS 0.44 0.16 - 1.10 K/uL [facility] LIC# [id number] ABSOLUTE EOS 0.07 0.00 - 0.50 K/uL [facility] LIC# [id number] ABSOLUTE BASO 0.04 0.00 - 0.15 K/uL [facility] LIC# [id number] ABSOLUTE BLASTS 0.00 0 K/uL [facility] LIC# [id number] POLYCHROME Few [facility] LIC# [id number] DIFF METHOD MANUAL [facility] LIC# [id number] Blood 04/06/2025 11:5 0 AM EDT 04/06/2025 11:54 AM EDT us Caitie Serrano MD LAB BLOOD ORDERABLES Final Re sult [facility] LIC# [id number] [address] [place] [address] * Protein S activity (04/06/2025 11:50 AM EDT) Protein S Activity, P 93 65 - 150 % [facility] DPT OF LAB MED AND PAT+ Comment: (NOTE) Anticoagulants (for example oral direct thrombin inhibitors like dabigatran, anti-Xa inhibitors like rivaroxaban, apixaban or edoxaban), heparin levels greater than 1 U/mL, inhibitors of the APTT test system (for example lupus anticoagulant), inhibitors of bovine factor V (for example antibodies that may arise in patients treated with certain bovine topical thrombin preparations) may produce a falsely normal or elevated protein S activity result. Suggest clinical correlation and if indicated consider repeat assay of protein S activity and/or antigen in the absence of anticoagulation therapy. Blood 04/06/2025 11:5 0 AM EDT 04/06/2025 11:54 AM EDT Caitie Serrano MD LAB BLOOD ORDERABLES Final Re sult Performing Organization Address [facility] Co de Phone Number [facility] DPT OF LAB MED AND PAT+ [address] [place] [address] * (ABNORMAL) Reticulocytes (04/06/2025 11:50 AM EDT) RETIC (%) 2.9(H) 0.7 - 2.5 % [facility] LIC# [id number] RETIC (ABSOLUTE) 0.1438 0.0315 - 0.1600 M/uL [facility] LIC# [id number] RETIC HGB EQUIV 34.2 30.2 - 35.6 pg [facility] LIC# [id number] Blood 04/06/2025 11:5 0 AM EDT 04/06/2025 11:54 AM EDT Caitie Serrano MD LAB BLOOD ORDERABLES Final Re sult Performing Organization Address [facility] Co de Phone Number [facility] LIC# [id number] [address] [place] [address] * Prothrombin gene mutation ([id number]) (04/06/2025 11:50 AM EDT) PROTHROMBIN [id number] MUTATION, Negative Negative [facility] DPT OF LAB MED AND PAT+ PTNT INTERPRETATION SEE NOTE [facility] DPT OF LAB MED AND PAT+ Comment: (NOTE) This individual DOES NOT have the Prothrombin F2 c.*97G>A (legacy numbering [id number]) variant. Although the Prothrombin (F2 c.*97G>A) variant is absent, this individual may have other genetic and environmental risk factors for thrombosis. If indicated, consider genetic consultation and counseling for this individual and potentially affected family members regarding laboratory testing. A portion of the testing process was performed at [facility] site [id number] ADDITIONAL INFORMATION This test uses TaqMan Genotyping chemistry to amplify and detect specific single nucleotide polymorphisms in purified genomic DNA. DISCLAIMER Patients receiving allogenic stem cell transplants prior to having blood drawn for DNA based testing may have false normal or abnormal results depending on the genotype of the stem cell donor. This test was developed and its performance characteristics determined by [facility] in a manner consistent with CLIA requirements. This test has not been cleared or approved by the U.S. Food and Drug Administration. PTNT REVIEWED BY Estrella Goetz M.D. [facility] DPT OF LAB MED AND PAT+ Blood 04/06/2025 11:5 0 AM EDT 04/06/2025 11:54 AM EDT Caitie Serrano MD LAB BLOOD ORDERABLES Final Re sult Performing Organization Address [facility] Co de Phone Number [facility] DPT OF LAB MED AND PAT+ [address] [place] [address] * Sdkf-1-pawlrrutizwz I antibodies (04/06/2025 11:50 AM EDT) [facility] B2-GLYCOPROT IGM 1 0 - 19 CU [facility] CL[facility]ICAL IMMUNOLOGY LAB Comment:SEMIQUANTITATIVE MET HOD PERFORMED B2-GLYCOPROT IGG 9 0 - 19 CU [facility] Comment:SEMIQUANTITATIVE MET HOD PERFORMED Blood 04/06/2025 11:5 0 AM EDT 04/06/2025 11:54 AM EDT Caitie Serrano MD LAB BLOOD ORDERABLES Final Re sult [facility] [address] [place] [address] * (ABNORMAL) Lupus anticoagulant panel (04/06/2025 11:50 AM EDT) [facility] PTT-LA Negative for a lupus anticoagulant. Negative for a lupus anticoagul ant. [facility] DRVVT Screen Results are uninterpretable due to apixaban.(A) Negative for a lupus anticoagul ant. [facility] Blood 04/06/2025 11:5 0 AM EDT 04/06/2025 11:52 AM EDT Result [facility] Caitie Serrano MD LAB BLOOD ORDERABLES Final Re sult [facility] [address] [place] [address] * (ABNORMAL) Anti-cardiolipin antibodies (04/06/2025 11:50 AM EDT) ANTICARDIOLIPIN IGM 2 0 - 19 CU [facility] Comment:SEMIQUANTITATIVE MET HOD PERFORMED ANTICARDIOLIPIN IGG 31(H) 0 - 19 CU [facility] Comment:SEMIQUANTITATIVE MET HOD PERFORMED Blood 04/06/2025 11:5 0 AM EDT 04/06/2025 11:54 AM EDT Result [facility] Caitie Serrano MD LAB BLOOD ORDERABLES Final Re sult Performing Organization Address [facility] Co de Phone Number [facility] [address] [place] [address] * PTT (04/06/2025 11:50 AM EDT) APTT 31.3 22.7 - 35.9 sec [facility] LIC# [id number] Blood 04/06/2025 11:5 0 AM EDT 04/06/2025 11:54 AM EDT Result [facility] Caitie Serrano MD LAB BLOOD ORDERABLES Final Re sult Performing Organization Address [facility] Co de Phone Number [facility] LIC# [id number] [address] [place] [address] * PT-INR (04/06/2025 11:50 AM EDT) PT 13.8 12.1 - 14.8 sec [facility] LIC# [id number] INR 1.0 0.9 - 1.1 [facility] LIC# [id number] Blood 04/06/2025 11:5 0 AM EDT 04/06/2025 11:54 AM EDT us Caitie Serrano MD LAB BLOOD ORDERABLES Final Re sult [facility] LIC# [id number] [address] [place] [address] * Outside Imaging Report Only (02/04/2025) us Scanning Interface Provider IMG XR CHEST Fariha l Result * Outside Lab (02/04/2025) us Scanning Interface Provider LAB BLOOD ORDERABLES Final Result * (ABNORMAL) Basic metabolic panel (01/01/2025 8:15 PM EDT) SODIUM 137 133 - 146 mmol/L [facility] CHLORIDE 101 96 - 108 mmol/L [facility] POTASSIUM 3.9 3.3 - 5.1 mmol/L [facility] CO2 27 21 - 35 mmol/L [facility] BUN 12 6 - 19 mg/dL [facility] CREATININE 0.90 0.5 - 1.5 mg/dL [facility] GLUCOSE 109(H) 70 - 99 mg/dL [facility] CALCIUM 8.8 8.4 - 10.3 mg/dL [facility] EGFR 115 >59 mL/min/1.7 3m2 [facility] Comment:Estimated glomerular filtration rate calculated using the CKD-EPI refit equation. ANION GAP 13 10 - 20 mmol/L [facility] Blood 01/01/2025 8:15 PM EDT 01/01/2025 8:19 PM EDT us Abran Edwards PA-C LAB BLOOD ORDERABLES Final R esult [facility] [address] [place] [address] from Last 3 Months or Most Recently Relevant to Health [place] [address] [facility] Member Subscriber Plan / Payer (Ef fective 2023-Present) Name:Nando Street Relation to Subscriber:Spouse Name:MERLYN STREET Date of :1989 (Home) Address: [place] [address] Payer ID:[id number] (NA) Type:HMO Address: [address] [place] [id number] [place] [address] [facility] [place] [address] [facility] [place] [address] [facility] [place] [address] [facility] Care Teams [employer] Relationship Specialty Start Date End Date Maldonado Patterson MD [address] [place] [address] PCP - General Family Medicine 02/10/23 Pcp, Not Required [address] [place] [address] 01/19/25 Additional Source Comments The information contained in this document represents components of the legal health record. It is not the complete legal health record.[facility]
--- OUTSIDE RECORDS SUMMARY | 2025-05-03 16:26 | XMS_ITS | Clinical Summary ---
Author Organization [facility] Address [address] [place] [address] Phone Care Team Providers Care Writer Technical Publications Name Role Phone Unavailable Primary Care Provider [...] of 3 - 19+ 3-dose series) 2009 HPV Vaccines (1 - 3-dose SCD M series) 2017 COVID-19 Vaccine (2023-2 5 season) 2024 Influenza Vaccines (#1) 2025 HIB Vaccines Aged Out No longer eligi [...]
== END 2025-05-03 14:46 | disposition home or self-care (01) ==
LOC: HO.CT 14:45
PROVIDERS: PCP Family Medicine; Visit Provider Nurse Practitioner Family
DX: I26.99 Other pulmonary embolism without acute cor pulmonale (principal)
CPT/HCPCS: 71275; Q9967

== ENCOUNTER → 2025-05-03 14:47 | Outpatient (BNV) | payer BC, SELFPAY | PROVIDERS: PCP Family Medicine; Visit Provider Radiology Diagnostic Radiology | DX: R91.1 Solitary pulmonary nodule (principal); R16.1 Splenomegaly, not elsewhere classified | CPT/HCPCS: 71275 ==

== ENCOUNTER 2025-05-13 08:30 | Outpatient (RCR) | payer BC, SELFPAY | END 2025-05-18 13:46 | disposition home or self-care (01) | LOC: HO.PR 08:30 | PROVIDERS: PCP Family Medicine; Visit Provider Family Medicine | DX: I26.99 Other pulmonary embolism without acute cor pulmonale (principal); J18.9 Pneumonia, unspecified organism; J96.01 Acute respiratory failure with hypoxia | CPT/HCPCS: 94618; 99212; G0237; G0239 ==

== ENCOUNTER 2025-05-17 10:27 | Outpatient (AMB) | payer BC, SELFPAY ==
[2025-05-17 10:29] VITALS: BP 122/68; PULSE 87; O2SAT 96; BMI 40.4
--- NOTE | 2025-05-17 10:29 | A.OFFVIS_ITS ---
Vital Signs 05/17/25 10:29 Height 6 ft Weight 297 lb 9.985 oz BMI 40.4 BP 122/68 Blood Pressure Location Rt brachial Position Sitting Pulse 87 Pulse Source Pulse Oximeter Pulse Oximetry (%) 96 Oxygen Delivery Method Room Air Intake Visit Reasons: CT scan f/u Allergies No Known Allergies (No Known Allergies*) Allergy (Verified 05/17/25 10:32) HPI HPI CT scan f/u: Details: Nando is a pleasant 34-year-old male, never smoker, with underlying morbid obesity, asthma,KIMBERLI on CPAP, h/o bilateral PE 01/2025 s/p thrombectomy on Eliquis, hyperlipidemia, GERD, and anxiety. He was admitted to [facility] 01/16-01/21 presenting with fever, myalgias, dry cough, and dyspnea on exertion x1 week and recently admitted to [facility] 01/03/25 - 01/06/25 for treatment of acute hypoxic respiratory failure secondary to multifocal pneumonia. On 01/16 CTA consistent with bilateral PEs without evidence of right heart strain. Vascular Surgery was consulted and he underwent mechanical thrombectomy 01/18/25. He was transitioned from the heparin drip to apixaban 01/19. No personal or FHx of VTE; no recent surgery or immobilization; only risk factors appear to be obesity and recent illness with pneumonia. Hematology recommended six months of apixaban, possibly longer depending on outpatient thrombophilia workup which will be scheduled at follow up in August. Of note, he was evaluated at [facility] and reportedly no findings for PE. Since the last visit he completed pulmonary rehab. He currently denies any respiratory symptoms and has infrequently used albuterol MDI. He denies any visits to urgent care or hospitalizations related to respiratory distress since the last visit. He has a h/o moderate KIMBERLI, using CP AP therapy, APAP mode [id number] with good effect, using >4 hours 93% of the time, minimal leaking and average AHI <4. DME is [employer]. He did require 1L supplemental oxygen with CPAP during hospitalization and an order for overnight oximetry was placed at the last visit, however continues to wait for testing. [facility] Medical History Sleep apnea GERD (gastroesophageal reflux disease) Anxiety with depression Hyperlipidemia Bleeding hemorrhoids Surgical History H/O vasectomy History of hemorrhoidectomy (~06/05/24) Hx of tonsillectomy Family History Paternal Grandfather Cancer Other Alcohol abuse Social History Household Members: Spouse and Family Housing: House Do you presently have visiting nurse or other home services: No Alcohol intake: current Alcohol intake frequency: holidays/special occasions on ly Patient Tobacco Use Status: Never used Tobacco e-Cigarette/Vaping Use: Never Used Second Hand Smoke Exposure: No Substance Use Type: Marijuana Current occupational status: employed Current occupational exposures/hazards: No Sexual orientation: Unable to collect Gender identity: Unable to collect Cognitive needs: No Hearing needs: No Vision needs: No Review of Systems Const Denies chills, Denies excessive sweating, Denies fever(s), Denies headache(s) and Denies night sweats Eyes Denies dry eyes, Denies irritation and Denies itchy eyes ENT Reports Normal hearing present, Denies headache(s), Denies nasal congestion, Denies nasal discharge, Denies post nasal drip and Denies sore throat Card Denies chest pain, Denies chest pain at rest, Denies chest pain with activity, Denies claudication, Denies leg edema, Denies dyspnea, Denies dyspnea on exertion, Denies orthopnea and Denies paroxysmal nocturnal dyspnea Resp Denies chest congestion, Denies cough, Denies excessive phlegm production, Denies pain on inspiration, Denies pain with cough, Denies dyspnea, Denies dyspnea on exertion, Denies stridor and Denies wheezing Musc Denies myalgias Neuro Reports Normal hearing present and Denies headache(s) Endo Denies excessive sweating Elias/Lymph Denies lymphadenopathy Aller/Immun Denies itchy eyes, Denies seasonal rhinorrhea and Denies wheezing Physical Exam Vital Signs: Last Vital Signs Pulse 87 05/17/25 10:29 BP 122/68 05/17/25 10:29 Pulse Ox 96 05/17/25 10:29 Oxygen Delivery Method Room Air 05/17/25 10:29 BMI result Body Mass Index 40.4 Const General: cooperative, healthy appearing, comfortable, no acute distress, well developed and alert Nutritional Appearance: obese Orientation/consciousness: patient oriented x3 Limitations: no limitations HEENT Head: Yes normal to inspection, Yes normocephalic and Yes atraumatic Ears: hearing grossly normal bilaterally and external ears normal Eyes General: appearance normal, both eyes and all related structures Eyelids: Yes eyelids normal Sclerae: sclerae normal EOM: EOMs intact bilaterally Neck Neck: Yes normal visual inspection and Yes no lymphadenopathy Lymphatic: no lymphadenopathy noted Chest Chest palpation & inspection: normal inspection of the chest Resp Effort & Inspection: normal respiratory effort, able to speak in complete sentences, no audible wheezes, no cough, no stridor, not tachypneic, no tripod positioning and no use of accessory muscles Auscultation: clear to auscultation bilaterally Cardio Jugular venous distension: no JVD Rate: regular rate Rhythm: regular rhythm Skin Other: warm, dry General skin exam: no rashes or lesions noted Neuro General: patient oriented x3 Cranial nerves: Yes Normal hearing present Cognition (Neuro): normal cognition Gait exam (Neuro): Normal gait present Extrem General: Yes normal to inspection, Yes capillary refill normal, Yes no clubbing, cyanosis or edema and Yes no pedal edema Psych Appearance: grossly normal and well kempt Speech and movement: Normal speech and movement present and Clear speech present Affect: normal affect Attitude: cooperative Thought process: Normal thought process present Thought content: Normal thought content present Insight: Good insight present (Psych) Judgement: Good judgement present (Psych) Results Reviewed Results Reviewed: [place] [address] CT Scan Report Signed Patient: Nando Street MR#: [id number] : 1990 Acct:[id number] Age/Sex: 34 / M ADM Date: 05/03/25 Loc: HO.CT Attending Dr: Katie Hutchins NP Ordering Physician: Katie Hutchins NP Date of Service: 05/03/25 Procedure(s): CT angio chest PE protocol Accession Number(s): [id number] cc: Maldonado Patterson MD; Katie Hutchins NP~ Report Number: [id number]: Total DLP = 212.00 mGy-cm EXAMINATION: CT CHEST ANGIOGRAPHY WITH IV CONTRAST INDICATION: I26.99 - Other pulmonary embolism without acute cor pulmonale COMPARISON: Comparison is made with the prior examination dated 01/16/2025. TECHNIQUE: Helical CT scan of the chest was performed following administration of intravenous contrast (65 mL Omnipaque 350). The contrast bolus was timed to optimally opacify the pulmonary arteries. Thin sections were obtained through the pulmonary arteries. Coronal and sagittal reformatted images were generated. 3D/MIP reconstructed images are also obtained and reviewed. This CT exam was performed with one or more of the following dose reduction techniques: automated exposure control, adjustment of the mA and/or kV according to patient size, use of iterative reconstruction technique. DLP: 212 mGy-cm CHEST: THYROID: The thyroid gland is unremarkable. PULMONARY ARTERIES: No intraluminal filling defects are identified within the pulmonary arteries to suggest pulmonary emboli. The previously seen pulmonary emboli have resolved. LUNGS: There is a 3 mm nodule in the right upper lobe (series 8, image 56) which was not evident previously. The lungs are otherwise clear. MEDIASTINUM: There is no mediastinal lymphadenopathy. SIRISHA: There is no hilar lymphadenopathy. CARDIOVASCULATURE: The heart is normal in size. There is no pericardial effusion. The thoracic aorta is normal in caliber. DEGREE OF CORONARY CALCIFICATION: none PLEURA: There is no pleural effusion. No pneumothorax. MAIN AIRWAYS: The mainstem bronchi and proximal branches are patent. AXILLA: There is no axillary lymphadenopathy. UPPER ABDOMEN: The visualized portions of the liver and adrenals are unremarkable. The spleen is enlarged. BONES AND SOFT TISSUES: Unremarkable. CT/CT angio chest PE protocol IMPRESSION: 1. No evidence of acute pulmonary emboli. The previously seen pulmonary emboli have resolved. 2. Splenomegaly. 3. 3 mm right upper lobe nodule. Please see Fleischner Society guidelines below. Fleischner Criteria for pulmonary nodule follow-up SOLID NODULES: Low risk patient: <6mm: no follow-up 6-8mm: 6 month follow-up CT >8mm: PET/Biopsy/ 3 month follow-up CT High risk patient: <6mm: 12 month follow-up CT 6-8mm: 6 month follow-up CT >8mm: PET/Biopsy/ 3 month follow-up CT SUB-SOLID/GROUNDGLASS NODULES: All patients: > or = 6mm: 6 month follow-up CT *Please note that in patients in the following categories, the Fleischner criteria do not apply: Immunocompromised, lung cancer screening population, age below 35, and patients with known malignancy Electronically signed by: Ladarius Huerta MD 05/03/2025 03:35 PM EDT RP Dictated By: Ladarius Huerta MD Signed By: <Electronically signed by Ladarius Huerta MD in OV> 05/03/25 1535 DD/ 1451 TD/TT: 05/03/25 1524 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: Assessment & Plan Assessment & Plan (1) Bilateral pulmonary embolism: Code(s): I26.99 - Other pulmonary embolism without acute cor pulmonale Category: Medical (2) History of thrombectomy: Code(s): Z98.890 - Other specified postprocedural states; Z86.718 - Personal history of other venous thrombosis and embolism Category: Surgical (3) Nocturnal hypoxemia: Code(s): G47.34 - Idiopathic sleep related nonobstructive alveolar hypoventilation Category: Medical (4) KIMBERLI on CPAP: Code(s): G47.33 - Obstructive sleep apnea (adult) (pediatric) Category: Medical (5) Pulmonary nodule: Code(s): R91.1 - Solitary pulmonary nodule Category: Medical Plan Nando has been evaluated by hematology and will have further workup for hypercoaguable states, continuing Eliquis for at least 6 months, with the possibility of further treatment depending on evaluation with heme for bilateral PE 01/2025. Repeat CTA performed which revealed resolution of PE, there was note of 3 mm RUL pulmonary nodule. Will repeat in one year to assess stability. At this time, he denies any respiratory symptoms, using albuterol MDI infrequently. He is aware to call if symptoms change. He has been compliant with CPAP therapy, previously required 1L supplemental oxygen with use. At the last visit an order for overnight oximetry was sent to [facility] however patient never received. Will reach out to [facility] to process order. All questions were answered and patient is in agreement of plan. Will follow up in 6 months or sooner if needed. Orders: Orders CT chest wo IV con 11 Months R91.1 - Solitary pulmonary nodule Coding Level of Care Code Est Pt Level 4 (16691) Diagnoses Bilateral pulmonary embolism I26.99 History of thrombectomy Z98.890; Z86.718 Nocturnal hypoxemia G47.34 KIMBERLI on CPAP G47.33 Pulmonary nodule R91.1
--- OUTSIDE RECORDS SUMMARY | 2025-05-17 12:27 | XMS_ITS | Encounter Summary ---
Author Organization [facility] Address [address] [place] [phone] Phone Care Team Providers Care Circus Roustabout Name Role Phone Carly Dang MD Primary Care Provider [phone] Encounter Details Date Type Department Care Team (Late st Contact Info) Description 06/28/2011 Documentation EM Family Medicine [address] [place] [address] Family Medicine, Physician [address] [place] [address] Social History Tobacco Use Types Packs/Day Years [...] on filedocumented in this encounter Care Teams Circus Roustabout Relationship Specialty Start Date End Date Carly Dang MD [address] [place] [address] [place] [id number] PCP - General 04/19/17 02/13/23 documented as of this encounter
--- OUTSIDE RECORDS SUMMARY | 2025-05-17 12:27 | XMS_ITS | Clinical Summary ---
Author Organization [facility] Address [address] [place] [phone] Phone Care Team Providers Care Blast Furnace Supervisor Name Role Phone Unavailable Primary Care Provider [...] (1 - 3-dose SCD M series) 2017 Influenza Vaccines (#1) 2025 COVID-19 Vaccine (1 - 2023-2 5 season) 2025 HIB Vaccines Aged Out No longer [...]
--- OUTSIDE RECORDS SUMMARY | 2025-05-17 12:27 | XMS_ITS | Clinical Summary ---
Author Organization [facility] Address [address] [place] [address] Phone Care Team Providers Care Senior Regulatory Affairs Specialist Name Role Phone Maldonado Patterson MD [...] Team Description 04/29/2025 9:30 AM EDT Telemedicine [facility] Hematology at [facility] [address] [place] [address] Caitie Serrano MD 04/06/2025 11:00 AM EDT Office Visit [facility] and [facility] [address] [facility], 8th [place] [address] Caitie Serrano MD History of pulmonary embolism (Primary Dx) from Last 3 Months Social History Tobacco [...] HIV ONE-TIME SCREENING (18-6 5 YEARS) 2008 INFLUENZA VACCINE (#1) 2025 COVID-19 VACCINE ( - 2023-2 5 season) 2025 CREATININE LEVEL 01/01/2026 01/01/2025, 02/10/2023 SMOKING STATUS [...] History of pulmonary embolism PROTHROMBIN GENE MUTATION ([id number]) Routine 04/06/2025 11:50 AM EDT History of pulmonary embolism APC RESISTANCE (FACTOR V LEIDEN) Routine 04/06/2025 11:50 AM EDT History of pulmonary embolism [id number] I ANTIBODIES Routine 04/06/2025 11:50 AM EDT History of pulmonary embolism ANTI-CARDIOLIPIN ANTIBODIES Routine 04/06/2025 11:50 AM EDT History of pulmonary embolism BASIC METABOLIC PANEL STAT 01/01/2025 8:15 PM EDT from Last 3 Months or Most Recently Relevant to Health Maintenance Results * Anti XA Screen (04/06/2025 11:50 AM EDT) Only the most recent of2 resultswithin the time period is included. Anti-Xa Screen Detected [facility] Comment:Anti-Xa assay was pe rformed to determine presence/absence of heparin or other Xa inhibitors for interpretation. Result should not be used to monitor therapy. 04/06/2025 11:5 0 AM EDT 04/06/2025 11:54 AM EDT Caitie Serrano MD LAB BLOOD ORDERABLES Final Re sult Performing Organization Address City/[facility] Co de Phone Number [address] [address] * PTT (04/06/2025 11:50 AM EDT) Only the most recent of2 resultswithin the time period is included. APTT 32.0 24.0 - 37.5 sec [facility] 04/06/2025 11:5 0 AM EDT 04/06/2025 11:54 AM EDT Caitie Serrano MD LAB BLOOD ORDERABLES Final Re sult Performing Organization Address City/[facility]/ZIP Co de Phone Number [address] [address] * INR (04/06/2025 11:50 AM EDT) Only the most recent of2 resultswithin the time period is included. PROTHROMBIN TIME 11.7 10.0 - 13.0 sec [facility] INR 1.0 0.9 - 1.1 [facility] 04/06/2025 11:5 0 AM EDT 04/06/2025 11:54 AM EDT Result [facility] Caitie Serrano MD LAB BLOOD ORDERABLES Final Re sult Performing Organization Address [facility] de Phone Number [address] [address] * Special coagulation interpretation (04/06/2025 11:50 AM EDT) Only the most recent of2 resultswithin the time period is included. Pathologist [facility] SPECIAL COAG INTERP. (NOTE) [facility] Comment: 1. The PT and PTT are normal. An anti-Xa assay detects an anticoagulant, presumably apixaban per chart review. DOAC exposure can prolong the PT and, to a lesser extent, the PTT. PT and PTT can also be normal despite DOACs. 2. Protein C activity is normal. Performing Pathologist: Ibrahima Vaughan MD, MPH Signout Location: [facility] [address] [place] [address] Armature Inspector: Sonia Morel MD, PhD 04/06/2025 11:5 0 AM EDT 04/06/2025 11:54 AM EDT Caitie Serrano MD LAB BLOOD ORDERABLES Final Re sult Performing Organization Address [facility] Co de Phone Number [facility] [address] [place] [phone] * CBC with manual differential (04/06/2025 11:50 AM EDT) Pathologist [facility] WBC 4.83 4.00 - 10.00 K/uL [facility] LIC# [id number] RBC 5.01 4.50 - 6.40 M/uL [facility] LIC# [id number] HGB 15.7 13.5 - 18.0 g/dL [facility] LIC# [id number] HCT 46.7 40.0 - 54.0 % [facility] LIC# [id number] PLT 290 150 - 450 K/uL [facility] LIC# [id number] MCV 93.2 80.0 - 100.0 fL [facility] LIC# [id number] MCH 31.3 27.0 - 32.0 pg [facility] LIC# [id number] MCHC 33.6 32.0 - 36.0 g/dL [facility] LIC# [id number] RDW 12.5 11.5 - 14.5 % [facility] LIC# [id number] MPV 9.2 8.4 - 12.0 fL [facility] LIC# [id number] NRBC 0.00 0 /100 WBCs [facility] LIC# [id number] ABSOLUTE NRBC 0.00 0 K/uL [facility] LIC# [id number] BLASTS 0.0 0 % [facility] LIC# [id number] NEUTS (MANUAL) 55.4 48.0 - 76.0 % [facility] LIC# [id number] LYMPHS 33.1 18.0 - 41.0 % [facility] LIC# [id number] MONOS 9.2 4.0 - 11.0 % [facility] LIC# [id number] EOSINOPHIL 1.5 0.0 - 5.0 % [facility] LIC# [id number] BASOPHIL 0.8 0.0 - 1.5 % [facility] LIC# [id number] ABSOLUTE NEUTS 2.68 1.92 - 7.60 K/uL [facility] LIC# [id number] ABSOLUTE LYMPHS 1.60 0.72 - 4.10 K/uL [facility] LIC# [id number] ABSOLUTE MONOS 0.44 0.16 - 1.10 K/uL [facility] LIC# [id number] ABSOLUTE EOS 0.07 0.00 - 0.50 K/uL [facility] LIC# [id number] ABSOLUTE BASO 0.04 0.00 - 0.15 K/uL [facility] LIC# [id number] ABSOLUTE BLASTS 0.00 0 K/uL [facility] LIC# [id number] POLYCHROME Few [facility] LIC# [id number] DIFF METHOD MANUAL [facility] LIC# [id number] Blood 04/06/2025 11:5 0 AM EDT 04/06/2025 11:54 AM EDT Caitie Serrano MD LAB BLOOD ORDERABLES Final Re sult [facility] LIC# [id number] [address] [place] [address] * Protein S activity (04/06/2025 11:50 AM EDT) Protein S Activity, P 93 65 - 150 % [facility] DPT OF LAB MED AND PAT+ Comment: [...] MD LAB BLOOD ORDERABLES Final Re sult [facility] LAB MED AND PAT+ [address] [place] [address] * (ABNORMAL) Reticulocytes (04/06/2025 11:50 AM EDT) RETIC (%) 2.9(H) 0.7 - 2.5 % [facility] LIC# [id number] RETIC (ABSOLUTE) 0.1438 0.0315 - 0.1600 M/uL [facility] LIC# [id number] RETIC HGB EQUIV 34.2 30.2 - 35.6 pg [facility] LIC# [id number] Blood 04/06/2025 11:5 0 AM EDT 04/06/2025 11:54 AM EDT us Caitie Serrano MD LAB BLOOD ORDERABLES Final Re sult [facility] LIC# [id number] [address] [place] [address] * Prothrombin gene mutation ([id number]) (04/06/2025 11:50 AM EDT) PROTHROMBIN [id number] MUTATION, Negative Negative [facility] PTNT INTERPRETATION SEE NOTE [facility] MED AND PAT+ Comment: (NOTE) This individual DOES NOT have the Prothrombin F2 c.*97G>A (legacy numbering [id number]) variant. Although the Prothrombin (F2 c.*97G>A) variant is absent, this individual may have other genetic and environmental risk factors for thrombosis. If indicated, consider genetic consultation and counseling for this individual and potentially affected family members regarding laboratory testing. A portion of the testing process was performed at [facility] site [id number] ADDITIONAL INFORMATION This test uses TaqMan Genotyping chemistry to amplify and detect specific single nucleotide polymorphisms in purified genomic DNA. DISCLAIMER Patients receiving allogenic stem cell transplants prior to having blood drawn for DNA based testing may have false normal or abnormal results depending on the genotype of the stem cell donor. This test was developed and its performance characteristics determined by [facility] in a manner consistent with CLIA requirements. This test has not been cleared or approved by the U.S. Food and Drug Administration. PTNT REVIEWED BY Estrella Goetz M.D. [facility] OF LAB MED AND PAT+ Blood 04/06/2025 11:5 0 AM EDT 04/06/2025 11:54 AM EDT us Caitie Serrano MD LAB BLOOD ORDERABLES Final Re sult [facility] OF LAB MED AND PAT+ [address] [place] [address] * Nxym-2-vpyajshauppn I antibodies (04/06/2025 11:50 AM EDT) B2-GLYCOPROT IGM 1 0 - 19 CU [facility] Comment:SEMIQUANTITATIVE MET HOD PERFORMED B2-GLYCOPROT IGG 9 0 - 19 CU [facility] Comment:SEMIQUANTITATIVE MET HOD PERFORMED Blood 04/06/2025 11:5 0 AM EDT 04/06/2025 11:54 AM EDT us Caitie Serrano MD LAB BLOOD ORDERABLES Final Re sult Performing Organization Address [facility] Co de Phone Number [facility] [address] [place] [address] * (ABNORMAL) Lupus anticoagulant panel (04/06/2025 11:50 AM EDT) PTT-LA Negative for a lupus anticoagulant. Negative for a lupus anticoagul ant. [facility] DRVVT Screen Results are uninterpretable due to apixaban.(A) Negative for a lupus anticoagul ant. [facility] Blood 04/06/2025 11:5 0 AM EDT 04/06/2025 11:52 AM EDT us Caitie Serrano MD LAB BLOOD ORDERABLES Final Re sult [facility] [address] [place] [address] * (ABNORMAL) Anti-cardiolipin antibodies (04/06/2025 11:50 AM EDT) ANTICARDIOLIPIN IGM 2 0 - 19 CU [facility] Comment:SEMIQUANTITATIVE MET HOD PERFORMED ANTICARDIOLIPIN IGG 31(H) 0 - 19 CU [facility] Comment:SEMIQUANTITATIVE MET HOD PERFORMED Blood 04/06/2025 11:5 0 AM EDT 04/06/2025 11:54 AM EDT us Caitie Serrano MD LAB BLOOD ORDERABLES Final Re sult Performing Organization Address City/[facility] Co de Phone Number [facility] [address] [place] [address] * PTT (04/06/2025 11:50 AM EDT) APTT 31.3 22.7 - 35.9 sec [facility] LIC# [id number] Blood 04/06/2025 11:5 0 AM EDT 04/06/2025 11:54 AM EDT us Caitie Serrano MD LAB BLOOD ORDERABLES Final Re sult Performing Organization Address [facility] Co de Phone Number [facility] LIC# [id number] [address] [place] [address] * PT-INR (04/06/2025 11:50 AM EDT) Pathologist [facility] PT 13.8 12.1 - 14.8 sec [facility] LIC# [id number] INR 1.0 0.9 - 1.1 [facility] LIC# [id number] Blood 04/06/2025 11:5 0 AM EDT 04/06/2025 11:54 AM EDT Result [facility] us Caitie Serrano MD LAB BLOOD ORDERABLES Final Re sult Performing Organization Address [facility] Co de Phone Number [facility] LIC# [id number] [address] [place] [address] * (ABNORMAL) Basic metabolic panel (01/01/2025 8:15 PM EDT) SODIUM 137 133 - 146 mmol/L [facility] CHLORIDE 101 96 - 108 mmol/L [facility] POTASSIUM 3.9 3.3 - 5.1 mmol/L [facility] CO2 27 21 - 35 mmol/L [facility] BUN 12 6 - 19 mg/dL [facility] CREATININE 0.90 0.5 - 1.5 mg/dL [facility] GLUCOSE 109(H) 70 - 99 mg/dL [facility] CALCIUM 8.8 8.4 - 10.3 mg/dL [facility] EGFR 115 >59 mL/min/1.7 3m2 [facility] Comment:Estimated glomerular filtration rate calculated using the CKD-EPI refit equation. ANION GAP 13 10 - 20 mmol/L [facility] Blood 01/01/2025 8:15 PM EDT 01/01/2025 8:19 PM EDT us Abran Edwards PA-C LAB BLOOD ORDERABLES Final R esult [facility] [address] [place] [address] from Last 3 Months or Most Recently Relevant to Health Maintenance Insurance [facility] [id number] [employer] [address] [employer] [place] [address] [facility] Care Teams Senior Regulatory Affairs Specialist Relationship Specialty Start Date End Date Maldonado Patterson MD [address] [place] [address] PCP - General Family Medicine 02/10/23 Pcp, Not Required [address] [place] [address] 01/19/25 Additional Source Comments The information contained in this document represents components of the legal health record. It is not the complete legal health record.[facility]
== END 2025-05-17 10:54 | disposition home or self-care (01) ==
LOC: HO.HPS 10:28
PROVIDERS: PCP Family Medicine; Visit Provider Nurse Practitioner Family
DX: I26.99 Other pulmonary embolism without acute cor pulmonale (principal); Z98.890 Other specified postprocedural states; Z86.718 Personal history of other venous thrombosis and embolism; G47.34 Idiopathic sleep related nonobstructive alveolar hypoventilation; G47.33 Obstructive sleep apnea (adult) (pediatric); R91.1 Solitary pulmonary nodule
CPT/HCPCS: 99214

== ENCOUNTER 2025-06-02 08:46 | Outpatient (REF) | payer BC, SELFPAY ==
[2025-06-02 12:38] LABS: Alanine Aminotransferase 49 U/L (0-40); Albumin Level 4.6 g/dL (3.5-5.0); Alkaline Phosphatase 76 U/L (39-117); Anion Gap 11 (12-20); Aspartate Amino Transferase 39 U/L (5-37); Blood Urea Nitrogen 13 mg/dL (9-16); Calcium 9.8 mg/dL (8.4-10.2); Carbon Dioxide 28 mmol/L (22-29); Chloride 105 mmol/L (96-108); Cholesterol 141 mg/dL (<200); Estimated Glomerular Filt Rate > 60; HDL Cholesterol 30 mg/dL (>40); Potassium 4.2 mmol/L (3.3-5.1); Sodium 140 mmol/L (135-145); Total Protein 7.6 g/dL (6.5-8.0); Triglycerides 105 mg/dL (<150)
== END 2025-06-02 08:47 | disposition home or self-care (01) ==
LOC: HO.WFDLDS 08:46
PROVIDERS: PCP Family Medicine; Visit Provider Family Medicine
DX: E78.5 Hyperlipidemia, unspecified (principal); I26.99 Other pulmonary embolism without acute cor pulmonale; E66.01 Morbid (severe) obesity due to excess calories; R09.02 Hypoxemia; R09.81 Nasal congestion; Z68.41 Body mass index [BMI] 40.0-44.9, adult; Z00.00 Encounter for general adult medical examination without abnormal findings
CPT/HCPCS: 36415; 80053; 80061

== ENCOUNTER 2025-06-02 08:46 | Outpatient (AMB) | payer BC, SELFPAY ==
--- NOTE | 2025-06-02 08:47 | A.OFFPC_ITS ---
Vital Signs 06/02/25 08:51 Height 6 ft Weight 295 lb BMI 40.0 BP 122/64 Blood Pressure Location Lt brachial Position Sitting Respiration 16 Pulse 80 Pulse Source Pulse Oximeter Temp 98.2 F Temp Source Oral Pulse Oximetry (%) 97 Oxygen Delivery Method Room Air Intake Visit Reasons: f/u chronic conditions Intake Note: patient here for follow up on chronic conditions [employer] Judge Required: No Allergies No Known Allergies (No Known Allergies*) Allergy (Verified 06/02/25 08:50) Medication List - Last Reconciled 06/02/25 by Maldonado Patterson MD albuterol sulfate 90 mcg/actuation 2 puffs inhalation Q4-6H PRN 90 days apixaban (Eliquis) 5 mg PO BID 90 days atorvastatin 40 mg PO BEDTIME 90 days magnesium 250 mg PO BEDTIME semaglutide (weight loss) (Wegovy) 0.25 mg (0.5 mL) subcut QWEEK 28 days venlafaxine ER 150 mg PO DAILY 90 days Tobacco use date assessed: 06/02/25 Dental Screening Dental Screen Date: 06/02/25 Did you have a dental visit in the last 12 months?: Yes Did you have a dental problem in the last 6 months where you did not have access to dental care?: No Was dental information given to patient?: Patient has dentist HPI f/u chronic conditions HPI Details 34 y/o male presents to f/u chronic ondi tions. Recent CT 05/03/25 showed no evidence of acute pulmonary emboli. Recently prescribed Wegovy. Weight today 295lbs. Has been having complaints of nasal congestion. He has been trying to use zyrtec for relief which he notes did not help much. HPI Comments History of Present Illness Details Documentation assistance for Maldonado Patterson MD, was provided by Tani Rios,? Ride Operator on 06/02/2025 at 9:11 AM EST. I, Dr. Patterson, have read, observed, and verified documentation. [facility] Medical History Sleep apnea GERD (gastroesophageal reflux disease) Anxiety with depression Hyperlipidemia Bleeding hemorrhoids Surgical History H/O vasectomy History of hemorrhoidectomy (~06/05/24) Hx of tonsillectomy Family History Paternal Grandfather Cancer Other Alcohol abuse Social History Household Members: Spouse and Family Housing: House Do you presently have visiting nurse or other home services: No Alcohol intake: current Alcohol intake frequency: holidays/special occasions only Patient Tobacco Use Status: Never used Tobacco e-Cigarette/Vaping Use: Never Used Second Hand Smoke Exposure: No Substance Use Type: Marijuana service: No Current occupational status: employed Current occupational exposures/hazards: No Sexual orientation: Unable to collect Gender identity: Unable to collect Cognitive needs: No Hearing needs: No Vision needs: No Questionnaire Thrive Questionnaire Date Thrive assessed: 10/30/24 I am a: Patient What is your living situation today?: I have a steady place to live Within the past 12 months, did the food you bought not last and you didn't have the money to get more?: Never true Within the past 12 months, did you worry whether your food would run out before you got money to buy more?: Never true Do you have trouble paying for medicines?: No Do you have trouble getting transportation to medical appointments?: No Do you have trouble paying your heating and electricity bill?: No Do you have trouble taking care of your child, family member or friend?: No Do you have trouble with day-to-day activities such as bathing, preparing meals, shopping, managing finances, etc.?: No Are you currently unemployed and looking for a job?: No Are you interested in more education?: Yes Please select the resources that you would like help with: None Currently or been in a relationship where the following occur: No concerns reported THRIVE Score: 0 PENG-7 AMB Questionnaire PENG-7 Date PENG - 7 assessed: 10/30/24 Source: Developed by Drs. Ladarius Jerry, Марина Hillman, Beck Arellano and colleagues, with an educational carlos from [employer]. Review of Systems Const Denies chills, Denies fatigue, Denies fever(s), Denies headache(s) and Denies weakness ENT Denies dizziness, Denies headache(s) and Reports nasal congestion Card Denies dyspnea Resp Denies cough, Denies dyspnea, Denies wheezing and Denies other (shortness of breath) Musc Denies numbness and Denies tingling Neuro Denies dizziness, Denies headache(s), Denies numbness, Denies tingling and Denies weakness Psych Denies anxiety and Denies depression Endo Denies fatigue Aller/Immun Denies wheezing Physical exam (Primary Care) Vital Signs: Last Vital Signs Temp 98.2 F 06/02/25 08:51 Pulse 80 06/02/25 08:51 Resp 16 06/02/25 08:51 BP 122/64 06/02/25 08:51 Pulse Ox 97 06/02/25 08:51 Oxygen Delivery Method Room Air 06/02/25 08:51 BMI result Body Mass Index 40.0 Tobacco/Smoking Status: Tobacco use Status Tobacco use date assessed 06/02/25 06/02/25 08:53 Patient Tobacco Use Status Never used Tobacco 06/02/25 08:48 e-Cigarette/Vaping Use Never Used 06/02/25 08:48 Thrive Assessment: Date of Thrive Assessment Date Thrive assessed 10/30/24 06/02/25 08:48 Currently or been in a relationship where the following occur: No concerns reported Const General: well developed; No acute distress Nutritional Appearance: well nourished Orientation/consciousness: patient oriented x3 [facility] Head: Yes normocephalic and Yes atraumatic Eyes General: appearance normal, both eyes and all related structures Pupils: Equal, round and reactive pupils present EOM: EOMs intact bilaterally Resp Effort & Inspection: normal respiratory effort Neuro General: patient oriented x3 and gait normal Cranial nerves: Yes Equal, round and reactive pupils present Psych Affect: normal affect Coding Level of Care Code Est Pt Level 4 (45114) Diagnoses Pulmonary embolus I26.99 Morbid obesity with BMI of 40.0-44.9, adult E66.01; Z68.41 Hyperlipidemia E78.5 Hypoxia R09.02 Nasal congestion R09.81 Assessment & Plan Assessment & Plan (1) Pulmonary embolus: Code(s): I26.99 - Other pulmonary embolism without acute cor pulmonale Category: Medical Plan: Most recent CTA showed no further pulmonary emboli He remains on Eliquis and is followed by [facility] H[facility]ology[facility]On[facility] as well as his local hematology oncologist. Recommended completion of hypercoagulability workup and he can follow-up on results with his local Heme-Onc Will likely consider decreasing his dose and completing 1 year of Eliquis Follow-up with Hematology-Oncology as recommended (2) Morbid obesity with BMI of 40.0-44.9, adult: Code(s): E66.01 - Morbid (severe) obesity due to excess calories; Z68.41 - Body mass index [BMI] 40.0-44.9, adult Category: Medical Plan: Patient has lost about 17 lb on Wegovy Tolerating well Will increase his dose to 0.5 mg weekly (3) Hyperlipidemia: Code(s): E78.5 - Hyperlipidemia, unspecified Category: Medical Plan: Had increased atorvastatin at his last visit He is also losing weight Recheck lipids (4) Hypoxia: Code(s): R09.02 - Hypoxemia Category: Medical Plan: Nighttime oximetry has now being completed He will discuss results with pulmonology He is using his CPAP Follow-up with pulm as recommended (5) Nasal congestion: Code(s): R09.81 - Nasal congestion Category: Medical Plan: Significant nasal congestion and likely has allergy triggers Discussed reducing exposure to triggers and also medications he can try. He does note that he is using a nasal spray that has oxymetazoline and he likely has oxymetazoline rebound phenomenon Advised he will to stop this and symptoms will likely worsen for up to week before improving. Orders: Orders Lipid Panel Today E78.5 - Hyperlipidemia, unspecified, Z00.00 - Encounter for general adult medical examination without abnormal findings Comprehensive [place]. Panel Fast Today E78.5 - Hyperlipidemia, unspecified, Z00.00 - Encounter for general adult medical examination without abnormal findings Medications: Changed From semaglutide (weight loss) (Wegovy) administer weeks 1 through 4 of therapy 0.25 mg (0.5 mL) subcut QWEEK 28 days 2 mL 3RF E66.01 - Morbid (severe) obesity due to excess calories, G47.30 - Sleep apnea, unspecified, G47.34 - Idiopathic sleep related nonobstructive alveolar hypoventilation, Z68.41 - Body mass index [BMI] 40.0-44.9, adult To semaglutide (weight loss) administer weeks 1 through 4 of therapy 0.5 mg (0.5 mL) subcut QWEEK 2 mL 3RF 28 days E66.01 - Morbid (severe) obesity due to excess calories, G47.30 - Sleep apnea, unspecified, G47.34 - Idiopathic sleep related nonobstructive alveolar hypoventilation, Z68.41 - Body mass index [BMI] 40.0-44.9, adult
[2025-06-02 08:51] VITALS: BP 122/64; PULSE 80; RESP 16; TEMP 36.8; O2SAT 97; BMI 40.0
--- OUTSIDE RECORDS SUMMARY | 2025-06-02 09:58 | XMS_ITS | Clinical Summary ---
Author Organization [facility] Address [address] [place] [address] Phone Care Team Providers Care Senior Financial Name Role Phone Unavailable Primary Care Provider [...]
--- OUTSIDE RECORDS SUMMARY | 2025-06-02 09:58 | XMS_ITS | Encounter Summary ---
Author Organization [facility] Address [address] [place] [address] Phone Care Team Providers Care Sr Vice President Name Role Phone Carly Dang MD Primary Care Provider [phone] Encounter Details Date Type Department Care Team (Late st Contact Info) Description 06/28/2011 Documentation EM Family Medicine [address] [place] [address] Family Medicine, Physician [address] [place] [address] Social History Tobacco Use Types Packs/Day Years [...] on filedocumented in this encounter Care Teams Sr Vice President Relationship Specialty Start Date End Date Carly Dang MD [address] [place] [address] [place] [address] PCP - General 04/19/17 02/13/23 documented as of this encounter
--- OUTSIDE RECORDS SUMMARY | 2025-06-02 09:58 | XMS_ITS | Clinical Summary ---
Author Organization [facility] Address [address] [place] [address] Phone Care Team Providers Care Solar Business Developer Name Role Phone Maldonado Patterson MD Primary Care Provider Pcp, Not Required Unavailable Unavailable Key Bunrs MD Unavailable [phone] Allergies No known active allergies Medications venlafaxine [...] Take 1 tablet by mouth daily. Active Active Problems Problem Noted Date Diagnosed Date History of pulmonary embolism 05/26/2025 Encounters Date Type Department Care Team Description 04/29/2025 9:30 AM EDT Telemedicine [facility] Hematology at [facility] [address] [place] [address] Caitie Serrano MD History of pulmonary embolism (Primary Dx) 04/06/2025 11:00 AM EDT Office Visit [facility] [address] [facility], 8th [place] [address] Caitie Serrano MD History of pulmonary embolism [...] 04/06/2025 9:47 AM EDT Plan of Treatment Upcoming Encounters Date Type Department Care Team (Late st Contact Info) Description 08/19/2025 4:30 PM EST Telemedicine [facility] Hematology at [facility] [address] [address] Caitie Serrano MD [address] [place] [id number] [email or web address] Maintenance Due Date Last Done Comments Adult Td,Tdap Booster 1990 DEPRESSION SCREENING 2002 HEPATITIS C SCREENING 2008 HIV ONE-TIME SCREENING (18-6 5 YEARS) 2008 INFLUENZA VACCINE (#1) 2025 COVID-19 VACCINE (2023-2 5 season) 2025 CREATININE LEVEL 01/01/2026 01/01/2025, [...] History of pulmonary embolism PROTHROMBIN GENE MUTATION ([id number]) Routine 04/06/2025 11:50 AM EDT History of pulmonary embolism APC RESISTANCE (FACTOR V LEIDEN) Routine 04/06/2025 11:50 AM EDT History of pulmonary embolism [id number] I ANTIBODIES Routine 04/06/2025 11:50 AM EDT [...] Pathologist [facility] Anti-Xa Screen Detected [facility] Comment:Anti-Xa assay was pe rformed to determine presence/absence of heparin or other Xa inhibitors for interpretation. Result should not be used to monitor therapy. 04/06/2025 11:5 0 AM EDT 04/06/2025 11:54 AM EDT us Caitie Serrano MD LAB BLOOD ORDERABLES Final Re sult [facility] [address] [place] [address] * PTT (04/06/2025 11:50 AM EDT) Only the most recent of2 resultswithin the time period is included. APTT 32.0 24.0 - 37.5 sec [facility] 04/06/2025 11:5 0 AM EDT 04/06/2025 11:54 AM EDT Result [facility] Caitie Serrano MD LAB BLOOD ORDERABLES Final Re sult Performing Organization Address [facility] Co de Phone Number [address] [address] * INR (04/06/2025 11:50 AM EDT) Only the most recent of2 resultswithin the time period is included. PROTHROMBIN TIME 11.7 10.0 - 13.0 sec [facility] INR 1.0 0.9 - 1.1 [facility] 04/06/2025 11:5 0 AM EDT 04/06/2025 11:54 AM EDT Result [facility] Caitie Serrano MD LAB BLOOD ORDERABLES Final Re sult Performing Organization Address [facility] Co de Phone Number [address] [address] * Special coagulation interpretation (04/06/2025 11:50 AM EDT) Only the most recent of2 resultswithin the time period is included. Pathologist [facility] SPECIAL COAG INTERP. (NOTE) [facility] DEPARTMENT OF PATHOLOGY Comment: 1. The PT and PTT are normal. An anti-Xa assay detects an anticoagulant, presumably apixaban per chart review. DOAC exposure can prolong the PT and, to a lesser extent, the PTT. PT and PTT can also be normal despite DOACs. 2. Protein C activity is normal. Performing Pathologist: Ibrahima Vaughan MD, MPH Signout Location: [facility] [address] [place] [address] Party Plan Salesperson: Sonia Morel MD, PhD 04/06/2025 11:5 0 AM EDT 04/06/2025 11:54 AM EDT Result [facility] Caitie Serrano MD LAB BLOOD ORDERABLES Final Re sult [facility] DEPARTMENT OF PATHOLOGY [address] [place] [address] * CBC with manual differential (04/06/2025 11:50 AM EDT) WBC 4.83 4.00 - 10.00 K/uL [facility] LIC# [id number] RBC 5.01 4.50 - 6.40 M/uL [facility] LIC# [id number] HGB 15.7 13.5 - 18.0 g/dL [facility] LIC# [id number] HCT 46.7 40.0 - 54.0 % [facility] LIC# [id number] PLT 290 150 - 450 K/uL [facility] LIC# [id number] MCV 93.2 80.0 - 100.0 fL [facility] LIC# [id number] MCH 31.3 27.0 - 32.0 pg [facility] LIC# [id number] MCHC 33.6 32.0 - 36.0 g/dL [facility] LIC# [id number] RDW 12.5 11.5 - 14.5 % [facility] LIC# [id number] MPV 9.2 8.4 - 12.0 fL [facility] LIC# [id number] NRBC 0.00 0 /100 WBCs [facility] LIC# [id number] ABSOLUTE NRBC 0.00 0 K/uL [facility] LIC# [id number] BLASTS 0.0 0 % [facility] LIC# [id number] NEUTS (MANUAL) 55.4 48.0 - 76.0 % [facility] LIC# [id number] LYMPHS 33.1 18.0 - 41.0 % [facility] LIC# [id number] MONOS 9.2 4.0 - 11.0 % [facility] LIC# [id number] EOSINOPHIL 1.5 0.0 - 5.0 % [facility] LIC# [id number] BASOPHIL 0.8 0.0 - 1.5 % [facility] LIC# [id number] ABSOLUTE NEUTS 2.68 1.92 - 7.60 K/uL [facility] LIC# [id number] ABSOLUTE LYMPHS 1.60 0.72 - 4.10 K/uL [facility] LIC# [id number] ABSOLUTE MONOS 0.44 0.16 - 1.10 K/uL [facility] LIC# [id number] ABSOLUTE EOS 0.07 0.00 - 0.50 K/uL [facility] LIC# [id number] ABSOLUTE BASO 0.04 0.00 - 0.15 K/uL [facility] LIC# [id number] ABSOLUTE BLASTS 0.00 0 K/uL [facility] LIC# [id number] POLYCHROME Few [facility] LIC# [id number] DIFF METHOD MANUAL [facility] LIC# [id number] Blood 04/06/2025 11:5 0 AM EDT 04/06/2025 11:54 AM EDT us Caitie Serrano MD LAB BLOOD ORDERABLES Final Re sult [facility] LIC# [id number] [address] [place] [address] * Protein S activity (04/06/2025 11:50 AM EDT) Protein S Activity, P 93 65 - 150 % [facility] DPT OF LAB MED AND PAT+ [...] MD LAB BLOOD ORDERABLES Final Re sult [facility] DPT OF LAB MED AND PAT+ [address] [place] [address] * (ABNORMAL) Reticulocytes (04/06/2025 11:50 AM EDT) RETIC (%) 2.9(H) 0.7 - 2.5 % [facility] LIC# [id number] RETIC (ABSOLUTE) 0.1438 0.0315 - 0.1600 M/uL [facility] LIC# [id number] RETIC HGB EQUIV 34.2 30.2 - 35.6 pg [facility] LIC# [id number] Blood 04/06/2025 11:5 0 AM EDT 04/06/2025 11:54 AM EDT Caitie Serrano MD LAB BLOOD ORDERABLES Final Re sult [facility] LIC# [id number] [address] [place] [address] * Prothrombin gene mutation ([id number]) (04/06/2025 11:50 AM EDT) PROTHROMBIN [id number] MUTATION, Negative Negative [facility] PAT+ PTNT INTERPRETATION SEE NOTE [facility] DPT OF LAB MED AND PAT+ Comment: (NOTE) This individual DOES NOT have the Prothrombin F2 c.*97G>A (legacy numbering [id number]) variant. Although the Prothrombin (F2 c.*97G>A) variant is absent, this individual may have other genetic and environmental risk factors for thrombosis. If indicated, consider genetic consultation and counseling for this individual and potentially affected family members regarding laboratory testing. A portion of the testing process was performed at [facility] site [id number] ADDITIONAL INFORMATION This test uses TaqMan Genotyping chemistry to amplify and detect specific single nucleotide polymorphisms in purified genomic DNA. DISCLAIMER Patients receiving allogenic stem cell transplants prior to having blood drawn for DNA based testing may have false normal or abnormal results depending on the genotype of the stem cell donor. This test was developed and its performance characteristics determined by [facility] in a manner consistent with CLIA requirements. This test has not been cleared or approved by the U.S. Food and Drug Administration. PTNT REVIEWED BY Estrella Goetz M.D. [facility] DPT OF LAB MED AND PAT+ Blood 04/06/2025 11:5 0 AM EDT 04/06/2025 11:54 AM EDT Caitie Serrano MD LAB BLOOD ORDERABLES Final Re sult Performing Organization Address [facility] Co de Phone Number [facility] DPT OF LAB MED AND PAT+ [address] [place] [address] * Xtqa-4-nignlskoxfqw I antibodies (04/06/2025 11:50 AM EDT) B2-GLYCOPROT IGM 1 0 - 19 CU [facility] Comment:SEMIQUANTITATIVE MET HOD PERFORMED B2-GLYCOPROT IGG 9 0 - 19 CU [facility] Comment:SEMIQUANTITATIVE MET HOD PERFORMED Blood 04/06/2025 11:5 0 AM EDT 04/06/2025 11:54 AM EDT Caitie Serrano MD LAB BLOOD ORDERABLES Final Re sult [facility] [address] [place] [address] * (ABNORMAL) Lupus anticoagulant panel (04/06/2025 11:50 AM EDT) PTT-LA Negative for a lupus anticoagulant. Negative for a lupus anticoagul ant. [facility] DRVVT Screen Results are uninterpretable due to apixaban.(A) Negative for a lupus anticoagul ant. [facility] Blood 04/06/2025 11:5 0 AM EDT 04/06/2025 11:52 AM EDT Caitie Serrano MD LAB BLOOD ORDERABLES Final Re sult Performing Organization Address City/[facility]/ZIP Co de Phone Number [facility] [address] [place] [address] * (ABNORMAL) Anti-cardiolipin antibodies (04/06/2025 11:50 AM EDT) ANTICARDIOLIPIN IGM 2 0 - 19 CU [facility] Comment:SEMIQUANTITATIVE MET HOD PERFORMED ANTICARDIOLIPIN IGG 31(H) 0 - 19 CU [facility] Comment:SEMIQUANTITATIVE MET HOD PERFORMED Blood 04/06/2025 11:5 0 AM EDT 04/06/2025 11:54 AM EDT Caitie Serrano MD LAB BLOOD ORDERABLES Final Re sult Performing Organization Address [facility] Co de Phone Number [facility] [address] [place] [address] * PTT (04/06/2025 11:50 AM EDT) APTT 31.3 22.7 - 35.9 sec [facility] LIC# [id number] Blood 04/06/2025 11:5 0 AM EDT 04/06/2025 11:54 AM EDT Caitie Serrano MD LAB BLOOD ORDERABLES Final Re sult Performing Organization Address [facility] Co de Phone Number [facility] LIC# [id number] [address] [place] [address] * PT-INR (04/06/2025 11:50 AM EDT) PT 13.8 12.1 - 14.8 sec [facility] [place] LIC# [id number] INR 1.0 0.9 - 1.1 [facility] LIC# [id number] Blood 04/06/2025 11:5 0 AM EDT 04/06/2025 11:54 AM EDT us Caitie Serrano MD LAB BLOOD ORDERABLES Final Re sult [facility] LIC# [id number] [address] [place] [address] * (ABNORMAL) Basic metabolic panel (01/01/2025 8:15 PM EDT) SODIUM 137 133 - 146 mmol/L [facility] CHLORIDE 101 96 - 108 mmol/L [facility] POTASSIUM 3.9 3.3 - 5.1 mmol/L [facility] CO2 27 21 - 35 mmol/L [facility] BUN 12 6 - 19 mg/dL [facility] CREATININE 0.90 0.5 - 1.5 mg/dL [facility] GLUCOSE 109(H) 70 - 99 mg/dL [facility] CALCIUM 8.8 8.4 - 10.3 mg/dL [facility] EGFR 115 >59 mL/min/1.7 3m2 [facility] Comment:Estimated glomerular filtration rate calculated using the CKD-EPI refit equation. ANION GAP 13 10 - 20 mmol/L [facility] Blood 01/01/2025 8:15 PM EDT 01/01/2025 8:19 PM EDT us Abran Edwards PA-C LAB BLOOD ORDERABLES Final R esult [facility] [address] [place] [address] from Last 3 Months or Most Recently Relevant to Health Maintenance Insurance [facility] [address] [place] [address] [place] [address] [facility] [employer] [facility] [address] [facility] Care Teams Solar Business Developer Relationship Specialty Start Date End Date Maldonado Patterson MD [address] [place] [address] PCP - General Family Medicine 02/10/23 Pcp, Not Required [address] [place] [address] 01/19/25 Key Burns MD [address] [place] [address] [email or web address] Hematology and Oncology 05/26/25 Additional Source Comments The information contained in this document represents components of the legal health record. It is not the complete legal health record.[facility]
== END 2025-06-02 09:30 | disposition home or self-care (01) ==
LOC: HO.HMCFM 08:47
PROVIDERS: PCP Family Medicine; Visit Provider Family Medicine
DX: I26.99 Other pulmonary embolism without acute cor pulmonale (principal); E66.01 Morbid (severe) obesity due to excess calories; Z68.41 Body mass index [BMI] 40.0-44.9, adult; E78.5 Hyperlipidemia, unspecified; R09.02 Hypoxemia; R09.81 Nasal congestion

== ENCOUNTER 2025-09-01 08:43 | Outpatient (AMB) | payer BC, SELFPAY ==
--- NOTE | 2025-09-01 08:48 | MHC.PC.OV ---
Vital Signs 09/01/25 08:52 Height 6 ft Weight 295 lb 2 oz BMI 40.0 BP 112/60 Blood Pressure Location Rt brachial Position Sitting Respiration 16 Pulse 96 Pulse Source Pulse Oximeter Temp 97.2 F Temp Source Temporal Artery Scan Pulse Oximetry (%) 95 Oxygen Delivery Method Room Air Intake Visit Reasons: f/u chronic conditions Intake Note: Nando presents in the office today for a follow up to weight loss, wegovy and his lipids. Application Security Developer Required: No Allergies No Known Allergies (No Known Allergies*) Allergy (Verified 09/01/25 08:51) Medication List - Last Reconciled 09/01/25 by Maldonado Patterson MD albuterol sulfate 90 mcg/actuation 2 puffs inhalation Q4-6H PRN 90 days apixaban (Eliquis) 5 mg PO BID 90 days atorvastatin 40 mg PO BEDTIME 90 days magnesium 250 mg PO BEDTIME semaglutide (weight loss) 0.5 mg (0.5 mL) subcut QWEEK 28 days venlafaxine ER 150 mg PO DAILY 90 days Tobacco use date assessed: 09/01/25 Dental Screening Dental Screen Date: 09/01/25 Did you have a dental visit in the last 12 months?: Yes Did you have a dental problem in the last 6 months where you did not have access to dental care?: No Was dental information given to patient?: Patient has dentist HPI f/u chronic conditions HPI Details 35 y/o male presents to f/u chronic conditions. Had been following up with [facility] for bilateral pulmonary emboli 01/2025. He is on Eliquis. Labs drawn 06/02/25. Reviewed labs with pt. Elevated liver enzymes - AST 39, ALT 49. Triglycerides 105. TC 141. LDL 90. HDL low at 30. Pt is on wegovy 0.5mg for weight. Pt notes he is interested in stopping it. HPI Comments History of Present Illness Details Documentation assistance for Maldonado Patterson MD, was provided by Tani Rios,[employer] on 09/01/2025 at 9:05 AM FRACISCO. I, Dr. Patterson, have read, observed, and verified documentation. FORMERLY [facility], [facility] Medical History Sleep apnea GERD (gastroesophageal reflux disease) Anxiety with depression Hyperlipidemia Bleeding hemorrhoids Surgical History H/O vasectomy History of hemorrhoidectomy (~06/05/24) Hx of tonsillectomy Family History Paternal Grandfather Cancer Other Alcohol abuse Social History (Updated 09/01/25 @ 08:52 by Beatrice Teran CMA) Household Members: Spouse and Family Housing: House Do you presently have visiting nurse or other home services: No Alcohol intake: current Alcohol intake frequency: holidays/special occasions only Patient Tobacco Use Status: Never used Tobacco e-Cigarette/Vaping Use: Never Used Second Hand Smoke Exposure: No Use of substances other than those prescribed or required for medical reasons: No Substance Use Type: Marijuana service: No Current occupational status: employed Current occupational exposures/hazards: No Sexual orientation: Unable to collect Gender identity: Unable to collect Cognitive needs: No Hearing needs: No Vision needs: No Questionnaire Thrive Questionnaire Date Thrive assessed: 10/30/24 I am a: Patient What is your living situation today?: I have a steady place to live Within the past 12 months, did the food you bought not last and you didn't have the money to get more?: Never true Within the past 12 months, did you worry whether your food would run out before you got money to buy more?: Never true Do you have trouble paying for medicines?: No Do you have trouble getting transportation to medical appointments?: No Do you have trouble paying your heating and electricity bill?: No Do you have trouble taking care of your child, family member or friend?: No Do you have trouble with day-to-day activities such as bathing, preparing meals, shopping, managing finances, etc.?: No Are you currently unemployed and looking for a job?: No Are you interested in more education?: Yes Currently or been in a relationship where the following occur: No concerns reported THRIVE Score: 0 PENG-7 AMB Questionnaire PENG-7 Date PENG - 7 assessed: 10/30/24 Source: Developed by Drs. Ladarius Jerry, Марина Hillman, Beck Arellano and colleagues, with an educational carlos from [employer]. Review of Systems Const Denies chills, Denies fatigue, Denies fever(s), Denies headache(s) and Denies weakness ENT Denies dizziness and Denies headache(s) Card Denies dyspnea Resp Denies cough, Denies dyspnea, Denies wheezing and Denies other (shortness of breath) Musc Denies numbness and Denies tingling Neuro Denies dizziness, Denies headache(s), Denies numbness, Denies tingling and Denies weakness Psych Denies anxiety and Denies depression Endo Denies fatigue Aller/Immun Denies wheezing Physical exam (Primary Care) Vital Signs: Last Vital Signs Temp 97.2 F 09/01/25 08:52 Pulse 96 09/01/25 08:52 Resp 16 09/01/25 08:52 BP 112/60 09/01/25 08:52 Pulse Ox 95 09/01/25 08:52 Oxygen Delivery Method Room Air 09/01/25 08:52 BMI result Body Mass Index 40.0 Tobacco/Smoking Status: Tobacco use Status Tobacco use date assessed 09/01/25 09/01/25 08:56 Patient Tobacco Use Status Never used Tobacco 09/01/25 08:52 e-Cigarette/Vaping Use Never Used 09/01/25 08:52 Thrive Assessment: Date of Thrive Assessment Date Thrive assessed 10/30/24 09/01/25 08:49 Currently or been in a relationship where the following occur: No concerns reported Const General: well developed; No acute distress Nutritional Appearance: well nourished and obese morbidly obese Orientation/consciousness: patient oriented x3 [facility] Head: Yes normocephalic and Yes atraumatic Eyes General: appearance normal, both eyes and all related structures Pupils: Equal, round and reactive pupils present EOM: EOMs intact bilaterally Resp Effort & Inspection: normal respiratory effort Auscultation: clear to auscultation bilaterally Cardio Rate: regular rate Rhythm: regular rhythm Heart sounds: S1 normal heart sound present, S2 normal heart sound present, no gallops, no murmurs and no rubs Neuro General: patient oriented x3 and gait normal Cranial nerves: Yes Equal, round and reactive pupils present Psych Affect: normal affect Coding Level of Care Code Est Pt Level 4 (46400) Diagnoses Hyperlipidemia E78.5 Bilateral pulmonary embolism I26.99 Liver enzyme elevation R74.8 Morbid obesity with BMI of 40.0-44.9, adult E66.01; Z68.41 Assessment & Plan Assessment & Plan (1) Hyperlipidemia: Code(s): E78.5 - Hyperlipidemia, unspecified Category: Medical Plan: LDL cholesterol is improved on atorvastatin Continue current medication HDL is low and I encouraged increased exercise and a shift to an increased ratio of Ruby 3 fatty acids in his diet (2) Bilateral pulmonary embolism: Code(s): I26.99 - Other pulmonary embolism without acute cor pulmonale Category: Medical Plan: Followed by Hematology-Oncology Remains on Eliquis and has follow-up in about 2 months. (3) Liver enzyme elevation: Code(s): R74.8 - Abnormal levels of other serum enzymes Category: Medical Plan: Elevated liver enzymes somewhat steady. Ultrasound in March showed hepatic steatosis Encouraged weight loss (4) Morbid obesity with BMI of 40.0-44.9, adult: Code(s): E66.01 - Morbid (severe) obesity due to excess calories; Z68.41 - Body mass index [BMI] 40.0-44.9, adult Category: Medical Plan: Patient had lost weight at prior visit in May. Weight has remained about the same since then. He is on Wegovy but wants to stop this. He feels that the Wegovy may have been responsible for impulsive behaviors although the current consensus is that Wegovy and other GLP 1 medications tend to decrease impulsive behaviors. Nevertheless, we will stop Wegovy. Referring him to weight management Continue working on weight loss Orders: Orders Complete Blood Count Auto Diff Today Z00.00 - Encounter for general adult medical examination without abnormal findings Lipid Panel Today Z00.00 - Encounter for general adult medical examination without abnormal findings Prostate Specific Antigen Scr Today Z12.5 - Encounter for screening for malignant neoplasm of prostate Microalbumin, Random (w Creat) Today I10 - Essential (primary) hypertension UA CC w/rflx Micro + Cult Today Z00.00 - Encounter for general adult medical examination without abnormal findings Comprehensive [place]. Panel Fast Today Z00.00 - Encounter for general adult medical examination without abnormal findings TSH reflex Free T4 Today Z00.00 - Encounter for general adult medical examination without abnormal findings Referrals Medical Weight Management Referral E66.01 - Morbid (severe) obesity due to excess calories, E78.5 - Hyperlipidemia, unspecified, I26.99 - Other pulmonary embolism without acute cor pulmonale, K76.0 - Fatty (change of) liver, not elsewhere classified, R74.8 - Abnormal levels of other serum enzymes, Z68.41 - Body mass index [BMI] 40.0-44.9, adult Medications: Discontinued semaglutide (weight loss) administer weeks 1 through 4 of therapy Discontinued Reason: Doctor's Order 0.5 mg (0.5 mL) subcut QWEEK 28 days 2 mL 3RF E66.01 - Morbid (severe) obesity due to excess calories, G47.30 - Sleep apnea, unspecified, G47.34 - Idiopathic sleep related nonobstructive alveolar hypoventilation, Z68.41 - Body mass index [BMI] 40.0-44.9, adult
--- OUTSIDE RECORDS SUMMARY | 2025-09-01 08:48 | XMS_ITS | Clinical Summary ---
Author Organization [facility] Address [address] [place] [address] Phone Care Team Providers Care Core Winding Operator Name Role Phone Maldondao Patterson MD Primary Care Provider Pcp, Not Required Unavailable Unavailable Key Burns MD Unavailable [phone] Allergies No known active allergies Medications [...] Diagnosed Date History of pulmonary embolism 05/26/2025 Social History Tobacco Use Types Packs/Day Years [...] your housing situation today? I have suzan delgado 01/01/2025 How many times have you move [...] 2008 INFLUENZA VACCINE (#1) 2025 COVID-19 VACCINE (2024-2 6 season) 2025 CREATININE LEVEL 01/01/2026 01/01/2025, 02/10/2023 SCREENING FOR DIABETES 01/02/2028 01/01/2025 LIPID PANEL 02/11/2028 02/10/2023 SMOKING STATUS SCREENING (On ce After [...] Procedure Name Priority Date/Time Associated Diagnosis Comments BASIC METABOLIC PANEL (BMP) STAT 01/01/2025 8:15 PM EDT LIPID PANEL STAT 02/10/2023 10:53 PM EDT from Last 3 Months or Most Recently Relevant to Health Maintenance Results * (ABNORMAL) Basic metabolic panel (01/01/2025 8:15 PM EDT) SODIUM 137 133 - 146 mmol/L [facility] CHLORIDE 101 96 - 108 mmol/L [facility] POTASSIUM 3.9 3.3 - 5.1 mmol/L [facility] CO2 27 21 - 35 mmol/L [facility] BUN 12 6 - 19 mg/dL [facility] CREATININE 0.90 0.5 - 1.5 mg/dL [facility] GLUCOSE 109(H) 70 - 99 mg/dL [facility] CALCIUM 8.8 8.4 - 10.3 mg/dL [facility] EGFR 115 >59 mL/min/1.7 3m2 [facility] Comment:Estimated glomerular filtration rate calculated using the CKD-EPI refit equation. ANION GAP 13 10 - 20 mmol/L [facility] Blood 01/01/2025 8:15 PM EDT 01/01/2025 8:19 PM EDT Abran Edwards PA-C LAB BLOOD BKR ORDERABLES Fin al Result [facility] [address] [place] [address] * (ABNORMAL) Lipid panel (02/10/2023 10:53 PM EDT) HDL 28 mg/dL [facility] Comment: Interpretation <40 mg/dL: Low HDL cholesterol (major risk factor for CHD) Greater than or equal to 60 mg/dL: High HDL cholesterol ( negative risk factor for CHD) HDL - cholesterol is affected by a number of factors, e.g. smoking, excerise, hormones, sex and age. CHOLESTEROL 202 0 - 240 mg/dL [facility] TRIGLYCERIDES 589(H) 30 - 160 mg/dL [facility] LDL NOT CALCULATED 50 - 129 mg/dL [facility] Comment: Unable to calculate due to elevated TRIG of greater than 400. A measured LDL will be performed. CARDIAC RISK RATIO 7.2(H) 3.4 - 5.0 [facility] Blood 02/10/2023 10:5 3 PM EDT 02/10/2023 11:12 PM EDT us Juan Hoover MD LAB BLOOD BKR ORDERABLES Final Result [address] [address] from Last 3 Months or Most Recently Relevant to Health Maintenance [place] [address] [place] [address] [facility] [place] [address] [facility] [employer] [facility] [employer] [facility] [place] [address] [facility] Care Teams Core Winding Operator Relationship Specialty Start Date End Date Maldonado Patterson MD PCP - General Family Medicine 02/10/23 Pcp, Not Required 01/19/25 Key Burns MD [address] [place] [address] [email or web address] Hematology and Oncology 05/26/25 Additional Source Comments The information contained in this document represents components of the legal health record. It is not the complete legal health record.[facility]
--- OUTSIDE RECORDS SUMMARY | 2025-09-01 08:48 | XMS_ITS | Clinical Summary ---
Author Organization [facility] Address [address] [place] [address] Phone Care Team Providers Care Limnology Teacher Name Role Phone Unavailable Primary Care Provider [...] Vaccines (#1) 2025 COVID-19 Vaccine (1 - 2024-2 6 season) 2025 HIB Vaccines Aged Out No [...] topic Meningococcal Vaccine Aged Out No chester mroelia eligible based on patient's age to complete this topic Pneumococcal Vaccine Aged Out No long er eligible based on patient's age to complete this topic
--- OUTSIDE RECORDS SUMMARY | 2025-09-01 08:48 | XMS_ITS | Encounter Summary ---
Author Organization [facility] Address [address] [place] [address] Phone Care Team Providers Care Mechanical Engineering Teacher Name Role Phone Carly Dang MD Primary Care Provider [phone] Encounter Details Date Type Department Care Team (Late st Contact Info) Description 06/28/2011 Documentation EM Family Medicine [address] [place] [address] Family Medicine, Physician [address] [place] [address] Social History Tobacco Use Types Packs/Day Years [...] on filedocumented in this encounter Care Teams Mechanical Engineering Teacher Relationship Specialty Start Date End Date Carly Dang MD [address] [place] [address] [place] [address] PCP - General 04/19/17 02/13/23 documented as of this encounter
[2025-09-01 08:52] VITALS: BP 112/60; PULSE 96; RESP 16; TEMP 36.2; O2SAT 95; BMI 40.0
== END 2025-09-01 09:17 | disposition home or self-care (01) ==
LOC: HO.HMCFM 08:43
PROVIDERS: PCP Family Medicine; Visit Provider Family Medicine
DX: E78.5 Hyperlipidemia, unspecified (principal); I26.99 Other pulmonary embolism without acute cor pulmonale; R74.8 Abnormal levels of other serum enzymes; E66.01 Morbid (severe) obesity due to excess calories; Z68.41 Body mass index [BMI] 40.0-44.9, adult